=== PATIENT | male | born 1970 | race African-American/Black ===

== ENCOUNTER 2019-04-03 13:38 | Emergency (ER) | payer OTHER ==
--- NOTE | 2019-04-03 14:49 | ER ---
Nurse's Notes Formerly [facility] Name: Placido Van Age: 49 yrs Sex: Male : 1970 Arrival Date: 04/03/2019 Time: 13:43 Bed Waiting Private MD: Diagnosis: Presentation: 04/03 13:55 Presenting complaint: Nosebleed that stated 40 mins [employer]. Pt stated "That heparin they hb give me in dialysis made my nose bleed.". Transition of care: patient was not received from another setting of care. Onset of symptoms was April 03, 2019. Risk Assessment: Do you want to hurt yourself or someone else? Patient reports no desire to harm self or others. Initial Sepsis Screen: Does the patient meet any 2 criteria? No. Patient's initial sepsis screen is negative. Does the patient have a suspected source of infection? No. Patient's initial sepsis screen is negative. Care prior to arrival: None. 13:55 Method Of Arrival: Ambulatory hb 13:55 Acuity: DYLAN 3 hb Historical: - Allergies: 13:58 No Known Allergies; hb - PMHx: 13:58 HD - //Tue; hb - Immunization history:: Adult Immunizations up to date. - Social history:: Smoking status: Patient uses tobacco products, denies chronic smoking, but will smoke occasionally. - Ebola Screening: : No symptoms or risks identified at this time. Assessment: 14:47 Reassessment: Pt instructed by PCP to go to dialysis, left after triage. hb Vital Signs: 13:58 BP 176 / 95; Pulse 101; Resp 17; Temp 98.5; Pulse Ox 98% on R/A; Weight 82.55 kg; hb Height 5 ft. 8 in. (172.72 cm); Pain 0/10; 13:58 Body Mass Index 27.67 (82.55 kg, 172.72 cm) hb ED Course: 13:43 Patient arrived in ED. mr 13:57 Triage completed. hb 13:58 Arm band placed on left wrist. hb Administered Medications: No medications were administered Outcome: 14:47 Patient left the ED. hb Signatures: Cathi Minaya Heather, RN RN hb
== END 2019-04-03 14:47 | disposition left against medical advice (07) ==
LOC: ER 13:38
DX: Z02.6 Encounter for examination for insurance purposes (principal)
CPT/HCPCS: 99281

== ENCOUNTER 2020-04-30 15:38 | Emergency (ER) | payer OTHER ==
--- OUTSIDE RECORDS SUMMARY | 2020-04-30 15:40 | XMS REPORT | Clinical Summary ---
:1970 Author Organization [facility] Address [address] [place] [id number] Care Team Providers Name Role Phone Eufemiakareem Primary Care Provider Allergies Active Allergy Reactions Severity Noted Date Comments Pregabalin 05/23/2019 Medications Not on file Active Problems Not on file Encounters Date Type Specialty Care Team Description 11/13/2019 Abstract Transplant Meena Caceres 09/18/2019 Telephone Transplant Meena Caceres Appointment ( Called patient to reschedule miss ed day one renal txp eval appt. Patient stated he will call ne xt week to reschedule as h e has been having transpor tation issues.) 09/10/2019 Telephone Transplant Corine Fountain (Left a message for the patient to call back and confirm his belen t for 09.11.2019 for kidney armendariz splant) 08/10/2019 Telephone Transplant Corine Fountain (Per Mrs. Van the patient panchito l be here for the class on Aug 14, 2013 and Mrs. Marietta dempsey is aware to check in at 7:30 am no later than 8am to all ow time for registration) 07/05/2019 Telephone Transplant Meena Caceres Appointment ( Called patient to reschedule his missed day one renal txp eval appt. Patient feeling under t he weather asked if I could call back tomorrow 07/06 to resched ule.) 06/26/2019 Telephone Transplant Corine Fountain (Left a message for Mr. Van to call back to reschedule his appt ) 06/25/2019 Telephone Transplant Corine Fountain (Left a message for Mr. 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 Last Filed Vital Signs Vital Sign Reading Time Taken Blood Pressure - - Pulse - - Temperature - - Respiratory Rate - - Oxygen Saturation - - Inhaled Oxygen Concentration - - Weight 92.5 kg (204 lb) 05/23/2019 12:27 PM CDT Height 172.7 cm (5' 8") 05/23/2019 12:27 PM CDT Body Mass Index 31.02 05/23/2019 12:27 PM CDT Plan of Treatment Not on file Results Not on fileafter 04/30/2019 Insurance Payer Benefit Plan / Group Subscriber ID Type Phone A ddress [employer] UNITED ONLY xxxxxxxxx Transplants - MEDICARE [facility] MEDICAID MEDICAID OF [place] xxxxxxxxx Medicaid
--- OUTSIDE RECORDS SUMMARY | 2020-04-30 15:49 | XMS REPORT | Continuity of Care Document ---
:1970 Author Organization [facility] t Address [address] [place] [address] Care Team Providers Name Role Phone Eufemiakareem Primary Care Physician Vtc-Lab Attending Clinician Unavailable Fitz HUERTA, K N Attending Clinician [place] Attending Clinician Unavailable [place] Attending Clinician Unavailable Anila MCMAHON Attending Clinician Unavailable Payers Payer Name Policy Policy Effective Expiration Source Type Number Date Date [facility] NETWK - xxxxxxxxx [facility]I MEDICARE MGD CAREOPTUM [facility] Medical REPLxxxxxxxxxTransplants [facility] MEDICAIDMEDICAID OF xxxxxxxxx [place] t [place] [facility] Problems This patient has no known problems. Allergies, Adverse Reactions, Alerts Allergy Allergy Status Severity Reaction(s) Onset Inactive Treating Comm ents Source Name Type Date Date Clinician gabapent DA Active MO 2020-0 [facility] in 04-27 Clear 00:00: Ayoub 00 [facility] pregabal DA Active SV 2020-0 [facility] in 04-27 Clear 00:00: Ayoub 00 [facility] gabapent DA Active MO 2020-0 [facility] in 02-13 Clear 00:00: Ayoub 00 [facility] pregabal DA Active SV 2020-0 [facility] in 7-16 Clear 00:00: Ayoub 00 [facility] gabapent DA Active MO 2020-0 [facility] in 1-26 Clear 00:00: Ayoub [facility] pregabal DA Active SV 2020-0 [facility] in 1- Clear 00:00: Ayoub [facility] gabapent DA Active MO 2020-0 [facility] in 1- Clear 00:00: Ayoub [facility] pregabal DA Active SV 2020-0 [facility] in 1 Clear 00:00: Ayoub [facility] gabapent DA Active MO 2019-1 [facility] in 2- Clear 00:00: Ayoub [facility] pregabal DA Active MO 2019-1 [facility] in 2- Clear 00:00: Ayoub [facility] gabapent DA Active MO 2019-1 [facility] in 1-18 [place] 00:00: d 00 [facility] [place] pregabal DA Active MO 2019-1 [facility] in 1-18 [place] 00:00: d 00 [facility] gabapent DA Active MO 2019-1 [facility] in 1-17 Clear 00:00: Ayoub [facility] pregabal DA Active MO 2019-1 [facility] in 1-17 Clear 00:00: Ayuob [facility] No Known DA Active U 2019-1 [facility] Drug 0-30 [place] Allergie 00:00: d s 00 [facility] [place] gabapent DA Active MO 2019-1 [facility] in 0-29 Clear 00:00: Ayoub 00 [facility] pregabal DA Active MO 2019-1 [facility] in 0-29 Clear 00:00: Ayoub 00 [facility] Pregabal Propensi Active 2019-[address] [facility] 0-23 [facility] - adverse [facility]: Medical reaction 00 [facility] s gabapent DA Active MO 2019-1 [facility] in 0-10 [facility] 00[facility]: d 00 [facility] pregabal DA Active MO 2019-1 [facility] in 0-10 [place] 00:[facility]: d 00 [facility] gabapent DA Active MO 2019-1 [facility] in 0-03 [facility] 00:[facility]: d 00 [facility] pregabal DA Active MO 2019-1 [facility] in 0-03 [place] 00:[facility]: d 00 [facility] gabapent DA Active MO 2019-0 [facility] in 9-24 Clear 00:00: Ayoub 00 [facility] pregabal DA Active MO 2018- [facility] in 04-24 Clear 00:00: Ayoub 00 [facility] No Known DA Active U 2019- [facility] Drug 03-28 Clear Allergie 00:00: Ayoub s 00 [facility] No Known DA Active U 2019-0 [facility] Allergie 8 [facility] 00:[facility]: d 00 [facility] No Known DA Active U 2019-0 [facility] Allergie 5 Clear s 00:00: Ayoub 00 [facility] No Known DA Active U 2019-0 [facility] Allergie 11-21 Clear s 00:00: Ayoub 00 [facility] No Known DA Active U 2019-0 [facility] Allergie 4 [facility] 00:00: d 00 [facility] Social History Social Habit Start Date Stop Date Quantity Comments Source Sex Assigned At [facility] Smoking Status Start Date Stop Date Source Current some day smoker 2019-08-09 00:00:00 [facility] Medications This patient has no known medications. Vital Signs Vital Name Observation Time Observation Value Comments Source Body height 2019-05-23 12:27:00 172.7 cm [facility] Body weight Measured 2019-05-23 12:27:00 92.534 kg [facility] BMI 2019-05-23 12:27:00 31.02 kg/m2 [facility] Procedures This patient has no known procedures. Encounters Start End Encounter Admission Attending Care Care Encounter Source Date/Time Date/Time Type Type Clinicians Facility Department ID 2020-04-01 2020-04-01 [facility] Vtc-Lab [facility] [id number] 09:30:37 09:45:37 Visit MULTISPEC [id number] IALTY [id number] [place] [id number] [facility] 2020-03-10 2020-03-10 Case zAeb [facility] [id number] 00:00:00 00:00:00 Management doKiya MULTISPEC 350.1.13.10 [facility] [id number] [place] [id number] [facility] 2020-01-22 2020-03-06 [facility] [id number] 06:56:55 18:12:43 ne Visit Kiya louise MULTISPEC 350.1.13.10 [facility] 4.2.7.2.686 [place] [id number] [facility] Results Test Description Test Time Test Comments Results Result Comments Source BASIC METABOLIC PANEL 2020-04-29 12:10:00 Test Item Value Reference Range Interpretation Comme nts SODIUM (test code = NA) 133 mEq/L 134-147 L POTASSIUM (test code = K) 4.8 mEq/L 3.4-5.0 N CHLORIDE (test code = CL) 94 mEq/L 100-108 L CARBON DIOXIDE (test code = CO2) 34 mEq/L 21-33 H ANION GAP (test code = GAP) 10 0-20 N GLUCOSE (test code = GLU) 204 mg/dL 70-110 H BLOOD UREA NITROGEN (test code = 40 mg/dL 7-18 H BUN) GLOMERULAR FILTRATION RATE (test 6.6 90-95 L Units of measure = ml/min/1.73 code = GFR) m2 CREATININE (test code = CREAT) 10.1 mg/dL 0.6-1.3 H CALCIUM (test code = CA) 9.0 mg/dL 8.0-10.5 N ACUTE HEPATITIS [id number] 22:03:00 Test Item Value Reference Range Interpretation Comments AB HEPATITIS A IGM (test NON REACTIVE INDEX NON REACT. code = HAVMAB) AG HEPATITIS B SURFACE NON REACTIVE INDEX NonReactive (test code = HBSAG) AB HEPATITIS B CORE IGM NON REACTIVE INDEX NON REACT. (test code = HBCMAB) AB HEPATITIS C (test code NON REACTIVE INDEX NON REACT. = HCVAB) BASIC METABOLIC [id number] 11:11:00 Test Item Value Reference Range Interpretation Comments SODIUM (test code = NA) 131 mEq/L 134-147 L POTASSIUM (test code = 5.4 mEq/L 3.4-5.0 H K) CHLORIDE (test code = 95 mEq/L 100-108 L CL) CARBON DIOXIDE (test 29 mEq/L 21-33 N code = CO2) ANION GAP (test code = 12 0-20 N GAP) GLUCOSE (test code = 127 mg/dL 70-110 H GLU) BLOOD UREA NITROGEN 57 mg/dL 7-18 H (test code = BUN) GLOMERULAR FILTRATION 4.3 90-95 L Units of measure = RATE (test code = GFR) ml/mi n/1.73 m2 CREATININE (test code = 14.8 mg/dL 0.6-1.3 H CREAT) CALCIUM (test code = 9.0 mg/dL 8.0-10.5 N CA) CBC W/AUTO [id number] 10:41:00 Test Item Value Reference Range Interpretation Comments WHITE BLOOD CELL (test code = 13.08 x10 3/uL 4.5-11.0 H WBC) RED BLOOD CELL (test code = 2.86 x10 6/uL 4.00-5.60 L RBC) HEMOGLOBIN (test code = HGB) 8.9 g/dL 12.5-16.9 L HEMATOCRIT (test code = HCT) 27.9 % 37.5-50.7 L MEAN CELL VOLUME (test code = 97.6 fL 81.0-99.0 N MCV) MEAN CELL HGB (test code = 31.1 pg 27.0-33.0 N MCH) MEAN CELL HGB CONCETRATION 31.9 g/dL 33.0-37.0 L (test code = MCHC) RED CELL DISTRIBUTION WIDTH CV 16.6 % 11.5-14.5 H (test code = RDW) RED CELL DISTRIBUTION WIDTH SD 60.1 fL 37.0-54.0 H (test code = RDW-SD) PLATELET COUNT (test code = 161 x10 3/uL 150-400 N PLT) MEAN PLATELET VOLUME (test 10.4 fL 7.0-9.0 H code = MPV) NEUTROPHIL % (test code = NT%) 89.0 % 56.0-77.0 H IMMATURE GRANULOCYTE % (test 0.6 % 0.0-2.0 N code = IG%) LYMPHOCYTE % (test code = LY%) 5.0 % 14.0-32.0 L MONOCYTE % (test code = MO%) 5.0 % 4.8-9.0 N EOSINOPHIL % (test code = EO%) 0.1 % 0.3-3.7 L BASOPHIL % (test code = BA%) 0.3 % 0.0-2.0 N NUCLEATED RBC % (test code = 0.0 % 0-0 N NRBC%) NEUTROPHIL # (test code = NT#) 11.64 x10 3/uL 2.0-7.6 H IMMATURE GRANULOCYTE # (test 0.08 x10 3/uL 0.00-0.03 H code = IG#) LYMPHOCYTE # (test code = LY#) 0.65 x10 3/uL 1.0-3.8 L MONOCYTE # (test code = MO#) 0.66 x10 3/uL 0.1-0.8 N EOSINOPHIL # (test code = EO#) 0.01 x10 3/uL 0.0-0.2 N BASOPHIL # (test code = BA#) 0.04 x10 3/uL 0.0-0.2 N NUCLEATED RBC # (test code = 0.00 x10 3/uL 0.0-0.1 N NRBC#) MANUAL DIFF REQUIRED (test NO code = MDIFF) - US SOFT TISSUE [id number] 15:26:00 Name: GINETTE GARCIA [facility] : 1970 Age/S: 50 / M [address] [place] [address] Unit #: [id number] Loc: [facility] [id number] Phys: Mehrdad Arreola MD Acct: [id number] Dis Date: Status: ADM IN PHONE #: [phone] Exam Date: 04/27/2020 1523 FAX #: [phone] Reason: right breast lump (patient is MALE) EXAMS: CPTCODE: [id number] US SOFT TISSUE TORSO [id number] RIGHT CHESTWALL ULTRASOUND 04/27/2020 AT 1506 HOURS. CLINICAL HISTORY: Male patient with right breast lump for 2 weeks. COMPARISONS: Chest CT angiogram 10/04/2019. FINDINGS:Grayscale and limited color Doppler evaluation of the right chest wall soft tissues was performed with a linear transducer. Particular attention was given to the area of palpable abnormality in the region of the nipple. What may represent mild focal gynecomastia is identifiedat this level. No fluid collection or acute inflammatory change. IMPRESSION: 1. Probable mild gynecomastia. 2. No inflammatory change or fluid collection. Please note that this study is tailored for detection of fluid and is not intendedto serve as a screening or diagnostic test for breast cancer. If this is a consideration, dedicated diagnostic ultrasound is recommended on an outpatient basis in conjunction with breast mammograms. SL: [id number] at 1526 Reported and signed by: Jose De Jesus Magdaleno M.D. CC: Faheem Max MD; Mehrdad Arreola MD Technologist: Pepe Mercado [facility] Date/Time: 04/27/2020 (1526) [email or web address] Orig Print D/T: S: 04/27/2020 (1530) Probe: PAGE 1 Signed ReportCoronavirus 2019 nCoV [id number] 15:16:00 Test Item Value Reference Range Interpretation Comments Coronavirus 2019 Negative Negative Negative re sults should be nCoV Bedside (test treated a s presumptive and, code = ifinconsistent with [id number]) clinical signs and symptoms or necessaryfor patient management, delaney uld be tested with an alternativemole cular assay. Negative result s do not preclude HCSD-RmW-2ozcui tion and should not be u sed as the sole basis forp atient management deci sions. Negative result s should beconsidered in the context of a patient's recent exposures,histo ry, presence of clinical sig ns and symptoms consis tentwith COVID-19. - XR CHEST 1 [id number] 14:48:00 FAX: Faheem Padilla MD [phone] [place]: St: ADM FAX: Mehrdad Burden MD [phone] Name: GINETTE GARCIA [facility] : 1970 Age/S: 50/M [address] [place] [address] Unit #: [id number] [place]: [place] [address] Phys: Mehrdad rAreola MD Acct: [id number] Dis Date: Status: ADM IN PHONE #: [phone] Exam Date: 04/27/2020 1446 FAX #: [phone] Reason: missed dialysis EXAMS: CPT CODE: [id number] XR CHEST 1 V 73795 PROCEDURE: Chest Radiograph. Clinical Indication: Missed dialysis, fistula malfunction. Comparison: Chest radiograph 02/14/2020. FINDINGS: The chest shows normal lung volumes without interstitial or airspace opacities, pleural effusions or pneumothorax. The heart size and pulmonary vasculature are normal. The trachea is mid line. There are no clinically significant osseous abnormalities noted. IMPRESSION: 1. No chest radiographic evidence of acute cardiopulmonary disease. SL: OCO-H at 4390 Reported and signed by: Gregg Berger M.D. CC: Faheem Max MD; Mehrdad Arreola MD Technologist: RT Ajay(R) Trnabdifatah Date/Time/By: 04/27/2020 (1443) : By: BarbieTDO Orig Print D/T: S: 04/27/2020 (0628) PAGE 1 Signed ReportLIPOPROTEIN [id number] 14:35:00 Test Item Value Reference Range Interpretation Comments LIPOPROTEIN LDL 78.7 mg/dL 0-100 N <100 OPT [id number] (test code = LDL) NEAR OPTIM AL/ABOVE [id number] 89 HIGH>ES=012 VE RY HIGH*Guidelines provided by the National Cholesterol EducationProgra m Adult Treatment Panel III PROTHROMBIN [id number] 14:30:00 Test Item Value Reference Range Interpretation Comments PROTHROMBIN TIME 11.7 SECONDS 9.3-12.9 N PATIENT (test code = PTP) INTERNATIONAL NORMAL 1.1 0.8-1.2 N TARGET RATIO (test code = INR BY IN DICATION INR) Indication INR1. Prophyl axis of venous thrombos is 2.0 - 3. 0 (orthopedic luisito levi), Prophylaxis of venous thrombos is (other than hig h-risk surgery), Marycarmen tment of Deep Vein Thrombosis/Pulm onary Embolism, Preve ntion of systemic emb olism - Tissue heart va lves, Acute Myocardia l Infarction (to prevent systemic embo lism), Valvular heart disease, Atri al Fibrillation, Bileaflet mecha nical valve in aortic position.2. Mec hanical prosthetic valv es (high risk), 2.5 - 3.5 Presence of Lupus Anticoagu lant or Antiphospholi pid Antibodies, Pre vention of systemic e mbolism - Acute Myocard ial Infarction (t o prevent recurre nt infarct). THROMBOPLASTIN TIME [id number] 14:30:00 Test Item Value Reference Range Interpretation Comments THROMBOPLASTIN TIME 35.2 Seconds 25.0-39.5 N Ther apeutic PARTIAL (test code = Range: 50.4 - 88.3 PTT) Seconds Effective 11/14/2018 PROTHROMBIN [id number] 14:29:00 Test Item Value Reference Range Interpretation Comments PROTHROMBIN TIME 11.7 SECONDS 9.3-12.9 N PATIENT (test code = PTP) INTERNATIONAL NORMAL 1.1 0.8-1.2 N TARGET RATIO (test code = INR BY IN DICATION INR) Indication INR1. Prophyl axis of venous thrombos is 2.0 - 3. 0 (orthopedic luisito levi), Prophylaxis of venous thrombos is (other than hig h-risk surgery), Marycarmen tment of Deep Vein Thrombosis/Pulm onary Embolism, Preve ntion of systemic emb olism - Tissue heart va lves, Acute Myocardia l Infarction (to prevent systemic embo lism), Valvular heart disease, Atri al Fibrillation, Bileaflet mecha nical valve in aortic position.2. Mec hanical prosthetic valv es (high risk), 2.5 - 3.5 Presence of Lupus Anticoagu lant or Antiphospholi pid Antibodies, Pre vention of systemic e mbolism - Acute Myocard ial Infarction (t o prevent recurre nt infarct). THROMBOPLASTIN TIME [id number] 14:29:00 Test Item Value Reference Range Interpretation Comments THROMBOPLASTIN TIME PARTIAL (test Seconds 25.0-39.5 code = PTT) COMPREHENSIVE METABOLIC [id number] 14:16:00 Test Item Value Reference Range Interpretation Comments SODIUM (test code = NA) 134 mEq/L 134-147 N POTASSIUM (test code = 4.7 mEq/L 3.4-5.0 N K) CHLORIDE (test code = 96 mEq/L 100-108 L CL) CARBON DIOXIDE (test 32 mEq/L 21-33 N code = CO2) ANION GAP (test code = 11 0-20 N GAP) GLUCOSE (test code = 130 mg/dL 70-110 H GLU) BLOOD UREA NITROGEN 46 mg/dL 7-18 H (test code = BUN) GLOMERULAR FILTRATION 5.2 90-95 L Units of measure = RATE (test code = GFR) ml/mi n/1.73 m2 CREATININE (test code = 12.5 mg/dL 0.6-1.3 H CREAT) TOTAL PROTEIN (test 7.0 g/dL 6.4-8.2 N code = PROT) ALBUMIN (test code = 3.70 g/dL 3.4-5.0 N ALB) CALCIUM (test code = 8.9 mg/dL 8.0-10.5 N CA) BILIRUBIN TOTAL (test 0.60 mg/dL 0.0-1.0 N code = BILT) SGOT/AST (test code = 15 IUnit/L 15-37 N AST) SGPT/ALT (test code = 11 IUnit/L 30-65 L ALT) ALKALINE PHOSPHATASE 146 IUnit/L 20-125 H TOTAL (test code = ALKP) [id number] 14:16:00 Test Item Value Reference Range Interpretation Comments TROPONIN-I 0.087 ng/mL 0.000-0.045 H Negative: <= (test code = 0.045 Positive: TROPI) >= 0.046 Correl ation with serial results, other cardiac markers andclin ical findings is necessary to determine the clinicalsignifi cance of this result. Results using different metho dologies should not be c omparedto one another as krystyna titative results may shania y by method. CBC W/AUTO [id number] 14:09:00 Test Item Value Reference Range Interpretation Comments WHITE BLOOD CELL (test code = 11.49 x10 3/uL 4.5-11.0 H WBC) RED BLOOD CELL (test code = 2.67 x10 6/uL 4.00-5.60 L RBC) HEMOGLOBIN (test code = HGB) 8.3 g/dL 12.5-16.9 L HEMATOCRIT (test code = HCT) 25.8 % 37.5-50.7 L MEAN CELL VOLUME (test code = 96.6 fL 81.0-99.0 N MCV) MEAN CELL HGB (test code = 31.1 pg 27.0-33.0 N MCH) MEAN CELL HGB CONCETRATION 32.2 g/dL 33.0-37.0 L (test code = MCHC) RED CELL DISTRIBUTION WIDTH CV 16.6 % 11.5-14.5 H (test code = RDW) RED CELL DISTRIBUTION WIDTH SD 58.9 fL 37.0-54.0 H (test code = RDW-SD) PLATELET COUNT (test code = 174 x10 3/uL 150-400 N PLT) MEAN PLATELET VOLUME (test 10.6 fL 7.0-9.0 H code = MPV) NEUTROPHIL % (test code = NT%) 86.6 % 56.0-77.0 H IMMATURE GRANULOCYTE % (test 0.7 % 0.0-2.0 N code = IG%) LYMPHOCYTE % (test code = LY%) 7.7 % 14.0-32.0 L MONOCYTE % (test code = MO%) 4.1 % 4.8-9.0 L EOSINOPHIL % (test code = EO%) 0.7 % 0.3-3.7 N BASOPHIL % (test code = BA%) 0.2 % 0.0-2.0 N NUCLEATED RBC % (test code = 0.0 % 0-0 N NRBC%) NEUTROPHIL # (test code = NT#) 9.95 x10 3/uL 2.0-7.6 H IMMATURE GRANULOCYTE # (test 0.08 x10 3/uL 0.00-0.03 H code = IG#) LYMPHOCYTE # (test code = LY#) 0.89 x10 3/uL 1.0-3.8 L MONOCYTE # (test code = MO#) 0.47 x10 3/uL 0.1-0.8 N EOSINOPHIL # (test code = EO#) 0.08 x10 3/uL 0.0-0.2 N BASOPHIL # (test code = BA#) 0.02 x10 3/uL 0.0-0.2 N NUCLEATED RBC # (test code = 0.00 x10 3/uL 0.0-0.1 N NRBC#) MANUAL DIFF REQUIRED (test NO code = MDIFF) BASIC METABOLIC [id number] 12:33:00 Test Item Value Reference Range Interpretation Comments SODIUM (test code = NA) 134 mEq/L 134-147 N POTASSIUM (test code = 5.0 mEq/L 3.4-5.0 K) CHLORIDE (test code = 94 mEq/L 100-108 L CL) CARBON DIOXIDE (test 28 mEq/L 21-33 N code = CO2) ANION GAP (test code = 17 0-20 N GAP) GLUCOSE (test code = 113 mg/dL 70-110 H GLU) BLOOD UREA NITROGEN 80 mg/dL 7-18 H (test code = BUN) GLOMERULAR FILTRATION 4.0 90-95 L Units of measure = RATE (test code = GFR) ml/mi n/1.73 m2 CREATININE (test code = 15.7 mg/dL 0.6-1.3 H CREAT) CALCIUM (test code = 7.9 mg/dL 8.0-10.5 L CA) CBC W/AUTO [id number] 12:13:00 Test Item Value Reference Range Interpretation Comments WHITE BLOOD CELL (test code = 8.11 x10 3/uL 4.5-11.0 N WBC) RED BLOOD CELL (test code = 4.18 x10 6/uL 4.00-5.60 N RBC) HEMOGLOBIN (test code = HGB) 13.0 g/dL 12.5-16.9 N HEMATOCRIT (test code = HCT) 39.1 % 37.5-50.7 N MEAN CELL VOLUME (test code = 93.5 fL 81.0-99.0 MCV) MEAN CELL HGB (test code = MCH) 31.1 pg 27.0-33.0 N MEAN CELL HGB CONCETRATION 33.2 g/dL 33.0-37.0 N (test code = MCHC) RED CELL DISTRIBUTION WIDTH CV 16.4 % 11.5-14.5 H (test code = RDW) RED CELL DISTRIBUTION WIDTH SD 56.6 fL 37.0-54.0 H (test code = RDW-SD) PLATELET COUNT (test code = 167 x10 3/uL 150-400 N PLT) MEAN PLATELET VOLUME (test code 10.7 fL 7.0-9.0 H = MPV) NEUTROPHIL % (test code = NT%) 68.8 % 56.0-77.0 N IMMATURE GRANULOCYTE % (test 0.2 % 0.0-2.0 N code = IG%) LYMPHOCYTE % (test code = LY%) 19.7 % 14.0-32.0 N MONOCYTE % (test code = MO%) 9.2 % 4.8-9.0 H EOSINOPHIL % (test code = EO%) 1.6 % 0.3-3.7 N BASOPHIL % (test code = BA%) 0.5 % 0.0-2.0 N NUCLEATED RBC % (test code = 0.0 % 0-0 N NRBC%) NEUTROPHIL # (test code = NT#) 5.57 x10 3/uL 2.0-7.6 N IMMATURE GRANULOCYTE # (test 0.02 x10 3/uL 0.00-0.03 N code = IG#) LYMPHOCYTE # (test code = LY#) 1.60 x10 3/uL 1.0-3.8 N MONOCYTE # (test code = MO#) 0.75 x10 3/uL 0.1-0.8 N EOSINOPHIL # (test code = EO#) 0.13 x10 3/uL 0.0-0.2 N BASOPHIL # (test code = BA#) 0.04 x10 3/uL 0.0-0.2 N NUCLEATED RBC # (test code = 0.00 x10 3/uL 0.0-0.1 N NRBC#) MANUAL DIFF REQUIRED (test code NO = MDIFF) - XR CHEST 2 [id number] 12:12:00 FAX: Faheem Padilla MD [phone] [place]: St: PRE FAX: Oscar Garcia MD [phone] Name: GINETTE GARCIA [facility] : 1970 Age/S: 49/M [address] [place] [address] Unit #: [id number] Loc: [place] [address] Phys: Oscar Maravilla MD Acct: G [id number] Dis Date: Status: PRE SDC PHONE #: [phone] Exam Date: 02/14/2020 113 FAX #: [phone] Reason: PRE-OP FISTULOGRAM EXAMS: CPT CODE: [id number] XR CHEST 2 V 66073 Study: - XR CHEST 2 V 02/14/2020 9:28 AM Patient Name: GINETTE GARCIA MR: [id number] : 1970; Age: 49 years y/o Male Ordering Physician: Oscar Maravilla MD Clinical Indication: PRE-OP FISTULOGRAM Comparison: October 05, 2019 x-ray FINDINGS LUNGS: The lungs are clear of consolidation, pleural effusion, and pneumothorax. HEART AND MEDIASTINUM: Normal size heart. The previously seen left subclavian approach pacemaker is been removed. LINES: None. OSSEOUS STRUCTURES: No fracture, dislocation, or suspicious focal osseous lesion. OTHER: None. IMPRESSION: No acute abnormality as above discussed. SL: [id number] at 1212 Reported and signed by: Luan Torres M.D. CC: Faheem Max MD;Oscar Maravilla MD Technologist: RT Jenni(R)(M) Trnscrd Date/Time/By: 02/14/2020 (9003) : By: [email or web address] Orig Print D/T: S: 02/14/2020 (1289) PAGE 1 Signed ReportBASIC METABOLIC PANEL 2020-02-14 11:32:00 Test Item Value Reference Range Interpretation Comments SODIUM (test code = NA) 131 mEq/L 134-147 L POTASSIUM (test code = 6.7 mEq/L 3.4-5.0 HH K) CHLORIDE (test code = 91 mEq/L 100-108 L CL) CARBON DIOXIDE (test 31 mEq/L 21-33 N code = CO2) ANION GAP (test code = 16 0-20 N GAP) GLUCOSE (test code = 270 mg/dL 70-110 H GLU) BLOOD UREA NITROGEN 60 mg/dL 7-18 H (test code = BUN) GLOMERULAR FILTRATION 4.9 90-95 L Units of measure = RATE (test code = GFR) ml/mi n/1.73 m2 CREATININE (test code = 13.2 mg/dL 0.6-1.3 H CREAT) CALCIUM (test code = 9.2 mg/dL 8.0-10.5 N CA) COVID 19 Asymptomatic IH [id number] 11:24:00 Test Item Value Reference Range Interpretation Comments COVID 19 Asymptomatic Negative Negative A nega tive result is IH AG (test code = presumpti ve and should COVNONPUIAG) be confirmedwit h an FDA authorized mole cular assay, if neces vito forpatient anisa gement.A positive result does not rule out co-inf ections withother patho gens.This test detects july th viable (live) and non-viable,SARS -CoV, and SARS-CoV-2. Candice t performance dep ends on theamount of vi khari (antigen) in th e sample.This candice t has not been FDA cleare d or approved; the t est hasbeen authori zed by FDA under an Em ergency Use Authorizati on(EUA) for use by labo ratories certified under the CLIA thatmeet the requirements to perform moderate, high or waivedcomplexit y tests. PROTHROMBIN [id number] 10:50:00 Test Item Value Reference Range Interpretation Comments PROTHROMBIN TIME 11.2 SECONDS 9.3-12.9 N PATIENT (test code = PTP) INTERNATIONAL NORMAL 1.0 0.8-1.2 N TARGET RATIO (test code = INR BY IN DICATION INR) Indication INR1. Prophyl axis of venous thrombos is 2.0 - 3. 0 (orthopedic luisito levi), Prophylaxis of venous thrombos is (other than hig h-risk surgery), Marycarmen tment of Deep Vein Thrombosis/Pulm onary Embolism, Preve ntion of systemic emb olism - Tissue heart va lves, Acute Myocardia l Infarction (to prevent systemic embo lism), Valvular heart disease, Atri al Fibrillation, Bileaflet mecha nical valve in aortic position.2. Mec hanical prosthetic valv es (high risk), 2.5 - 3.5 Presence of Lupus Anticoagu lant or Antiphospholi pid Antibodies, Pre vention of systemic e mbolism - Acute Myocard ial Infarction (t o prevent recurre nt infarct). THROMBOPLASTIN TIME [id number] 10:50:00 Test Item Value Reference Range Interpretation Comments THROMBOPLASTIN TIME 34.3 Seconds 25.0-39.5 N Ther apeutic PARTIAL (test code = Range: 50.4 - 88.3 PTT) Seconds Effective 11/14/2018 PROTHROMBIN [id number] 10:49:00 Test Item Value Reference Range Interpretation Comments PROTHROMBIN TIME 11.2 SECONDS 9.3-12.9 N PATIENT (test code = PTP) INTERNATIONAL NORMAL 1.0 0.8-1.2 N TARGET RATIO (test code = INR BY IN DICATION INR) Indication INR1. Prophyl axis of venous thrombos is 2.0 - 3. 0 (orthopedic luisito levi), Prophylaxis of venous thrombos is (other than hig h-risk surgery), Marycarmen tment of Deep Vein Thrombosis/Pulm onary Embolism, Preve ntion of systemic emb olism - Tissue heart va lves, Acute Myocardia l Infarction (to prevent systemic embo lism), Valvular heart disease, Atri al Fibrillation, Bileaflet mecha nical valve in aortic position.2. Mec hanical prosthetic valv es (high risk), 2.5 - 3.5 Presence of Lupus Anticoagu lant or Antiphospholi pid Antibodies, Pre vention of systemic e mbolism - Acute Myocard ial Infarction (t o prevent recurre nt infarct). THROMBOPLASTIN TIME [id number] 10:49:00 Test Item Value Reference Range Interpretation Comments THROMBOPLASTIN TIME PARTIAL (test Seconds 25.0-39.5 code = PTT) CBC W/AUTO [id number] 10:34:00 Test Item Value Reference Range Interpretation Comments WHITE BLOOD CELL (test code = 9.24 x10 3/uL 4.5-11.0 WBC) RED BLOOD CELL (test code = 4.60 x10 6/uL 4.00-5.60 N RBC) HEMOGLOBIN (test code = HGB) 14.3 g/dL 12.5-16.9 N HEMATOCRIT (test code = HCT) 45.1 % 37.5-50.7 N MEAN CELL VOLUME (test code = 98.0 fL 81.0-99.0 N MCV) MEAN CELL HGB (test code = MCH) 31.1 pg 27.0-33.0 N MEAN CELL HGB CONCETRATION 31.7 g/dL 33.0-37.0 L (test code = MCHC) RED CELL DISTRIBUTION WIDTH CV 16.4 % 11.5-14.5 H (test code = RDW) RED CELL DISTRIBUTION WIDTH SD 59.7 fL 37.0-54.0 H (test code = RDW-SD) PLATELET COUNT (test code = 177 x10 3/uL 150-400 N PLT) MEAN PLATELET VOLUME (test code 11.5 fL 7.0-9.0 H = MPV) NEUTROPHIL % (test code = NT%) 76.7 % 56.0-77.0 N IMMATURE GRANULOCYTE % (test 0.2 % 0.0-2.0 N code = IG%) LYMPHOCYTE % (test code = LY%) 15.2 % 14.0-32.0 N MONOCYTE % (test code = MO%) 6.6 % 4.8-9.0 N EOSINOPHIL % (test code = EO%) 0.9 % 0.3-3.7 N BASOPHIL % (test code = BA%) 0.4 % 0.0-2.0 N NUCLEATED RBC % (test code = 0.0 % 0-0 N NRBC%) NEUTROPHIL # (test code = NT#) 7.09 x10 3/uL 2.0-7.6 N IMMATURE GRANULOCYTE # (test 0.02 x10 3/uL 0.00-0.03 N code = IG#) LYMPHOCYTE # (test code = LY#) 1.40 x10 3/uL 1.0-3.8 N MONOCYTE # (test code = MO#) 0.61 x10 3/uL 0.1-0.8 N EOSINOPHIL # (test code = EO#) 0.08 x10 3/uL 0.0-0.2 N BASOPHIL # (test code = BA#) 0.04 x10 3/uL 0.0-0.2 N NUCLEATED RBC # (test code = 0.00 x10 3/uL 0.0-0.1 N NRBC#) MANUAL DIFF REQUIRED (test code NO = MDIFF) ACUTE HEPATITIS [id number] 08:09:00 Test Item Value Reference Range Interpretation Comments AB HEPATITIS A IGM (test NON REACTIVE INDEX NON REACT. code = HAVMAB) AG HEPATITIS B SURFACE NON REACTIVE INDEX NonReactive (test code = HBSAG) AB HEPATITIS B CORE IGM NON REACTIVE INDEX NON REACT. (test code = HBCMAB) AB HEPATITIS C (test code NON REACTIVE INDEX NON REACT. = HCVAB) COMMENTS: At start of hemodialysisAB HEPATITIS B [id number] 08:09:00 Test Item Value Reference Range Interpretation Comments AB HEPATITIS B 138.9 mIU/mL Immunity>9.9 Status of I mmunity SURFACE (test code = HBSAB) Anti-HBs Level --- I ncons istent with Imm unity 0.0 - 9.9Consis tent with Immunity >9.9Performed A t: HD [facility] [address] [id number] Bryan Matthews MD Ph:[phone] COMMENTS: At start of hemodialysisACUTE HEPATITIS [id number] 12:54:00 Test Item Value Reference Range Interpretation Comments AB HEPATITIS A IGM (test NON REACTIVE INDEX NON REACT. code = HAVMAB) AG HEPATITIS B SURFACE NON REACTIVE INDEX NonReactive (test code = HBSAG) AB HEPATITIS B CORE IGM NON REACTIVE INDEX NON REACT. (test code = HBCMAB) AB HEPATITIS C (test code NON REACTIVE INDEX NON REACT. = HCVAB) COMMENTS: At start of hemodialysisAB HEPATITIS B [id number] 12:54:00 Test Item Value Reference Range Interpretation Comments AB HEPATITIS B SURFACE (test code = HBSAB) COMMENTS: At start of hemodialysisACUTE HEPATITIS [id number] 12:22:00 Test Item Value Reference Range Interpretation Comments AB HEPATITIS A IGM (test INDEX NON REACT. code = HAVMAB) AG HEPATITIS B SURFACE NON REACTIVE INDEX NonReactive (test code = HBSAG) AB HEPATITIS B CORE IGM INDEX NON REACT. (test code = HBCMAB) AB HEPATITIS C (test code INDEX NON REACT. = HCVAB) COMMENTS: At start of hemodialysisAB HEPATITIS B [id number] 12:22:00 Test Item Value Reference Range Interpretation Comments AB HEPATITIS B SURFACE (test code = HBSAB) COMMENTS: At start of hemodialysisACUTE HEPATITIS [id number] 12:22:00 Test Item Value Reference Range Interpretation Comments AB HEPATITIS A IGM (test INDEX NON REACT. code = HAVMAB) AG HEPATITIS B SURFACE NON REACTIVE INDEX NonReactive (test code = HBSAG) AB HEPATITIS B CORE IGM INDEX NON REACT. (test code = HBCMAB) AB HEPATITIS C (test code INDEX NON REACT. = HCVAB) COMMENTS: At start of hemodialysisAB HEPATITIS B [id number] 12:22:00 Test Item Value Reference Range Interpretation Comments AB HEPATITIS B SURFACE (test code = HBSAB) COMMENTS: At start of hemodialysisBASIC METABOLIC [id number] 09:55:00 Test Item Value Reference Range Interpretation Comments SODIUM (test code = NA) 134 mEq/L 134-147 N POTASSIUM (test code = 4.9 mEq/L 3.4-5.0 N K) CHLORIDE (test code = 96 mEq/L 100-108 L CL) CARBON DIOXIDE (test 23 mEq/L 21-33 N code = CO2) ANION GAP (test code = 20 0-20 N GAP) GLUCOSE (test code = 139 mg/dL 70-110 H GLU) BLOOD UREA NITROGEN 93 mg/dL 7-18 H (test code = BUN) GLOMERULAR FILTRATION 4.5 90-95 L Units of measure = RATE (test code = GFR) ml/mi n/1.73 m2 CREATININE (test code = 14.1 mg/dL 0.6-1.3 H CREAT) CALCIUM (test code = 7.6 mg/dL 8.0-10.5 L CA) RENAL FUNCTION [id number] 07:32:00 Test Item Value Reference Range Interpretation Comments SODIUM (test code = NA) 132 mEq/L 134-147 L POTASSIUM (test code = 4.5 mEq/L 3.4-5.0 N K) CHLORIDE (test code = 95 mEq/L 100-108 L CL) CARBON DIOXIDE (test 25 mEq/L 21-33 N code = CO2) ANION GAP (test code = 17 0-20 N GAP) GLUCOSE (test code = 149 mg/dL 70-110 H GLU) BLOOD UREA NITROGEN 71 mg/dL 7-18 H (test code = BUN) GLOMERULAR FILTRATION 5.5 90-95 L Units of measure = RATE (test code = GFR) ml/mi n/1.73 m2 CREATININE (test code = 11.8 mg/dL 0.6-1.3 H CREAT) ALBUMIN (test code = 3.00 g/dL 3.4-5.0 L ALB) CALCIUM (test code = 8.3 mg/dL 8.0-10.5 N CA) PHOSPHOROUS (test code 8.2 MG/DL 2.5-4.9 H = PHOS) [id number] 07:32:00 Test Item Value Reference Range Interpretation Comments MAGNESIUM (test code = MAG) 2.50 mg/dL 1.8-2.4 H CBC W/AUTO [id number] 06:14:00 Test Item Value Reference Range Interpretation Comments WHITE BLOOD CELL (test code = 6.16 x10 3/uL 4.5-11.0 N WBC) RED BLOOD CELL (test code = 3.30 x10 6/uL 4.00-5.60 L RBC) HEMOGLOBIN (test code = HGB) 10.1 g/dL 12.5-16.9 L HEMATOCRIT (test code = HCT) 30.4 % 37.5-50.7 L MEAN CELL VOLUME (test code = 92.1 fL 81.0-99.0 N MCV) MEAN CELL HGB (test code = MCH) 30.6 pg 27.0-33.0 N MEAN CELL HGB CONCETRATION 33.2 g/dL 33.0-37.0 N (test code = MCHC) RED CELL DISTRIBUTION WIDTH CV 17.1 % 11.5-14.5 H (test code = RDW) RED CELL DISTRIBUTION WIDTH SD 56.9 fL 37.0-54.0 H (test code = RDW-SD) PLATELET COUNT (test code = 220 x10 3/uL 150-400 N PLT) MEAN PLATELET VOLUME (test code 10.7 fL 7.0-9.0 H = MPV) NEUTROPHIL % (test code = NT%) 63.7 % 56.0-77.0 N IMMATURE GRANULOCYTE % (test 0.6 % 0.0-2.0 N code = IG%) LYMPHOCYTE % (test code = LY%) 18.3 % 14.0-32.0 N MONOCYTE % (test code = MO%) 11.0 % 4.8-9.0 H EOSINOPHIL % (test code = EO%) 5.4 % 0.3-3.7 H BASOPHIL % (test code = BA%) 1.0 % 0.0-2.0 N NUCLEATED RBC % (test code = 1.1 % 0-0 H NRBC%) NEUTROPHIL # (test code = NT#) 3.92 x10 3/uL 2.0-7.6 N IMMATURE GRANULOCYTE # (test 0.04 x10 3/uL 0.00-0.03 H code = IG#) LYMPHOCYTE # (test code = LY#) 1.13 x10 3/uL 1.0-3.8 N MONOCYTE # (test code = MO#) 0.68 x10 3/uL 0.1-0.8 N EOSINOPHIL # (test code = EO#) 0.33 x10 3/uL 0.0-0.2 H BASOPHIL # (test code = BA#) 0.06 x10 3/uL 0.0-0.2 N NUCLEATED RBC # (test code = 0.07 x10 3/uL 0.0-0.1 N NRBC#) MANUAL DIFF REQUIRED (test code NO = MDIFF) [id number] 20:40:00 Test Item Value Reference Range Interpretation Comments GLUBED (test code = 174 MG/DL 70-110 H Performe d by certified GLUBED) 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 [id number] 07:08:00 Test Item Value Reference Range Interpretation Comments SODIUM (test code = NA) 135 mEq/L 134-147 N POTASSIUM (test code = 4.0 mEq/L 3.4-5.0 N K) CHLORIDE (test code = 100 mEq/L 100-108 N CL) CARBON DIOXIDE (test 26 mEq/L 21-33 N code = CO2) ANION GAP (test code = 13 0-20 N GAP) GLUCOSE (test code = 95 mg/dL 70-110 N GLU) BLOOD UREA NITROGEN 59 mg/dL 7-18 H (test code = BUN) GLOMERULAR FILTRATION 7.6 90-95 L Units of measure = RATE (test code = GFR) ml/mi n/1.73 m2 CREATININE (test code = 9.0 mg/dL 0.6-1.3 H CREAT) ALBUMIN (test code = 3.10 g/dL 3.4-5.0 L ALB) CALCIUM (test code = CA) 8.2 mg/dL 8.0-10.5 N PHOSPHOROUS (test code = 6.5 MG/DL 2.5-4.9 H PHOS) CBC W/AUTO [id number] 06:32:00 Test Item Value Reference Range Interpretation Comments WHITE BLOOD CELL (test code = 6.66 x10 3/uL 4.5-11.0 N WBC) RED BLOOD CELL (test code = 3.29 x10 6/uL 4.00-5.60 L RBC) HEMOGLOBIN (test code = HGB) 10.1 g/dL 12.5-16.9 L HEMATOCRIT (test code = HCT) 30.2 % 37.5-50.7 L MEAN CELL VOLUME (test code = 91.8 fL 81.0-99.0 N MCV) MEAN CELL HGB (test code = MCH) 30.7 pg 27.0-33.0 N MEAN CELL HGB CONCETRATION 33.4 g/dL 33.0-37.0 N (test code = MCHC) RED CELL DISTRIBUTION WIDTH CV 16.9 % 11.5-14.5 H (test code = RDW) RED CELL DISTRIBUTION WIDTH SD 56.5 fL 37.0-54.0 H (test code = RDW-SD) PLATELET COUNT (test code = 226 x10 3/uL 150-400 N PLT) MEAN PLATELET VOLUME (test code 10.6 fL 7.0-9.0 H = MPV) NEUTROPHIL % (test code = NT%) 69.0 % 56.0-77.0 N IMMATURE GRANULOCYTE % (test 0.6 % 0.0-2.0 N code = IG%) LYMPHOCYTE % (test code = LY%) 17.3 % 14.0-32.0 N MONOCYTE % (test code = MO%) 6.9 % 4.8-9.0 N EOSINOPHIL % (test code = EO%) 5.1 % 0.3-3.7 H BASOPHIL % (test code = BA%) 1.1 % 0.0-2.0 N NUCLEATED RBC % (test code = 1.4 % 0-0 H NRBC%) NEUTROPHIL # (test code = NT#) 4.60 x10 3/uL 2.0-7.6 N IMMATURE GRANULOCYTE # (test 0.04 x10 3/uL 0.00-0.03 H code = IG#) LYMPHOCYTE # (test code = LY#) 1.15 x10 3/uL 1.0-3.8 N MONOCYTE # (test code = MO#) 0.46 x10 3/uL 0.1-0.8 N EOSINOPHIL # (test code = EO#) 0.34 x10 3/uL 0.0-0.2 H BASOPHIL # (test code = BA#) 0.07 x10 3/uL 0.0-0.2 N NUCLEATED RBC # (test code = 0.09 x10 3/uL 0.0-0.1 N NRBC#) MANUAL DIFF REQUIRED (test code NO = MDIFF) BASIC METABOLIC [id number] 05:47:00 Test Item Value Reference Range Interpretation Comments SODIUM (test code = NA) 138 mEq/L 134-147 N POTASSIUM (test code = 4.2 mEq/L 3.4-5.0 N K) CHLORIDE (test code = 101 mEq/L 100-108 N CL) CARBON DIOXIDE (test 30 mEq/L 21-33 N code = CO2) ANION GAP (test code = 11 0-20 N GAP) GLUCOSE (test code = 100 mg/dL 70-110 GLU) BLOOD UREA NITROGEN 42 mg/dL 7-18 H (test code = BUN) GLOMERULAR FILTRATION 10.7 90-95 L Units of measure = RATE (test code = GFR) ml/mi n/1.73 m2 CREATININE (test code = 6.7 mg/dL 0.6-1.3 H CREAT) CALCIUM (test code = 8.8 mg/dL 8.0-10.5 N CA) BASIC METABOLIC [id number] 05:41:00 Test Item Value Reference Range Interpretation Comments SODIUM (test code = NA) 138 mEq/L 134-147 N POTASSIUM (test code = K) 4.2 mEq/L 3.4-5.0 N CHLORIDE (test code = CL) 101 mEq/L 100-108 N CARBON DIOXIDE (test code = CO2) 30 mEq/L 21-33 N ANION GAP (test code = GAP) 11 0-20 N GLUCOSE (test code = GLU) 100 mg/dL 70-110 BLOOD UREA NITROGEN (test code = 42 mg/dL 7-18 H BUN) GLOMERULAR FILTRATION RATE (test 90-95 code = GFR) CREATININE (test code = CREAT) mg/dL 0.6-1.3 CALCIUM (test code = CA) 8.8 mg/dL 8.0-10.5 N CBC W/AUTO [id number] 05:34:00 Test Item Value Reference Range Interpretation Comments WHITE BLOOD CELL (test code = 8.95 x10 3/uL 4.5-11.0 N WBC) RED BLOOD CELL (test code = 2.94 x10 6/uL 4.00-5.60 L RBC) HEMOGLOBIN (test code = HGB) 9.2 g/dL 12.5-16.9 L HEMATOCRIT (test code = HCT) 27.5 % 37.5-50.7 L MEAN CELL VOLUME (test code = 93.5 fL 81.0-99.0 MCV) MEAN CELL HGB (test code = MCH) 31.3 pg 27.0-33.0 N MEAN CELL HGB CONCETRATION 33.5 g/dL 33.0-37.0 N (test code = MCHC) RED CELL DISTRIBUTION WIDTH CV 17.2 % 11.5-14.5 H (test code = RDW) RED CELL DISTRIBUTION WIDTH SD 58.4 fL 37.0-54.0 H (test code = RDW-SD) PLATELET COUNT (test code = 199 x10 3/uL 150-400 N PLT) MEAN PLATELET VOLUME (test code 11.1 fL 7.0-9.0 H = MPV) NEUTROPHIL % (test code = NT%) 83.8 % 56.0-77.0 H IMMATURE GRANULOCYTE % (test 0.4 % 0.0-2.0 N code = IG%) LYMPHOCYTE % (test code = LY%) 7.6 % 14.0-32.0 L MONOCYTE % (test code = MO%) 5.5 % 4.8-9.0 N EOSINOPHIL % (test code = EO%) 2.3 % 0.3-3.7 N BASOPHIL % (test code = BA%) 0.4 % 0.0-2.0 N NUCLEATED RBC % (test code = 1.2 % 0-0 H NRBC%) NEUTROPHIL # (test code = NT#) 7.49 x10 3/uL 2.0-7.6 N IMMATURE GRANULOCYTE # (test 0.04 x10 3/uL 0.00-0.03 H code = IG#) LYMPHOCYTE # (test code = LY#) 0.68 x10 3/uL 1.0-3.8 L MONOCYTE # (test code = MO#) 0.49 x10 3/uL 0.1-0.8 N EOSINOPHIL # (test code = EO#) 0.21 x10 3/uL 0.0-0.2 H BASOPHIL # (test code = BA#) 0.04 x10 3/uL 0.0-0.2 N NUCLEATED RBC # (test code = 0.11 x10 3/uL 0.0-0.1 H NRBC#) MANUAL DIFF REQUIRED (test code NO = MDIFF) RENAL FUNCTION [id number] 11:57:00 Test Item Value Reference Range Interpretation Comments SODIUM (test code = NA) 133 mEq/L 134-147 L POTASSIUM (test code = 4.4 mEq/L 3.4-5.0 N K) CHLORIDE (test code = 99 mEq/L 100-108 L CL) CARBON DIOXIDE (test 25 mEq/L 21-33 N code = CO2) ANION GAP (test code = 13 0-20 N GAP) GLUCOSE (test code = 197 mg/dL 70-110 H GLU) BLOOD UREA NITROGEN 51 mg/dL 7-18 H (test code = BUN) GLOMERULAR FILTRATION 9.1 90-95 L Units of measure = RATE (test code = GFR) ml/mi n/1.73 m2 CREATININE (test code = 7.7 mg/dL 0.6-1.3 H CREAT) ALBUMIN (test code = 3.10 g/dL 3.4-5.0 L ALB) CALCIUM (test code = CA) 8.9 mg/dL 8.0-10.5 N PHOSPHOROUS (test code = 3.9 MG/DL 2.5-4.9 N PHOS) [id number] 11:57:00 Test Item Value Reference Range Interpretation Comments MAGNESIUM (test code = MAG) 2.10 mg/dL 1.8-2.4 N CALCIUM [id number] 11:57:00 Test Item Value Reference Range Interpretation Comments CALCIUM IONIZED (test code = CAROL) 1.12 MMOL/L 1.12-1.32 N RENAL FUNCTION [id number] 11:56:00 Test Item Value Reference Range Interpretation Comments SODIUM (test code = NA) 133 mEq/L 134-147 L POTASSIUM (test code = K) 4.4 mEq/L 3.4-5.0 N CHLORIDE (test code = CL) 99 mEq/L 100-108 L CARBON DIOXIDE (test code = CO2) 25 mEq/L 21-33 N ANION GAP (test code = GAP) 13 0-20 N GLUCOSE (test code = GLU) 197 mg/dL 70-110 H BLOOD UREA NITROGEN (test code = 51 mg/dL 7-18 H BUN) GLOMERULAR FILTRATION RATE (test 90-95 code = GFR) CREATININE (test code = CREAT) mg/dL 0.6-1.3 ALBUMIN (test code = ALB) g/dL 3.4-5.0 CALCIUM (test code = CA) 8.9 mg/dL 8.0-10.5 N PHOSPHOROUS (test code = PHOS) MG/DL 2.5-4.9 [id number] 11:56:00 Test Item Value Reference Range Interpretation Comments MAGNESIUM (test code = MAG) mg/dL 1.8-2.4 CALCIUM [id number] 11:56:00 Test Item Value Reference Range Interpretation Comments CALCIUM IONIZED (test code = CAROL) 1.12 MMOL/L 1.12-1.32 N RENAL FUNCTION [id number] 11:42:00 Test Item Value Reference Range Interpretation Comments SODIUM (test code = NA) mEq/L 134-147 POTASSIUM (test code = K) mEq/L 3.4-5.0 CHLORIDE (test code = CL) mEq/L 100-108 CARBON DIOXIDE (test code = CO2) mEq/L 21-33 ANION GAP (test code = GAP) 0-20 GLUCOSE (test code = GLU) mg/dL 70-110 BLOOD UREA NITROGEN (test code = BUN) mg/dL 7-18 GLOMERULAR FILTRATION RATE (test code 90-95 = GFR) CREATININE (test code = CREAT) mg/dL 0.6-1.3 ALBUMIN (test code = ALB) g/dL 3.4-5.0 CALCIUM (test code = CA) mg/dL 8.0-10.5 PHOSPHOROUS (test code = PHOS) MG/DL 2.5-4.9 [id number] 11:42:00 Test Item Value Reference Range Interpretation Comments MAGNESIUM (test code = MAG) mg/dL 1.8-2.4 CALCIUM [id number] 11:42:00 Test Item Value Reference Range Interpretation Comments CALCIUM IONIZED (test code = CAROL) 1.12 MMOL/L 1.12-1.32 N [id number] 10:49:00 Test Item Value Reference Range Interpretation Comments GLUBED (test code = 184 MG/DL 70-110 H Performe d by certified GLUBED) 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 code = HAVMAB) AG HEPATITIS B SURFACE NON REACTIVE INDEX NonReactive (test code = HBSAG) AB HEPATITIS B CORE IGM NON REACTIVE INDEX NON REACT. (test code = HBCMAB) AB HEPATITIS C (test code NON REACTIVE INDEX NON REACT. = HCVAB) COMMENTS: At start of hemodialysisAB HEPATITIS B [id number] 10:46:00 Test Item Value Reference Range Interpretation Comments AB HEPATITIS B 238.5 mIU/mL Immunity>9.9 Status of I mmunity SURFACE (test code = HBSAB) Anti-HBs Level --- I ncons istent with Imm unity 0.0 - 9.9Consis tent with Immunity >9.9Performed A t: HD [facility] [address] [id number] Bryan Matthews MD Ph:[phone] COMMENTS: At start of hemodialysis- XR CHEST 1 [id number] 06:29:00 FAX: Faheem Padilla MD [phone] [place]: St: ADM FAX: Janie Torres MD [phone] FAX: Erich Graham [facility] [phone] Name: GINETTE GARCIA [facility] [place] : 1970 Age/S: 49/M [address] [place] [address] Unit #: [id number] Loc: G.3307 [place] [address] Phys: Janie Watkins MD Acct: [id number] Dis Date: Status: ADM IN PHONE #: [phone] Exam Date: 10/05/2019 0559 FAX #: [phone] Reason: Post PM/ICD EXAMS: CPT CODE: [id number] XR CHEST 1 V 87582 Study: - XR CHEST 1 V 10/05/2019 5:00 AM Patient Name: GINETTE GARCIA MR: [id number] : 1970; Age: 49 years y/o Male Ordering Physic na: Janie Watkins MD Clinical Indication: Post PM/ICD Comparison: 10/04/2019 FINDINGS LUNGS: Mild hypoinflation associated with stable central pulmonary vascular congestion and mild right lower lobe opacity suggesting mild pulmonary edema or pneumonia. No pleural effusion or pneumothorax. HEART AND MEDIASTINUM: Stablemild cardiomegaly status post single lead pacemaker. LINES: None. OSSEOUS STRUCTURES: No fracture, dislocation, or suspicious focal osseous lesion.OTHER: Right internal jugular central venous catheter tip overlying the atriocaval junction. IMPRESSION: Mild hypoinflation associated with stable central pulmonary vascular congestion and right lower lobe opacity suggesting mild asymmetrical pulmonary edema or pneumonia. Stable mild cardiomegaly status post single leadpacemaker. SL: TPAINTER-H PAGE 1 Signed Report (CONTINUED) FAX: Faheem Padilla MD [phone] [place]: St: ADM FAX: Janie Torres MD [phone] FAX: Erich Graham [facility] [phone] Name: GINETTE GARCIA [facility] : 1970 Age/S: 49/M [address] [place] [address] Unit #: [id number] Loc: G.3307 [place] [address] Phys: Janie Watkins MD Acct: [id number] Dis Date: Status: ADM IN PHONE #: [phone] Exam Date: 10/05/2019558 FAX #: [phone] Reason: Post PM/ICD EXAMS: CPT CODE: [id number] XR CHEST 1 V 78600 <Continued> at 0629 Reported and signed by: Kirill Van M.D. CC: Faheem Max MD; Janie Watkins MD; Erich Graham Technologist: Bandar Younger RT(R); RT Roosevelt(R) Trnscrd Date/Time/By: 10/05/2019 (628) : By: [email or web address] Orig Print D/T: S: 10/05/2019 (632) PAGE 2 Signed ReportRENAL FUNCTION [id number] 05:57:00 Test Item Value Reference Range Interpretation Comments SODIUM (test code = NA) 132 mEq/L 134-147 L POTASSIUM (test code = 4.5 mEq/L 3.4-5.0 K) CHLORIDE (test code = 101 mEq/L 100-108 N CL) CARBON DIOXIDE (test 20 mEq/L 21-33 L code = CO2) ANION GAP (test code = 16 0-20 N GAP) GLUCOSE (test code = 104 mg/dL 70-110 GLU) BLOOD UREA NITROGEN 58 mg/dL 7-18 H (test code = BUN) GLOMERULAR FILTRATION 6.8 90-95 L Units of measure = RATE (test code = GFR) ml/mi n/1.73 m2 CREATININE (test code = 9.9 mg/dL 0.6-1.3 H CREAT) ALBUMIN (test code = 3.00 g/dL 3.4-5.0 L ALB) CALCIUM (test code = CA) 8.9 mg/dL 8.0-10.5 N PHOSPHOROUS (test code = 5.0 MG/DL 2.5-4.9 H PHOS) [id number] 05:57:00 Test Item Value Reference Range Interpretation Comments MAGNESIUM (test code = MAG) 2.30 mg/dL 1.8-2.4 N CALCIUM [id number] 05:57:00 Test Item Value Reference Range Interpretation Comments CALCIUM IONIZED (test code = CAROL) 1.02 MMOL/L 1.12-1.32 L RENAL FUNCTION [id number] 05:48:00 Test Item Value Reference Range Interpretation Comments SODIUM (test code = NA) 132 mEq/L 134-147 L POTASSIUM (test code = K) 4.5 mEq/L 3.4-5.0 CHLORIDE (test code = CL) 101 mEq/L 100-108 N CARBON DIOXIDE (test code = CO2) 20 mEq/L 21-33 L ANION GAP (test code = GAP) 16 0-20 N GLUCOSE (test code = GLU) 104 mg/dL 70-110 BLOOD UREA NITROGEN (test code = 58 mg/dL 7-18 H BUN) GLOMERULAR FILTRATION RATE (test 9095 code = GFR) CREATININE (test code = CREAT) mg/dL 0.6-1.3 ALBUMIN (test code = ALB) g/dL 3.4-5.0 CALCIUM (test code = CA) 8.9 mg/dL 8.0-10.5 N PHOSPHOROUS (test code = PHOS) MG/DL 2.5-4.9 [id number] 05:48:00 Test Item Value Reference Range Interpretation Comments MAGNESIUM (test code = MAG) mg/dL 1.8-2.4 CALCIUM [id number] 05:48:00 Test Item Value Reference Range Interpretation Comments CALCIUM IONIZED (test code = CAROL) 1.02 MMOL/L 1.12-1.32 L RENAL FUNCTION [id number] 05:36:00 Test Item Value Reference Range Interpretation Comments SODIUM (test code = NA) mEq/L 134-147 POTASSIUM (test code = K) mEq/L 3.4-5.0 CHLORIDE (test code = CL) mEq/L 100-108 CARBON DIOXIDE (test code = CO2) mEq/L 21-33 ANION GAP (test code = GAP) 0-20 GLUCOSE (test code = GLU) mg/dL 70-110 BLOOD UREA NITROGEN (test code = BUN) mg/dL 7-18 GLOMERULAR FILTRATION RATE (test code 90-95 = GFR) CREATININE (test code = CREAT) mg/dL 0.6-1.3 ALBUMIN (test code = ALB) g/dL 3.4-5.0 CALCIUM (test code = CA) mg/dL 8.0-10.5 PHOSPHOROUS (test code = PHOS) MG/DL 2.5-4.9 [id number] 05:36:00 Test Item Value Reference Range Interpretation Comments MAGNESIUM (test code = MAG) mg/dL 1.8-2.4 CALCIUM [id number] 05:36:00 Test Item Value Reference Range Interpretation Comments CALCIUM IONIZED (test code = CAROL) 1.02 MMOL/L 1.12-1.32 L CBC W/AUTO [id number] 05:35:00 Test Item Value Reference Range Interpretation Comments WHITE BLOOD CELL (test code = 11.27 x10 3/uL 4.5-11.0 H WBC) RED BLOOD CELL (test code = 2.82 x10 6/uL 4.00-5.60 L RBC) HEMOGLOBIN (test code = HGB) 8.7 g/dL 12.5-16.9 L HEMATOCRIT (test code = HCT) 27.2 % 37.5-50.7 L MEAN CELL VOLUME (test code = 96.5 fL 81.0-99.0 N MCV) MEAN CELL HGB (test code = 30.9 pg 27.0-33.0 N MCH) MEAN CELL HGB CONCETRATION 32.0 g/dL 33.0-37.0 L (test code = MCHC) RED CELL DISTRIBUTION WIDTH CV 17.6 % 11.5-14.5 H (test code = RDW) RED CELL DISTRIBUTION WIDTH SD 61.8 fL 37.0-54.0 H (test code = RDW-SD) PLATELET COUNT (test code = 158 x10 3/uL 150-400 N PLT) MEAN PLATELET VOLUME (test 11.0 fL 7.0-9.0 H code = MPV) NEUTROPHIL % (test code = NT%) 87.8 % 56.0-77.0 H IMMATURE GRANULOCYTE % (test 0.4 % 0.0-2.0 N code = IG%) LYMPHOCYTE % (test code = LY%) 7.1 % 14.0-32.0 L MONOCYTE % (test code = MO%) 4.3 % 4.8-9.0 L EOSINOPHIL % (test code = EO%) 0.2 % 0.3-3.7 L BASOPHIL % (test code = BA%) 0.2 % 0.0-2.0 N NUCLEATED RBC % (test code = 0.7 % 0-0 H NRBC%) NEUTROPHIL # (test code = NT#) 9.90 x10 3/uL 2.0-7.6 H IMMATURE GRANULOCYTE # (test 0.05 x10 3/uL 0.00-0.03 H code = IG#) LYMPHOCYTE # (test code = LY#) 0.80 x10 3/uL 1.0-3.8 L MONOCYTE # (test code = MO#) 0.48 x10 3/uL 0.1-0.8 N EOSINOPHIL # (test code = EO#) 0.02 x10 3/uL 0.0-0.2 N BASOPHIL # (test code = BA#) 0.02 x10 3/uL 0.0-0.2 N NUCLEATED RBC # (test code = 0.08 x10 3/uL 0.0-0.1 N NRBC#) MANUAL DIFF REQUIRED (test NO code = MDIFF) LACTIC ACID 2ND [id number] 01:27:00 Test Item Value Reference Range Interpretation Comments LACTIC ACID 2ND REPEAT (test code 1.3 mmol/L 0.4-1.9 N = LACT2) LACTIC ACID [id number] 23:00:00 Test Item Value Reference Range Interpretation Comments LACTIC ACID REPEAT (test code = 2.9 mmol/l 0.4-1.9 H LACTR) [id number] 22:53:00 Test Item Value Reference Range Interpretation Comments MAGNESIUM (test code = MAG) 2.50 mg/dL 1.8-2.4 H CALCIUM [id number] 22:53:00 Test Item Value Reference Range Interpretation Comments CALCIUM IONIZED (test code = CAROL) 0.95 MMOL/L 1.12-1.32 L [id number] 22:46:00 Test Item Value Reference Range Interpretation Comments MAGNESIUM (test code = MAG) mg/dL 1.8-2.4 CALCIUM [id number] 22:46:00 Test Item Value Reference Range Interpretation Comments CALCIUM IONIZED (test code = CAROL) 0.95 MMOL/L 1.12-1.32 L - CT ABD PELVIS [id number] 22:41:00 Name: GINETTE GARCIA [facility] [place] : 1970 Age/S: 49 / M [address] [place] [address] Blvd Unit #: [id number] Loc: [facility] [id number] Phys: Cesar Kraft MD Acct: [id number] Dis Date: Status: ADM IN PHONE #: [phone] Exam Date: 10/04/20192141 FAX #: [phone] Reason: NAUSEA/ABDOMINAL PAIN EXAMS: CPTCODE: [id number] CT ABD PELVIS W/CONT 10596 PROCEDURE: CTA CHEST INDICATION: Shortness of breath. Dizziness. Weakness. CHF exacerbation, volume overload, ESRD. COMPARISON: Current CXR. CT chest 08/27/2019 TECHNIQUE: CTA of the pulmonary arteries was performed with 100 ml Isovue 300 intravenous contrast. Multiplanar and 3-D MIP angiographic reconstructions are reviewed. CT imaging performed at this location utilizes radiation dose optimization techniques which include one or more of the following: - Automated exposure control -Adjustment of the mA and/or kV accordingto patient size -Use of iterative reconstruction technique CT Radiation Dose DLP 1544.30mGy-cm LIMITATIONS: None. FINDINGS: PULMONARY ARTERIES: Normal enhancement without intraluminal filling defect. MEDIASTINUM: Assessment may be limited by early arterial phase of this exam. Multiple mildly enlarged mediastinal nodes redemonst rated. Station 4R node 13 mm short axis, stable. Sedation 6 node 13 mm short axis slightly increased. The esophagus is unremarkable. HEART: Moderate multichamber cardiac enlargement. Pacemaker/ICD lead in place. Left heart chambers incompletely opacified at the time of this exam. No pericardial effusion. VASCULAR STRUCTURES: Mild calcified plaque thoracic aorta. Right hemodialysis catheter tip at the cavoatrial junction. The superior vena cava is unremarkable. LUNGS: There are small bilateral pleural effusions. There are diffuse bilateral groundglass opacities partially sparing the peripheral lung zon es. More dense indistinct opacities predominantly in dependent portions of the lungs notably the lower lobes. Interstitial septal thickening. No consolidation, discrete mass or cavitation. The central airways are patent. MUSCULOSKELETAL: The skeleton is intact. Bilateral gynecomastia. PAGE 1 Signed Report (CONTINUED) Name: GINETTE GARCIA [facility] [place] : 1970 Age/S: 49 / M [address] [place], [place] [address] Unit #: [id number] Loc: [place] [address] Phys: Cesar Kraft MD Acct: [id number] Dis Date: Status: ADM IN PHONE #: [phone] Exam Date: 10/04/20192141 FAX #: [phone] Reason: NA USEA/ABDOMINAL PAIN EXAMS: CPT CODE: [id number] CT ABD PELVIS W/CONT 97122 <Continued> IMPRESSION: 1. Negative for pulmonary embolism. 2. Cardiomegaly. 3. Bilateral groundglass opacities and indistinct airspace opacities predominantly in dependent portions favoring edema. Inflammation with infectious and noninfectious etiologies in the differential. Differential considerations as previously discussed. 4. Small bilateral pleural effusions. 5. Mediastinal lymphadenopathy. End Impression PROCEDURE: CT ABDOMEN AND PELVIS WITH CONTRAST INDICATION: Nausea. Abdominal pain. COMPARISON: CT abdomen 06/19/2019 TECHNIQUE: Helical imaging was performed diaphragm through the symphysis with multiplanar reconstructions. Study performed in conjunction with CTA chest. IV CONTRAST: GI CONTRAST: None. CT imaging performed at this location utilizes radiation dose optimization techniques which include one or more of the following: -Automated exposure control -Adjustment of the mA and/or kV according to patient size -Useof iterative reconstruction technique CT Radiation Dose DLP mGy-cm LIMI TATIONS: None. FINDINGS: LIVER: Slight mottled enhancement pattern likely accentuated by early portal venous phase of this exam. Passive venous congestion may contribute. No focal liver lesion. Craniocaudal length right lobe [id number] cm mid clavicular line. The portal venous system is patent. BILIARY TREE: No biliary dilatation. GALLBLADDER: The gallbladder is not abnormally distended. Pericholecystic edema not out of proportion to edematous changes PAGE 2 Signed Report (CONTINUED) Name[facility] 1970 Age/S: 49 / M [address] [place], [place] [address] Unit #: [id number] Loc: [place] [address] Phys: Cesar Kraft MD Acct: [id number] Dis Date: Status: ADM IN PHONE #: [phone] Exam Date: 10/04/20192141 FAX #: [phone] Reason: NAUSEA/ABDOMINAL PAIN EXAMS: CPT CODE: [id number] CT ABD PELVIS W/CONT 70767 <Continued> elsewhere. No radiopaque filling defects. SPLEEN: Normal. PANCREAS: Fatty involutional change withoutfocal abnormality. ADRENALS: Normal. KIDNEYS: Poor renal cortical enhancement concordant with history of end-stage renal disease. Indistinct low-attenuationfoci in the left renal cortex are poorly evaluated in this setting. Partially exophytic lesion upper pole left kidney estimated 2.4 x 2 cm, intermediate attenuation. Small near water attenuation lesion lower pole left kidney 13 mm diameter. No urinary calculi. No hydronephrosis. Perinephric stranding, asymmetric on the left. BOWEL: The stomach, small bowel and colon are unremarkable. APPENDIX: No evidence for appendicitis. PERITONEUM: Small volume ascites. No focal fluid collection. No free a ir. RETROPERITONEUM: Mild diffuse edema of retroperitoneal and mesenteric tissue planes without focal fluid collection. Numerous mildly enlarged retroperitoneal nodesmeasuring up to 16 mm short axis left para-aortic space. Scattered calcified plaque abdominal aorta. PELVIS: No pelvic mass. Urinary bladder is contracted, otherwise unremarkable. No pelvic adenopathy by size criteria. MUSCULOSKELETAL: Multilevel degenerative changes of the spine. 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 Degenerative changes bilateral hips with subchondral cyst formation. IMPRESSION: 1. Mild hepatomegaly. Possible passive venous congestion pattern. 2. Mild pericholecystic edema not out of proportion to edematous changes elsewhere and likely reflecting hepatic insufficiency/third spacing of fluid. Intrinsic gallbladder disease remains in the differential. 3. Limited assessment of the kidneys with poor cortical enhancement compatible with end-stage renal disease. Left renal masses PAGE 3 Signed Report (CONTINUED) Name: GINETTE GARCIA [facility] : 1970 Age/S: 49 / M [address] [place] [address] Unit #: [id number] Loc: [place] [address] Phys: Cesar Kraft MD Acct: [id number] Dis Date: Status: ADM IN PHONE #: [phone] Exam Date: 10/04/20192141 FAX #: [phone] Reason: NAUSEA/ABDOMINAL PAIN EXAMS: CPT CODE: [id number] CT ABD PELVIS W/CONT 84967 <Continued> incompletely characterized. Cysts, inflammatory masses and neoplasm in the differential. 4. Mild retroperitoneal lymphadenopathy. 5. Small volume ascites. SL: LIZA at 2241 Reported and signed by: Obinna Villegas M.D. CC: Faheem Max MD; Cesar Kraft MD Technologist:Nona New, RT(R) CTDI: DLP: Trnscb Date/Time: 10/04/2019 (2240) [email or web address] Orig Print D/T: S: 10/04/2019 (2243) PAGE 4 Signed Report- CTA CHEST FOR [id number] 22:41:00 Name: GINETTE GARCIA [facility] : 1970 Age/S: 49 / M [address] [place] [address] Blvd Unit #: [id number] Loc: [facility] [id number] Phys: Lluvia Pope MD Acct: [id number] Dis Date: Status: ADM IN PHONE #: [phone] Exam Date: 10/04/20192141 FAX #: [phone] Reason: SHORTNESS OF BREATH, DIZZINESS, WEAKNESS EXAMS: CPTCODE: [id number] [place] [address] PROCEDURE: CTA CHEST INDICATION: Shortness of breath. Dizziness. Weakness. CHF exacerbation, volume overload, ESRD. COMPARISON: Current CXR. CT chest 08/27/2019 TECHNIQUE: CTA of the pulmonary arteries was performed with 100 ml Isovue 300 intravenous contrast. Multiplanar and 3-D MIP angiographic reconstructions are reviewed. CT imaging performed at this location utilizes radiation dose optimization techniques which include one or more of the following: -Automated exposure control -Adjustment of the mA and/or kV accordingto patient size -Use of iterative reconstruction technique CT Radiation Dose DLP 1544.30mGy-cm LIMITATIONS: None. FINDINGS: PULMONARY ARTERIES: Normal enhancement without intraluminal filling defect. MEDIASTINUM: Assessment may be limited by early arterial phase of this exam. Multiple mildly enlarged mediastinal nodes redemonstrated. Station 4R node 13 mm short axis, stable. Sedation 6 node 13 mm short axis sligh tly increased. The esophagus is unremarkable. HEART: Moderate multichamber cardiac enlargement. Pacemaker/ICD lead in place. Left heart chambers incompletely opacified at the time of this exam. No pericardial effusion. VASCULAR STRUCTURES: Mild calcified plaque thoracic aorta. Right hemodialysis catheter tip at the cavoatrial junction. The superior vena cava is unremarkable. LUNGS: There are small bilateral pleural effusions. There are diffuse bilateral groundglass opacities partially sparing the peripheral lung zones. More dense indistinct opacities predominantly in dependent portions of the lungs notably the lower lobes. Interstitial septal thickening. No consolidation, discrete mass or cavitation. The central airways are patent. MUSCULOSKELETAL: The skeleton is intact. Bilateral gynecomastia. PAGE 1 Signed Report (CONTINUED) Name: GINETTE GARCIA [facility] : 1970 Age/S: 49 / M [address] [place] [address] Blvd Unit #: [id number] Loc: [place] [address] Phys: Lluvia Pope MD Acct: [id number] Dis Date: Status: ADM IN PHONE #: [phone] Exam Date: 10/04/20192141 FAX #: [phone] Reason: SHORTNESS OF BREATH, DIZZINESS, WEAKNESS EXAMS: CPT CODE: [id number] [place] [address] <Continued> IMPRESSION: 1. Negative for pulmonary embolism. 2. Cardiomegaly. 3. Bilateral groundglass opacities and indistinct airspace opacities predominantly in dependent portions favoring edema. Inflammation with infectious and noninfectious etiologies in the differential. Differential considerations as previously discussed. 4. Small bilateral pleural effusions. 5. Mediastinal lymphadenopathy. End Impression PROCEDURE: CT ABDOMEN AND PELVIS WITH CONTRAST INDICATION: Nausea. Abdominal pain. COMPARISON: CT abdomen 06/19/2019 TECHNIQUE: Helical imaging was performed diaphragm through the symphysis with multiplanar reconstructions. Study performed in conjunction with CTA chest. IV CONTRAST: GI CONTRAST: None. CT imaging performed at this location utilizes radiation dose optimization techniques which include one or more of the following: -Automated exposure control -Adjustment of the mA and/or kV according to patient size -Useof iterative reconstruction technique CT Radiation Dose DLP mGy-cm LIMI TATIONS: None. FINDINGS: LIVER: Slight mottled enhancement pattern likely accentuated by early portal venous phase of this exam. Passive venous congestion may contribute. No focal liver lesion. Craniocaudal length right lobe eqecticunadmv45 cm mid clavicular line. The portal venous system is patent. BILIARY TREE: No biliary dilatation. GALLBLADDER: The gallbladder is not abnormally distended. Pericholecystic edema not out of proportion to edematous changes PAGE 2 Signed Report (CONTINUED) Name: GINETTE GARCIA [facility] : 1970 Age/S: 49 / M [address] [place] [address] Blvd Unit #: [id number] Loc: [place] [address] Phys: Lluvia Pope MD Acct: [id number] Dis Date: Status: ADM IN PHONE #: [phone] Exam Date: 10/04/20192141 FAX #: [phone] Reason: SHORTNESS OF BREATH, DIZZINESS, WEAKNESS EXAMS: CPT CODE: [id number] [place] [address] <Continued> elsewhere. No radiopaque filling defects. SPLEEN: Normal. PANCREAS: Fatty involutional change withoutfocal abnormality. ADRENALS: Normal. KIDNEYS: Poor renal cortical enhancement concordant with history of end-stage renal disease. Indistinct low-attenuationfoci in the left renal cortex are poorly evaluated in this setting. Partially exophytic lesion upper pole left kidney estimated 2.4 x 2 cm, intermediate attenuation. Small near water attenuation lesion lower pole left kidney 13 mm diameter. No urinary calculi. No hydronephrosis. Perinephric stranding, asymmetric on the left. BOWEL: The stomach, small bowel and colon are unremarkable. APPENDIX: No evidence for appendicitis. PERITONEUM: Small volume ascites. No focal fluid collection. No free a ir. RETROPERITONEUM: Mild diffuse edema of retroperitoneal and mesenteric tissue planes without focal fluid collection. Numerous mildly enlarged retroperitoneal nodesmeasuring up to 16 mm short axis left para-aortic space. Scattered calcified plaque abdominal aorta. PELVIS: No pelvic mass. Urinary bladder is contracted, otherwise unremarkable. No pelvic adenopathy by size criteria. MUSCULOSKELETAL: Multilevel degenerative changes of the spine. 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 Degenerative changes bilateral hips with subchondral cyst formation. IMPRESSION: 1. Mild hepatomegaly. Possible passive venous congestion pattern. 2. Mild pericholecystic edema not out of proportion to edematous changes elsewhere and likely reflecting hepatic insufficiency/third spacing of fluid. Intrinsic gallbladder disease remains in the differential. 3. Limited assessment of the kidneys with poor cortical enhancement compatible with end-stage renal disease. Left renal masses PAGE 3 Signed Report (CONTINUED) Name: GINETTE GARCIA [facility] : 1970 Age/S: 49 / M [address] [place] [address] Blvd Unit #: [id number] Loc: [place] [address] Phys: Lluvia Pope MD Acct: [id number] Dis Date: Status: ADM IN PHONE #: [phone] Exam Date: 10/04/20192141 FAX #: [phone] Reason: SHORTNESS OF BREATH, DIZZINESS, WEAKNESS EXAMS: CPT CODE: [id number] [place] [address] <Continued> incompletely characterized. Cysts, inflammatory masses and neoplasm in the differential. 4. Mild retroperitoneal lymphadenopathy. 5. Small volume ascites. SL: KL-H at 2241 Reported and signed by: Obinna Villegas M.D. CC: Faheem Max MD; Lluvia Pope MD Technologist:Nona New, RT(R) CTDI: DLP: Trnscb Date/Time: 10/04/2019(2240) tMARY Orig Print D/T: S: 10/04/2019 (9394) PAGE 4 Signed ReportPROCALCITONIN (PCT)2019-10-04 22:20:00 Test Item Value Reference Range Interpretation Comments PROCALCITONIN (PCT) 18.11 ng/mL 0.00-0.05 H PROCALC ITONIN (PCT) (test code = PROCAL) NORMAL RANGE (ADULT): <0.05 NG/ML. * a concentration < 0.5 ng/mL represent s a low risk of severe sepsis and/or septic s hock.* a concentration >2 ng/mL represent s a high risk of se alysia sepsis and/or s eptic shock.Neverthel ess, concentrations <0.5 ng/mL do not ex clude aninfection, on account of loca lized infections (withoutsystemi c signs) which ca n be associated with such lowconcentratio ns, or a systemic infe ction in its initials tages (< 6 hours). Furthermore, in creased procalcitoninca n occur without infecti on. PCT concentrations between 0.5and 2.0 ng/m L should be inter preted taking into acc ount thepatient's hi story. It is recommend ed to retest PCT with in6-24 hours if any concentrations <2 ng/mL are obtai dottie. PROTHROMBIN [id number] 21:28:00 Test Item Value Reference Range Interpretation Comments PROTHROMBIN TIME 14.8 SECONDS 9.3-12.9 H PATIENT (test code = PTP) INTERNATIONAL NORMAL 1.4 0.8-1.2 H TARGET RATIO (test code = INR BY IN DICATION INR) Indication INR1. Prophyl axis of venous thrombos is 2.0 - 3. 0 (orthopedic luisito levi), Prophylaxis of venous thrombos is (other than hig h-risk surgery), Marycarmen tment of Deep Vein Thrombosis/Pulm onary Embolism, Preve ntion of systemic emb olism - Tissue heart va lves, Acute Myocardia l Infarction (to prevent systemic embo lism), Valvular heart disease, Atri al Fibrillation, Bileaflet mecha nical valve in aortic position.2. Mec hanical prosthetic valv es (high risk), 2.5 - 3.5 Presence of Lupus Anticoagu lant or Antiphospholi pid Antibodies, Pre vention of systemic e mbolism - Acute Myocard ial Infarction (t o prevent recurre nt infarct). THROMBOPLASTIN TIME [id number] 21:28:00 Test Item Value Reference Range Interpretation Comments THROMBOPLASTIN TIME 35.4 Seconds 25.0-39.5 N Ther apeutic PARTIAL (test code = Range: 50.4 - 88.3 PTT) Seconds Effective 11/14/2018 COMPREHENSIVE METABOLIC [id number] 21:17:00 Test Item Value Reference Range Interpretation Comments SODIUM (test code = NA) 130 mEq/L 134-147 L POTASSIUM (test code = 6.1 mEq/L 3.4-5.0 HH K) CHLORIDE (test code = 97 mEq/L 100-108 L CL) CARBON DIOXIDE (test 19 mEq/L 21-33 L code = CO2) ANION GAP (test code = 20 0-20 N GAP) GLUCOSE (test code = 210 mg/dL 70-110 H GLU) BLOOD UREA NITROGEN 74 mg/dL 7-18 H (test code = BUN) GLOMERULAR FILTRATION 4.8 90-95 L Units of measure = RATE (test code = GFR) ml/mi n/1.73 m2 CREATININE (test code = 13.3 mg/dL 0.6-1.3 H CREAT) TOTAL PROTEIN (test 8.0 g/dL 6.4-8.2 N code = PROT) ALBUMIN (test code = 3.20 g/dL 3.4-5.0 L ALB) CALCIUM (test code = 8.1 mg/dL 8.0-10.5 N CA) BILIRUBIN TOTAL (test 1.1 MG/DL <1.5 code = BILT) SGOT/AST (test code = 217 IUnit/L 15-37 H AST) SGPT/ALT (test code = 230 IUnit/L 15-65 H ALT) ALKALINE PHOSPHATASE 119 IUnit/L 20-125 N TOTAL (test code = ALKP) LACTIC [id number] 21:17:00 Test Item Value Reference Range Interpretation Comments LACTIC ACID (test code = LACT) 3.1 mmol/L 0.4-1.9 H CBC W/AUTO [id number] 20:56:00 Test Item Value Reference Range Interpretation Comments WHITE BLOOD CELL (test code = 10.63 x10 3/uL 4.5-11.0 N WBC) RED BLOOD CELL (test code = 3.04 x10 6/uL 4.00-5.60 L RBC) HEMOGLOBIN (test code = HGB) 9.4 g/dL 12.5-16.9 L HEMATOCRIT (test code = HCT) 28.6 % 37.5-50.7 L MEAN CELL VOLUME (test code = 94.1 fL 81.0-99.0 N MCV) MEAN CELL HGB (test code = 30.9 pg 27.0-33.0 N MCH) MEAN CELL HGB CONCETRATION 32.9 g/dL 33.0-37.0 L (test code = MCHC) RED CELL DISTRIBUTION WIDTH CV 17.4 % 11.5-14.5 H (test code = RDW) RED CELL DISTRIBUTION WIDTH SD 59.7 fL 37.0-54.0 H (test code = RDW-SD) PLATELET COUNT (test code = 187 x10 3/uL 150-400 N PLT) MEAN PLATELET VOLUME (test 10.7 fL 7.0-9.0 H code = MPV) NEUTROPHIL % (test code = NT%) 88.7 % 56.0-77.0 H IMMATURE GRANULOCYTE % (test 0.6 % 0.0-2.0 N code = IG%) LYMPHOCYTE % (test code = LY%) 4.9 % 14.0-32.0 L MONOCYTE % (test code = MO%) 5.6 % 4.8-9.0 N EOSINOPHIL % (test code = EO%) 0.0 % 0.3-3.7 L BASOPHIL % (test code = BA%) 0.2 % 0.0-2.0 N NUCLEATED RBC % (test code = 0.9 % 0-0 H NRBC%) NEUTROPHIL # (test code = NT#) 9.44 x10 3/uL 2.0-7.6 H IMMATURE GRANULOCYTE # (test 0.06 x10 3/uL 0.00-0.03 H code = IG#) LYMPHOCYTE # (test code = LY#) 0.52 x10 3/uL 1.0-3.8 L MONOCYTE # (test code = MO#) 0.59 x10 3/uL 0.1-0.8 N EOSINOPHIL # (test code = EO#) 0.00 x10 3/uL 0.0-0.2 N BASOPHIL # (test code = BA#) 0.02 x10 3/uL 0.0-0.2 N NUCLEATED RBC # (test code = 0.10 x10 3/uL 0.0-0.1 N NRBC#) MANUAL DIFF REQUIRED (test NO code = MDIFF) ARTERIAL BLOOD [id number] 20:47:00 Test Item Value Reference Range Interpretation Comments ARTERIAL BLOOD GAS PH (test code 7.411 7.35-7.45 N = PHA) ARTERIAL BLOOD GAS PCO2 (test 29.7 mmHg 35-45 L code = PCO2A) ARTERIAL BLOOD GAS PO2 (test code 66 mmHg 80-100 L = PO2A) BICARBONATE TOTAL HCO3 (test code 19.0 mmol/L 22.0-26.0 L = HCO3) BASE EXCESS (test code = VICTOR M) -6.0 mmol/L -4-4 L ABG O2 SATURATION (test code = 94 % 90-100 N SATA) ABG DELIVERY (test code = DM) Cannula ABG TEMPERATURE (test code = 97.7 F TEMPA) ABG SITE (test code = SITEA) R Rad TCO2 ARTERIAL (test code = TCO2A) 20 [id number] 20:45:00 Test Item Value Reference Range Interpretation Comments GLUBED (test code = 188 MG/DL 70-110 H Performe d by certified GLUBED) grinding wheel operator at [facility] [id number] 19:03:00 Test Item Value Reference Range Interpretation Comments GLUBED (test code = 176 MG/DL 70-110 H Performe d by certified GLUBED) grinding wheel operator at [facility] - XR CHEST 1 [id number] 16:54:00 FAX: Faheem Padilla MD [phone] [place]: St: ADM FAX: Janie Torres MD [phone] FAX: Erich Graham [facility] [phone] Name: GINETTE GARCIA [facility] [place] : 1970 Age/S: 49/[place] [address] [place] [address] Unit #: [id number] Loc: [address] [place] [address] Phys: Janie Watkins MD Acct: [id number] Dis Date: Status: ADM IN PHONE #: [phone] Exam Date: 10/04/2019 1636 FAX #: [phone] Reason: Post PM/ICD EXAMS: CPT CODE: [id number] XR CHEST 1 V 02179 Clinical Indication: Post PM/ICD Comparison: 10/02/2019 FINDINGS: The frontal chest radiograph shows normal lung volumes. Diffuse interstitial and airspace opacities are seen in both lungs. No pleural effusions are present. No pneumothorax is seen. The heart is enlarged. The trachea is midline. A left-sided AICD is present. The tip of the right dialysis catheter is in the atriocaval junction. There are no clinically significant osseous abnormalities noted. IMPRESSION: 1. Diffuse interstitial and airspace opacity in both lungs. This is likely to represent pulmonary edema and/or pneumonia. 2. Cardiomegaly. 3. Lines and tubesas described above. SL: LANVU-H at 9007 Reported and signed by: Rk Beckford M.D. CC: Faheem Max MD; Janie Watkins MD; Erich Graham Technologist: RT Tito(R)(M) Trnscrd Date/Time/By: 10/04/2019 (1653) : By: [email or web address] Orig Print D/T: S: 10/04/2019 (6586) PAGE 1 Signed [id number] 14:16:00 Test Item Value Reference Range Interpretation Comments GLUBED (test code = 168 MG/DL 70-110 H Performe d by certified GLUBED) grinding wheel operator at [facility] ARTERIAL BLOOD [id number] 13:01:00 Test Item Value Reference Range Interpretation Comments ARTERIAL BLOOD GAS PH (test code 7.374 7.35-7.45 N = PHA) ARTERIAL BLOOD GAS PCO2 (test 30.9 mmHg 35-45 L code = PCO2A) ARTERIAL BLOOD GAS PO2 (test code 187 mmHg 80-100 H = PO2A) BICARBONATE TOTAL HCO3 (test code 18.1 mmol/L 22.0-26.0 L = HCO3) BASE EXCESS (test code = VICTOR M) -7.0 mmol/L -4-4 L ABG O2 SATURATION (test code = 100 % 90-100 N SATA) ABG DELIVERY (test code = DM) Nrb mask ABG TEMPERATURE (test code = 98.6 F TEMPA) ABG SITE (test code = SITEA) R Rad TCO2 ARTERIAL (test code = TCO2A) 19 BASIC METABOLIC [id number] 10:53:00 Test Item Value Reference Range Interpretation Comments SODIUM (test code = NA) 133 mEq/L 134-147 L POTASSIUM (test code = 4.5 mEq/L 3.4-5.0 K) CHLORIDE (test code = 97 mEq/L 100-108 L CL) CARBON DIOXIDE (test 23 mEq/L 21-33 N code = CO2) ANION GAP (test code = 18 0-20 N GAP) GLUCOSE (test code = 157 mg/dL 70-110 H GLU) BLOOD UREA NITROGEN 61 mg/dL 7-18 H (test code = BUN) GLOMERULAR FILTRATION 5.5 90-95 L Units of measure = RATE (test code = GFR) ml/mi n/1.73 m2 CREATININE (test code = 11.9 mg/dL 0.6-1.3 H CREAT) CALCIUM (test code = 7.8 mg/dL 8.0-10.5 L CA) [id number] 17:51:00 Test Item Value Reference Range Interpretation Comments GLUBED (test code = 213 MG/DL 70-110 H Performe d by certified GLUBED) grinding wheel operator at [facility] ACUTE HEPATITIS [id number] 13:41:00 Test Item Value Reference Range Interpretation Comments AB HEPATITIS A IGM (test NON REACTIVE INDEX NON REACT. code = HAVMAB) AG HEPATITIS B SURFACE NON REACTIVE INDEX NonReactive (test code = HBSAG) AB HEPATITIS B CORE IGM NON REACTIVE INDEX NON REACT. (test code = HBCMAB) AB HEPATITIS C (test code NON REACTIVE INDEX NON REACT. = HCVAB) COMMENTS: At start of hemodialysisAB HEPATITIS B [id number] 13:41:00 Test Item Value Reference Range Interpretation Comments AB HEPATITIS B SURFACE (test code = HBSAB) COMMENTS: At start of [id number] 13:27:00 Test Item Value Reference Range Interpretation Comments GLUBED (test code = 157 MG/DL 70-110 H Performe d by certified GLUBED) grinding wheel operator at [facility] ARTERIAL BLOOD [id number] 13:21:00 Test Item Value Reference Range Interpretation Comments ARTERIAL BLOOD GAS PH (test code 7.320 7.35-7.45 L = PHA) ARTERIAL BLOOD GAS PCO2 (test 32.7 mmHg 35-45 L code = PCO2A) ARTERIAL BLOOD GAS PO2 (test code 60 mmHg 80-100 L = PO2A) BICARBONATE TOTAL HCO3 (test code 16.9 mmol/L 22.0-26.0 L = HCO3) BASE EXCESS (test code = VICTOR M) -9.0 mmol/L -4-4 L ABG O2 SATURATION (test code = 89 % 90-100 L SATA) ABG DELIVERY (test code = DM) Nrb mask ABG TEMPERATURE (test code = 98.6 F TEMPA) ABG SITE (test code = SITEA) R Rad TCO2 ARTERIAL (test code = TCO2A) 18 ACUTE HEPATITIS [id number] 12:15:00 Test Item Value Reference Range Interpretation Comments AB HEPATITIS A IGM (test INDEX NON REACT. code = HAVMAB) AG HEPATITIS B SURFACE NON REACTIVE INDEX NonReactive (test code = HBSAG) AB HEPATITIS B CORE IGM INDEX NON REACT. (test code = HBCMAB) AB HEPATITIS C (test code INDEX NON REACT. = HCVAB) COMMENTS: At start of hemodialysisAB HEPATITIS B [id number] 12:15:00 Test Item Value Reference Range Interpretation Comments AB HEPATITIS B SURFACE (test code = HBSAB) COMMENTS: At start of [id number] 11:39:00 Test Item Value Reference Range Interpretation Comments TROPONIN-I 0.031 ng/mL 0.000-0.045 N Negative: <= (test code = 0.045 Positive: TROPI) >= 0.046 Correl ation with serial results, other cardiac markers andclin ical findings is necessary to determine the clinicalsignifi cance of this result. Results using different metho dologies should not be c omparedto one another as krystyna titative results may shania y by method. COMMENTS: 3 troponins total (including troponin done in ED)[id number] 09:59:00 Test Item Value Reference Range Interpretation Comments TROPONIN-I 0.039 ng/mL 0.000-0.045 N Negative: <= (test code = 0.045 Positive: TROPI) >= 0.046 Correl ation with serial results, other cardiac markers andclin ical findings is necessary to determine the clinicalsignifi cance of this result. Results using different metho dologies should not be c omparedto one another as krystyna titative results may shania y by method. COMMENTS: 3 troponins total (including troponin done in ED)LIPOPROTEIN LDL 2019-10-03 05:47:00 Test Item Value Reference Range Interpretation Comments LIPOPROTEIN LDL 70 mg/dL 0-100 N <100 OPT [id number] (test code = LDL) NEAR OPTIM AL/ABOVE [id number] HIGH>TN=692 VE RY HIGH*Guidelines provided by the National Cholesterol EducationProgra m Adult Treatment Panel III B-TYPE NATRIURETIC [id number] 05:03:00 Test Item Value Reference Range Interpretation Comments B-TYPE NATRIURETIC PEPTIDE (test 1691.5 PG/ML 0-100 H code = BNP) PROTHROMBIN [id number] 05:02:00 Test Item Value Reference Range Interpretation Comments PROTHROMBIN TIME 12.0 SECONDS 9.3-12.9 N PATIENT (test code = PTP) INTERNATIONAL NORMAL 1.1 0.8-1.2 N TARGET RATIO (test code = INR BY IN DICATION INR) Indication INR1. Prophyl axis of venous thrombos is 2.0 - 3. 0 (orthopedic luisito levi), Prophylaxis of venous thrombos is (other than hig h-risk surgery), Marycarmen tment of Deep Vein Thrombosis/Pulm onary Embolism, Preve ntion of systemic emb olism - Tissue heart va lves, Acute Myocardia l Infarction (to prevent systemic embo lism), Valvular heart disease, Atri al Fibrillation, Bileaflet mecha nical valve in aortic position.2. Mec hanical prosthetic valv es (high risk), 2.5 - 3.5 Presence of Lupus Anticoagu lant or Antiphospholi pid Antibodies, Pre vention of systemic e mbolism - Acute Myocard ial Infarction (t o prevent recurre nt infarct). THROMBOPLASTIN TIME [id number] 05:02:00 Test Item Value Reference Range Interpretation Comments THROMBOPLASTIN TIME 39.7 Seconds 25.0-39.5 H Ther apeutic PARTIAL (test code = Range: 50.4 - 88.3 PTT) Seconds Effective 11/14/2018 BASIC METABOLIC [id number] 05:00:00 Test Item Value Reference Range Interpretation Comments SODIUM (test code = NA) 133 mEq/L 134-147 L POTASSIUM (test code = 5.7 mEq/L 3.4-5.0 H K) CHLORIDE (test code = 99 mEq/L 100-108 L CL) CARBON DIOXIDE (test 19 mEq/L 21-33 L code = CO2) ANION GAP (test code = 21 0-20 H GAP) GLUCOSE (test code = 135 mg/dL 70-110 H GLU) BLOOD UREA NITROGEN 116 mg/dL 7-18 H (test code = BUN) GLOMERULAR FILTRATION 3.3 90-95 L Units of measure = RATE (test code = GFR) ml/mi n/1.73 m2 CREATININE (test code = 18.4 mg/dL 0.6-1.3 H CREAT) CALCIUM (test code = 7.8 mg/dL 8.0-10.5 L CA) HEPATIC FUNCTION [id number] 05:00:00 Test Item Value Reference Range Interpretation Comments TOTAL PROTEIN (test code = PROT) 8.3 g/dL 6.4-8.2 H ALBUMIN (test code = ALB) 3.90 g/dL 3.4-5.0 N BILIRUBIN TOTAL (test code = 0.3 MG/DL <1.5 N BILT) BILIRUBIN DIRECT (test code = 0.10 MG/DL 0.0-0.30 N BILD) BILIRUBIN INDIRECT (test code = 0.20 MG/DL BILIND) SGOT/AST (test code = AST) 30 IUnit/L 15-37 N SGPT/ALT (test code = ALT) 33 IUnit/L 15-65 N ALKALINE PHOSPHATASE TOTAL (test 121 IUnit/L 20-125 N code = ALKP) [id number] 05:00:00 Test Item Value Reference Range Interpretation Comments LIPASE (test code = LIP) 126 IUnit/L 73-393 N [id number] 05:00:00 Test Item Value Reference Range Interpretation Comments MAGNESIUM (test code = MAG) 3.50 mg/dL 1.8-2.4 H [id number] 05:00:00 Test Item Value Reference Range Interpretation Comments TROPONIN-I 0.052 ng/mL 0.000-0.045 HH Negative: <= (test code = 0.045 Positive: TROPI) >= 0.046 Correl ation with serial results, other cardiac markers andclin ical findings is necessary to determine the clinicalsignifi cance of this result. Results using different metho dologies should not be c omparedto one another as krystyna titative results may shania y by method. CBC W/AUTO [id number] 04:31:00 Test Item Value Reference Range Interpretation Comments WHITE BLOOD CELL (test code = 13.10 x10 3/uL 4.5-11.0 H WBC) RED BLOOD CELL (test code = 3.22 x10 6/uL 4.00-5.60 L RBC) HEMOGLOBIN (test code = HGB) 9.7 g/dL 12.5-16.9 L HEMATOCRIT (test code = HCT) 30.3 % 37.5-50.7 L MEAN CELL VOLUME (test code = 94.1 fL 81.0-99.0 N MCV) MEAN CELL HGB (test code = 30.1 pg 27.0-33.0 N MCH) MEAN CELL HGB CONCETRATION 32.0 g/dL 33.0-37.0 L (test code = MCHC) RED CELL DISTRIBUTION WIDTH CV 17.2 % 11.5-14.5 H (test code = RDW) RED CELL DISTRIBUTION WIDTH SD 58.4 fL 37.0-54.0 H (test code = RDW-SD) PLATELET COUNT (test code = 220 x10 3/uL 150-400 N PLT) MEAN PLATELET VOLUME (test 11.5 fL 7.0-9.0 H code = MPV) NEUTROPHIL % (test code = NT%) 85.4 % 56.0-77.0 H IMMATURE GRANULOCYTE % (test 0.6 % 0.0-2.0 N code = IG%) LYMPHOCYTE % (test code = LY%) 6.3 % 14.0-32.0 L MONOCYTE % (test code = MO%) 5.4 % 4.8-9.0 N EOSINOPHIL % (test code = EO%) 1.8 % 0.3-3.7 N BASOPHIL % (test code = BA%) 0.5 % 0.0-2.0 N NUCLEATED RBC % (test code = 0.0 % 0-0 N NRBC%) NEUTROPHIL # (test code = NT#) 11.18 x10 3/uL 2.0-7.6 H IMMATURE GRANULOCYTE # (test 0.08 x10 3/uL 0.00-0.03 H code = IG#) LYMPHOCYTE # (test code = LY#) 0.83 x10 3/uL 1.0-3.8 L MONOCYTE # (test code = MO#) 0.71 x10 3/uL 0.1-0.8 N EOSINOPHIL # (test code = EO#) 0.24 x10 3/uL 0.0-0.2 H BASOPHIL # (test code = BA#) 0.06 x10 3/uL 0.0-0.2 N NUCLEATED RBC # (test code = 0.00 x10 3/uL 0.0-0.1 N NRBC#) MANUAL DIFF REQUIRED (test NO code = MDIFF) - XR CHEST 1 [id number] 03:56:00 FAX: Faheem Padilla MD [phone] [place]: St: ADM FAX: Josiah Salinas MD [phone] Name: GINETTE GARCIA [facility] : 1970 Age/S: 49/M [address] [place] [address] Unit #: [id number] Loc: [place] [address] Phys: Josiah Ha MD Acct: [id number] Dis Date: Status: ADM IN PHONE #: [phone] Exam Date: 10/03/2019 0352 FAX #: [phone] Reason: SOB EXAMS: CPT CODE: [id number] XR CHEST 1 V 32075 Study: - XR CHEST 1 V 10/03/2019 3:24 AM Patient Name: GINETTE GARCIA MR: [id number] : 1970; Age: 49 years y/o Male Ordering Physician: Josiah Ha MD Clinical Indication: Shortness of breath. Comparison: 09/25/2019 FINDINGS LUNGS: Mildly increasing central pulmonary vascular congestion with ill-defined bilateral lower lobe opacities, right greater than left, suspicious for mild asymmetrical pulmonary edemaor pneumonia. No pleural effusion or pneumothorax. HEART AND MEDIASTINUM: Stable mild cardiomegaly. LINES: Right internal jugular central venous catheter tip overlying the distal SVC. OSSEOUS STRUCTURES: No fracture, dislocation, or suspicious focal osseous lesion. OTHER: None. IMPRESSION: Mildly increasing central pulmonary vascular congestion with ill-defined bilateral lowerlobe opacities, right greater than left, suspicious for mild asymmetrical pulmonary edema orpneumonia. Stable mild cardiomegaly. SL: TPAINTER-H PAGE 1 Signed Report (CONTINUED) FAX: Faheem Padilla MD [phone] [place]: St: ADM FAX: Josiah Salinas MD [phone] Name: GINETTE GARCIA [facility] : 1970 Age/S: 49/M [address] [place] [address] Unit #: [id number] Loc: [place] [address] Phys: Josiah Ha MD Acct: [id number] Dis Date: Status: ADM IN PHONE #: [phone] Exam Date: 10/03/2019351 FAX #: [phone] Reason: SOB EXAMS: CPT CODE:[id number] XR CHEST 1 V 41488 <Continued> at 0356 Reported and signed by: Kirill Van M.D. CC: Faheem Max MD; Josiah Ha MD Technologist: Lissette Akhtar RT(R) Trnscrd Date/Time/By: 10/03/2019 (0356) : By: [email or web address] Orig Print D/T: S: 10/03/2019 (0350) PAGE 2 Signed ReportBASIC METABOLIC [id number] 08:41:00 Test Item Value Reference Range Interpretation Comments SODIUM (test code = NA) 133 mEq/L 134-147 L POTASSIUM (test code = 4.6 mEq/L 3.4-5.0 N K) CHLORIDE (test code = 97 mEq/L 100-108 L CL) CARBON DIOXIDE (test 23 mEq/L 21-33 N code = CO2) ANION GAP (test code = 18 0-20 N GAP) GLUCOSE (test code = 103 mg/dL 70-110 N GLU) BLOOD UREA NITROGEN 45 mg/dL 7-18 H (test code = BUN) GLOMERULAR FILTRATION 6.6 90-95 L Units of measure = RATE (test code = GFR) ml/mi n/1.73 m2 CREATININE (test code = 10.1 mg/dL 0.6-1.3 H CREAT) CALCIUM (test code = 8.5 mg/dL 8.0-10.5 N CA) BASIC METABOLIC [id number] 16:19:00 Test Item Value Reference Range Interpretation Comments SODIUM (test code = NA) 133 mEq/L 134-147 L POTASSIUM (test code = 5.7 mEq/L 3.4-5.0 H K) CHLORIDE (test code = 98 mEq/L 100-108 L CL) CARBON DIOXIDE (test 24 mEq/L 21-33 code = CO2) ANION GAP (test code = 17 0-20 N GAP) GLUCOSE (test code = 94 mg/dL 70-110 GLU) BLOOD UREA NITROGEN 76 mg/dL 7-18 H (test code = BUN) GLOMERULAR FILTRATION 4.8 90-95 L Units of measure = RATE (test code = GFR) ml/mi n/1.73 m2 CREATININE (test code = 13.3 mg/dL 0.6-1.3 H CREAT) CALCIUM (test code = 7.6 mg/dL 8.0-10.5 L CA) BASIC METABOLIC [id number] 15:31:00 Test Item Value Reference Range Interpretation Comments SODIUM (test code = 133 mEq/L 134-147 L NA) POTASSIUM (test code 6.7 mEq/L 3.4-5.0 HH RECOLLE CTED SAMPLE, NO = K) HEMOLYSIS CHLORIDE (test code = 100 mEq/L 100-108 N CL) CARBON DIOXIDE (test 18 mEq/L 21-33 L code = CO2) ANION GAP (test code 22 0-20 H = GAP) GLUCOSE (test code = 65 mg/dL 70-110 L GLU) BLOOD UREA NITROGEN 95 mg/dL 7-18 H (test code = BUN) GLOMERULAR FILTRATION 4.0 90-95 L Units of measure = RATE (test code = ml/min/1.7 3 m2 GFR) CREATININE (test code 15.8 mg/dL 0.6-1.3 H = CREAT) CALCIUM (test code = 8.4 mg/dL 8.0-10.5 N CA) HEPATIC FUNCTION [id number] 15:31:00 Test Item Value Reference Range Interpretation Comments TOTAL PROTEIN (test code = PROT) 9.2 g/dL 6.4-8.2 H ALBUMIN (test code = ALB) 4.20 g/dL 3.4-5.0 N BILIRUBIN TOTAL (test code = 0.5 MG/DL <1.5 N BILT) BILIRUBIN DIRECT (test code = 0.10 MG/DL 0.0-0.30 N BILD) BILIRUBIN INDIRECT (test code = 0.40 MG/DL BILIND) SGOT/AST (test code = AST) 21 IUnit/L 15-37 N SGPT/ALT (test code = ALT) 23 IUnit/L 15-65 N ALKALINE PHOSPHATASE TOTAL (test 127 IUnit/L 20-125 H code = ALKP) [id number] 15:31:00 Test Item Value Reference Range Interpretation Comments TROPONIN-I 0.030 ng/mL 0.000-0.045 N Negative: <= (test code = 0.045 Positive: TROPI) >= 0.046 Correl ation with serial results, other cardiac markers andclin ical findings is necessary to determine the clinicalsignifi cance of this result. Results using different metho dologies should not be c omparedto one another as krystyna titative results may shania y by method. PROTHROMBIN [id number] 15:06:00 Test Item Value Reference Range Interpretation Comments PROTHROMBIN TIME 11.5 SECONDS 9.3-12.9 N PATIENT (test code = PTP) INTERNATIONAL NORMAL 1.1 0.8-1.2 N TARGET RATIO (test code = INR BY IN DICATION INR) Indication INR1. Prophyl axis of venous thrombos is 2.0 - 3. 0 (orthopedic luisito levi), Prophylaxis of venous thrombos is (other than hig h-risk surgery), Marycarmen tment of Deep Vein Thrombosis/Pulm onary Embolism, Preve ntion of systemic emb olism - Tissue heart va lves, Acute Myocardia l Infarction (to prevent systemic embo lism), Valvular heart disease, Atri al Fibrillation, Bileaflet mecha nical valve in aortic position.2. Mec hanical prosthetic valv es (high risk), 2.5 - 3.5 Presence of Lupus Anticoagu lant or Antiphospholi pid Antibodies, Pre vention of systemic e mbolism - Acute Myocard ial Infarction (t o prevent recurre nt infarct). THROMBOPLASTIN TIME [id number] 15:06:00 Test Item Value Reference Range Interpretation Comments THROMBOPLASTIN TIME 42.4 Seconds 25.0-39.5 H Ther apeutic PARTIAL (test code = Range: 50.4 - 88.3 PTT) Seconds Effective 11/14/2018 B-TYPE NATRIURETIC [id number] 14:13:00 Test Item Value Reference Range Interpretation Comments B-TYPE NATRIURETIC PEPTIDE (test 1341.0 PG/ML 0-100 H code = BNP) CBC W/AUTO [id number] 13:40:00 Test Item Value Reference Range Interpretation Comments WHITE BLOOD CELL (test code = 7.08 x10 3/uL 4.5-11.0 N WBC) RED BLOOD CELL (test code = 3.64 x10 6/uL 4.00-5.60 L RBC) HEMOGLOBIN (test code = HGB) 11.0 g/dL 12.5-16.9 L HEMATOCRIT (test code = HCT) 35.5 % 37.5-50.7 L MEAN CELL VOLUME (test code = 97.5 fL 81.0-99.0 N MCV) MEAN CELL HGB (test code = MCH) 30.2 pg 27.0-33.0 N MEAN CELL HGB CONCETRATION 31.0 g/dL 33.0-37.0 L (test code = MCHC) RED CELL DISTRIBUTION WIDTH CV 17.9 % 11.5-14.5 H (test code = RDW) RED CELL DISTRIBUTION WIDTH SD 64.8 fL 37.0-54.0 H (test code = RDW-SD) PLATELET COUNT (test code = 187 x10 3/uL 150-400 N PLT) MEAN PLATELET VOLUME (test code 11.2 fL 7.0-9.0 H = MPV) NEUTROPHIL % (test code = NT%) 78.4 % 56.0-77.0 H IMMATURE GRANULOCYTE % (test 0.1 % 0.0-2.0 N code = IG%) LYMPHOCYTE % (test code = LY%) 11.9 % 14.0-32.0 L MONOCYTE % (test code = MO%) 6.9 % 4.8-9.0 N EOSINOPHIL % (test code = EO%) 2.1 % 0.3-3.7 N BASOPHIL % (test code = BA%) 0.6 % 0.0-2.0 N NUCLEATED RBC % (test code = 0.0 % 0-0 N NRBC%) NEUTROPHIL # (test code = NT#) 5.55 x10 3/uL 2.0-7.6 N IMMATURE GRANULOCYTE # (test 0.01 x10 3/uL 0.00-0.03 N code = IG#) LYMPHOCYTE # (test code = LY#) 0.84 x10 3/uL 1.0-3.8 L MONOCYTE # (test code = MO#) 0.49 x10 3/uL 0.1-0.8 N EOSINOPHIL # (test code = EO#) 0.15 x10 3/uL 0.0-0.2 N BASOPHIL # (test code = BA#) 0.04 x10 3/uL 0.0-0.2 N NUCLEATED RBC # (test code = 0.00 x10 3/uL 0.0-0.1 N NRBC#) MANUAL DIFF REQUIRED (test code NO = MDIFF) - XR CHEST 1 [id number] 12:19:00 FAX: Michael Wilkes DO [phone] [place]: St: [facility] FAX: Faheem Padilla MD [phone] Name: [facility] 1970 Age/S: 49/M [address] [place] [address] Blvd Unit #: [id number] Loc: [place] [address] Phys: Michael Hardy DO Acct: [place] [id number] Dis Date: Status: REG ER PHONE #: [phone] Exam Date: 09/25/2019 1216 FAX #: [phone] Reason: SOB EXAMS: CPT CODE: [id number] XR CHEST 1 V 68767 CLINICAL HIST ORY:SOB COMPARISON:August 26, 2019 Frontal film of the chest performed at 1203 on September 25, 2019 demonstrates dialysis catheter in place. Cardiac silhouette is enlarged. Pulmonary opacities have improved significantly since previous examination. Minimal central vascular congestion is present. No evidence of pneumothorax or pleural effusion is seen. Regional skeletal structures are within normal limits. IMPRESSION: Interval improvement in pulmonary edema compared to previous examination dated August 26, 2019. at 1215 Reported and signed by: Colt Parker M.D. CC: Michael Hardy DO; Faheem Max MD Technologist: HAMMAD Albert) Trnscrd Date/Time/By: 09/25/2019 (0395) : By: Nina Orig Print D/T: S: 09/25/2019 (9942) PAGE 1 Signed ReportSURGICAL [id number] 08:06:00 RUN DATE: 09/03/19 [facility] *LIVE* PAGE 1 RUN TIME: 805 Specimen Inquiry RUN USER: INTERFACE PATIENT: GINETTE GARCIA LOC: KEANU #: [id number] AGE/SX: 49/M ROOM: [facility] RE08/27/19REG DR: Faheem Max MD : [birth year] BED: 1 DIS: 08/31/19 STATUS: DIS IN TLOC: SPEC #: [id number] RECD: 08/30/19 STATUS: NICOLE KELLI #: [id number] SUSAN: 08/30/19 [facility] DR: Faheem Max MD ENTERED: 09/02/19 SP TYPE: SURG SPEC OTHR DR: Self Referred Henrik Sheridan MD, Jose A MD Desai, Svetang V MD Sarker, Aziza F MDORDERED: GM LEVEL 4 CODES: [id number] - LUNG, NOS COPIES TO: Self Referred Faheem Max MD [address] [place] [address] Henrik Sheridan MD [address] [id number] Gualberto Hamilton MD [address] [place] [id number] Mainor David MD [address] [place] [address] Molly Watt MD [address] [place] [address] PROCEDURES: GM LEVEL 4 (Incomplete) TISSUES: 1. LUNG, NOS - Lung, right, middle lobe lavage, cytolog CONTINUED ON NEXT PAGE RUN DATE: 09/03/19 [facility] *LIVE* PAGE 2 RUN TIME: 805 Specimen Inquiry RUN USER: INTERFACE - SPEC #: [id number] PATIENT: GINETTE GARCIA #[id number] (Continued) FINAL DIAGNOSIS Lung, right, middle lobe lavage, cytology: Abundant hemosiderin laden macrophages, mixed inflammation, no cells diagnostic of malignancy. GROSS AND MICROSCOPIC GROSS EXAMINATION: Received is a right middle lobe lavage for cytologic evaluation. MICROSCOPIC EXAMINATION: cell block and cytospin smears of the right middle lobe lavage reveal abundant hemosiderin laden macrophages with some hemorrhage and mixed inflammation. There are rare fragments of degenerating respiratory epithelial cells. No cells diagnostic of malignancy are identified. No fungal or acid-fast organisms are identified with GMS or AFB staining. (When special stains have been reviewed, the appropriatepositive/negative controls have been reviewed and are appropriately positive/negative). POST-OP DIAGNOSIS Hemoptysis, abnormal CT PRE-OP DIAGNOSIS Hemoptysis, abnormal CT REVIEWED BY: XW Signed SIGNATURE ON FILE SoledadMarco A DO 09/03/19805 END OF REPORT ACUTE HEPATITIS [id number] 14:08:00 Test Item Value Reference Range Interpretation Comments AB HEPATITIS A IGM (test NON REACTIVE INDEX NON REACT. code = HAVMAB) AG HEPATITIS B SURFACE NON REACTIVE INDEX NonReactive (test code = HBSAG) AB HEPATITIS B CORE IGM NON REACTIVE INDEX NON REACT. (test code = HBCMAB) AB HEPATITIS C (test code NON REACTIVE INDEX NON REACT. = HCVAB) AB HEPATITIS B [id number] 14:08:00 Test Item Value Reference Range Interpretation Comments AB HEPATITIS B 235.0 mIU/mL Immunity>9.9 Status of I mmunity SURFACE (test code = HBSAB) Anti-HBs Level --- I ncons istent with Imm unity 0.0 - 9.9Consis tent with Immunity >9.9Performed A t: HD [address] [id number] Bryan Matthews MD Ph:[phone] ACUTE HEPATITIS [id number] 15:39:00 Test Item Value Reference Range Interpretation Comments AB HEPATITIS A IGM (test NON REACTIVE INDEX NON REACT. code = HAVMAB) AG HEPATITIS B SURFACE NON REACTIVE INDEX NonReactive (test code = HBSAG) AB HEPATITIS B CORE IGM NON REACTIVE INDEX NON REACT. (test code = HBCMAB) AB HEPATITIS C (test code NON REACTIVE INDEX NON REACT. = HCVAB) AB HEPATITIS B [id number] 15:39:00 Test Item Value Reference Range Interpretation Comments AB HEPATITIS B SURFACE (test code = HBSAB) ACUTE HEPATITIS [id number] 15:37:00 Test Item Value Reference Range Interpretation Comments AB HEPATITIS A IGM (test INDEX NON REACT. code = HAVMAB) AG HEPATITIS B SURFACE NON REACTIVE INDEX NonReactive (test code = HBSAG) AB HEPATITIS B CORE IGM NON REACTIVE INDEX NON REACT. (test code = HBCMAB) AB HEPATITIS C (test code NON REACTIVE INDEX NON REACT. = HCVAB) AB HEPATITIS B [id number] 15:37:00 Test Item Value Reference Range Interpretation Comments AB HEPATITIS B SURFACE (test code = HBSAB) ACUTE HEPATITIS [id number] 15:36:00 Test Item Value Reference Range Interpretation Comments AB HEPATITIS A IGM (test INDEX NON REACT. code = HAVMAB) AG HEPATITIS B SURFACE NON REACTIVE INDEX NonReactive (test code = HBSAG) AB HEPATITIS B CORE IGM INDEX NON REACT. (test code = HBCMAB) AB HEPATITIS C (test code NON REACTIVE INDEX NON REACT. = HCVAB) AB HEPATITIS B [id number] 15:36:00 Test Item Value Reference Range Interpretation Comments AB HEPATITIS B SURFACE (test code = HBSAB) ACUTE HEPATITIS [id number] 15:17:00 Test Item Value Reference Range Interpretation Comments AB HEPATITIS A IGM (test INDEX NON REACT. code = HAVMAB) AG HEPATITIS B SURFACE NON REACTIVE INDEX NonReactive (test code = HBSAG) AB HEPATITIS B CORE IGM INDEX NON REACT. (test code = HBCMAB) AB HEPATITIS C (test code INDEX NON REACT. = HCVAB) AB HEPATITIS B [id number] 15:17:00 Test Item Value Reference Range Interpretation Comments AB HEPATITIS B SURFACE (test code = HBSAB) [id number] 17:49:00 Test Item Value Reference Range Interpretation Comments GLUBED (test code = 149 MG/DL 70-110 H Performe d by certified GLUBED) grinding wheel operator at [facility] BODY FLUID CELL [id number] 18:48:00 Test Item Value Reference Range Interpretation Comments FLUID SOURCE BRONCHIAL LAVAGE RML LAVAGET he test (test code = results must be SOURCEFL) integrated into the clinicalcontext for interpretation. FLUID COLOR (test Colorless code = COLFL) FLUID APPEARANCE CLOUDY (test code = APPFL) FLUID WBC (test 41 MM3 0-500 N code = WBCFL) FLUID RBC (test 600 MM3 <=100,000 N code = RBCFL) FLUID POLY (test 1 % code = POLYFL) FLUID LYMPHOCYTE 11 % (test code = LYMPHFL) FLUID MONOCYTE 5 % (test code = MONOFL) FLUID MACROPHAGE 83 % (test code = MACFL) FLUID COMMENT Comment HEMOSIDERIN CR YSTALS (test code = PRESENT COMFL) RML [id number] 15:11:00 Test Item Value Reference Range Interpretation Comments GLUBED (test code = 98 MG/DL 70-110 N Performe d by certified GLUBED) grinding wheel operator at [facility] BASIC METABOLIC [id number] 06:45:00 Test Item Value Reference Range Interpretation Comments SODIUM (test code = NA) 134 mEq/L 134-147 N POTASSIUM (test code = 4.4 mEq/L 3.4-5.0 N K) CHLORIDE (test code = 98 mEq/L 100-108 L CL) CARBON DIOXIDE (test 24 mEq/L 21-33 N code = CO2) ANION GAP (test code = 16 0-20 N GAP) GLUCOSE (test code = 109 mg/dL 70-110 N GLU) BLOOD UREA NITROGEN 67 mg/dL 7-18 H (test code = BUN) GLOMERULAR FILTRATION 4.6 90-95 L Units of measure = RATE (test code = GFR) ml/mi n/1.73 m2 CREATININE (test code = 13.9 mg/dL 0.6-1.3 H CREAT) CALCIUM (test code = 8.1 mg/dL 8.0-10.5 N CA) BASIC METABOLIC [id number] 06:41:00 Test Item Value Reference Range Interpretation Comments SODIUM (test code = NA) 134 mEq/L 134-147 N POTASSIUM (test code = K) 4.4 mEq/L 3.4-5.0 N CHLORIDE (test code = CL) 98 mEq/L 100-108 L CARBON DIOXIDE (test code = CO2) 24 mEq/L 21-33 N ANION GAP (test code = GAP) 16 0-20 N GLUCOSE (test code = GLU) 109 mg/dL 70-110 N BLOOD UREA NITROGEN (test code = 67 mg/dL 7-18 H BUN) GLOMERULAR FILTRATION RATE (test 90-95 code = GFR) CREATININE (test code = CREAT) mg/dL 0.6-1.3 CALCIUM (test code = CA) 8.1 mg/dL 8.0-10.5 N PROTHROMBIN [id number] 06:20:00 Test Item Value Reference Range Interpretation Comments PROTHROMBIN TIME 13.1 SECONDS 9.3-12.9 H PATIENT (test code = PTP) INTERNATIONAL NORMAL 1.2 0.8-1.2 N TARGET RATIO (test code = INR BY IN DICATION INR) Indication INR1. Prophyl axis of venous thrombos is 2.0 - 3. 0 (orthopedic luisito levi), Prophylaxis of venous thrombos is (other than hig h-risk surgery), Marycarmen tment of Deep Vein Thrombosis/Pulm onary Embolism, Preve ntion of systemic emb olism - Tissue heart va lves, Acute Myocardia l Infarction (to prevent systemic embo lism), Valvular heart disease, Atri al Fibrillation, Bileaflet mecha nical valve in aortic position.2. Mec hanical prosthetic valv es (high risk), 2.5 - 3.5 Presence of Lupus Anticoagu lant or Antiphospholi pid Antibodies, Pre vention of systemic e mbolism - Acute Myocard ial Infarction (t o prevent recurre nt infarct). THROMBOPLASTIN TIME [id number] 06:20:00 Test Item Value Reference Range Interpretation Comments THROMBOPLASTIN TIME 37.2 Seconds 25.0-39.5 N Ther apeutic PARTIAL (test code = Range: 50.4 - 88.3 PTT) Seconds Effective 11/14/2018 CBC W/AUTO [id number] 06:08:00 Test Item Value Reference Range Interpretation Comments WHITE BLOOD CELL (test code = 8.29 x10 3/uL 4.5-11.0 N WBC) RED BLOOD CELL (test code = 3.02 x10 6/uL 4.00-5.60 L RBC) HEMOGLOBIN (test code = HGB) 9.2 g/dL 12.5-16.9 L HEMATOCRIT (test code = HCT) 27.9 % 37.5-50.7 L MEAN CELL VOLUME (test code = 92.4 fL 81.0-99.0 N MCV) MEAN CELL HGB (test code = MCH) 30.5 pg 27.0-33.0 N MEAN CELL HGB CONCETRATION 33.0 g/dL 33.0-37.0 N (test code = MCHC) RED CELL DISTRIBUTION WIDTH CV 18.0 % 11.5-14.5 H (test code = RDW) RED CELL DISTRIBUTION WIDTH SD 60.4 fL 37.0-54.0 H (test code = RDW-SD) PLATELET COUNT (test code = 195 x10 3/uL 150-400 N PLT) MEAN PLATELET VOLUME (test code 10.7 fL 7.0-9.0 H = MPV) NEUTROPHIL % (test code = NT%) 73.9 % 56.0-77.0 N IMMATURE GRANULOCYTE % (test 0.5 % 0.0-2.0 N code = IG%) LYMPHOCYTE % (test code = LY%) 13.1 % 14.0-32.0 L MONOCYTE % (test code = MO%) 9.4 % 4.8-9.0 H EOSINOPHIL % (test code = EO%) 2.7 % 0.3-3.7 N BASOPHIL % (test code = BA%) 0.4 % 0.0-2.0 N NUCLEATED RBC % (test code = 0.0 % 0-0 N NRBC%) NEUTROPHIL # (test code = NT#) 6.13 x10 3/uL 2.0-7.6 N IMMATURE GRANULOCYTE # (test 0.04 x10 3/uL 0.00-0.03 H code = IG#) LYMPHOCYTE # (test code = LY#) 1.09 x10 3/uL 1.0-3.8 N MONOCYTE # (test code = MO#) 0.78 x10 3/uL 0.1-0.8 N EOSINOPHIL # (test code = EO#) 0.22 x10 3/uL 0.0-0.2 H BASOPHIL # (test code = BA#) 0.03 x10 3/uL 0.0-0.2 N NUCLEATED RBC # (test code = 0.00 x10 3/uL 0.0-0.1 N NRBC#) MANUAL DIFF REQUIRED (test code NO = MDIFF) - XR L-SPINE 2/3 [id number] 16:16:00 FAX: Faheem Padilla MD [phone] [place]: St: [facility] FAX: Lluvia Cisneros MD [phone] Name: GINETTE GARCIA [facility] : 1970 Age/S: 49/M [address] [place] [address] Unit #: [id number] Loc: G.5531 [place] [address] Phys: Lluvia Pope MD Acct: [id number] Dis Date: Status: ADM IN PHONE #: [phone] Exam Date: 08/28/2019 1556 FAX #: [phone] Reason: back pain EXAMS: CPT CODE: [id number] XR L-SPINE 2/3 VIEWS 43051 Procedure: Lumbar Spine Radiographs. Clinical Indication: Back pain. Comparison: Lumbar radiographs 03/06/2019. FINDINGS: The 3 views of the lumbar spine show grade 1 spondylolisthesis of L4 on L5. There is degenerative change at L4-5 and L5-S1 including narrowing of the intervertebral disc spaces, marginal osteophyte formation and facet joint hypertrophy, most pronounced at L4-5. No acute vertebral body fracture. IMPRESSION: 1. Degenerative change. SL: OCO-H at 1616 Reported and signed by: Gregg Berger M.D. CC: Faheem Max MD; Lluvia Pope MD Technologist: Gualberto Morin RT(R) Trnscrd Date/Time/By: 08/28/2019 (4704) : By: BarbeiTDEliazar Orig Print D/T: S: 08/28/2019 (0388) PAGE 1 Signed ReportSERUM [id number] 09:10:00 Test Item Value Reference Range Interpretation Comments SERUM IRON (test code = IRON) 19 mcg/dL 35-150 L [id number] 09:10:00 Test Item Value Reference Range Interpretation Comments FERRITIN (test code = KAY) 946.7 ng/mL 23.9-336.2 H CBC W/AUTO [id number] 07:49:00 Test Item Value Reference Range Interpretation Comments WHITE BLOOD CELL (test code = 10.42 x10 3/uL 4.5-11.0 N WBC) RED BLOOD CELL (test code = 3.27 x10 6/uL 4.00-5.60 L RBC) HEMOGLOBIN (test code = HGB) 9.8 g/dL 12.5-16.9 L HEMATOCRIT (test code = HCT) 30.5 % 37.5-50.7 L MEAN CELL VOLUME (test code = 93.3 fL 81.0-99.0 N MCV) MEAN CELL HGB (test code = 30.0 pg 27.0-33.0 N MCH) MEAN CELL HGB CONCETRATION 32.1 g/dL 33.0-37.0 L (test code = MCHC) RED CELL DISTRIBUTION WIDTH CV 18.6 % 11.5-14.5 H (test code = RDW) RED CELL DISTRIBUTION WIDTH SD 63.2 fL 37.0-54.0 H (test code = RDW-SD) PLATELET COUNT (test code = 201 x10 3/uL 150-400 N PLT) MEAN PLATELET VOLUME (test 10.5 fL 7.0-9.0 H code = MPV) NEUTROPHIL % (test code = NT%) 84.6 % 56.0-77.0 H IMMATURE GRANULOCYTE % (test 0.3 % 0.0-2.0 N code = IG%) LYMPHOCYTE % (test code = LY%) 7.4 % 14.0-32.0 L MONOCYTE % (test code = MO%) 6.0 % 4.8-9.0 N EOSINOPHIL % (test code = EO%) 1.3 % 0.3-3.7 N BASOPHIL % (test code = BA%) 0.4 % 0.0-2.0 N NUCLEATED RBC % (test code = 0.0 % 0-0 N NRBC%) NEUTROPHIL # (test code = NT#) 8.82 x10 3/uL 2.0-7.6 H IMMATURE GRANULOCYTE # (test 0.03 x10 3/uL 0.00-0.03 N code = IG#) LYMPHOCYTE # (test code = LY#) 0.77 x10 3/uL 1.0-3.8 L MONOCYTE # (test code = MO#) 0.62 x10 3/uL 0.1-0.8 N EOSINOPHIL # (test code = EO#) 0.14 x10 3/uL 0.0-0.2 N BASOPHIL # (test code = BA#) 0.04 x10 3/uL 0.0-0.2 N NUCLEATED RBC # (test code = 0.00 x10 3/uL 0.0-0.1 N NRBC#) MANUAL DIFF REQUIRED (test NO code = MDIFF) - CT CHEST W/O [id number] 18:41:00 Name: GINETTE GARCIA [facility] : 1970 Age/S: 49 / M [address] [place] [address] Unit #: [id number] Loc: [facility] [id number] Phys: Lluvia Pope MD Acct: [id number] Dis Date: Status: ADM IN PHONE #: [phone] Exam Date: 08/27/2019 8009 FAX #: [phone] Reason: hemotysis EXAMS: CPTCODE: [id number] CT CHEST W/O CONTRAST 66136 PROCEDURE: CT CHEST WITHOUT CONTRAST INDICATION: Hemoptysis. Anemia. Volume overload. COMPARISON: Current CXR. CT chest 06/18/2019 TECHNIQUE: Noncontrasted helical imagingperformed apices through the lung bases with multiplanar reconstructions. CT imaging performed at this location utilizes radiation dose optimization techniques which include one or more of the following: -Automated exposure control -Adjustment of the mA and/or kV according to patient size - Use of iterative reconstruction technique CT Radiation Dose DLP 344.20mGy- cm LIMITATIONS: None. FINDINGS: LUNGS AND PLEURA: There are extensive, patchy bilateral groundglass attenuation opacities involving all lobes to variable degrees. There is no zonal predilection, upper versus lower, central versus peripheral. Themajority of disease appears indistinct peribronchial vascular. No consolidation, solid or cavitary components. Outside of dependent changes in the posterior lungs, no associated interstitial septal changes. The central airways are patent. There are small bilateral pleural effusions. MEDIASTINUM: Limited noncontrast survey of mediastinal contents. No gross hilar adenopathy. Paratracheal nodes measuring up to 13 mm short axis. Prevascular nodes measuring up to 12 mm short axis with slight increased size from prior exam. The esophagus is unremarkable. HEART: The cardiac chambers are unremarkable. No pericardial effusion. Mild coronary arterial calcifications. VASCULAR STRUCTURES: Mild calcified plaque thoracicaorta. No aneurysm. Right internal jugular hemodialysis catheter tip at the level of upper right atrium. UPPER ABDOMEN: Limited noncontrast survey of upper abdominal viscera is negative. MUSCULOSKELETAL: The skeleton is intact. Bilateral gynecomastia. IMPRESSION: PAGE 1 Signed Report (CONTINUED) Name: GINETTE GARCIA [facility] : 1970 Age/S: 49 / M [address] [place] [address] Blvd Unit #: [id number] Loc: [facility] [address] Phys: Lluvia Pope MD Acct: [id number] Dis Date: Status: ADM IN PHONE #: [phone] Exam Date: 08/27/2019 9667 FAX #: [phone] Reason: hemotysis EXAMS: CPT CODE: [id number] CT CHEST W/O CONTRAST 01628 <Continued> 1. Bilateral extensive groundglass pulmonary opacities with peribronchial distribution and probable progression of disease from June 2019. Edema and diffuse alveolar hemorrhage could have this appearance. Inflammation with environmental/inhalational injury, hypersensitivity pneumonitis and atypical infection remain in the differential. Other considerations include respiratory bronchiolitis, DIP, alveolar proteinosis, and eosinophilic pneumonia. 2. Mildly enlarged mediastinal nodes. SL: [id number] at 1841 Reported and signed by: Obinna Villegas M.D. CC: Faheem Max MD; Lluvia Pope MD Technologist:Arnol Barbour, RT(R)(CT) CTDI: DLP: Trnscb Date/Time: 08/27/2019 (1840) Po Orig Print D/T: S: 08/27/2019 (1843) PAGE 2 Signed ReportCBC W/AUTO [id number] 11:17:00 Test Item Value Reference Range Interpretation Comments WHITE BLOOD CELL (test code = 8.31 x10 3/uL 4.5-11.0 N WBC) RED BLOOD CELL (test code = 2.84 x10 6/uL 4.00-5.60 L RBC) HEMOGLOBIN (test code = HGB) 8.5 g/dL 12.5-16.9 L HEMATOCRIT (test code = HCT) 25.8 % 37.5-50.7 L MEAN CELL VOLUME (test code = 90.8 fL 81.0-99.0 MCV) MEAN CELL HGB (test code = MCH) 29.9 pg 27.0-33.0 N MEAN CELL HGB CONCETRATION 32.9 g/dL 33.0-37.0 L (test code = MCHC) RED CELL DISTRIBUTION WIDTH CV 18.3 % 11.5-14.5 H (test code = RDW) RED CELL DISTRIBUTION WIDTH SD 60.4 fL 37.0-54.0 H (test code = RDW-SD) PLATELET COUNT (test code = 200 x10 3/uL 150-400 N PLT) MEAN PLATELET VOLUME (test code 10.7 fL 7.0-9.0 H = MPV) NEUTROPHIL % (test code = NT%) 83.0 % 56.0-77.0 H IMMATURE GRANULOCYTE % (test 0.5 % 0.0-2.0 N code = IG%) LYMPHOCYTE % (test code = LY%) 9.4 % 14.0-32.0 L MONOCYTE % (test code = MO%) 5.9 % 4.8-9.0 N EOSINOPHIL % (test code = EO%) 1.0 % 0.3-3.7 N BASOPHIL % (test code = BA%) 0.2 % 0.0-2.0 N NUCLEATED RBC % (test code = 0.0 % 0-0 N NRBC%) NEUTROPHIL # (test code = NT#) 6.90 x10 3/uL 2.0-7.6 N IMMATURE GRANULOCYTE # (test 0.04 x10 3/uL 0.00-0.03 H code = IG#) LYMPHOCYTE # (test code = LY#) 0.78 x10 3/uL 1.0-3.8 L MONOCYTE # (test code = MO#) 0.49 x10 3/uL 0.1-0.8 N EOSINOPHIL # (test code = EO#) 0.08 x10 3/uL 0.0-0.2 N BASOPHIL # (test code = BA#) 0.02 x10 3/uL 0.0-0.2 N NUCLEATED RBC # (test code = 0.00 x10 3/uL 0.0-0.1 N NRBC#) MANUAL DIFF REQUIRED (test code NO = MDIFF) COMMENTS: BLOOD ALREADY IN LABTROPONIN-I [id number] 08:27:00 Test Item Value Reference Range Interpretation Comments TROPONIN-I RAPID 0.04 ng/mL 0.00-0.08 N Performed b y certified (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 Rather, the pat ient sclinical prese ntation (history, physi rosa exam) and ECGshould b e used in conjunction wit h troponin in thediagnosti c evaluation of s uspected myocardial infa rction. Aserial samplin g protocol is recommended to facilitate the identification of temporal changes in trop onin levels characteristic of MO. B-TYPE NATRIURETIC [id number] 21:27:00 Test Item Value Reference Range Interpretation Comments B-TYPE NATRIURETIC PEPTIDE (test 1167.1 PG/ML 0-100 H code = BNP) PROTHROMBIN [id number] 21:21:00 Test Item Value Reference Range Interpretation Comments PROTHROMBIN TIME 12.9 SECONDS 9.3-12.9 N PATIENT (test code = PTP) INTERNATIONAL NORMAL 1.2 0.8-1.2 N TARGET RATIO (test code = INR BY IN DICATION INR) Indication INR1. Prophyl axis of venous thrombos is 2.0 - 3. 0 (orthopedic luisito levi), Prophylaxis of venous thrombos is (other than hig h-risk surgery), Marycarmen tment of Deep Vein Thrombosis/Pulm onary Embolism, Preve ntion of systemic emb olism - Tissue heart va lves, Acute Myocardia l Infarction (to prevent systemic embo lism), Valvular heart disease, Atri al Fibrillation, Bileaflet mecha nical valve in aortic position.2. Mec hanical prosthetic valv es (high risk), 2.5 - 3.5 Presence of Lupus Anticoagu lant or Antiphospholi pid Antibodies, Pre vention of systemic e mbolism - Acute Myocard ial Infarction (t o prevent recurre nt infarct). THROMBOPLASTIN TIME [id number] 21:21:00 Test Item Value Reference Range Interpretation Comments THROMBOPLASTIN TIME 41.8 Seconds 25.0-39.5 H Ther apeutic PARTIAL (test code = Range: 50.4 - 88.3 PTT) Seconds Effective 11/14/2018 BASIC METABOLIC [id number] 21:10:00 Test Item Value Reference Range Interpretation Comments SODIUM (test code = NA) 136 mEq/L 134-147 N POTASSIUM (test code = 4.7 mEq/L 3.4-5.0 N K) CHLORIDE (test code = 100 mEq/L 100-108 N CL) CARBON DIOXIDE (test 24 mEq/L 21-33 N code = CO2) ANION GAP (test code = 17 0-20 N GAP) GLUCOSE (test code = 92 mg/dL 70-110 N GLU) BLOOD UREA NITROGEN 95 mg/dL 7-18 H (test code = BUN) GLOMERULAR FILTRATION 3.7 90-95 L Units of measure = RATE (test code = GFR) ml/mi n/1.73 m2 CREATININE (test code = 16.8 mg/dL 0.6-1.3 H CREAT) CALCIUM (test code = 8.2 mg/dL 8.0-10.5 N CA) [id number] 21:10:00 Test Item Value Reference Range Interpretation Comments MAGNESIUM (test code = MAG) 3.00 mg/dL 1.8-2.4 H BASIC METABOLIC [id number] 21:02:00 Test Item Value Reference Range Interpretation Comments SODIUM (test code = NA) 136 mEq/L 134-147 N POTASSIUM (test code = K) 4.7 mEq/L 3.4-5.0 N CHLORIDE (test code = CL) 100 mEq/L 100-108 N CARBON DIOXIDE (test code = CO2) 24 mEq/L 21-33 N ANION GAP (test code = GAP) 17 0-20 N GLUCOSE (test code = GLU) 92 mg/dL 70-110 N BLOOD UREA NITROGEN (test code = 95 mg/dL 7-18 H BUN) GLOMERULAR FILTRATION RATE (test 90-95 code = GFR) CREATININE (test code = CREAT) mg/dL 0.6-1.3 CALCIUM (test code = CA) 8.2 mg/dL 8.0-10.5 N [id number] 21:02:00 Test Item Value Reference Range Interpretation Comments MAGNESIUM (test code = MAG) 3.00 mg/dL 1.8-2.4 H - XR CHEST 1 [id number] 20:54:00 FAX: Faheem Padilla MD [phone] [place]: St: REG FAX: Carson Egan MD [phone] Name: GINETTE GARCIA [facility] : 1970 Age/S: 49/M [address] [place] [address] Unit #: [id number] Loc: G.ERS2 [place] [address] Phys: Carson Phillips MD Acct: [id number] Dis Date: Status: REG ER PHONE #: [phone] Exam Date: 08/26/20192048 FAX #: [phone] Reason: Chest Pain EXAMS: CPT CODE: [id number] XR CHEST 1 V 00312 Portable single view AP chest INDICATION: Chest pain. Hemoptysis. Anemia. Comparison: 08/01/2019 chest radiograph. FINDINGS: Right neck dialysis catheter tips project over the mid lower superior vena cava shadow. The cardiomediastinal silhouette is upper limits normal for size. Pulmonary vascular congestion is seen with possible mild edema. No pleuraleffusion identified. No acute bony finding. IMPRESSION: Pulmonary vascular congestion. Correlate for pulmonary edema. SL: SG-H at 2053 Reported and signed by: Pineda Armando M.D. CC: Faheem Max MD; Carson Phillips MD Technologist: RT Aisha(R) Trnscrd Date/Time/By: 08/26/2019 (2053) : By: [email or web address] Orig Print D/T: S: 08/26/2019 (2056) PAGE 1 Signed ReportCBC W/AUTO DIFF 2019-08-26 20:52:00 Test Item Value Reference Range Interpretation Comments WHITE BLOOD CELL (test code = 9.15 x10 3/uL 4.5-11.0 N WBC) RED BLOOD CELL (test code = 2.21 x10 6/uL 4.00-5.60 L RBC) HEMOGLOBIN (test code = HGB) 6.8 g/dL 12.5-16.9 L HEMATOCRIT (test code = HCT) 20.8 % 37.5-50.7 L MEAN CELL VOLUME (test code = 94.1 fL 81.0-99.0 N MCV) MEAN CELL HGB (test code = MCH) 30.8 pg 27.0-33.0 N MEAN CELL HGB CONCETRATION 32.7 g/dL 33.0-37.0 L (test code = MCHC) RED CELL DISTRIBUTION WIDTH CV 18.2 % 11.5-14.5 H (test code = RDW) RED CELL DISTRIBUTION WIDTH SD 63.2 fL 37.0-54.0 H (test code = RDW-SD) PLATELET COUNT (test code = 216 x10 3/uL 150-400 N PLT) MEAN PLATELET VOLUME (test code 10.2 fL 7.0-9.0 H = MPV) NEUTROPHIL % (test code = NT%) 79.0 % 56.0-77.0 H IMMATURE GRANULOCYTE % (test 0.3 % 0.0-2.0 N code = IG%) LYMPHOCYTE % (test code = LY%) 12.8 % 14.0-32.0 L MONOCYTE % (test code = MO%) 5.7 % 4.8-9.0 N EOSINOPHIL % (test code = EO%) 1.9 % 0.3-3.7 N BASOPHIL % (test code = BA%) 0.3 % 0.0-2.0 N NUCLEATED RBC % (test code = 0.0 % 0-0 N NRBC%) NEUTROPHIL # (test code = NT#) 7.23 x10 3/uL 2.0-7.6 N IMMATURE GRANULOCYTE # (test 0.03 x10 3/uL 0.00-0.03 N code = IG#) LYMPHOCYTE # (test code = LY#) 1.17 x10 3/uL 1.0-3.8 N MONOCYTE # (test code = MO#) 0.52 x10 3/uL 0.1-0.8 N EOSINOPHIL # (test code = EO#) 0.17 x10 3/uL 0.0-0.2 N BASOPHIL # (test code = BA#) 0.03 x10 3/uL 0.0-0.2 N NUCLEATED RBC # (test code = 0.00 x10 3/uL 0.0-0.1 N NRBC#) MANUAL DIFF REQUIRED (test code NO = MDIFF) SURGICAL [id number] 07:53:00 RUN DATE: 08/07/19 [facility] *LIVE* PAGE 1 RUN TIME: 0753 Specimen Inquiry RUN USER: INTERFACE PATIENT: GINETTE GARCIA #: [id number] LOC: [facility] U #: [id number] AGE/SX: 49/M ROOM: [facility] RE08/01/19REG DR: Brian Beckford MD : [birth year] BED: 1 DIS: 08/03/19 STATUS: DIS IN TLOC: SPEC #: [id number] RECD: 08/03/19 STATUS: NICOLE REQ #: [id number] SUSAN: 08/03/19 [facility] DR: Brian Beckford MD ENTERED: 08/07/19 SP TYPE: SURG SPEC OTHR DR: Self Referred Faheem Max MD, Mario MD Desai, Svetang V MD Shabaneh, Bahaeddin A MDORDERED: GM LEVEL 4 CODES: [id number] - ESOPHAGUS, NOS COPIES TO: Self Referred Faheem Max MD [address] [place] [address] Frank Dodd MD[address] [facility] [address] [place] [address] Mainor David MD [address] [place] [address] Dionisio Nelson MD [address] [id number] Brian Beckford MD [address] [place], [place] [id number] PROCEDURES: GM LEVEL 4 (Incomplete) TISSUES: 1. ESOPHAGUS, NOS - Esophagus, GE junction, bx. 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 - No evidence of dysplasia or carcinoma. GROSS AND MICROSCOPIC GROSS EXAMINATION: Received is/are the specimen/s designated with the appropriate dimensions and block designation: 1. Esophagus, GE junction, bx.: 4 segments of pink-bell tissue, measuring up to 0.2 cm. in greatest dimension each. MICROSCOPIC EXAMINATION: The squamous mucosa of the esophagus has normal maturation but is thickened with reactive changes. The glandular mucosa has goblet cells that are highlighted by the alcian blue/PAS stain. No dysplasia or carcinoma is identified. POST-OP DIAGNOSIS Small hiatal hernia, gsatritis PRE-OP DIAGNOSIS Anemia Signed SIGNATURE ON FILE Marko Kauffman MD 08/07/19 0753 END OF REPORT [id number] 08:37:00 Test Item Value Reference Range Interpretation Comments GLUBED (test code = 123 MG/DL 70-110 H Performe d by certified GLUBED) grinding wheel operator at [facility] ACUTE HEPATITIS [id number] 07:12:00 Test Item Value Reference Range Interpretation Comments AB HEPATITIS A IGM (test NON REACTIVE INDEX NON REACT. code = HAVMAB) AG HEPATITIS B SURFACE NON REACTIVE INDEX NonReactive (test code = HBSAG) AB HEPATITIS B CORE IGM NON REACTIVE INDEX NON REACT. (test code = HBCMAB) AB HEPATITIS C (test code NON REACTIVE INDEX NON REACT. = HCVAB) AB HEPATITIS B [id number] 07:12:00 Test Item Value Reference Range Interpretation Comments AB HEPATITIS B 197.4 mIU/mL Immunity>9.9 Status of I mmunity SURFACE (test code = HBSAB) Anti-HBs Level --- I ncons istent with Imm unity 0.0 - 9.9Consis tent with Immunity >9.9Performed A t: [facility] [id number] Bryan Matthews MD Ph:[phone] BASIC METABOLIC [id number] 06:48:00 Test Item Value Reference Range Interpretation Comments SODIUM (test code = NA) 137 mEq/L 134-147 N POTASSIUM (test code = 3.9 mEq/L 3.4-5.0 N K) CHLORIDE (test code = 101 mEq/L 100-108 N CL) CARBON DIOXIDE (test 26 mEq/L 21-33 N code = CO2) ANION GAP (test code = 14 0-20 N GAP) GLUCOSE (test code = 123 mg/dL 70-110 H GLU) BLOOD UREA NITROGEN 54 mg/dL 7-18 H (test code = BUN) GLOMERULAR FILTRATION 6.8 90-95 L Units of measure = RATE (test code = GFR) ml/mi n/1.73 m2 CREATININE (test code = 9.9 mg/dL 0.6-1.3 H CREAT) CALCIUM (test code = 8.0 mg/dL 8.0-10.5 N CA) HEPATIC FUNCTION [id number] 06:48:00 Test Item Value Reference Range Interpretation Comments TOTAL PROTEIN (test code = PROT) 7.5 g/dL 6.4-8.2 N ALBUMIN (test code = ALB) 2.90 g/dL 3.4-5.0 L BILIRUBIN TOTAL (test code = 0.4 MG/DL <1.5 BILT) BILIRUBIN DIRECT (test code = 0.10 MG/DL 0.0-0.30 BILD) BILIRUBIN INDIRECT (test code = 0.30 MG/DL BILIND) SGOT/AST (test code = AST) 103 IUnit/L 15-37 H SGPT/ALT (test code = ALT) 289 IUnit/L 15-65 H ALKALINE PHOSPHATASE TOTAL (test 167 IUnit/L 20-125 H code = ALKP) CBC W/AUTO [id number] 06:29:00 Test Item Value Reference Range Interpretation Comments WHITE BLOOD CELL (test code = 7.98 x10 3/uL 4.5-11.0 N WBC) RED BLOOD CELL (test code = 2.62 x10 6/uL 4.00-5.60 L RBC) HEMOGLOBIN (test code = HGB) 7.9 g/dL 12.5-16.9 L HEMATOCRIT (test code = HCT) 23.5 % 37.5-50.7 L MEAN CELL VOLUME (test code = 89.7 fL 81.0-99.0 MCV) MEAN CELL HGB (test code = MCH) 30.2 pg 27.0-33.0 N MEAN CELL HGB CONCETRATION 33.6 g/dL 33.0-37.0 N (test code = MCHC) RED CELL DISTRIBUTION WIDTH CV 19.4 % 11.5-14.5 H (test code = RDW) RED CELL DISTRIBUTION WIDTH SD 63.8 fL 37.0-54.0 H (test code = RDW-SD) PLATELET COUNT (test code = 120 x10 3/uL 150-400 L PLT) MEAN PLATELET VOLUME (test code 11.0 fL 7.0-9.0 H = MPV) NEUTROPHIL % (test code = NT%) 72.1 % 56.0-77.0 N IMMATURE GRANULOCYTE % (test 0.4 % 0.0-2.0 N code = IG%) LYMPHOCYTE % (test code = LY%) 17.0 % 14.0-32.0 N MONOCYTE % (test code = MO%) 6.6 % 4.8-9.0 N EOSINOPHIL % (test code = EO%) 3.5 % 0.3-3.7 N BASOPHIL % (test code = BA%) 0.4 % 0.0-2.0 N NUCLEATED RBC % (test code = 0.0 % 0-0 N NRBC%) NEUTROPHIL # (test code = NT#) 5.75 x10 3/uL 2.0-7.6 N IMMATURE GRANULOCYTE # (test 0.03 x10 3/uL 0.00-0.03 N code = IG#) LYMPHOCYTE # (test code = LY#) 1.36 x10 3/uL 1.0-3.8 N MONOCYTE # (test code = MO#) 0.53 x10 3/uL 0.1-0.8 N EOSINOPHIL # (test code = EO#) 0.28 x10 3/uL 0.0-0.2 H BASOPHIL # (test code = BA#) 0.03 x10 3/uL 0.0-0.2 N NUCLEATED RBC # (test code = 0.00 x10 3/uL 0.0-0.1 N NRBC#) MANUAL DIFF REQUIRED (test code NO = MDIFF) HEPATIC FUNCTION [id number] 16:48:00 Test Item Value Reference Range Interpretation Comments TOTAL PROTEIN (test code = PROT) 7.3 g/dL 6.4-8.2 N ALBUMIN (test code = ALB) 3.00 g/dL 3.4-5.0 L BILIRUBIN TOTAL (test code = 0.6 MG/DL <1.5 BILT) BILIRUBIN DIRECT (test code = 0.20 MG/DL 0.0-0.30 BILD) BILIRUBIN INDIRECT (test code = 0.40 MG/DL BILIND) SGOT/AST (test code = AST) 321 IUnit/L 15-37 H SGPT/ALT (test code = ALT) 387 IUnit/L 15-65 H ALKALINE PHOSPHATASE TOTAL (test 173 IUnit/L 20-125 H code = ALKP) - US ABDOMEN [id number] 10:57:00 Name: GINETTE GARCIA [facility] : 1970 Age/S: 49 / M [address] [place] [address] Unit #: [id number] Loc: [facility] [id number] Phys: Brian Beckford MD Acct: [id number] Dis Date: Status: ADM IN PHONE #: [phone] Exam Date: 08/02/2019 1324 FAX #: [phone] Reason: HI LFT,ANEMIA EXAMS: CPTCODE: [id number] US ABDOMEN COMPLETE [id number] Patient: GINETTE GARCIA. : 1970; Age: 49 years; Gender: Male. MR: [id number]. Ordering physician: Brian Beckford MD. PROCEDURE: ABDOMINAL ULTRASOUND. INDICATION: Abnormal liver function tests, anemia, mass dialysis, hyperkalemia. COMPARISON: CT abdomen and pelvis 06/19/2019. TECHNIQUE: Sonographic evaluation of the abdomen was performed with supplemental color and pulsed Doppler. FINDINGS: LIVER:The liver is normal in size, contour and morphology with normal parenchymal echogenicity. GALLBLADDER: There are no gallstones, sludge, pericholecystic fluid or wall thickening. BILE DUCTS: No biliary dilatation. The common duct measures mm. PANCREAS: The visualized pancreas appears normal. SPLEEN: The spleen is normal. Spleen measures 9.3 cm in length. KIDNEYS: The right kidney measures 11.6 cm in length.Normal contour and parenchymal echogenicity. There is no hydronephrosis, nephrolithiasis, masslesion or perinephric collection. . The left kidney measures 11.4 cm in length. Small cyst in the superior pole measuring 1 cm. Normal contour and parenchymal echogenicity. There is no hydronephrosis, nephrolithiasis, mass lesion or perinephric collection. . AORTA AND INFERIOR VENA CAVA: Visualized portions appear normal. Additional comments: None. IMPRESSION: PAGE 1 Signed Report (CONTINUED) Name: GINETTE GARCIA [facility] : 1970 Age/S: 49 / M [address] [place] [address] Blvd Unit #: [id number] Loc: [place] [address] Phys: Brian Beckford MD Acct: [id number] Dis Date: Status: ADM IN PHONE #: [phone] Exam Date: 08/02/2019 1324 FAX #: [phone] Reason: HI LFT, ANEMIA EXAMS: CPT CODE: [id number] US ABDOMEN COMPLETE [id number] <Continued> 1. 1 cm superior pole left renal cyst. 2. Remainder of abdomen is unremarkable. SL: [id number] at 1057 Reported and signed by: Larry Crain M.D. CC: Faheem Max MD; Brian Beckford MD Technologist: Macie Alcocer RDMS(OB)(BR) Trnscb Date/Time: 08/02/2019 (1057) [id number] Orig Print D/T: S: 08/02/2019 (1324) Probe: PAGE 2 Signed [id number] 07:26:00 Test Item Value Reference Range Interpretation Comments GLUBED (test code = 90 MG/DL 70-110 N Performe d by certified GLUBED) grinding wheel operator at [facility] BASIC METABOLIC [id number] 06:56:00 Test Item Value Reference Range Interpretation Comments SODIUM (test code = NA) 138 mEq/L 134-147 N POTASSIUM (test code = 3.8 mEq/L 3.4-5.0 N K) CHLORIDE (test code = 100 mEq/L 100-108 N CL) CARBON DIOXIDE (test 26 mEq/L 21-33 code = CO2) ANION GAP (test code = 16 0-20 N GAP) GLUCOSE (test code = 85 mg/dL 70-110 N GLU) BLOOD UREA NITROGEN 64 mg/dL 7-18 H (test code = BUN) GLOMERULAR FILTRATION 6.0 90-95 L Units of measure = RATE (test code = GFR) ml/mi n/1.73 m2 CREATININE (test code = 11.1 mg/dL 0.6-1.3 H CREAT) CALCIUM (test code = 7.7 mg/dL 8.0-10.5 L CA) LIPID PROFILE (CORONARY RISK)2019-08-02 06:56:00 Test Item Value Reference Range Interpretation Comments TRIGLYCERIDES (test 54 mg/dL 40-150 N code = TRIG) CHOLESTEROL (test 106 mg/dL <200 code = CHOL) CHOLESTEROL/HDL 2.59 RATIO 3.43-4.97 L RISK ASSOCIA SINGH WITH RATIO (test code = CHOL/HDL RATIOS: RISK CHOLHDL) MALE FEMALE1/2 AVERA GE 3.43 3.27AVERAGE 4.97 4.4 42X AVERAGE 9.55 7.053X AVER AGE 23.39 1 1.04 NOTE THAT THE R EFERENCE VALUE IS RELATE DTO RISK LEVELS RECOM MENDED BY THE NATL.HEA RT, LUNG, AND BLOOD INST. HDL CHOLESTEROL 41.0 mg/dL 32-72 N (test code = HDL) LIPOPROTEIN LDL 55 mg/dL 0-100 N <100 OPT [id number] (test code = LDL) NEAR OPTI MAL/ABOVE [id number] 89 HIGH>CZ=143 VE RY HIGH*Guidelines provided by the National Choles terol EducationProgra Adult Treatment Panel III CBC W/AUTO [id number] 06:41:00 Test Item Value Reference Range Interpretation Comments WHITE BLOOD CELL (test code = 9.05 x10 3/uL 4.5-11.0 N WBC) RED BLOOD CELL (test code = 2.54 x10 6/uL 4.00-5.60 L RBC) HEMOGLOBIN (test code = HGB) 7.5 g/dL 12.5-16.9 L HEMATOCRIT (test code = HCT) 22.0 % 37.5-50.7 L MEAN CELL VOLUME (test code = 86.6 fL 81.0-99.0 MCV) MEAN CELL HGB (test code = MCH) 29.5 pg 27.0-33.0 N MEAN CELL HGB CONCETRATION 34.1 g/dL 33.0-37.0 N (test code = MCHC) RED CELL DISTRIBUTION WIDTH CV 19.0 % 11.5-14.5 H (test code = RDW) RED CELL DISTRIBUTION WIDTH SD 59.9 fL 37.0-54.0 H (test code = RDW-SD) PLATELET COUNT (test code = 147 x10 3/uL 150-400 L PLT) MEAN PLATELET VOLUME (test code 11.0 fL 7.0-9.0 H = MPV) NEUTROPHIL % (test code = NT%) 77.8 % 56.0-77.0 H IMMATURE GRANULOCYTE % (test 0.4 % 0.0-2.0 N code = IG%) LYMPHOCYTE % (test code = LY%) 13.1 % 14.0-32.0 L MONOCYTE % (test code = MO%) 5.6 % 4.8-9.0 N EOSINOPHIL % (test code = EO%) 2.8 % 0.3-3.7 N BASOPHIL % (test code = BA%) 0.3 % 0.0-2.0 N NUCLEATED RBC % (test code = 0.0 % 0-0 N NRBC%) NEUTROPHIL # (test code = NT#) 7.03 x10 3/uL 2.0-7.6 N IMMATURE GRANULOCYTE # (test 0.04 x10 3/uL 0.00-0.03 H code = IG#) LYMPHOCYTE # (test code = LY#) 1.19 x10 3/uL 1.0-3.8 N MONOCYTE # (test code = MO#) 0.51 x10 3/uL 0.1-0.8 N EOSINOPHIL # (test code = EO#) 0.25 x10 3/uL 0.0-0.2 H BASOPHIL # (test code = BA#) 0.03 x10 3/uL 0.0-0.2 N NUCLEATED RBC # (test code = 0.00 x10 3/uL 0.0-0.1 N NRBC#) MANUAL DIFF REQUIRED (test code NO = MDIFF) [id number] 22:18:00 Test Item Value Reference Range Interpretation Comments GLUBED (test code = 200 MG/DL 70-110 H Performe d by certified GLUBED) grinding wheel operator at [facility] [id number] 17:34:00 Test Item Value Reference Range Interpretation Comments GLUBED (test code = 114 MG/DL 70-110 H Performe d by certified GLUBED) grinding wheel operator at [facility] [id number] 16:33:00 Test Item Value Reference Range Interpretation Comments GLUBED (test code = 78 MG/DL 70-110 N Performe d by certified GLUBED) grinding wheel operator at [facility] ACUTE HEPATITIS [id number] 16:29:00 Test Item Value Reference Range Interpretation Comments AB HEPATITIS A IGM (test NON REACTIVE INDEX NON REACT. code = HAVMAB) AG HEPATITIS B SURFACE NON REACTIVE INDEX NonReactive (test code = HBSAG) AB HEPATITIS B CORE IGM NON REACTIVE INDEX NON REACT. (test code = HBCMAB) AB HEPATITIS C (test code NON REACTIVE INDEX NON REACT. = HCVAB) AB HEPATITIS B [id number] 16:29:00 Test Item Value Reference Range Interpretation Comments AB HEPATITIS B SURFACE (test code = HBSAB) HGBA1C%2019-08-01 16:26:00 Test Item Value Reference Range Interpretation Comments HGBA1C% (test code = HGBA1C%) 5.8 %A1C 4.8-6.0 N ACUTE HEPATITIS [id number] 16:26:00 Test Item Value Reference Range Interpretation Comments AB HEPATITIS A IGM (test INDEX NON REACT. code = HAVMAB) AG HEPATITIS B SURFACE NON REACTIVE INDEX NonReactive (test code = HBSAG) AB HEPATITIS B CORE IGM NON REACTIVE INDEX NON REACT. (test code = HBCMAB) AB HEPATITIS C (test code NON REACTIVE INDEX NON REACT. = HCVAB) AB HEPATITIS B [id number] 16:26:00 Test Item Value Reference Range Interpretation Comments AB HEPATITIS B SURFACE (test code = HBSAB) ACUTE HEPATITIS [id number] 16:25:00 Test Item Value Reference Range Interpretation Comments AB HEPATITIS A IGM (test INDEX NON REACT. code = HAVMAB) AG HEPATITIS B SURFACE NON REACTIVE INDEX NonReactive (test code = HBSAG) AB HEPATITIS B CORE IGM INDEX NON REACT. (test code = HBCMAB) AB HEPATITIS C (test code NON REACTIVE INDEX NON REACT. = HCVAB) AB HEPATITIS B [id number] 16:25:00 Test Item Value Reference Range Interpretation Comments AB HEPATITIS B SURFACE (test code = HBSAB) TSH REFLEX TO [id number] 16:09:00 Test Item Value Reference Range Interpretation Comments TSH REFLEX TO FT4 (test code = 1.25 IU/mL 0.42-5.47 N TSHREFLEX) ACUTE HEPATITIS [id number] 16:04:00 Test Item Value Reference Range Interpretation Comments AB HEPATITIS A IGM (test INDEX NON REACT. code = HAVMAB) AG HEPATITIS B SURFACE NON REACTIVE INDEX NonReactive (test code = HBSAG) AB HEPATITIS B CORE IGM INDEX NON REACT. (test code = HBCMAB) AB HEPATITIS C (test code INDEX NON REACT. = HCVAB) AB HEPATITIS B [id number] 16:04:00 Test Item Value Reference Range Interpretation Comments AB HEPATITIS B SURFACE (test code = HBSAB) [id number] 15:54:00 Test Item Value Reference Range Interpretation Comments POTASSIUM (test code = K) 4.6 mEq/L 3.4-5.0 COMMENTS: TO BE DRAWN AT THE END OF DIALYSISComment: TO BE DRAWN BY DIALYSIS NURSEHGB [id number] 15:35:00 Test Item Value Reference Range Interpretation Comments HEMOGLOBIN (test code = HGB) 5.9 g/dL 12.5-16.9 LL HEMATOCRIT (test code = HCT) 17.6 % 37.5-50.7 LL COMMENTS: TO BE DRAWN AT THE END OF DIALYSISComment: TO BE DRAWN BY DIALYSIS [id number] 12:48:00 Test Item Value Reference Range Interpretation Comments TROPONIN-I 0.048 ng/mL 0.000-0.045 HH Negative: <= (test code = 0.045 Positive: TROPI) >= 0.046 Correl ation with serial results, other cardiac markers andclin ical findings is necessary to determine the clinicalsignifi cance of this result. Results using different metho dologies should not be c omparedto one another as krystyna titative results may shania y by method. COMMENTS: 3 troponins total (including troponin done in ED)TOTAL IRON BINDING [id number] 10:30:00 Test Item Value Reference Range Interpretation Comments SERUM IRON (test code = IRON) 80 mcg/dL 35-150 N TOTAL IRON BINDING CAPACITY (test 243 mcg/dL 260-445 L code = TIBC) UIBC (test code = UIBC) 163 mcg/dL IRON SATURATION (test code = 32.9 % 14-34 N FESAT) VITAMIN [id number] 10:30:00 Test Item Value Reference Range Interpretation Comments VITAMIN B12 (test code = VITB12) 1780 pg/mL 193-986 H FOLIC [id number] 10:30:00 Test Item Value Reference Range Interpretation Comments FOLIC ACID (test code = FOL) 26.3 ng/mL 3.1-17.5 H [id number] 10:30:00 Test Item Value Reference Range Interpretation Comments FERRITIN (test code = KAY) 3293.5 ng/mL 23.9-336.2 H - XR CHEST 1 [id number] 10:21:00 FAX: Faheem Padilla MD [phone] [place]: St: [facility] FAX: Justin Downs MD [phone] Name: GINETTE GARCIA [facility] : 1970 Age/S: 49/M [address] [place] [address] Unit #: [id number] Loc: G.ERS2 [place] [address] Phys: Justin Downs MD Acct: G [id number] Dis Date: Status: REG ER PHONE #: [phone] Exam Date: 08/01/2019 09 FAX #: [phone] Reason: Abdominal Pain EXAMS: CPT CODE: [id number] XR CHEST 1 V [id number] EXAMINATION: Chest x-ray 1 view 08/01/2019 at 0912 hours. CLINICAL HISTORY: Abdominal pain, missed dialysis. COMPARISON: Chest x-ray 07/07/2019. FINDINGS: 2 radiographs areprovided for interpretation. The right internal jugular hemodialysis catheter remains in place with position unchanged. The cardiac silhouette is upper limits normal in size. There is mild pulmonary vascular congestion as well as increased interstitial opacities bilaterally when compared to prior examination. There is a small amount of fluid in the minor fissure. IMPRESSION: 1. Right internal jugular hemodialysis catheter in place. 2. Cardiac silhouette upper limits normal in size 3. Pulmonary vascular congestion and interstitial opacities suggesting edema/fluid overload. at 1021 Reported and signed by: Lula Jackson M.D. CC: Faheem Max MD; Justin Downs MD Technologist: Becca Marrero RT(R); Darlin Jules RT(R) Trnorrd Date/Time/By: 08/01/2019 (1021) : By: [facility]IN[facility] Orig Print D/T: S: 08/01/2019 (1024) PAGE 1 Signed ReportLIPOPROTEIN [id number] 10:11:00 Test Item Value Reference Range Interpretation Comments LIPOPROTEIN LDL 30 mg/dL 0-100 N <100 OPT [id number] (test code = LDL) NEAR OPTIM AL/ABOVE [id number] 89 HIGH>KL=199 VE RY HIGH*Guidelines provided by the National Cholesterol EducationProgra m Adult Treatment Panel III INFLUENZA A [id number] 09:54:00 Test Item Value Reference Range Interpretation Comments INFLUENZA A (test code = FLUAPCR) Negative Negative INFLUENZA B (test code = FLUBPCR) Negative Negative B-TYPE NATRIURETIC [id number] 09:47:00 Test Item Value Reference Range Interpretation Comments B-TYPE NATRIURETIC PEPTIDE (test 1874.9 PG/ML 0-100 H code = BNP) COMPREHENSIVE METABOLIC [id number] 09:34:00 Test Item Value Reference Range Interpretation Comments SODIUM (test code = NA) 137 mEq/L 134-147 N POTASSIUM (test code = 5.8 mEq/L 3.4-5.0 H K) CHLORIDE (test code = 102 mEq/L 100-108 N CL) CARBON DIOXIDE (test 18 mEq/L 21-33 L code = CO2) ANION GAP (test code = 23 0-20 H GAP) GLUCOSE (test code = 81 mg/dL 70-110 N GLU) BLOOD UREA NITROGEN 117 mg/dL 7-18 H (test code = BUN) GLOMERULAR FILTRATION 3.4 90-95 L Units of measure = RATE (test code = GFR) ml/mi n/1.73 m2 CREATININE (test code = 17.9 mg/dL 0.6-1.3 H CREAT) TOTAL PROTEIN (test 8.2 g/dL 6.4-8.2 N code = PROT) ALBUMIN (test code = 3.50 g/dL 3.4-5.0 N ALB) CALCIUM (test code = 7.4 mg/dL 8.0-10.5 L CA) BILIRUBIN TOTAL (test 0.4 MG/DL <1.5 N code = BILT) SGOT/AST (test code = 158 IUnit/L 15-37 H AST) SGPT/ALT (test code = 168 IUnit/L 15-65 H ALT) ALKALINE PHOSPHATASE 192 IUnit/L 20-125 H TOTAL (test code = ALKP) [id number] 09:34:00 Test Item Value Reference Range Interpretation Comments LIPASE (test code = LIP) 164 IUnit/L 73-393 N [id number] 09:34:00 Test Item Value Reference Range Interpretation Comments TROPONIN-I 0.047 ng/mL 0.000-0.045 HH Negative: <= (test code = 0.045 Positive: TROPI) >= 0.046 Correl ation with serial results, other cardiac markers andclin ical findings is necessary to determine the clinicalsignifi cance of this result. Results using different metho dologies should not be c omparedto one another as krystyna titative results may shania y by method. PROTHROMBIN [id number] 09:32:00 Test Item Value Reference Range Interpretation Comments PROTHROMBIN TIME 13.6 SECONDS 9.3-12.9 H PATIENT (test code = PTP) INTERNATIONAL NORMAL 1.2 0.8-1.2 N TARGET RATIO (test code = INR BY IN DICATION INR) Indication INR1. Prophyl axis of venous thrombos is 2.0 - 3. 0 (orthopedic luisito levi), Prophylaxis of venous thrombos is (other than hig h-risk surgery), Marycarmen tment of Deep Vein Thrombosis/Pulm onary Embolism, Preve ntion of systemic emb olism - Tissue heart va lves, Acute Myocardia l Infarction (to prevent systemic embo lism), Valvular heart disease, Atri al Fibrillation, Bileaflet mecha nical valve in aortic position.2. Mec hanical prosthetic valv es (high risk), 2.5 - 3.5 Presence of Lupus Anticoagu lant or Antiphospholi pid Antibodies, Pre vention of systemic e mbolism - Acute Myocard ial Infarction (t o prevent recurre nt infarct). THROMBOPLASTIN TIME [id number] 09:32:00 Test Item Value Reference Range Interpretation Comments THROMBOPLASTIN TIME 40.2 Seconds 25.0-39.5 H Ther apeutic PARTIAL (test code = Range: 50.4 - 88.3 PTT) Seconds Effective 11/14/2018 CBC W/AUTO [id number] 09:05:00 Test Item Value Reference Range Interpretation Comments WHITE BLOOD CELL (test code = 9.90 x10 3/uL 4.5-11.0 N WBC) RED BLOOD CELL (test code = 2.13 x10 6/uL 4.00-5.60 L RBC) HEMOGLOBIN (test code = HGB) 6.3 g/dL 12.5-16.9 LL HEMATOCRIT (test code = HCT) 19.1 % 37.5-50.7 L MEAN CELL VOLUME (test code = 89.7 fL 81.0-99.0 N MCV) MEAN CELL HGB (test code = MCH) 29.6 pg 27.0-33.0 N MEAN CELL HGB CONCETRATION 33.0 g/dL 33.0-37.0 N (test code = MCHC) RED CELL DISTRIBUTION WIDTH CV 20.4 % 11.5-14.5 H (test code = RDW) RED CELL DISTRIBUTION WIDTH SD 66.4 fL 37.0-54.0 H (test code = RDW-SD) PLATELET COUNT (test code = 187 x10 3/uL 150-400 N PLT) MEAN PLATELET VOLUME (test code 10.7 fL 7.0-9.0 H = MPV) NEUTROPHIL % (test code = NT%) 78.1 % 56.0-77.0 H IMMATURE GRANULOCYTE % (test 0.2 % 0.0-2.0 N code = IG%) LYMPHOCYTE % (test code = LY%) 13.8 % 14.0-32.0 L MONOCYTE % (test code = MO%) 6.0 % 4.8-9.0 N EOSINOPHIL % (test code = EO%) 1.4 % 0.3-3.7 N BASOPHIL % (test code = BA%) 0.5 % 0.0-2.0 N NUCLEATED RBC % (test code = 0.0 % 0-0 N NRBC%) NEUTROPHIL # (test code = NT#) 7.73 x10 3/uL 2.0-7.6 H IMMATURE GRANULOCYTE # (test 0.02 x10 3/uL 0.00-0.03 N code = IG#) LYMPHOCYTE # (test code = LY#) 1.37 x10 3/uL 1.0-3.8 N MONOCYTE # (test code = MO#) 0.59 x10 3/uL 0.1-0.8 N EOSINOPHIL # (test code = EO#) 0.14 x10 3/uL 0.0-0.2 N BASOPHIL # (test code = BA#) 0.05 x10 3/uL 0.0-0.2 N NUCLEATED RBC # (test code = 0.00 x10 3/uL 0.0-0.1 N NRBC#) MANUAL DIFF REQUIRED (test code NO = MDIFF) TROPONIN-I [id number] 09:00:00 Test Item Value Reference Range Interpretation Comments TROPONIN-I RAPID 0.06 ng/mL 0.00-0.08 N Performed b y certified (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 Rather, the pat ient sclinical prese ntation (history, physi rosa exam) and ECGshould b e used in conjunction wit h troponin in thediagnosti c evaluation of s uspected myocardial infa rction. Aserial samplin g protocol is recommended to facilitate the identification of temporal changes in trop onin levels characteristic of MO. CHEMISTRY 8 [id number] 08:53:00 Test Item Value Reference Range Interpretation Comments ISTAT-SODIUM (test code = NAP) MMOL/L 134-147 ISTAT-POTASSIUM (test code = KP) MMOL/L 3.4-5.0 ISTAT-CHLORIDE (test code = CLP) MMOL/L 100-108 ISTAT CARBON DIOXIDE (test code = mmol/L 21-33 L ISTAT-CO2) ISTAT CALCIUM IONIZED (test code = MG/DL 1.12-1.32 ISTAT-CAROL) ISTAT-GLUCOSE (test code = GLUP) MG/DL 70-110 N ISTAT-BUN (test code = BUNP) MG/DL 7-18 H BEDSIDE CREATININE (test code = MG/DL 0.6-1.3 H CREATBED) GLOMERULAR FILTRATION RATE POC (test 3 ML/MIN code = GFRBED) CHEMISTRY 8 [id number] 08:53:00 Test Item Value Reference Range Interpretation Comments ISTAT-SODIUM (test 137 MMOL/L 134-147 N code = NAP) ISTAT-POTASSIUM (test 6.0 MMOL/L 3.4-5.0 HH code = KP) ISTAT-CHLORIDE (test 102 MMOL/L 100-108 N Perform ed by code = CLP) certified opera tor at [facility] ISTAT CARBON DIOXIDE 19.0 mmol/L 21-33 L (test code = ISTAT-CO2) ISTAT CALCIUM IONIZED 0.82 MG/DL 1.12-1.32 L (test code = ISTAT-CAROL) ISTAT-GLUCOSE (test 80 MG/DL 70-110 N code = GLUP) ISTAT-BUN (test code 122 MG/DL 7-18 H = BUNP) BEDSIDE CREATININE > 20.0 MG/DL 0.6-1.3 H (test code = CREATBED) GLOMERULAR FILTRATION 3 ML/MIN RATE POC (test code = GFRBED) BASIC METABOLIC [id number] 08:08:00 Test Item Value Reference Range Interpretation Comments SODIUM (test code = NA) 136 mEq/L 134-147 N POTASSIUM (test code = 4.3 mEq/L 3.4-5.0 N K) CHLORIDE (test code = 101 mEq/L 100-108 N CL) CARBON DIOXIDE (test 23 mEq/L 21-33 N code = CO2) ANION GAP (test code = 16 0-20 N GAP) GLUCOSE (test code = 101 mg/dL 70-110 GLU) BLOOD UREA NITROGEN 65 mg/dL 7-18 H (test code = BUN) GLOMERULAR FILTRATION 5.4 90-95 L Units of measure = RATE (test code = GFR) ml/mi n/1.73 m2 CREATININE (test code = 12.1 mg/dL 0.6-1.3 H CREAT) CALCIUM (test code = 8.8 mg/dL 8.0-10.5 N CA) CBC W/AUTO [id number] 08:02:00 Test Item Value Reference Range Interpretation Comments WHITE BLOOD CELL (test code = 8.19 x10 3/uL 4.5-11.0 N WBC) RED BLOOD CELL (test code = 3.02 x10 6/uL 4.00-5.60 L RBC) HEMOGLOBIN (test code = HGB) 8.5 g/dL 12.5-16.9 L HEMATOCRIT (test code = HCT) 26.2 % 37.5-50.7 L MEAN CELL VOLUME (test code = 86.8 fL 81.0-99.0 N MCV) MEAN CELL HGB (test code = MCH) 28.1 pg 27.0-33.0 N MEAN CELL HGB CONCETRATION 32.4 g/dL 33.0-37.0 L (test code = MCHC) RED CELL DISTRIBUTION WIDTH CV 20.6 % 11.5-14.5 H (test code = RDW) RED CELL DISTRIBUTION WIDTH SD 65.2 fL 37.0-54.0 H (test code = RDW-SD) PLATELET COUNT (test code = 172 x10 3/uL 150-400 N PLT) MEAN PLATELET VOLUME (test code 10.9 fL 7.0-9.0 H = MPV) NEUTROPHIL % (test code = NT%) 71.8 % 56.0-77.0 N IMMATURE GRANULOCYTE % (test 0.4 % 0.0-2.0 N code = IG%) LYMPHOCYTE % (test code = LY%) 17.6 % 14.0-32.0 N MONOCYTE % (test code = MO%) 6.8 % 4.8-9.0 N EOSINOPHIL % (test code = EO%) 2.7 % 0.3-3.7 N BASOPHIL % (test code = BA%) 0.7 % 0.0-2.0 N NUCLEATED RBC % (test code = 0.0 % 0-0 N NRBC%) NEUTROPHIL # (test code = NT#) 5.88 x10 3/uL 2.0-7.6 N IMMATURE GRANULOCYTE # (test 0.03 x10 3/uL 0.00-0.03 N code = IG#) LYMPHOCYTE # (test code = LY#) 1.44 x10 3/uL 1.0-3.8 N MONOCYTE # (test code = MO#) 0.56 x10 3/uL 0.1-0.8 N EOSINOPHIL # (test code = EO#) 0.22 x10 3/uL 0.0-0.2 H BASOPHIL # (test code = BA#) 0.06 x10 3/uL 0.0-0.2 N NUCLEATED RBC # (test code = 0.00 x10 3/uL 0.0-0.1 N NRBC#) MANUAL DIFF REQUIRED (test code NO = MDIFF) BASIC METABOLIC [id number] 08:16:00 Test Item Value Reference Range Interpretation Comments SODIUM (test code = NA) 138 mEq/L 134-147 N POTASSIUM (test code = 4.4 mEq/L 3.4-5.0 N K) CHLORIDE (test code = 104 mEq/L 100-108 N CL) CARBON DIOXIDE (test 26 mEq/L 21-33 N code = CO2) ANION GAP (test code = 12 0-20 N GAP) GLUCOSE (test code = 69 mg/dL 70-110 L GLU) BLOOD UREA NITROGEN 48 mg/dL 7-18 H (test code = BUN) GLOMERULAR FILTRATION 7.0 90-95 L Units of measure = RATE (test code = GFR) ml/mi n/1.73 m2 CREATININE (test code = 9.6 mg/dL 0.6-1.3 H CREAT) CALCIUM (test code = 8.4 mg/dL 8.0-10.5 N CA) CBC W/AUTO [id number] 07:43:00 Test Item Value Reference Range Interpretation Comments WHITE BLOOD CELL (test code = 6.23 x10 3/uL 4.5-11.0 N WBC) RED BLOOD CELL (test code = 3.00 x10 6/uL 4.00-5.60 L RBC) HEMOGLOBIN (test code = HGB) 8.5 g/dL 12.5-16.9 L HEMATOCRIT (test code = HCT) 26.2 % 37.5-50.7 L MEAN CELL VOLUME (test code = 87.3 fL 81.0-99.0 N MCV) MEAN CELL HGB (test code = MCH) 28.3 pg 27.0-33.0 N MEAN CELL HGB CONCETRATION 32.4 g/dL 33.0-37.0 L (test code = MCHC) RED CELL DISTRIBUTION WIDTH CV 21.4 % 11.5-14.5 H (test code = RDW) RED CELL DISTRIBUTION WIDTH SD 68.0 fL 37.0-54.0 H (test code = RDW-SD) PLATELET COUNT (test code = 165 x10 3/uL 150-400 N PLT) MEAN PLATELET VOLUME (test code 11.4 fL 7.0-9.0 H = MPV) NEUTROPHIL % (test code = NT%) 68.9 % 56.0-77.0 N IMMATURE GRANULOCYTE % (test 0.3 % 0.0-2.0 N code = IG%) LYMPHOCYTE % (test code = LY%) 18.8 % 14.0-32.0 N MONOCYTE % (test code = MO%) 7.7 % 4.8-9.0 N EOSINOPHIL % (test code = EO%) 3.7 % 0.3-3.7 N BASOPHIL % (test code = BA%) 0.6 % 0.0-2.0 N NUCLEATED RBC % (test code = 0.0 % 0-0 N NRBC%) NEUTROPHIL # (test code = NT#) 4.29 x10 3/uL 2.0-7.6 N IMMATURE GRANULOCYTE # (test 0.02 x10 3/uL 0.00-0.03 N code = IG#) LYMPHOCYTE # (test code = LY#) 1.17 x10 3/uL 1.0-3.8 N MONOCYTE # (test code = MO#) 0.48 x10 3/uL 0.1-0.8 N EOSINOPHIL # (test code = EO#) 0.23 x10 3/uL 0.0-0.2 H BASOPHIL # (test code = BA#) 0.04 x10 3/uL 0.0-0.2 N NUCLEATED RBC # (test code = 0.00 x10 3/uL 0.0-0.1 N NRBC#) MANUAL DIFF REQUIRED (test code NO = MDIFF) CBC W/AUTO [id number] 07:40:00 Test Item Value Reference Range Interpretation Comments WHITE BLOOD CELL (test code = 8.49 x10 3/uL 4.5-11.0 N WBC) RED BLOOD CELL (test code = 2.81 x10 6/uL 4.00-5.60 L RBC) HEMOGLOBIN (test code = HGB) 8.0 g/dL 12.5-16.9 L HEMATOCRIT (test code = HCT) 24.1 % 37.5-50.7 L MEAN CELL VOLUME (test code = 85.8 fL 81.0-99.0 N MCV) MEAN CELL HGB (test code = MCH) 28.5 pg 27.0-33.0 N MEAN CELL HGB CONCETRATION 33.2 g/dL 33.0-37.0 N (test code = MCHC) RED CELL DISTRIBUTION WIDTH CV 21.3 % 11.5-14.5 H (test code = RDW) RED CELL DISTRIBUTION WIDTH SD 66.6 fL 37.0-54.0 H (test code = RDW-SD) PLATELET COUNT (test code = 172 x10 3/uL 150-400 N PLT) MEAN PLATELET VOLUME (test code 10.6 fL 7.0-9.0 H = MPV) NEUTROPHIL % (test code = NT%) 76.2 % 56.0-77.0 N IMMATURE GRANULOCYTE % (test 0.5 % 0.0-2.0 N code = IG%) LYMPHOCYTE % (test code = LY%) 14.7 % 14.0-32.0 N MONOCYTE % (test code = MO%) 5.5 % 4.8-9.0 N EOSINOPHIL % (test code = EO%) 2.6 % 0.3-3.7 N BASOPHIL % (test code = BA%) 0.5 % 0.0-2.0 N NUCLEATED RBC % (test code = 0.0 % 0-0 N NRBC%) NEUTROPHIL # (test code = NT#) 6.47 x10 3/uL 2.0-7.6 N IMMATURE GRANULOCYTE # (test 0.04 x10 3/uL 0.00-0.03 H code = IG#) LYMPHOCYTE # (test code = LY#) 1.25 x10 3/uL 1.0-3.8 N MONOCYTE # (test code = MO#) 0.47 x10 3/uL 0.1-0.8 N EOSINOPHIL # (test code = EO#) 0.22 x10 3/uL 0.0-0.2 H BASOPHIL # (test code = BA#) 0.04 x10 3/uL 0.0-0.2 N NUCLEATED RBC # (test code = 0.00 x10 3/uL 0.0-0.1 N NRBC#) MANUAL DIFF REQUIRED (test code NO = MDIFF) BASIC METABOLIC [id number] 07:29:00 Test Item Value Reference Range Interpretation Comments SODIUM (test code = NA) 138 mEq/L 134-147 N POTASSIUM (test code = 4.6 mEq/L 3.4-5.0 N K) CHLORIDE (test code = 101 mEq/L 100-108 N CL) CARBON DIOXIDE (test 25 mEq/L 21-33 code = CO2) ANION GAP (test code = 17 0-20 N GAP) GLUCOSE (test code = 88 mg/dL 70-110 N GLU) BLOOD UREA NITROGEN 79 mg/dL 7-18 H (test code = BUN) GLOMERULAR FILTRATION 4.7 90-95 L Units of measure = RATE (test code = GFR) ml/mi n/1.73 m2 CREATININE (test code = 13.5 mg/dL 0.6-1.3 H CREAT) CALCIUM (test code = 7.7 mg/dL 8.0-10.5 L CA) [id number] 08:47:00 Test Item Value Reference Range Interpretation Comments GLUBED (test code = 99 MG/DL 70-110 N Performe d by certified GLUBED) grinding wheel operator at [facility] BASIC METABOLIC [id number] 08:23:00 Test Item Value Reference Range Interpretation Comments SODIUM (test code = NA) 136 mEq/L 134-147 N POTASSIUM (test code = 5.1 mEq/L 3.4-5.0 H K) CHLORIDE (test code = 104 mEq/L 100-108 N CL) CARBON DIOXIDE (test 17 mEq/L 21-33 L code = CO2) ANION GAP (test code = 20 0-20 N GAP) GLUCOSE (test code = 99 mg/dL 70-110 GLU) BLOOD UREA NITROGEN 112 mg/dL 7-18 H (test code = BUN) GLOMERULAR FILTRATION 3.4 90-95 L Units of measure = RATE (test code = GFR) ml/mi n/1.73 m2 CREATININE (test code = 18.1 mg/dL 0.6-1.3 H CREAT) CALCIUM (test code = 7.2 mg/dL 8.0-10.5 L CA) [id number] 08:23:00 Test Item Value Reference Range Interpretation Comments TROPONIN-I 0.036 ng/mL 0.000-0.045 N Negative: <= (test code = 0.045 Positive: TROPI) >= 0.046 Correl ation with serial results, other cardiac markers andclin ical findings is necessary to determine the clinicalsignifi cance of this result. Results using different metho dologies should not be c omparedto one another as krystyna titative results may shania y by method. CBC W/AUTO [id number] 07:37:00 Test Item Value Reference Range Interpretation Comments WHITE BLOOD CELL (test code = 8.95 x10 3/uL 4.5-11.0 N WBC) RED BLOOD CELL (test code = 2.41 x10 6/uL 4.00-5.60 L RBC) HEMOGLOBIN (test code = HGB) 6.8 g/dL 12.5-16.9 L HEMATOCRIT (test code = HCT) 20.9 % 37.5-50.7 L MEAN CELL VOLUME (test code = 86.7 fL 81.0-99.0 N MCV) MEAN CELL HGB (test code = MCH) 28.2 pg 27.0-33.0 N MEAN CELL HGB CONCETRATION 32.5 g/dL 33.0-37.0 L (test code = MCHC) RED CELL DISTRIBUTION WIDTH CV 21.6 % 11.5-14.5 H (test code = RDW) RED CELL DISTRIBUTION WIDTH SD 68.3 fL 37.0-54.0 H (test code = RDW-SD) PLATELET COUNT (test code = 176 x10 3/uL 150-400 N PLT) MEAN PLATELET VOLUME (test code 10.3 fL 7.0-9.0 H = MPV) NEUTROPHIL % (test code = NT%) 73.3 % 56.0-77.0 N IMMATURE GRANULOCYTE % (test 0.3 % 0.0-2.0 N code = IG%) LYMPHOCYTE % (test code = LY%) 16.6 % 14.0-32.0 N MONOCYTE % (test code = MO%) 6.1 % 4.8-9.0 N EOSINOPHIL % (test code = EO%) 3.4 % 0.3-3.7 N BASOPHIL % (test code = BA%) 0.3 % 0.0-2.0 N NUCLEATED RBC % (test code = 0.0 % 0-0 N NRBC%) NEUTROPHIL # (test code = NT#) 6.55 x10 3/uL 2.0-7.6 N IMMATURE GRANULOCYTE # (test 0.03 x10 3/uL 0.00-0.03 N code = IG#) LYMPHOCYTE # (test code = LY#) 1.49 x10 3/uL 1.0-3.8 N MONOCYTE # (test code = MO#) 0.55 x10 3/uL 0.1-0.8 N EOSINOPHIL # (test code = EO#) 0.30 x10 3/uL 0.0-0.2 H BASOPHIL # (test code = BA#) 0.03 x10 3/uL 0.0-0.2 N NUCLEATED RBC # (test code = 0.00 x10 3/uL 0.0-0.1 N NRBC#) MANUAL DIFF REQUIRED (test code NO = MDIFF) [id number] 02:24:00 Test Item Value Reference Range Interpretation Comments TROPONIN-I 0.041 ng/mL 0.000-0.045 N Negative: <= (test code = 0.045 Positive: TROPI) >= 0.046 Correl ation with serial results, other cardiac markers andclin ical findings is necessary to determine the clinicalsignifi cance of this result. Results using different metho dologies should not be c omparedto one another as krystyna titative results may shania y by method. COMMENTS: 3 troponins total (including troponin done in ED)B-TYPE NATRIURETIC [id number] 00:20:00 Test Item Value Reference Range Interpretation Comments B-TYPE NATRIURETIC PEPTIDE (test 709.0 PG/ML 0-100 H code = BNP) BASIC METABOLIC [id number] 23:45:00 Test Item Value Reference Range Interpretation Comments SODIUM (test code = NA) 140 mEq/L 134-147 N POTASSIUM (test code = 5.3 mEq/L 3.4-5.0 H K) CHLORIDE (test code = 104 mEq/L 100-108 N CL) CARBON DIOXIDE (test 22 mEq/L 21-33 N code = CO2) ANION GAP (test code = 19 0-20 N GAP) GLUCOSE (test code = 178 mg/dL 70-110 H GLU) BLOOD UREA NITROGEN 112 mg/dL 7-18 H (test code = BUN) GLOMERULAR FILTRATION 3.4 90-95 L Units of measure = RATE (test code = GFR) ml/mi n/1.73 m2 CREATININE (test code = 18.1 mg/dL 0.6-1.3 H CREAT) CALCIUM (test code = 7.3 mg/dL 8.0-10.5 L CA) HEPATIC FUNCTION [id number] 23:45:00 Test Item Value Reference Range Interpretation Comments TOTAL PROTEIN (test code = PROT) 7.8 g/dL 6.4-8.2 N ALBUMIN (test code = ALB) 3.40 g/dL 3.4-5.0 N BILIRUBIN TOTAL (test code = 0.3 MG/DL <1.5 N BILT) BILIRUBIN DIRECT (test code = 0.10 MG/DL 0.0-0.30 BILD) BILIRUBIN INDIRECT (test code = 0.20 MG/DL BILIND) SGOT/AST (test code = AST) 29 IUnit/L 15-37 N SGPT/ALT (test code = ALT) 39 IUnit/L 15-65 N ALKALINE PHOSPHATASE TOTAL (test 111 IUnit/L 20-125 N code = ALKP) [id number] 23:45:00 Test Item Value Reference Range Interpretation Comments LIPASE (test code = LIP) 237 IUnit/L 73-393 N [id number] 23:45:00 Test Item Value Reference Range Interpretation Comments MAGNESIUM (test code = MAG) 3.00 mg/dL 1.8-2.4 H [id number] 23:45:00 Test Item Value Reference Range Interpretation Comments TROPONIN-I (test code = TROPI) ng/mL 0.000-0.045 BASIC METABOLIC [id number] 23:45:00 Test Item Value Reference Range Interpretation Comments SODIUM (test code = NA) 140 mEq/L 134-147 N POTASSIUM (test code = 5.3 mEq/L 3.4-5.0 H K) CHLORIDE (test code = 104 mEq/L 100-108 N CL) CARBON DIOXIDE (test 22 mEq/L 21-33 N code = CO2) ANION GAP (test code = 19 0-20 N GAP) GLUCOSE (test code = 178 mg/dL 70-110 H GLU) BLOOD UREA NITROGEN 112 mg/dL 7-18 H (test code = BUN) GLOMERULAR FILTRATION 3.4 90-95 L Units of measure = RATE (test code = GFR) ml/mi n/1.73 m2 CREATININE (test code = 18.1 mg/dL 0.6-1.3 H CREAT) CALCIUM (test code = 7.3 mg/dL 8.0-10.5 L CA) HEPATIC FUNCTION [id number] 23:45:00 Test Item Value Reference Range Interpretation Comments TOTAL PROTEIN (test code = PROT) 7.8 g/dL 6.4-8.2 N ALBUMIN (test code = ALB) 3.40 g/dL 3.4-5.0 N BILIRUBIN TOTAL (test code = 0.3 MG/DL <1.5 N BILT) BILIRUBIN DIRECT (test code = 0.10 MG/DL 0.0-0.30 BILD) BILIRUBIN INDIRECT (test code = 0.20 MG/DL BILIND) SGOT/AST (test code = AST) 29 IUnit/L 15-37 N SGPT/ALT (test code = ALT) 39 IUnit/L 15-65 N ALKALINE PHOSPHATASE TOTAL (test 111 IUnit/L 20-125 N code = ALKP) [id number] 23:45:00 Test Item Value Reference Range Interpretation Comments LIPASE (test code = LIP) 237 IUnit/L 73-393 N [id number] 23:45:00 Test Item Value Reference Range Interpretation Comments MAGNESIUM (test code = MAG) 3.00 mg/dL 1.8-2.4 H [id number] 23:45:00 Test Item Value Reference Range Interpretation Comments TROPONIN-I 0.031 ng/mL 0.000-0.045 N Negative: <= (test code = 0.045 Positive: TROPI) >= 0.046 Correl ation with serial results, other cardiac markers andclin ical findings is necessary to determine the clinicalsignifi cance of this result. Results using different metho dologies should not be c omparedto one another as krystyna titative results may shania y by method. - XR CHEST 1 [id number] 23:43:00 FAX: Faheem Padilla MD [phone] [place]: St: PRE FAX: Josiah Salinas MD [phone] Name: GINETTE GARCIA [facility] : 1970 Age/S: 49/M [address] [place] [address] Unit #: [id number] Loc: [place] [address] Phys: Josiah Ha MD Acct: G [id number] Dis Date: Status: PRE ER PHONE #: [phone] Exam Date: 07/07/2019 2340 FAX #: [phone] Reason: SOB EXAMS: CPT CODE: [id number] XR CHEST 1 V 96583 PROCEDURE: Ch est Radiograph. Clinical Indication: Chest pain, shortness of breath, diarrhea, missed dialysis. Comparison: Chest radiograph 06/25/2019. FINDINGS: The chest shows minimal vascular congestion. A right IJ dialysis catheter is in stable position. The heart size is upper limits of normal. The trachea is midline. There are no clinically significant osseous abnormalities noted. IMPRESSION: 1. Findings suggesting minimal vascular congestion. SL: OCO-H at 2343 Reported and signed by: Gregg Berger M.D. CC: Faheem Max MD; Josiah Ha MD Technologist: Daylin Ahn, RT(R); RT Vincent(R) Trnscrd Date/Time/By: 07/07/2019 (5956) : By: GtO Orig Print D/T: S: 07/07/2019 (9895) PAGE 1 Signed ReportPROTHROMBIN [id number] 23:36:00 Test Item Value Reference Range Interpretation Comments PROTHROMBIN TIME 12.2 SECONDS 9.3-12.9 N PATIENT (test code = PTP) INTERNATIONAL NORMAL 1.1 0.8-1.2 N TARGET RATIO (test code = INR BY IN DICATION INR) Indication INR1. Prophyl axis of venous thrombos is 2.0 - 3. 0 (orthopedic luisito levi), Prophylaxis of venous thrombos is (other than hig h-risk surgery), Marycarmen tment of Deep Vein Thrombosis/Pulm onary Embolism, Preve ntion of systemic emb olism - Tissue heart va lves, Acute Myocardia l Infarction (to prevent systemic embo lism), Valvular heart disease, Atri al Fibrillation, Bileaflet mecha nical valve in aortic position.2. Mec hanical prosthetic valv es (high risk), 2.5 - 3.5 Presence of Lupus Anticoagu lant or Antiphospholi pid Antibodies, Pre vention of systemic e mbolism - Acute Myocard ial Infarction (t o prevent recurre nt infarct). THROMBOPLASTIN TIME [id number] 23:36:00 Test Item Value Reference Range Interpretation Comments THROMBOPLASTIN TIME 40.4 Seconds 25.0-39.5 H Ther apeutic PARTIAL (test code = Range: 50.4 - 88.3 PTT) Seconds Effective 11/14/2018 CBC W/AUTO [id number] 23:29:00 Test Item Value Reference Range Interpretation Comments WHITE BLOOD CELL (test code = 11.94 x10 3/uL 4.5-11.0 H WBC) RED BLOOD CELL (test code = 2.16 x10 6/uL 4.00-5.60 L RBC) HEMOGLOBIN (test code = HGB) 6.3 g/dL 12.5-16.9 LL HEMATOCRIT (test code = HCT) 19.3 % 37.5-50.7 L MEAN CELL VOLUME (test code = 89.4 fL 81.0-99.0 N MCV) MEAN CELL HGB (test code = 29.2 pg 27.0-33.0 N MCH) MEAN CELL HGB CONCETRATION 32.6 g/dL 33.0-37.0 L (test code = MCHC) RED CELL DISTRIBUTION WIDTH CV 20.2 % 11.5-14.5 H (test code = RDW) RED CELL DISTRIBUTION WIDTH SD 65.2 fL 37.0-54.0 H (test code = RDW-SD) PLATELET COUNT (test code = 195 x10 3/uL 150-400 N PLT) MEAN PLATELET VOLUME (test 10.0 fL 7.0-9.0 H code = MPV) NEUTROPHIL % (test code = NT%) 78.4 % 56.0-77.0 H IMMATURE GRANULOCYTE % (test 0.4 % 0.0-2.0 N code = IG%) LYMPHOCYTE % (test code = LY%) 12.6 % 14.0-32.0 L MONOCYTE % (test code = MO%) 6.0 % 4.8-9.0 N EOSINOPHIL % (test code = EO%) 2.3 % 0.3-3.7 N BASOPHIL % (test code = BA%) 0.3 % 0.0-2.0 N NUCLEATED RBC % (test code = 0.0 % 0-0 N NRBC%) NEUTROPHIL # (test code = NT#) 9.36 x10 3/uL 2.0-7.6 H IMMATURE GRANULOCYTE # (test 0.05 x10 3/uL 0.00-0.03 H code = IG#) LYMPHOCYTE # (test code = LY#) 1.50 x10 3/uL 1.0-3.8 N MONOCYTE # (test code = MO#) 0.72 x10 3/uL 0.1-0.8 N EOSINOPHIL # (test code = EO#) 0.28 x10 3/uL 0.0-0.2 H BASOPHIL # (test code = BA#) 0.03 x10 3/uL 0.0-0.2 N NUCLEATED RBC # (test code = 0.00 x10 3/uL 0.0-0.1 N NRBC#) MANUAL DIFF REQUIRED (test NO code = MDIFF) TOTAL IRON BINDING [id number] 08:49:00 Test Item Value Reference Range Interpretation Comments SERUM IRON (test code = IRON) 38 mcg/dL 35-150 N TOTAL IRON BINDING CAPACITY (test 182 mcg/dL 260-445 L code = TIBC) UIBC (test code = UIBC) 144 mcg/dL IRON SATURATION (test code = 20.9 % 14-34 N FESAT) [id number] 08:49:00 Test Item Value Reference Range Interpretation Comments FERRITIN (test code = KAY) 698.1 ng/mL 23.9-336.2 H COMPREHENSIVE METABOLIC [id number] 08:23:00 Test Item Value Reference Range Interpretation Comments SODIUM (test code = NA) 136 mEq/L 134-147 N POTASSIUM (test code = 4.6 mEq/L 3.4-5.0 N K) CHLORIDE (test code = 102 mEq/L 100-108 N CL) CARBON DIOXIDE (test 25 mEq/L 21-33 N code = CO2) ANION GAP (test code = 14 0-20 N GAP) GLUCOSE (test code = 109 mg/dL 70-110 N GLU) BLOOD UREA NITROGEN 61 mg/dL 7-18 H (test code = BUN) GLOMERULAR FILTRATION 5.4 90-95 L Units of measure = RATE (test code = GFR) ml/mi n/1.73 m2 CREATININE (test code = 12.1 mg/dL 0.6-1.3 H CREAT) TOTAL PROTEIN (test 7.5 g/dL 6.4-8.2 N code = PROT) ALBUMIN (test code = 2.80 g/dL 3.4-5.0 L ALB) CALCIUM (test code = 8.2 mg/dL 8.0-10.5 N CA) BILIRUBIN TOTAL (test 0.3 MG/DL <1.5 N code = BILT) SGOT/AST (test code = 19 IUnit/L 15-37 N AST) SGPT/ALT (test code = 38 IUnit/L 15-65 N ALT) ALKALINE PHOSPHATASE 135 IUnit/L 20-125 H TOTAL (test code = ALKP) LIPID PROFILE (CORONARY RISK)[id number] 08:23:00 Test Item Value Reference Range Interpretation Comments TRIGLYCERIDES (test 94 mg/dL 40-150 N code = TRIG) CHOLESTEROL (test 119 mg/dL <200 code = CHOL) CHOLESTEROL/HDL 3.05 RATIO 3.43-4.97 L RISK ASSOCIA SINGH WITH RATIO (test code = CHOL/HDL RATIOS: RISK CHOLHDL) MALE FEMALE1/2 AVERA GE 3.43 3.27AVERAGE 4.97 4.4 42X AVERAGE 9.55 7.053X AVER AGE 23.39 1 1.04 NOTE THAT THE R EFERENCE VALUE IS RELATE DTO RISK LEVELS RECOM MENDED BY THE NATL.HEA RT, LUNG, AND BLOOD INST. HDL CHOLESTEROL 39.0 mg/dL 32-72 N (test code = HDL) LIPOPROTEIN LDL 56 mg/dL 0-100 N <100 OPT [id number] (test code = LDL) NEAR OPTI MAL/ABOVE [id number] 89 HIGH>EG=788 VE RY HIGH*Guidelines provided by the [facility] terol [employer] Adult Treatment Panel III CBC W/AUTO [id number] 07:53:00 Test Item Value Reference Range Interpretation Comments WHITE BLOOD CELL (test code = 7.08 x10 3/uL 4.5-11.0 N WBC) RED BLOOD CELL (test code = 2.65 x10 6/uL 4.00-5.60 L RBC) HEMOGLOBIN (test code = HGB) 7.5 g/dL 12.5-16.9 L HEMATOCRIT (test code = HCT) 23.2 % 37.5-50.7 L MEAN CELL VOLUME (test code = 87.5 fL 81.0-99.0 N MCV) MEAN CELL HGB (test code = MCH) 28.3 pg 27.0-33.0 N MEAN CELL HGB CONCETRATION 32.3 g/dL 33.0-37.0 L (test code = MCHC) RED CELL DISTRIBUTION WIDTH CV 19.4 % 11.5-14.5 H (test code = RDW) RED CELL DISTRIBUTION WIDTH SD 61.7 fL 37.0-54.0 H (test code = RDW-SD) PLATELET COUNT (test code = 276 x10 3/uL 150-400 N PLT) MEAN PLATELET VOLUME (test code 10.8 fL 7.0-9.0 H = MPV) NEUTROPHIL % (test code = NT%) 63.4 % 56.0-77.0 N IMMATURE GRANULOCYTE % (test 0.6 % 0.0-2.0 N code = IG%) LYMPHOCYTE % (test code = LY%) 22.6 % 14.0-32.0 N MONOCYTE % (test code = MO%) 8.5 % 4.8-9.0 N EOSINOPHIL % (test code = EO%) 4.5 % 0.3-3.7 H BASOPHIL % (test code = BA%) 0.4 % 0.0-2.0 N NUCLEATED RBC % (test code = 0.0 % 0-0 N NRBC%) NEUTROPHIL # (test code = NT#) 4.49 x10 3/uL 2.0-7.6 N IMMATURE GRANULOCYTE # (test 0.04 x10 3/uL 0.00-0.03 H code = IG#) LYMPHOCYTE # (test code = LY#) 1.60 x10 3/uL 1.0-3.8 N MONOCYTE # (test code = MO#) 0.60 x10 3/uL 0.1-0.8 N EOSINOPHIL # (test code = EO#) 0.32 x10 3/uL 0.0-0.2 H BASOPHIL # (test code = BA#) 0.03 x10 3/uL 0.0-0.2 N NUCLEATED RBC # (test code = 0.00 x10 3/uL 0.0-0.1 N NRBC#) MANUAL DIFF REQUIRED (test code NO = MDIFF) BASIC METABOLIC [id number] 07:40:00 Test Item Value Reference Range Interpretation Comments SODIUM (test code = NA) 136 mEq/L 134-147 N POTASSIUM (test code = 4.3 mEq/L 3.4-5.0 N K) CHLORIDE (test code = 100 mEq/L 100-108 N CL) CARBON DIOXIDE (test 27 mEq/L 21-33 N code = CO2) ANION GAP (test code = 13 0-20 N GAP) GLUCOSE (test code = 110 mg/dL 70-110 N GLU) BLOOD UREA NITROGEN 51 mg/dL 7-18 H (test code = BUN) GLOMERULAR FILTRATION 6.9 90-95 L Units of measure = RATE (test code = GFR) ml/mi n/1.73 m2 CREATININE (test code = 9.8 mg/dL 0.6-1.3 H CREAT) CALCIUM (test code = 8.2 mg/dL 8.0-10.5 N CA) CBC W/AUTO [id number] 07:24:00 Test Item Value Reference Range Interpretation Comments WHITE BLOOD CELL (test code = 9.39 x10 3/uL 4.5-11.0 N WBC) RED BLOOD CELL (test code = 2.48 x10 6/uL 4.00-5.60 L RBC) HEMOGLOBIN (test code = HGB) 7.0 g/dL 12.5-16.9 L HEMATOCRIT (test code = HCT) 21.7 % 37.5-50.7 L MEAN CELL VOLUME (test code = 87.5 fL 81.0-99.0 N MCV) MEAN CELL HGB (test code = MCH) 28.2 pg 27.0-33.0 N MEAN CELL HGB CONCETRATION 32.3 g/dL 33.0-37.0 L (test code = MCHC) RED CELL DISTRIBUTION WIDTH CV 19.6 % 11.5-14.5 H (test code = RDW) RED CELL DISTRIBUTION WIDTH SD 61.9 fL 37.0-54.0 H (test code = RDW-SD) PLATELET COUNT (test code = 299 x10 3/uL 150-400 N PLT) MEAN PLATELET VOLUME (test code 10.8 fL 7.0-9.0 H = MPV) NEUTROPHIL % (test code = NT%) 80.5 % 56.0-77.0 H IMMATURE GRANULOCYTE % (test 0.4 % 0.0-2.0 N code = IG%) LYMPHOCYTE % (test code = LY%) 9.9 % 14.0-32.0 L MONOCYTE % (test code = MO%) 6.8 % 4.8-9.0 N EOSINOPHIL % (test code = EO%) 2.2 % 0.3-3.7 N BASOPHIL % (test code = BA%) 0.2 % 0.0-2.0 N NUCLEATED RBC % (test code = 0.0 % 0-0 N NRBC%) NEUTROPHIL # (test code = NT#) 7.55 x10 3/uL 2.0-7.6 N IMMATURE GRANULOCYTE # (test 0.04 x10 3/uL 0.00-0.03 H code = IG#) LYMPHOCYTE # (test code = LY#) 0.93 x10 3/uL 1.0-3.8 L MONOCYTE # (test code = MO#) 0.64 x10 3/uL 0.1-0.8 N EOSINOPHIL # (test code = EO#) 0.21 x10 3/uL 0.0-0.2 H BASOPHIL # (test code = BA#) 0.02 x10 3/uL 0.0-0.2 N NUCLEATED RBC # (test code = 0.00 x10 3/uL 0.0-0.1 N NRBC#) MANUAL DIFF REQUIRED (test code NO = MDIFF) B-TYPE NATRIURETIC [id number] 08:05:00 Test Item Value Reference Range Interpretation Comments B-TYPE NATRIURETIC PEPTIDE (test 938.5 PG/ML 0-100 H code = BNP) - XR CHEST 2 [id number] 07:11:00 FAX: Faheem Padilla MD [phone] [place]: St: PRE FAX: Ramón Raymundo DO [phone] Name: GINETTE GARCIA [facility] : 1970 Age/S: 49/M [address] [place] [address] Unit #: [id number] Loc: [place] [address] Phys: Ramón Martin DO Acct: G [id number] Dis Date: Status: PRE ER PHONE #: [phone] Exam Date: 06/25/2019 0701 FAX #: [phone] Reason: chest pressure EXAMS: CPT CODE: [id number] XR CHEST 2 V 61600 EXAM: CR, XR chest 2 views: 06/25/2019, 0654 hours HISTORY: chest pressure TECHNIQUE: Frontal and lateral chest radiographs are obtained. COMPARISON: None available. FINDINGS: Trachea is in midline. Right IJ central venous catheter is stable. Heart is normal in size. Pulmonary vascularity is indistinct. Bilateral perihilar and lower lobe opacities, worse in the right lower lobe.. No pneumothorax or pleural effusion is seen. Osseous structures are stable. IMPRESSION: 1. Bilateral perihilar and lower lobe opacities, worse in the right lower lobe may represent fluid overload or interstitial edema. Pneumonia in the right lower lobe is not excluded. SL:[JSYEAngela-Kary] at 0711 Reported and signed by: Elías Ma M.D. CC: Faheem Max MD; Ramón Martin DO Technologist: HAMMAD Hogan) Trnscrd Date/Time/By: 06/25/2019(0711) : By: [email or web address] Orig Print D/T: S: 06/25/2019 (1328) PAGE 1 Signed ReportBASIC METABOLIC [id number] 07:10:00 Test Item Value Reference Range Interpretation Comments SODIUM (test code = NA) 139 mEq/L 134-147 N POTASSIUM (test code = 4.6 mEq/L 3.4-5.0 N K) CHLORIDE (test code = 104 mEq/L 100-108 N CL) CARBON DIOXIDE (test 23 mEq/L 21-33 N code = CO2) ANION GAP (test code = 17 0-20 N GAP) GLUCOSE (test code = 125 mg/dL 70-110 H GLU) BLOOD UREA NITROGEN 103 mg/dL 7-18 H (test code = BUN) GLOMERULAR FILTRATION 3.5 90-95 L Units of measure = RATE (test code = GFR) ml/mi n/1.73 m2 CREATININE (test code = 17.6 mg/dL 0.6-1.3 H CREAT) CALCIUM (test code = 7.5 mg/dL 8.0-10.5 L CA) [id number] 07:10:00 Test Item Value Reference Range Interpretation Comments TROPONIN-I 0.022 ng/mL 0.000-0.045 N Negative: <= (test code = 0.045 Positive: TROPI) >= 0.046 Correl ation with serial results, other cardiac markers andclin ical findings is necessary to determine the clinicalsignifi cance of this result. Results using different metho dologies should not be c omparedto one another as krystyna titative results may shania y by method. CBC W/AUTO [id number] 06:56:00 Test Item Value Reference Range Interpretation Comments WHITE BLOOD CELL (test code = 10.79 x10 3/uL 4.5-11.0 N WBC) RED BLOOD CELL (test code = 2.46 x10 6/uL 4.00-5.60 L RBC) HEMOGLOBIN (test code = HGB) 7.1 g/dL 12.5-16.9 L HEMATOCRIT (test code = HCT) 22.1 % 37.5-50.7 L MEAN CELL VOLUME (test code = 89.8 fL 81.0-99.0 N MCV) MEAN CELL HGB (test code = 28.9 pg 27.0-33.0 N MCH) MEAN CELL HGB CONCETRATION 32.1 g/dL 33.0-37.0 L (test code = MCHC) RED CELL DISTRIBUTION WIDTH CV 20.0 % 11.5-14.5 H (test code = RDW) RED CELL DISTRIBUTION WIDTH SD 64.9 fL 37.0-54.0 H (test code = RDW-SD) PLATELET COUNT (test code = 281 x10 3/uL 150-400 N PLT) MEAN PLATELET VOLUME (test 9.8 fL 7.0-9.0 H code = MPV) NEUTROPHIL % (test code = NT%) 77.0 % 56.0-77.0 N IMMATURE GRANULOCYTE % (test 0.4 % 0.0-2.0 N code = IG%) LYMPHOCYTE % (test code = LY%) 12.5 % 14.0-32.0 L MONOCYTE % (test code = MO%) 6.7 % 4.8-9.0 N EOSINOPHIL % (test code = EO%) 3.0 % 0.3-3.7 N BASOPHIL % (test code = BA%) 0.4 % 0.0-2.0 N NUCLEATED RBC % (test code = 0.0 % 0-0 N NRBC%) NEUTROPHIL # (test code = NT#) 8.32 x10 3/uL 2.0-7.6 H IMMATURE GRANULOCYTE # (test 0.04 x10 3/uL 0.00-0.03 H code = IG#) LYMPHOCYTE # (test code = LY#) 1.35 x10 3/uL 1.0-3.8 N MONOCYTE # (test code = MO#) 0.72 x10 3/uL 0.1-0.8 N EOSINOPHIL # (test code = EO#) 0.32 x10 3/uL 0.0-0.2 H BASOPHIL # (test code = BA#) 0.04 x10 3/uL 0.0-0.2 N NUCLEATED RBC # (test code = 0.00 x10 3/uL 0.0-0.1 N NRBC#) MANUAL DIFF REQUIRED (test NO code = MDIFF) PROCALCITONIN (PCT)2019-06-20 10:38:00 Test Item Value Reference Range Interpretation Comments PROCALCITONIN (PCT) 6.37 ng/mL 0.00-0.05 H PROCALC ITONIN (PCT) (test code = PROCAL) NORMAL RANGE (ADULT): <0.05 NG/ML. * a concentration < 0.5 ng/mL represent s a low risk of severe sepsis and/or septic s hock.* a concentration > 2 ng/mL represents a hi gh risk of severe seps is and/or septic shock.Neverthel ess, concentrations <0.5 ng/mL do not ex clude aninfection, on account of localized in fections (withoutsystemi c signs) which can be as sociated with such lowconcentratio ns, or a systemic infect ion in its initialstag es (< 6 hours). Further more, increased procalcitoninca n occur without infecti on. PCT concentrations between 0.5and 2.0 ng/m L should be interpreted taking into account thepatient's hi story. It is recommend ed to retest PCT with in6-24 hours if any concentrations <2 ng/mL are obtained. CBC W/AUTO [id number] 08:25:00 Test Item Value Reference Range Interpretation Comments WHITE BLOOD CELL (test code = 9.23 x10 3/uL 4.5-11.0 N WBC) RED BLOOD CELL (test code = 2.70 x10 6/uL 4.00-5.60 L RBC) HEMOGLOBIN (test code = HGB) 7.6 g/dL 12.5-16.9 L HEMATOCRIT (test code = HCT) 23.9 % 37.5-50.7 L MEAN CELL VOLUME (test code = 88.5 fL 81.0-99.0 N MCV) MEAN CELL HGB (test code = MCH) 28.1 pg 27.0-33.0 N MEAN CELL HGB CONCETRATION 31.8 g/dL 33.0-37.0 L (test code = MCHC) RED CELL DISTRIBUTION WIDTH CV 19.1 % 11.5-14.5 H (test code = RDW) RED CELL DISTRIBUTION WIDTH SD 61.4 fL 37.0-54.0 H (test code = RDW-SD) PLATELET COUNT (test code = 173 x10 3/uL 150-400 N PLT) MEAN PLATELET VOLUME (test code 11.8 fL 7.0-9.0 H = MPV) NEUTROPHIL % (test code = NT%) 77.2 % 56.0-77.0 H IMMATURE GRANULOCYTE % (test 0.4 % 0.0-2.0 N code = IG%) LYMPHOCYTE % (test code = LY%) 11.3 % 14.0-32.0 L MONOCYTE % (test code = MO%) 6.1 % 4.8-9.0 N EOSINOPHIL % (test code = EO%) 4.6 % 0.3-3.7 H BASOPHIL % (test code = BA%) 0.4 % 0.0-2.0 N NUCLEATED RBC % (test code = 0.0 % 0-0 N NRBC%) NEUTROPHIL # (test code = NT#) 7.13 x10 3/uL 2.0-7.6 N IMMATURE GRANULOCYTE # (test 0.04 x10 3/uL 0.00-0.03 H code = IG#) LYMPHOCYTE # (test code = LY#) 1.04 x10 3/uL 1.0-3.8 N MONOCYTE # (test code = MO#) 0.56 x10 3/uL 0.1-0.8 N EOSINOPHIL # (test code = EO#) 0.42 x10 3/uL 0.0-0.2 H BASOPHIL # (test code = BA#) 0.04 x10 3/uL 0.0-0.2 N NUCLEATED RBC # (test code = 0.00 x10 3/uL 0.0-0.1 N NRBC#) MANUAL DIFF REQUIRED (test code NO = MDIFF) COMPREHENSIVE METABOLIC [id number] 07:20:00 Test Item Value Reference Range Interpretation Comments SODIUM (test code = NA) 133 mEq/L 134-147 L POTASSIUM (test code = 4.2 mEq/L 3.4-5.0 N K) CHLORIDE (test code = 94 mEq/L 100-108 L CL) CARBON DIOXIDE (test 29 mEq/L 21-33 N code = CO2) ANION GAP (test code = 14 0-20 N GAP) GLUCOSE (test code = 144 mg/dL 70-110 H GLU) BLOOD UREA NITROGEN 73 mg/dL 7-18 H (test code = BUN) GLOMERULAR FILTRATION 5.0 90-95 L Units of measure = RATE (test code = GFR) ml/mi n/1.73 m2 CREATININE (test code = 12.8 mg/dL 0.6-1.3 H CREAT) TOTAL PROTEIN (test 7.7 g/dL 6.4-8.2 N code = PROT) ALBUMIN (test code = 2.70 g/dL 3.4-5.0 L ALB) CALCIUM (test code = 9.2 mg/dL 8.0-10.5 N CA) BILIRUBIN TOTAL (test 0.4 MG/DL <1.5 N code = BILT) SGOT/AST (test code = 19 IUnit/L 15-37 N AST) SGPT/ALT (test code = 38 IUnit/L 15-65 N ALT) ALKALINE PHOSPHATASE 135 IUnit/L 20-125 H TOTAL (test code = ALKP) - CT ABD PELVIS W/O [id number] 15:35:00 Name: GINETTE GARCIA [facility] : 1970 Age/S: 49 / M [address] [place] [address] Unit #: [id number] Loc: [place], [id number] Phys: Lex Minaya MD Acct: [id number] Dis Date: Status: ADM IN PHONE #: [phone] Exam Date: 06/19/2019 1444 FAX #: [phone] Reason: EPIGASTRIC PAIN EXAMS: CPTCODE: [id number] CT ABD PELVIS W/O CONT [id number] STUDY: - CT ABD PELVIS W/O CONT 06/19/2019 1:27 PM Ordering Physician: Lex Minaya MD Patient Name: GINETTE GARCIA MR: [id number] : 1970; Age: 49 years y/o Male Clinical Indication: EPIGASTRIC PAIN Comparison: None TECHNIQUE: Multiplecontiguous noncontrast transaxial CT images were obtained through the abdomen and pelvis. Sagittal and coronal reformatted images were prepared. DOSE: CT imaging performed atthis location utilizes radiation dose optimization technique which includes one or more of thefollowin) Automated exposure control; 2) Adjustment of the mA and/or kV according topatient's size; 3) Use of iterative reconstruction techniques. DLP (mGy-cm): 949 CT ABDOMEN AND PELVIS WITHOUT CONTRAST: VISUALIZED LUNG BASES: Bibasilar septum and atelectasis. BOWEL: Normal nonobstructed bowel gas pattern. Mild colonic diverticulosis. APPENDIX: Normal appendix without inflammatory change. STOMACH: Normal for degree of distention. PERITONEUM AND MESENTERY: Free Air: No evidence of pneumoperitoneum. Free Fluid: No evidence of significant free fluid, loculated fluid, peripherally enhancing abscess, or hemorrhage. Mesenteric and peritoneal fat: Normal without focal lesion or inflammation. LYMPH NODES: No lymphadenopathy or mass.VASCULAR: Abdominal Aorta: Normal caliber nonenhanced mildly atherosclerotic abdominal aorta. IVC: Normal caliber nonenhanced. PAGE 1 Signed Report (CONTINUED) Name: GINETTE GARCIA [facility] : 1970 Age/S: 49 / M [address] [place] [address] Blvd Unit #: [id number] Loc: [place] [address] Phys: Lex Minaya MD Acct: [id number] Dis Date: Status: ADM IN PHONE #: [phone] Exam Date: 06/19/2019 1444 FAX #: [phone] Reason: EPIGASTRIC PAIN EXAMS: CPT CODE: [id number] CT ABD PELVIS W/O CONT 37270 <Continued> ABDOMINAL ORGANS: Liver: Normal nonenhanced without discrete lesion. Gallbladder: Normal appearing gallbladder without calcified gallstones, gallbladder wall thickening, or pericholecystic inflammation. BiliaryTree: Normal without dilatation. Kidneys: Normal nonenhanced without nephrolithiasis, h ydronephrosis, or discrete lesion. Adrenal Glands: Normal nonenhanced without discrete lesion. Pancreas: Normal nonenhanced without discrete lesion. Spleen: Normal nonenhanced without discrete lesion. PELVIC ORGANS: Urinary bladder: Normal nonenhanced appropriate for degree of distention. Reproductive organs: No organomegaly or mass lesions. SOFT TISSUES: No suspicious soft tissue lesion or abnormality. OSSEOUS STRUCTURES: No fracture, dislocation, or suspicious focal osseous lesion. Severe disc space narrowing and endplate sclerotic changes at L4-L5. Grad e 1 anterolisthesis of L4 and L5. 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 Old right 11th posterior rib fracture. IMPRESSION: 1. No acute abnormality identified. 2. Mild colonic diverticulosis. 3. Grade 1 anterolisthesis and bilateral pars reticularis defects at L4-L5. PAGE 2 Signed Report (CONTINUED) Name: GINETTE GARCIA [facility] [place] : 1970 Age/S: 49 / M [address] [place] [address] Blvd Unit #: [id number] Loc: [place] [address] Phys: Lex Minaya MD Acct: [id number] Dis Date: Status: ADM IN PHONE #: [phone] Exam Date: 06/19/2019 0701 FAX #: [phone] Reason: EPIGASTRIC PAIN EXAMS: CPT CODE: [id number] CT ABD PELVIS W/O CONT 43689 <Continued> SL: [id number] at 1535 Reported and signed by: Luan Torres M.D. CC: Faheem Max MD; Renato Duron MD; Lex Minaya MD Technologist:Aviva To RT(R)(CT) CTDI: DLP: Trnscb Date/Time: 06/19/2019 (1535) [email or web address] Orig Print D/T: S: 06/19/2019 (1537) PAGE 3 Signed ReportHEPATIC FUNCTION [id number] 14:06:00 Test Item Value Reference Range Interpretation Comments TOTAL PROTEIN (test code = PROT) 7.7 g/dL 6.4-8.2 N ALBUMIN (test code = ALB) 2.70 g/dL 3.4-5.0 L BILIRUBIN TOTAL (test code = 0.4 MG/DL <1.5 N BILT) BILIRUBIN DIRECT (test code = 0.20 MG/DL 0.0-0.30 N BILD) BILIRUBIN INDIRECT (test code = 0.20 MG/DL BILIND) SGOT/AST (test code = AST) 28 IUnit/L 15-37 N SGPT/ALT (test code = ALT) 41 IUnit/L 15-65 N ALKALINE PHOSPHATASE TOTAL (test 133 IUnit/L 20-125 H code = ALKP) [id number] 14:06:00 Test Item Value Reference Range Interpretation Comments LIPASE (test code = LIP) 81 IUnit/L 73-393 N - XR CHEST 1 [id number] 09:14:00 FAX: Faheem Padilla MD [phone] [place]: St: ADM FAX: Renato Duron MD [phone] FAX: Gualberto Signh MD [phone] Name: GINETTE GARCIA [facility] [place] : 1970 Age/S: 49/M [address] [place] [address] Unit #: [id number] Loc: G.6631 [place] [address] Phys: Gualberto Hamilton MD Acct: [id number] Dis Date: Status: ADM IN PHONE #: [phone] Exam Date: 06/19/2019823 FAX #: [phone] Reason: sopb EXAMS: CPT CODE: [id number] XR CHEST 1 V 57981 CHEST 1 VIEW: 06/19/2019 COMPARISON: June CLINICAL HISTORY: Shortness of breath FINDINGS: Borderline cardiomegaly is stable. There is mild vascular congestion which has improved when compared with the prior study. Decreased infiltrate noted at the right lung base. No evidence of pneumothorax. Right sided central venous catheter tip is at the level of the atrial caval junction. IMPRESSION: Mild vascular congestion, improved from prior study. at 0914 Reported and signed by: Kashmir Caal M.D. CC: Faheem Max MD; Renato Duron MD; Gualberto Hamilton MD Technologist: RT Leoncio(R) Trnscrd Date/Time/By: 06/19/2019 (0914) : By: [email or web address] Orig Print D/T: S: 06/19/2019 (1032) PAGE 1 Signed ReportPROCALCITONIN (PCT)2019-06-19 08:37:00 Test Item Value Reference Range Interpretation Comments PROCALCITONIN (PCT) 6.34 ng/mL 0.00-0.05 H PROCALC ITONIN (PCT) (test code = PROCAL) NORMAL RANGE (ADULT): <0.05 NG/ML. * a concentration < 0.5 ng/mL represent s a low risk of severe sepsis and/or septic s hock.* a concentration > 2 ng/mL represents a hi gh risk of severe seps is and/or septic shock.Neverthel ess, concentrations <0.5 ng/mL do not ex clude aninfection, on account of localized in fections (withoutsystemi c signs) which can be as sociated with such lowconcentratio ns, or a systemic infect ion in its initialstag es (< 6 hours). Further more, increased procalcitoninca n occur without infecti on. PCT concentrations between 0.5and 2.0 ng/m L should be interpreted taking into account thepatient's hi story. It is recommend ed to retest PCT with in6-24 hours if any concentrations <2 ng/mL are obtained. BASIC METABOLIC [id number] 07:35:00 Test Item Value Reference Range Interpretation Comments SODIUM (test code = NA) 135 mEq/L 134-147 N POTASSIUM (test code = 4.2 mEq/L 3.4-5.0 N K) CHLORIDE (test code = 100 mEq/L 100-108 N CL) CARBON DIOXIDE (test 26 mEq/L 21-33 N code = CO2) ANION GAP (test code = 13 0-20 N GAP) GLUCOSE (test code = 110 mg/dL 70-110 N GLU) BLOOD UREA NITROGEN 58 mg/dL 7-18 H (test code = BUN) GLOMERULAR FILTRATION 6.2 90-95 L Units of measure = RATE (test code = GFR) ml/mi n/1.73 m2 CREATININE (test code = 10.7 mg/dL 0.6-1.3 H CREAT) CALCIUM (test code = 8.5 mg/dL 8.0-10.5 N CA) ACUTE HEPATITIS [id number] 07:12:00 Test Item Value Reference Range Interpretation Comments AB HEPATITIS A IGM (test NON REACTIVE INDEX NON REACT. code = HAVMAB) AG HEPATITIS B SURFACE NON REACTIVE INDEX NonReactive (test code = HBSAG) AB HEPATITIS B CORE IGM NON REACTIVE INDEX NON REACT. (test code = HBCMAB) AB HEPATITIS C (test code NON REACTIVE INDEX NON REACT. = HCVAB) COMMENTS: At start of hemodialysisAB HEPATITIS B [id number] 07:12:00 Test Item Value Reference Range Interpretation Comments AB HEPATITIS B 398.9 mIU/mL Immunity>9.9 Status of I mmunity SURFACE (test code = HBSAB) Anti-HBs Level --- I ncons istent with Imm unity 0.0 - 9.9Consis tent with Immunity >9.9Performed A t: HD [facility] [address] [id number] Bryan Matthews MD Ph:[phone] COMMENTS: At start of hemodialysisCBC W/AUTO [id number] 07:01:00 Test Item Value Reference Range Interpretation Comments WHITE BLOOD CELL (test code = 11.09 x10 3/uL 4.5-11.0 H WBC) RED BLOOD CELL (test code = 2.67 x10 6/uL 4.00-5.60 L RBC) HEMOGLOBIN (test code = HGB) 7.6 g/dL 12.5-16.9 L HEMATOCRIT (test code = HCT) 23.7 % 37.5-50.7 L MEAN CELL VOLUME (test code = 88.8 fL 81.0-99.0 N MCV) MEAN CELL HGB (test code = 28.5 pg 27.0-33.0 N MCH) MEAN CELL HGB CONCETRATION 32.1 g/dL 33.0-37.0 L (test code = MCHC) RED CELL DISTRIBUTION WIDTH CV 19.6 % 11.5-14.5 H (test code = RDW) RED CELL DISTRIBUTION WIDTH SD 62.9 fL 37.0-54.0 H (test code = RDW-SD) PLATELET COUNT (test code = 142 x10 3/uL 150-400 L PLT) MEAN PLATELET VOLUME (test 11.8 fL 7.0-9.0 H code = MPV) NEUTROPHIL % (test code = NT%) 80.7 % 56.0-77.0 H IMMATURE GRANULOCYTE % (test 0.5 % 0.0-2.0 N code = IG%) LYMPHOCYTE % (test code = LY%) 10.0 % 14.0-32.0 L MONOCYTE % (test code = MO%) 5.6 % 4.8-9.0 N EOSINOPHIL % (test code = EO%) 2.9 % 0.3-3.7 N BASOPHIL % (test code = BA%) 0.3 % 0.0-2.0 N NUCLEATED RBC % (test code = 0.0 % 0-0 N NRBC%) NEUTROPHIL # (test code = NT#) 8.96 x10 3/uL 2.0-7.6 H IMMATURE GRANULOCYTE # (test 0.05 x10 3/uL 0.00-0.03 H code = IG#) LYMPHOCYTE # (test code = LY#) 1.11 x10 3/uL 1.0-3.8 N MONOCYTE # (test code = MO#) 0.62 x10 3/uL 0.1-0.8 N EOSINOPHIL # (test code = EO#) 0.32 x10 3/uL 0.0-0.2 H BASOPHIL # (test code = BA#) 0.03 x10 3/uL 0.0-0.2 N NUCLEATED RBC # (test code = 0.00 x10 3/uL 0.0-0.1 N NRBC#) MANUAL DIFF REQUIRED (test NO code = MDIFF) RESPIRATORY VIRUS PANEL [id number] 22:07:00 Test Item Value Reference Interpretation Comments Range RSV A PCR (test Negative Negative code = RSV A) RSV B PCR (test Negative Negative code = RSV B) INFLUENZA A (test Negative Negative code = FLUAPCR) INFLUENZA A SUBTYPE Negative Negative H1 (test code = FLUAH1) INFLUENZA A SUBTYPE Negative Negative H3 (test code = FLUAH3) INFLUENZA B (test Negative Negative code = FLUBPCR) PARAINFLUENZA TYPE Negative Negative 1 PCR (test code = PIF1) PARAINFLUENZA TYPE Negative Negative 2 PCR (test code = PIF2) PARAINFLUENZA TYPE Negative Negative 3 PCR (test code = PIF3) PARAINFLUENZA TYPE Negative Negative 4 PCR (test code = PIF4) RHINOVIRUS PCR Negative Negative (test code = RHINO) METAPNEUMOVIRUS PCR Negative Negative (test code = METAPNEU) ADENOVIRUS PCR Positive Negative A (test code = ADENOPCR) BORDETELLA Negative Negative PERTUSSIS DNA PCR (test code = BORDPERDNA) B PARAPERTUSSIS BY Negative Negative PCR (test code = BPARAPCR) BORDETELLA HOLMESII Negative Negative Testing was performed (test code = using nucleic a mae BORDHOLM) amplificationin cluding Bordetella parapertussis/b rochiseptic a, Bordetella h olmesii, and Bordetella pertussis. COMPLEMENT BETA C1 RVP Comment Testing w as performed (test code = using nucleic a mae COMBC1) amplificationin cluding influenza A, in fluenza A H1, influenza A H3,influenza B, RSV-A, RSV-B, Adenovir us, HumanMetapneumo virus, Parainfluenza 1 ,2,3 and 4, Rhinovirus, Bor detella parapertussis/b rochiseptic a, Bordetella h olmesii, and Bordetella pertussis. - CT CHEST W/O [id number] 15:55:00 Name: GINETTE GARCIA [facility] : 1970 Age/S: 49 / M [address] [place] [address] Unit #: [id number] Loc: [place], [place] Phys: Lex Minaya MD Acct: [id number] Dis Date: Status: ADM IN PHONE #: [phone] Exam Date: 06/18/2019 1601 FAX #: [phone] Reason: r/o pneumonia EXAMS: CPTCODE: [id number] CT CHEST W/O CONTRAST [address]9264 PROCEDURE: CT CHEST WITHOUT CONTRAST INDICATION: r/o pneumonia; symptoms not specified. 49-year-old male with admitting diagnosis of volume overload and pneumonia, history of end-stage renal disease. COMPARISON: CXR 06/17/2019, CT chest 11/21/2018 TECHNIQUE: Noncontrasted helical imaging performed apices through the lung bases with multiplanar reconstructions. CT imaging performed at this location utilizes radiation dose optimization techniques which include one or more of the following: -Automated exposure control -Adjustment of the mA and/or kV according to patient size -Use of iterative reconstruction technique CT Radiation Dose DLP 599.40 mGy-cm FINDINGS: LUNGS AND PLEURA: There are indistinct groundglass pulmonary opacities predominantly in central and dependent lung zones. There is no consolidation or discrete mass. There are small bilateral pleural effusions layeringdependently. The central airways are patent. MEDIASTINUM: Limited noncontrast survey of mediastinal contents. Mildly enlarged mediastinal nodes. Level 4R nodes measuring up to 11 mm short axis in level 6 nodes measuring up to 1 cm short axis. Level 7 node up to 17 mm short axis. Esophagus is unremarkable. HEART: The cardiac chambers are unremarkable. Trace pericardial effusion. VASCULAR STRUCTURES: Right hemodialysis catheter tip in the upper right atrium. Mild calcified plaque thoracic aorta. UPPER ABDOMEN: Limited noncontrast survey of upper abdominal viscera is negative. MUSCULOSKELETAL: The skeleton is intact. IMPRESSION: 1. Bilateral relatively symmetric groundglass pulmonary opacities. Distribution compatible with edema. Inflammation with environ mental/inhalational injury, hypersensitivity pneumonitis and atypical infection in the differential. Pattern is not typical of community- acquired pneumonia. PAGE 1 Signed Report (CONTINUED) Name: GINETTE GARCIA [facility] : 1970 Age/S: 49 / M [address] [place] [address] Unit #: [id number] Loc: [place] [address] Phys: Lex Minaya MD Acct: [id number] Dis Date: Status: ADM IN PHONE #: [phone] Exam Date: 06/18/2019 1601 FAX #: [phone] Reason: r/o pneumonia EXAMS: CPT CODE: [id number] CT CHEST W/O CONTRAST 01551 <Continued> 2. Small bilateral pleural effusions. 3. Mildly enlarged mediastinal nodes, etiology undetermined. SL: [id number] at 1555 Reported and signed by: Obinna Villegas M.D. CC: Faheem Max MD; Renato Duron MD; Lex Minaya MD Technologist:Arnol Barbour, RT(R)(CT) CTDI: DLP: Trnscb Date/Time: 06/18/2019 (2792) tMARY Orig Print D/T: S: 06/18/2019 (1070) PAGE 2 Signed Report PROCALCITONIN (PCT)2019-06-18 15:54:00 Test Item Value Reference Range Interpretation Comments PROCALCITONIN (PCT) 4.62 ng/mL 0.00-0.05 H PROCALC ITONIN (PCT) (test code = PROCAL) NORMAL RANGE (ADULT): <0.05 NG/ML. * a concentration < 0.5 ng/mL represent s a low risk of severe sepsis and/or septic s hock.* a concentration > 2 ng/mL represents a hi gh risk of severe seps is and/or septic shock.Neverthel ess, concentrations <0.5 ng/mL do not ex clude aninfection, on account of localized in fections (withoutsystemi c signs) which can be as sociated with such lowconcentratio ns, or a systemic infect ion in its initialstag es (< 6 hours). Further more, increased procalcitoninca n occur without infecti on. PCT concentrations between 0.5and 2.0 ng/m L should be interpreted taking into account thepatient's hi story. It is recommend ed to retest PCT with in6-24 hours if any concentrations <2 ng/mL are obtained. TOTAL IRON BINDING [id number] 15:35:00 Test Item Value Reference Range Interpretation Comments SERUM IRON (test code = IRON) 23 mcg/dL 35-150 L TOTAL IRON BINDING CAPACITY (test 167 mcg/dL 260-445 L code = TIBC) UIBC (test code = UIBC) 144 mcg/dL IRON SATURATION (test code = 13.8 % 14-34 L FESAT) [id number] 15:35:00 Test Item Value Reference Range Interpretation Comments FERRITIN (test code = KAY) 1138.5 ng/mL 23.9-336.2 H [id number] 11:22:00 Test Item Value Reference Range Interpretation Comments GLUBED (test code = 144 MG/DL 70-110 H Performe d by certified GLUBED) grinding wheel operator at [facility] BASIC METABOLIC [id number] 08:32:00 Test Item Value Reference Range Interpretation Comments SODIUM (test code = NA) 134 mEq/L 134-147 N POTASSIUM (test code = 4.8 mEq/L 3.4-5.0 N K) CHLORIDE (test code = 98 mEq/L 100-108 L CL) CARBON DIOXIDE (test 26 mEq/L 21-33 N code = CO2) ANION GAP (test code = 15 0-20 N GAP) GLUCOSE (test code = 101 mg/dL 70-110 N GLU) BLOOD UREA NITROGEN 88 mg/dL 7-18 H (test code = BUN) GLOMERULAR FILTRATION 3.7 90-95 L Units of measure = RATE (test code = GFR) ml/mi n/1.73 m2 CREATININE (test code = 16.6 mg/dL 0.6-1.3 H CREAT) CALCIUM (test code = 8.5 mg/dL 8.0-10.5 N CA) CBC W/AUTO [id number] 08:28:00 Test Item Value Reference Range Interpretation Comments WHITE BLOOD CELL (test code = 11.15 x10 3/uL 4.5-11.0 H WBC) RED BLOOD CELL (test code = 2.59 x10 6/uL 4.00-5.60 L RBC) HEMOGLOBIN (test code = HGB) 7.4 g/dL 12.5-16.9 L HEMATOCRIT (test code = HCT) 22.3 % 37.5-50.7 L MEAN CELL VOLUME (test code = 86.1 fL 81.0-99.0 N MCV) MEAN CELL HGB (test code = 28.6 pg 27.0-33.0 N MCH) MEAN CELL HGB CONCETRATION 33.2 g/dL 33.0-37.0 N (test code = MCHC) RED CELL DISTRIBUTION WIDTH CV 19.6 % 11.5-14.5 H (test code = RDW) RED CELL DISTRIBUTION WIDTH SD 61.2 fL 37.0-54.0 H (test code = RDW-SD) PLATELET COUNT (test code = 126 x10 3/uL 150-400 L PLT) IMMATURE PLATELET FRACTION 3.7 % 0.9-11.2 N (test code = IPF) NEUTROPHIL % (test code = NT%) 82.4 % 56.0-77.0 H IMMATURE GRANULOCYTE % (test 0.6 % 0.0-2.0 N code = IG%) LYMPHOCYTE % (test code = LY%) 9.7 % 14.0-32.0 L MONOCYTE % (test code = MO%) 6.4 % 4.8-9.0 N EOSINOPHIL % (test code = EO%) 0.6 % 0.3-3.7 N BASOPHIL % (test code = BA%) 0.3 % 0.0-2.0 N NUCLEATED RBC % (test code = 0.0 % 0-0 N NRBC%) NEUTROPHIL # (test code = NT#) 9.19 x10 3/uL 2.0-7.6 H IMMATURE GRANULOCYTE # (test 0.07 x10 3/uL 0.00-0.03 H code = IG#) LYMPHOCYTE # (test code = LY#) 1.08 x10 3/uL 1.0-3.8 N MONOCYTE # (test code = MO#) 0.71 x10 3/uL 0.1-0.8 N EOSINOPHIL # (test code = EO#) 0.07 x10 3/uL 0.0-0.2 N BASOPHIL # (test code = BA#) 0.03 x10 3/uL 0.0-0.2 N NUCLEATED RBC # (test code = 0.00 x10 3/uL 0.0-0.1 N NRBC#) MANUAL DIFF REQUIRED (test NO code = MDIFF) ACUTE HEPATITIS [id number] 15:22:00 Test Item Value Reference Range Interpretation Comments AB HEPATITIS A IGM (test NON REACTIVE INDEX NON REACT. code = HAVMAB) AG HEPATITIS B SURFACE NON REACTIVE INDEX NonReactive (test code = HBSAG) AB HEPATITIS B CORE IGM NON REACTIVE INDEX NON REACT. (test code = HBCMAB) AB HEPATITIS C (test code NON REACTIVE INDEX NON REACT. = HCVAB) COMMENTS: At start of hemodialysisAB HEPATITIS B [id number] 15:22:00 Test Item Value Reference Range Interpretation Comments AB HEPATITIS B SURFACE (test code = HBSAB) COMMENTS: At start of hemodialysisBASIC METABOLIC [id number] 08:10:00 Test Item Value Reference Range Interpretation Comments SODIUM (test code = NA) 133 mEq/L 134-147 L POTASSIUM (test code = 5.2 mEq/L 3.4-5.0 H K) CHLORIDE (test code = 98 mEq/L 100-108 L CL) CARBON DIOXIDE (test 22 mEq/L 21-33 N code = CO2) ANION GAP (test code = 18 0-20 N GAP) GLUCOSE (test code = 114 mg/dL 70-110 H GLU) BLOOD UREA NITROGEN 133 mg/dL 7-18 H (test code = BUN) GLOMERULAR FILTRATION 2.8 90-95 L Units of measure = RATE (test code = GFR) ml/mi n/1.73 m2 CREATININE (test code = 21.6 mg/dL 0.6-1.3 H CREAT) CALCIUM (test code = 7.8 mg/dL 8.0-10.5 L CA) [id number] 08:10:00 Test Item Value Reference Range Interpretation Comments MAGNESIUM (test code = MAG) 4.20 mg/dL 1.8-2.4 HH CBC W/O [id number] 07:17:00 Test Item Value Reference Range Interpretation Comments WHITE BLOOD CELL (test code = 10.52 x10 3/uL 4.5-11.0 N WBC) RED BLOOD CELL (test code = 2.63 x10 6/uL 4.00-5.60 L RBC) HEMOGLOBIN (test code = HGB) 7.5 g/dL 12.5-16.9 L HEMATOCRIT (test code = HCT) 23.2 % 37.5-50.7 L MEAN CELL VOLUME (test code = 88.2 fL 81.0-99.0 N MCV) MEAN CELL HGB (test code = 28.5 pg 27.0-33.0 N MCH) MEAN CELL HGB CONCETRATION 32.3 g/dL 33.0-37.0 L (test code = MCHC) RED CELL DISTRIBUTION WIDTH CV 19.4 % 11.5-14.5 H (test code = RDW) RED CELL DISTRIBUTION WIDTH SD 61.7 fL 37.0-54.0 H (test code = RDW-SD) PLATELET COUNT (test code = 147 x10 3/uL 150-400 L PLT) MEAN PLATELET VOLUME (test 11.7 fL 7.0-9.0 H code = MPV) BASIC METABOLIC [id number] 00:53:00 Test Item Value Reference Range Interpretation Comments SODIUM (test code = NA) 135 mEq/L 134-147 N POTASSIUM (test code = 5.1 mEq/L 3.4-5.0 H K) CHLORIDE (test code = 97 mEq/L 100-108 L CL) CARBON DIOXIDE (test 24 mEq/L 21-33 N code = CO2) ANION GAP (test code = 19 0-20 N GAP) GLUCOSE (test code = 91 mg/dL 70-110 N GLU) BLOOD UREA NITROGEN 135 mg/dL 7-18 H (test code = BUN) GLOMERULAR FILTRATION 2.7 90-95 L Units of measure = RATE (test code = GFR) ml/mi n/1.73 m2 CREATININE (test code = 21.8 mg/dL 0.6-1.3 H CREAT) CALCIUM (test code = 8.1 mg/dL 8.0-10.5 N CA) - XR CHEST 1 [id number] 00:47:00 FAX: Faheem Padilla MD [phone] [place]: St: PRE FAX: Germán Sorensen MD [phone] Name: GINETTE GARCIA [facility] : 1970 Age/S: 49/M [address] [place] [address] Unit #: [id number] Loc: G.ERS2 [place] [address] Phys: Germán Sorensen MD Acct: [id number] Dis Date: Status: PRE ER PHONE #: [phone] Exam Date: 06/17/2019 0044 FAX #: [phone] Reason: Chest Pain EXAMS: CPT CODE: [id number] XR CHEST 1 V 07788 Chest x-ray 1 view History: Chest pain. Comparison: 06/10/2019 Findings: Mediastinum: The heart appears at the upper limits of normal,unchanged. Lungs and pleural spaces: Right infrahilar hazy and confluent opacities are identified. The lungs are otherwise clear. Pulmonary vascular congestion is noted. No pleural effusion or pneumothorax. Lines and tubes: Right double lumen CVC catheter terminates over the right atrium. Impression: Right infrahilar hazy and confluent opacities are identified which could represent infiltrate. Asymmetric pulmonary edema or subsegmental atelectasis remain in the differential. Pulmonary vascular congestion is noted. at 0047 Reported and signed by: Rossy Joshi M.D. CC: Faheem Max MD; Germán Sorensen MD Technologist: RT Zafar(R) Trnscrd Date/Time/By: 06/17/2019 (0047) : By: [email or web address] Orig Print D/T: S: 06/17/2019 (0050) PAGE 1 Signed ReportBASIC METABOLIC [id number] 00:42:00 Test Item Value Reference Range Interpretation Comments SODIUM (test code = NA) 135 mEq/L 134-147 N POTASSIUM (test code = K) 5.1 mEq/L 3.4-5.0 H CHLORIDE (test code = CL) 97 mEq/L 100-108 L CARBON DIOXIDE (test code = CO2) 24 mEq/L 21-33 N ANION GAP (test code = GAP) 19 0-20 N GLUCOSE (test code = GLU) 91 mg/dL 70-110 N BLOOD UREA NITROGEN (test code = 135 mg/dL 7-18 H BUN) GLOMERULAR FILTRATION RATE (test 90-95 code = GFR) CREATININE (test code = CREAT) mg/dL 0.6-1.3 CALCIUM (test code = CA) 8.1 mg/dL 8.0-10.5 N TROPONIN-I [id number] 00:33:00 Test Item Value Reference Range Interpretation Comments TROPONIN-I RAPID 0.05 ng/mL 0.00-0.08 N Performed b y certified (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 Rather, the pat ient sclinical prese ntation (history, physi rosa exam) and ECGshould b e used in conjunction wit h troponin in thediagnosti c evaluation of s uspected myocardial infa rction. Aserial samplin g protocol is recommended to facilitate the identification of temporal changes in trop onin levels characteristic of MO. CBC W/AUTO [id number] 00:33:00 Test Item Value Reference Range Interpretation Comments WHITE BLOOD CELL (test code = 12.59 x10 3/uL 4.5-11.0 H WBC) RED BLOOD CELL (test code = 2.81 x10 6/uL 4.00-5.60 L RBC) HEMOGLOBIN (test code = HGB) 8.1 g/dL 12.5-16.9 L HEMATOCRIT (test code = HCT) 24.5 % 37.5-50.7 L MEAN CELL VOLUME (test code = 87.2 fL 81.0-99.0 N MCV) MEAN CELL HGB (test code = 28.8 pg 27.0-33.0 N MCH) MEAN CELL HGB CONCETRATION 33.1 g/dL 33.0-37.0 N (test code = MCHC) RED CELL DISTRIBUTION WIDTH CV 19.5 % 11.5-14.5 H (test code = RDW) RED CELL DISTRIBUTION WIDTH SD 61.7 fL 37.0-54.0 H (test code = RDW-SD) PLATELET COUNT (test code = 153 x10 3/uL 150-400 N PLT) MEAN PLATELET VOLUME (test 10.5 fL 7.0-9.0 H code = MPV) NEUTROPHIL % (test code = NT%) 89.0 % 56.0-77.0 H IMMATURE GRANULOCYTE % (test 0.7 % 0.0-2.0 N code = IG%) LYMPHOCYTE % (test code = LY%) 4.6 % 14.0-32.0 L MONOCYTE % (test code = MO%) 5.2 % 4.8-9.0 N EOSINOPHIL % (test code = EO%) 0.2 % 0.3-3.7 L BASOPHIL % (test code = BA%) 0.3 % 0.0-2.0 N NUCLEATED RBC % (test code = 0.0 % 0-0 N NRBC%) NEUTROPHIL # (test code = NT#) 11.20 x10 3/uL 2.0-7.6 H IMMATURE GRANULOCYTE # (test 0.09 x10 3/uL 0.00-0.03 H code = IG#) LYMPHOCYTE # (test code = LY#) 0.58 x10 3/uL 1.0-3.8 L MONOCYTE # (test code = MO#) 0.65 x10 3/uL 0.1-0.8 N EOSINOPHIL # (test code = EO#) 0.03 x10 3/uL 0.0-0.2 N BASOPHIL # (test code = BA#) 0.04 x10 3/uL 0.0-0.2 N NUCLEATED RBC # (test code = 0.00 x10 3/uL 0.0-0.1 N NRBC#) MANUAL DIFF REQUIRED (test NO code = MDIFF) ACUTE HEPATITIS [id number] 15:48:00 Test Item Value Reference Range Interpretation Comments AB HEPATITIS A IGM NON REACTIVE NON REACT. Testing d one at (test code = INDEX CLEAR AYOUB AUDREY ONAL HAVMAB) [facility] [address] [place], [place] [id number] AB HEPATITIS B 533.0 mIU/mL Immunity>9.9 Status of SURFACE (test code Immunity = HBSAB) Anti-H Bs Level --- I ncon sistent with Immunity 0.0 - 9.9Consistent w ith Immunity >9.9TEST [facility] AT [facility] 7[address] AG HEPATITIS B NON REACTIVE NonReactive Testing done at SURFACE (test code INDEX [place] = HBSAG) [facility] [address] [place] [address] [phone] AB HEPATITIS B NON REACTIVE NON REACT. Testing done at CORE IGM (test INDEX CLEAR AYOUB RE GIONAL code = HBCMAB) [facility] [address] [place] [address] AB HEPATITIS C NON REACTIVE NON REACT. Testing done at (test code = INDEX CLEAR AYOUB AUDREY ONAL HCVAB) [facility] [address] [place] [address] [phone] AB HEPATITIS B [id number] 15:48:00 Test Item Value Reference Range Interpretation Comments AB HEPATITIS B CORE Negative Negative Performe d At: HD (test code = HBCAB) [address] [place] [id number] madie Matthews MD [phone] ACUTE HEPATITIS [id number] 20:12:00 Test Item Value Reference Range Interpretation Comments AB HEPATITIS A IGM NON REACTIVE NON REACT. Testing d one at (test code = INDEX CLEAR AYOUB AUDREY ONAL HAVMAB) [facility] [address] [place] [address]. [place] [address] AB HEPATITIS B mIU/mL Immune >9.9 SURFACE (test code = HBSAB) AG HEPATITIS B NON REACTIVE NonReactive Testing done at SURFACE (test code INDEX [place] = HBSAG) [facility] [address] [place] [address]. [place] [address] AB HEPATITIS B NON REACTIVE NON REACT. Testing done at CORE IGM (test INDEX CLEAR AYOUB RE GIONAL code = HBCMAB) [facility] [address] [place] [address]. [place] [address] AB HEPATITIS C NON REACTIVE NON REACT. Testing done at (test code = INDEX CLEAR AYOUB AUDREY ONAL HCVAB) [facility] [address] [place] [address]. [place] [address] AB HEPATITIS B [id number] 20:12:00 Test Item Value Reference Range Interpretation Comments AB HEPATITIS B CORE (test code = HBCAB) NON REACT. BASIC METABOLIC [id number] 15:31:00 Test Item Value Reference Range Interpretation Comments SODIUM (test code = NA) 137 mmol/l 134.0-147.0 N POTASSIUM (test code = K) 3.8 mmol/L 3.6-5.2 N CHLORIDE (test code = CL) 94 mmol/l 98.0-107.0 L CARBON DIOXIDE (test code = CO2) 27.6 mmol/l 21.0-33.0 N ANION GAP (test code = GAP) 19.2 0-20 N GLUCOSE (test code = GLU) 159 mg/dl 70.0-110.0 H BLOOD UREA NITROGEN (test code = 49 mg/dl 7.0-18.0 H BUN) CREATININE (test code = CREAT) 10.65 mg/dL 0.60-1.30 HH GFR NON BLACK (test code = 5 mL/min 90-95 L GFRNONBLACK) GFR BLACK (test code = GFRBLACK) 7 mL/min 109-115 L CALCIUM (test code = CA) 9.8 mg/dl 8.0-10.5 N [id number] 15:31:00 Test Item Value Reference Range Interpretation Comments TROPONIN-I (test 0.03 NG/ML 0.00-0.06 N REFERENCE R DANIELLE TROPONIN code = TROPI) I HEALTHY SASCHA VIDUALS: <0.06 ng/mL R/O ISCHEMIA: 0.07 - 0.60 ng/mL CUT-OFF R DANIELLE FOR AMI: 0.60 - 1. 5 ng/mL BASIC METABOLIC [id number] 15:22:00 Test Item Value Reference Range Interpretation Comments SODIUM (test code = NA) 137 mmol/l 134.0-147.0 N POTASSIUM (test code = K) 3.8 mmol/L 3.6-5.2 N CHLORIDE (test code = CL) 94 mmol/l 98.0-107.0 L CARBON DIOXIDE (test code = CO2) 27.6 mmol/l 21.0-33.0 N ANION GAP (test code = GAP) 19.2 0-20 N GLUCOSE (test code = GLU) mg/dl 70.0-110.0 BLOOD UREA NITROGEN (test code = mg/dl 7.0-18.0 BUN) CREATININE (test code = CREAT) mg/dL 0.60-1.30 GFR NON BLACK (test code = mL/min 90-95 GFRNONBLACK) GFR BLACK (test code = GFRBLACK) mL/min 109-115 CALCIUM (test code = CA) mg/dl 8.0-10.5 [id number] 15:22:00 Test Item Value Reference Range Interpretation Comments TROPONIN-I (test code = TROPI) NG/ML 0.00-0.06 - XR CHEST 1 [id number] 15:12:00 FAX: Faheem Padilla MD [phone] [place]: St: [facility] FAX: Mike Higuera DO [phone] Name: GINETTE GARCIA [facility] : 1970 Age/S: 49/M [address] [employer] Unit #: [id number] Loc: E.ERS2 [place], [place] Phys: HigueraMike [address] Acct: E [id number] Dis Date: Status: REG ER PHONE #: [phone] Exam Date: 06/10/2019 1510 FAX #: [phone] Reason: SOB EXAMS: CPT CODE: [id number] XR CHEST 1 V 21213 EXAM: CHEST ONE VIEW INDICATION: Shortness of breath LOCATION: B2 COMPARISON: June 10, 2019 TECHNIQUE: AP view of the chest FINDINGS:The right central venous catheter tip is unchanged. The heart size is normal. The lungs are clear bilaterally. The pulmonary vasculature is normal. No pneumothorax or pleural effusion is identified. The osseous structures are normal. IMPRESSION: No acute cardiopulmonary process. at 1512 Reported andsigned by: Chloe Castro M.D. CC: Faheem Max MD; Mike Higuera DO Technologist: VIOLET DUNN Trnscrd Date/Time/By: 06/10/2019 (1512) : By: 16 PAGE 1 Signed Report FAX: Faheem Padilla MD [phone] [place]: St: REG FAX: Mike Higuera [phone] Name: GINETTE GARCIA [facility] : 1970 Age/S: 49/M [address] [place] [address] [employer] Unit #: [id number] Loc: E.ERS2 [place], [place]: [place] [address] Acct: E [id number] Dis Date: Status: REG ER PHONE #: [phone] Exam Date: 06/10/2019 1510 FAX #: [phone] Reason: SOB EXAMS: CPT CODE: [id number] XR CHEST 1 V 08666 <Continued> Orig Print D/T: S: 06/10/2019 (2340)PAGE 2 Signed Report CBC W/AUTO [id number] 15:11:00 Test Item Value Reference Range Interpretation Comments WHITE BLOOD CELL (test code = 8.6 K/mm3 4.5-11.0 N WBC) RED BLOOD CELL (test code = 4.17 M/mm3 4.40-5.90 L RBC) HEMOGLOBIN (test code = HGB) 11.5 gm/dL 13.0-17.0 L HEMATOCRIT (test code = HCT) 36.7 % 36.0-48.0 N MEAN CELL VOLUME (test code = 88.0 UM3 80.0-94.0 N MCV) MEAN CELL HGB (test code = MCH) 27.6 UUG 25.5-32.5 N MEAN CELL HGB CONCETRATION 31.3 gm/dL 29.0-35.5 N (test code = MCHC) RED CELL DISTRIBUTION WIDTH 19.5 % 11.5-15.0 H (test code = RDW) RED CELL DISTRIBUTION WIDTH SD 62.8 fL 34.8-50.2 H (test code = RDW-SD) PLATELET COUNT (test code = 257 K/mm3 150-400 N PLT) MEAN PLATELET VOLUME (test code 9.1 fl 7.4-10.4 N = MPV) NEUTROPHIL % (test code = NT%) 63.2 % 49.0-76.0 N IMMATURE GRANULOCYTE % (test 0.5 % 0.0-0.4 H code = IG%) LYMPHOCYTE % (test code = LY%) 24.1 % 23.0-38.0 N MONOCYTE % (test code = MO%) 9.5 % 1.0-10.0 N EOSINOPHIL % (test code = EO%) 2.1 % 1.0-5.0 N BASOPHIL % (test code = BA%) 0.6 % 0.0-1.0 N NEUTROPHIL # (test code = NT#) 5.4 K/mm3 2.4-6.3 N IMMATURE GRANULOCYTE # (test 0.04 x10 3/uL 0.00-0.07 N code = IG#) LYMPHOCYTE # (test code = LY#) 2.1 K/mm3 1.2-4.0 N MONOCYTE # (test code = MO#) 0.8 K/mm3 0.0-0.6 H EOSINOPHIL # (test code = EO#) 0.2 K/MM3 0.0-0.7 N BASOPHIL # (test code = BA#) 0.1 K/mm3 0.0-0.2 N - XR CHEST 1 [id number] 08:46:00 FAX: Faheem Padilla MD [phone] [place]: St: [facility] FAX: Franci Haney MD [phone] Name: GINETTE GARCIA [facility] : 1970 Age/S: 49/M [address] [facility] Unit #: [id number] Loc: [address] Phys: [place] [address] Acct: E [id number] Dis Date: Status: ADM IN PHONE #: [phone] Exam Date: 06/10/2019 0845 FAX #: [phone] Reason: chf EXAMS: CPT CODE: [id number] XR CHEST 1 V 68731 EXAM: CHEST ONE VIEW INDICATION: Congestive heart failure LOCATION: B2 COMPARISON: June 08, 2019 TECHNIQUE: AP view of the chest FINDINGS: The right central venous catheter is unchanged. The heart size is normal. There are improving congestive changes throughout both lungs. No pneumothorax or pleural effusion is identified. The osseous structures are normal. IMPRESSION: Improving congestive changes throughout both lungs. at 0846 Repo rted and signed by: Chloe Castro M.D. CC: Faheem Max MD; Franci Gonzalez MDTechnologist: VIOLET DUNN Trnscrd Date/Time/By: 06/10/2019 (7036) : By: BarbieMD16 PAGE 1 Signed Report FAX: Faheem Padilla MD [phone] [place]: St: ADM FAX: Franci Haney MD [phone] Name: GINETTE GARCIA [facility] : 1970Age/S: 49/M [address] [facility] Unit #: [id number] Loc: [address] Phys: [place] [address] Acct: [id number] Dis Date: Status: ADM IN PHONE #:[phone] Exam Date: 06/10/2019 0845 FAX #: [phone] Reason: chf EXAMS: CPT CODE: [id number] XR CHEST 1 V 57583 <Continued> Orig Print D/T: S: 06/10/2019 (0849) PAGE 2 Signed ReportFE W/TOTAL IRON BINDING CAP.2019-06-09 18:11:00 Test Item Value Reference Range Interpretation Comments SERUM IRON (test 59 mcg/dl 35.0-150.0 N Patients tr eated with code = IRON) metal-binding d rugs such asdeferoxamine may have depressed iron values due to ironchel ation. Clinical impact would be mitigated byconsideration of clinical sympto ms. TOTAL IRON BINDING 202 mcg/dl 260.0-445.0 L Result is in microgram CAPACITY (test code per deci liter = TIBC) IRON SATURATION 29 % 15-50 N (test code = FESAT) [id number] 18:11:00 Test Item Value Reference Range Interpretation Comments FERRITIN (test code = KAY) 667 ng/mL 23.9-336.2 H BASIC METABOLIC [id number] 07:53:00 Test Item Value Reference Range Interpretation Comments SODIUM (test code = NA) 134 mmol/l 134.0-147.0 N POTASSIUM (test code = K) 3.7 mmol/L 3.6-5.2 N CHLORIDE (test code = CL) 96 mmol/l 98.0-107.0 L CARBON DIOXIDE (test code = CO2) 25.3 mmol/l 21.0-33.0 N ANION GAP (test code = GAP) 16.4 0-20 N GLUCOSE (test code = GLU) 171 mg/dl 70.0-110.0 H BLOOD UREA NITROGEN (test code = 52 mg/dl 7.0-18.0 H BUN) CREATININE (test code = CREAT) 11.96 mg/dL 0.60-1.30 HH GFR NON BLACK (test code = 5 mL/min 90-95 L GFRNONBLACK) GFR BLACK (test code = GFRBLACK) 6 mL/min 109-115 L CALCIUM (test code = CA) 8.2 mg/dl 8.0-10.5 N CBC W/AUTO [id number] 07:33:00 Test Item Value Reference Range Interpretation Comments WHITE BLOOD CELL (test code = 8.0 K/mm3 4.5-11.0 N WBC) RED BLOOD CELL (test code = 3.49 M/mm3 4.40-5.90 L RBC) HEMOGLOBIN (test code = HGB) 9.7 gm/dL 13.0-17.0 L HEMATOCRIT (test code = HCT) 30.1 % 36.0-48.0 L MEAN CELL VOLUME (test code = 86.2 UM3 80.0-94.0 N MCV) MEAN CELL HGB (test code = MCH) 27.8 UUG 25.5-32.5 N MEAN CELL HGB CONCETRATION 32.2 gm/dL 29.0-35.5 N (test code = MCHC) RED CELL DISTRIBUTION WIDTH 19.4 % 11.5-15.0 H (test code = RDW) RED CELL DISTRIBUTION WIDTH SD 59.7 fL 34.8-50.2 H (test code = RDW-SD) PLATELET COUNT (test code = 261 K/mm3 150-400 N PLT) MEAN PLATELET VOLUME (test code 10.4 fl 7.4-10.4 N = MPV) NEUTROPHIL % (test code = NT%) 69.9 % 49.0-76.0 N IMMATURE GRANULOCYTE % (test 0.4 % 0.0-0.4 N code = IG%) LYMPHOCYTE % (test code = LY%) 18.2 % 23.0-38.0 L MONOCYTE % (test code = MO%) 7.5 % 1.0-10.0 N EOSINOPHIL % (test code = EO%) 3.4 % 1.0-5.0 N BASOPHIL % (test code = BA%) 0.6 % 0.0-1.0 N NEUTROPHIL # (test code = NT#) 5.6 K/mm3 2.4-6.3 N IMMATURE GRANULOCYTE # (test 0.03 x10 3/uL 0.00-0.07 N code = IG#) LYMPHOCYTE # (test code = LY#) 1.5 K/mm3 1.2-4.0 N MONOCYTE # (test code = MO#) 0.6 K/mm3 0.0-0.6 N EOSINOPHIL # (test code = EO#) 0.3 K/MM3 0.0-0.7 N BASOPHIL # (test code = BA#) 0.1 K/mm3 0.0-0.2 N AB HEPATITIS A [id number] 03:45:00 Test Item Value Reference Range Interpretation Comments AB HEPATITIS A IGM (test NON REACTIVE INDEX NON REACT. code = HAVMAB) AG HEPATITIS B [id number] 03:45:00 Test Item Value Reference Range Interpretation Comments AG HEPATITIS B SURFACE NON REACTIVE INDEX NonReactive (test code = HBSAG) AB HEPATITIS B CORE [id number] 03:45:00 Test Item Value Reference Range Interpretation Comments AB HEPATITIS B CORE IGM NON REACTIVE INDEX NON REACT. (test code = HBCMAB) AB HEPATITIS [id number] 03:45:00 Test Item Value Reference Range Interpretation Comments AB HEPATITIS C (test code NON REACTIVE INDEX NON REACT. = HCVAB) AB HEPATITIS A [id number] 03:43:00 Test Item Value Reference Range Interpretation Comments AB HEPATITIS A IGM (test code = INDEX NON REACT. HAVMAB) AG HEPATITIS B [id number] 03:43:00 Test Item Value Reference Range Interpretation Comments AG HEPATITIS B SURFACE NON REACTIVE INDEX NonReactive (test code = HBSAG) AB HEPATITIS B CORE [id number] 03:43:00 Test Item Value Reference Range Interpretation Comments AB HEPATITIS B CORE IGM NON REACTIVE INDEX NON REACT. (test code = HBCMAB) AB HEPATITIS [id number] 03:43:00 Test Item Value Reference Range Interpretation Comments AB HEPATITIS C (test code NON REACTIVE INDEX NON REACT. = HCVAB) AB HEPATITIS A [id number] 03:42:00 Test Item Value Reference Range Interpretation Comments AB HEPATITIS A IGM (test code = INDEX NON REACT. HAVMAB) AG HEPATITIS B [id number] 03:42:00 Test Item Value Reference Range Interpretation Comments AG HEPATITIS B SURFACE NON REACTIVE INDEX NonReactive (test code = HBSAG) AB HEPATITIS B CORE [id number] 03:42:00 Test Item Value Reference Range Interpretation Comments AB HEPATITIS B CORE IGM (test code = INDEX NON REACT. HBCMAB) AB HEPATITIS [id number] 03:42:00 Test Item Value Reference Range Interpretation Comments AB HEPATITIS C (test code NON REACTIVE INDEX NON REACT. = HCVAB) ACUTE HEPATITIS [id number] 03:34:00 Test Item Value Reference Range Interpretation Comments AB HEPATITIS A IGM INDEX NONREACTIVE (test code = HAVMAB) AB HEPATITIS B mIU/mL Immune >9.9 SURFACE (test code = HBSAB) AG HEPATITIS B NON REACTIVE NonReactive Testing done at SURFACE (test code INDEX [place] = HBSAG) [facility] [address] [place] [address], [place] [address] AB HEPATITIS B INDEX NONREACTIVE CORE IGM (test code = HBCMAB) AB HEPATITIS C INDEX NONREACTIVE (test code = HCVAB) AB HEPATITIS B [id number] 03:34:00 Test Item Value Reference Range Interpretation Comments AB HEPATITIS B CORE (test code = HBCAB) NON REACT. AB HEPATITIS A [id number] 03:15:00 Test Item Value Reference Range Interpretation Comments AB HEPATITIS A IGM (test code = INDEX NON REACT. HAVMAB) AG HEPATITIS B [id number] 03:15:00 Test Item Value Reference Range Interpretation Comments AG HEPATITIS B SURFACE NON REACTIVE INDEX NonReactive (test code = HBSAG) AB HEPATITIS B CORE [id number] 03:15:00 Test Item Value Reference Range Interpretation Comments AB HEPATITIS B CORE IGM (test code = INDEX NON REACT. HBCMAB) AB HEPATITIS [id number] 03:15:00 Test Item Value Reference Range Interpretation Comments AB HEPATITIS C (test code = HCVAB) INDEX NON REACT. [id number] 22:17:00 Test Item Value Reference Range Interpretation Comments TROPONIN-I (test 0.04 NG/ML 0.00-0.06 N REFERENCE R DANIELLE TROPONIN code = TROPI) I HEALTHY SASCHA VIDUALS: <0.06 ng/mL R/O ISCHEMIA: 0.07 - 0.60 ng/mL CUT-OFF R DANIELLE FOR AMI: 0.60 - 1. 5 ng/mL [id number] 19:11:00 Test Item Value Reference Range Interpretation Comments TROPONIN-I (test 0.04 NG/ML 0.00-0.06 N REFERENCE R DANIELLE TROPONIN code = TROPI) I HEALTHY SASCHA VIDUALS: <0.06 ng/mL R/O ISCHEMIA: 0.07 - 0.60 ng/mL CUT-OFF R DANIELLE FOR AMI: 0.60 - 1. 5 ng/mL BASIC METABOLIC [id number] 16:29:00 Test Item Value Reference Range Interpretation Comments SODIUM (test code = NA) 139 mmol/l 134.0-147.0 N POTASSIUM (test code = K) 4.4 mmol/L 3.6-5.2 N CHLORIDE (test code = CL) 99 mmol/l 98.0-107.0 N CARBON DIOXIDE (test code = CO2) 22.4 mmol/l 21.0-33.0 N ANION GAP (test code = GAP) 22.0 0-20 H GLUCOSE (test code = GLU) 146 mg/dl 70.0-110.0 H BLOOD UREA NITROGEN (test code = 82 mg/dl 7.0-18.0 H BUN) CREATININE (test code = CREAT) 16.17 mg/dL 0.60-1.30 HH GFR NON BLACK (test code = 3 mL/min 90-95 L GFRNONBLACK) GFR BLACK (test code = GFRBLACK) 4 mL/min 109-115 L CALCIUM (test code = CA) 8.0 mg/dl 8.0-10.5 N HEMOLYSED SAMPLE- NOTIFIED [employer].LAB.CP .Specimen comments: Clean CatchB-TYPE NATRIURETIC [id number] 16:29:00 Test Item Value Reference Range Interpretation Comments B-TYPE NATRIURETIC PEPTIDE (test 1670 PG/ML 5-100 H code = BNP) HEMOLYSED SAMPLE- NOTIFIED LAURA. E.LAB.CP .Specimen comments: Clean [id number] 16:29:00 Test Item Value Reference Range Interpretation Comments TROPONIN-I (test 0.05 NG/ML 0.00-0.06 N REFERENCE R DANIELLE TROPONIN code = TROPI) I HEALTHY SASCHA VIDUALS: <0.06 ng/mL R/O ISCHEMIA: 0.07 - 0.60 ng/mL CUT-OFF R DANIELLE FOR AMI: 0.60 - 1. 5 ng/mL HEMOLYSED SAMPLE- NOTIFIED [employer].LAB.CP .Specimen comments: Clean CatchBASIC METABOLIC [id number] 16:09:00 Test Item Value Reference Range Interpretation Comments SODIUM (test code = NA) mmol/l 134.0-147.0 POTASSIUM (test code = K) mmol/L 3.6-5.2 CHLORIDE (test code = CL) mmol/l 98.0-107.0 CARBON DIOXIDE (test code = CO2) mmol/l 21.0-33.0 ANION GAP (test code = GAP) 0-20 GLUCOSE (test code = GLU) mg/dl 70.0-110.0 BLOOD UREA NITROGEN (test code = BUN) mg/dl 7.0-18.0 CREATININE (test code = CREAT) mg/dL 0.60-1.30 GFR NON BLACK (test code = mL/min 90-95 GFRNONBLACK) GFR BLACK (test code = GFRBLACK) mL/min 109-115 CALCIUM (test code = CA) mg/dl 8.0-10.5 HEMOLYSED SAMPLE- NOTIFIED [employer] E.LAB.CP .Specimen comments: Clean CatchB-TYPE NATRIURETIC [id number] 16:09:00 Test Item Value Reference Range Interpretation Comments B-TYPE NATRIURETIC PEPTIDE (test 1670 PG/ML 5-100 H code = BNP) HEMOLYSED SAMPLE- NOTIFIED [employer].LAB. .Specimen comments: Clean [id number] 16:09:00 Test Item Value Reference Range Interpretation Comments TROPONIN-I (test code = TROPI) NG/ML 0.00-0.06 HEMOLYSED SAMPLE- NOTIFIED [employer].LAB. .Specimen comments: Clean CatchCBC W/AUTO [id number] 14:41:00 Test Item Value Reference Range Interpretation Comments WHITE BLOOD CELL (test code = 8.8 K/mm3 4.5-11.0 N WBC) RED BLOOD CELL (test code = 3.75 M/mm3 4.40-5.90 L RBC) HEMOGLOBIN (test code = HGB) 10.4 gm/dL 13.0-17.0 L HEMATOCRIT (test code = HCT) 32.9 % 36.0-48.0 L MEAN CELL VOLUME (test code = 87.7 UM3 80.0-94.0 N MCV) MEAN CELL HGB (test code = MCH) 27.7 UUG 25.5-32.5 N MEAN CELL HGB CONCETRATION 31.6 gm/dL 29.0-35.5 N (test code = MCHC) RED CELL DISTRIBUTION WIDTH 20.4 % 11.5-15.0 H (test code = RDW) RED CELL DISTRIBUTION WIDTH SD 63.2 fL 34.8-50.2 H (test code = RDW-SD) PLATELET COUNT (test code = 284 K/mm3 150-400 N PLT) MEAN PLATELET VOLUME (test code 10.8 fl 7.4-10.4 H = MPV) NEUTROPHIL % (test code = NT%) 71.7 % 49.0-76.0 N IMMATURE GRANULOCYTE % (test 0.3 % 0.0-0.4 N code = IG%) LYMPHOCYTE % (test code = LY%) 18.8 % 23.0-38.0 L MONOCYTE % (test code = MO%) 5.9 % 1.0-10.0 N EOSINOPHIL % (test code = EO%) 2.5 % 1.0-5.0 N BASOPHIL % (test code = BA%) 0.8 % 0.0-1.0 N NEUTROPHIL # (test code = NT#) 6.3 K/mm3 2.4-6.3 N IMMATURE GRANULOCYTE # (test 0.03 x10 3/uL 0.00-0.07 N code = IG#) LYMPHOCYTE # (test code = LY#) 1.7 K/mm3 1.2-4.0 N MONOCYTE # (test code = MO#) 0.5 K/mm3 0.0-0.6 N EOSINOPHIL # (test code = EO#) 0.2 K/MM3 0.0-0.7 N BASOPHIL # (test code = BA#) 0.1 K/mm3 0.0-0.2 N - XR CHEST 1 [id number] 12:24:00 FAX: Faheem Padilla MD [phone] [place]: St: PRE FAX: Mike Higuera DO [phone] Name: GINETTE GARCIA [facility] : 1970 Age/S: 49/M [address] [facility] [place] Unit #: [id number] [place]: [place]: [place] [address] Acct: E [id number] Dis Date: Status: PRE ER PHONE #: [phone] Exam Date: 06/08/2019 1210 FAX #: [phone] Reason: SOB EXAMS: CPT CODE: [id number] XR CHEST 1 V 79911 REASON FOR EX AM: Shortness of breath and chest pain. COMPARISON: May 29, 2019. Chest, portable single frontal view. The dialysis catheter appears to be in good position The lungs are better inflated and clear. Heart size is normal. No effusion or p neumothorax can be seen. Osseous structures appear to be intact. IMPRESSION: No acute cardiopulmonary disease. Location: [facility] at 1224 Reported and signed by: Ginette Sow M.D. CC: Faheem Max MD; Mike Higuera DO Technologist: AUGUSTA ASHER Trnorrd Date/Time/By: 06/08/2019 (6856) : By: [facility] PAGE 1Signed Report FAX: Faheem Padilla MD [phone] [place]: St: PRE FAX: Mike Higuera DO [phone] Name: RADHAGINETTE [facility] : 1970 Age/S: 49/M [address] [facility] Unit #: [id number] Loc: [place], [place]: [place] [address] Acct: [id number] Dis Date: Status: PRE ER PHONE #: [phone] Exam Date: 06/08/2019 1210 FAX #: [phone] Reason: SOB EXAMS: CPT CODE: [id number] XR CHEST 1 V 02473 <Continued> Orig Print D/T: S: 06/08/2019 (7428) PAGE 2 Signed ReportTHYROID STIMULATING [id number] 17:53:00 Test Item Value Reference Range Interpretation Comments THYROID STIMULATING 1.27 IU/ML 0.47-5.01 N Result i s in HORMONE (test code = Interna tional TSH) Units/millilite r [id number] 16:22:00 Test Item Value Reference Range Interpretation Comments GLUBED (test code = GLUBED) 158 mg/dL 70-110 H [id number] 13:17:00 Test Item Value Reference Range Interpretation Comments GLUBED (test code = GLUBED) 242 mg/dL 70-110 H [id number] 09:37:00 Test Item Value Reference Range Interpretation Comments GLUBED (test code = GLUBED) 258 mg/dL 70-110 H [id number] 08:14:00 Test Item Value Reference Range Interpretation Comments HGBA1C% (test code = HGBA1C%) 6.4 %A1C 4.8-6.0 H ESTIMATED AVERAGE GLUCOSE (test 137 MG/DL code = EAG) PT SAID HE GOING TO DIALYSIS TODAYBASIC METABOLIC [id number] 08:06:00 Test Item Value Reference Range Interpretation Comments SODIUM (test code = NA) 134 mmol/l 134.0-147.0 N POTASSIUM (test code = K) 3.7 mmol/L 3.6-5.2 N CHLORIDE (test code = CL) 92 mmol/l 98.0-107.0 L CARBON DIOXIDE (test code = CO2) 26.9 mmol/l 21.0-33.0 N ANION GAP (test code = GAP) 18.8 0-20 N GLUCOSE (test code = GLU) 159 mg/dl 70.0-110.0 H BLOOD UREA NITROGEN (test code = 56 mg/dl 7.0-18.0 H BUN) CREATININE (test code = CREAT) 12.21 mg/dL 0.60-1.30 HH GFR NON BLACK (test code = 5 mL/min 90-95 L GFRNONBLACK) GFR BLACK (test code = GFRBLACK) 6 mL/min 109-115 L CALCIUM (test code = CA) 8.6 mg/dl 8.0-10.5 N PT SAID HE GOING TO DIALYSIS TODAYCBC W/AUTO [id number] 07:54:00 Test Item Value Reference Range Interpretation Comments WHITE BLOOD CELL (test code = 6.8 K/mm3 4.5-11.0 N WBC) RED BLOOD CELL (test code = 3.17 M/mm3 4.40-5.90 L RBC) HEMOGLOBIN (test code = HGB) 9.0 gm/dL 13.0-17.0 L HEMATOCRIT (test code = HCT) 27.4 % 36.0-48.0 L MEAN CELL VOLUME (test code = 86.4 UM3 80.0-94.0 N MCV) MEAN CELL HGB (test code = MCH) 28.4 UUG 25.5-32.5 N MEAN CELL HGB CONCETRATION 32.8 gm/dL 29.0-35.5 N (test code = MCHC) RED CELL DISTRIBUTION WIDTH 18.6 % 11.5-15.0 H (test code = RDW) RED CELL DISTRIBUTION WIDTH SD 58.3 fL 34.8-50.2 H (test code = RDW-SD) PLATELET COUNT (test code = 245 K/mm3 150-400 N PLT) MEAN PLATELET VOLUME (test code 10.9 fl 7.4-10.4 H = MPV) NEUTROPHIL % (test code = NT%) 60.4 % 49.0-76.0 N IMMATURE GRANULOCYTE % (test 0.4 % 0.0-0.4 N code = IG%) LYMPHOCYTE % (test code = LY%) 22.8 % 23.0-38.0 L MONOCYTE % (test code = MO%) 9.8 % 1.0-10.0 N EOSINOPHIL % (test code = EO%) 6.2 % 1.0-5.0 H BASOPHIL % (test code = BA%) 0.4 % 0.0-1.0 N NEUTROPHIL # (test code = NT#) 4.1 K/mm3 2.4-6.3 N IMMATURE GRANULOCYTE # (test 0.03 x10 3/uL 0.00-0.07 N code = IG#) LYMPHOCYTE # (test code = LY#) 1.6 K/mm3 1.2-4.0 N MONOCYTE # (test code = MO#) 0.7 K/mm3 0.0-0.6 H EOSINOPHIL # (test code = EO#) 0.4 K/MM3 0.0-0.7 N BASOPHIL # (test code = BA#) 0.0 K/mm3 0.0-0.2 N PT SAID HE GOING TO DAILYSIS [id number] 19:30:00 Test Item Value Reference Range Interpretation Comments GLUBED (test code = GLUBED) 249 mg/dL 70-110 H [id number] 17:11:00 Test Item Value Reference Range Interpretation Comments GLUBED (test code = GLUBED) 227 mg/dL 70-110 H [id number] 12:07:00 Test Item Value Reference Range Interpretation Comments GLUBED (test code = GLUBED) 192 mg/dL 70-110 H [id number] 08:11:00 Test Item Value Reference Range Interpretation Comments GLUBED (test code = GLUBED) 119 mg/dL 70-110 H [id number] 02:33:00 Test Item Value Reference Range Interpretation Comments GLUBED (test code = GLUBED) 157 mg/dL 70-110 H [id number] 02:33:00 Test Item Value Reference Range Interpretation Comments GLUBED (test code = GLUBED) 116 mg/dL 70-110 H [id number] 19:37:00 Test Item Value Reference Range Interpretation Comments GLUBED (test code = GLUBED) 144 mg/dL 70-110 H COMPREHENSIVE METABOLIC [id number] 11:27:00 Test Item Value Reference Range Interpretation Comments SODIUM (test code = NA) 138 mmol/l 134.0-147.0 N POTASSIUM (test code = K) 3.8 mmol/L 3.6-5.2 N CHLORIDE (test code = CL) 97 mmol/l 98.0-107.0 L CARBON DIOXIDE (test code = CO2) 27.7 mmol/l 21.0-33.0 N ANION GAP (test code = GAP) 17.1 0-20 N GLUCOSE (test code = GLU) 152 mg/dl 70.0-110.0 H BLOOD UREA NITROGEN (test code = 45 mg/dl 7.0-18.0 H BUN) CREATININE (test code = CREAT) 10.56 mg/dL 0.60-1.30 HH GFR NON BLACK (test code = 5 mL/min 90-95 L GFRNONBLACK) GFR BLACK (test code = GFRBLACK) 7 mL/min 109-115 L TOTAL PROTEIN (test code = PROT) 7.4 gm/dL 6.4-8.2 N ALBUMIN (test code = ALB) 3.0 gm/dl 3.2-4.7 L CALCIUM (test code = CA) 8.4 mg/dl 8.0-10.5 N BILIRUBIN TOTAL (test code = 0.4 mg/dl 0.0-1.0 N BILT) SGOT/AST (test code = AST) 25 Units/L 15.0-37.0 N SGPT/ALT (test code = ALT) 35 Units/L 12.0-78.0 N ALKALINE PHOSPHATASE TOTAL (test 133 Units/L 50.0-136.0 N code = ALKP) DIALYSISCB W/AUTO [id number] 10:58:00 Test Item Value Reference Range Interpretation Comments WHITE BLOOD CELL (test code = 10.5 K/mm3 4.5-11.0 N WBC) RED BLOOD CELL (test code = 3.01 M/mm3 4.40-5.90 L RBC) HEMOGLOBIN (test code = HGB) 8.5 gm/dL 13.0-17.0 L HEMATOCRIT (test code = HCT) 26.1 % 36.0-48.0 L MEAN CELL VOLUME (test code = 86.7 UM3 80.0-94.0 N MCV) MEAN CELL HGB (test code = MCH) 28.2 UUG 25.5-32.5 N MEAN CELL HGB CONCETRATION 32.6 gm/dL 29.0-35.5 N (test code = MCHC) RED CELL DISTRIBUTION WIDTH 19.4 % 11.5-15.0 H (test code = RDW) RED CELL DISTRIBUTION WIDTH SD 61.5 fL 34.8-50.2 H (test code = RDW-SD) PLATELET COUNT (test code = 189 K/mm3 150-400 N PLT) MEAN PLATELET VOLUME (test code 10.3 fl 7.4-10.4 N = MPV) NEUTROPHIL % (test code = NT%) 82.6 % 49.0-76.0 H IMMATURE GRANULOCYTE % (test 0.5 % 0.0-0.4 H code = IG%) LYMPHOCYTE % (test code = LY%) 7.9 % 23.0-38.0 L MONOCYTE % (test code = MO%) 6.4 % 1.0-10.0 N EOSINOPHIL % (test code = EO%) 2.2 % 1.0-5.0 N BASOPHIL % (test code = BA%) 0.4 % 0.0-1.0 N NEUTROPHIL # (test code = NT#) 8.7 K/mm3 2.4-6.3 H IMMATURE GRANULOCYTE # (test 0.05 x10 3/uL 0.00-0.07 N code = IG#) LYMPHOCYTE # (test code = LY#) 0.8 K/mm3 1.2-4.0 L MONOCYTE # (test code = MO#) 0.7 K/mm3 0.0-0.6 H EOSINOPHIL # (test code = EO#) 0.2 K/MM3 0.0-0.7 N BASOPHIL # (test code = BA#) 0.0 K/mm3 0.0-0.2 N DIALYSISACUTE HEPATITIS [id number] 08:24:00 Test Item Value Reference Range Interpretation Comments AB HEPATITIS A IGM NON REACTIVE NON REACT. Testing d one at (test code = INDEX CLEAR AYOUB AUDREY ONAL HAVMAB) [facility] [address] [place] [address] AB HEPATITIS B 410.8 mIU/mL Immunity>9.9 Status of SURFACE (test code Immunity = HBSAB) Anti-H Bs Level --- I ncon sistent with Immunity 0.0 - 9.9Consistent w ith Immunity >9.9TEST PERFOR MED AT [facility] 7[address] AG HEPATITIS B NON REACTIVE NonReactive Testing done at SURFACE (test code INDEX CLEAR [place] [facility] = HBSAG) [facility] [address] [place] [address] 18327 AB HEPATITIS B NON REACTIVE NON REACT. Testing done at CORE IGM (test INDEX CLEAR AYOUB RE GIONAL code = HBCMAB) [facility] [address] [place] [address] AB HEPATITIS C NON REACTIVE NON REACT. Testing done at (test code = INDEX CLEAR AYOUB AUDREY ONAL HCVAB) [facility] [address] [place] [address]324 DIALYSISAB HEPATITIS B [id number] 08:24:00 Test Item Value Reference Range Interpretation Comments AB HEPATITIS B CORE Negative Negative Performe d At: HD (test code = HBCAB) [address] [id number] madie Matthews MD [phone] [id number] 18:40:00 Test Item Value Reference Range Interpretation Comments GLUBED (test code = GLUBED) 173 mg/dL 70-110 H ACUTE HEPATITIS [id number] 18:08:00 Test Item Value Reference Range Interpretation Comments AB HEPATITIS A IGM NON REACTIVE NON REACT. Testing d one at (test code = INDEX CLEAR AYOUB AUDREY ONAL HAVMAB) [facility] [address] [place], [place] [id number] AB HEPATITIS B mIU/mL Immune >9.9 SURFACE (test code = HBSAB) AG HEPATITIS B NON REACTIVE NonReactive Testing done at SURFACE (test code INDEX CLEAR [place] [facility] = HBSAG) [facility] [address] [place], [place] [phone] AB HEPATITIS B NON REACTIVE NON REACT. Testing done at CORE IGM (test INDEX CLEAR AYOUB RE GIONAL code = HBCMAB) [facility] [address] [place], [place] [phone] AB HEPATITIS C NON REACTIVE NON REACT. Testing done at (test code = INDEX CLEAR AYOUB AUDREY ONAL HCVAB) [facility] [address] [place], [place] [phone] DIALYSISAB HEPATITIS B [id number] 18:08:00 Test Item Value Reference Range Interpretation Comments AB HEPATITIS B CORE (test code = HBCAB) NON REACT. DIALYSIS- XR KNEE 1 OR 2 V [id number] 17:53:00 FAX: Faheem Padilla MD [phone] [place]: St: [facility] FAX: Bebeto Gann MD [phone] Name: GINETTE GARCIA [facility] : 1970 Age/S: 49/M [address] [employer] Unit #: [id number] Loc: [address] [place], [place] Phys: [place] [address] Acct: [id number] Dis Date: Status: ADM IN PHONE #: [phone] Exam Date: 05/29/2019 1745 FAX #: [phone] Reason: PAIN LEFT KNEE EXAMS: CPT CODE: [id number] XR KNEE 1 OR 2 [place] [id number] EXAM: - XR KNEE 1 OR 2 V BI HISTORY: PAIN LEFT KNEE Location code:C3 COMPARISON: None available at time of interpretation FINDINGS: AP and lateral viewof the bilateral knees is provided. There is no acute fracture or malalignment. The osseous structures are intact. The joint spaces are relatively well-preserved.IMPRESSION: No acute osseous abnormality. at 8794 Reported and signed by: Rolo Villela M.D. CC: Faheem Max MD; Bebeto Etienne MD Technologist: JENNI Posadasorjason Miller ate/Time/By: 05/29/2019 (6632) : By: [email or web address] PAGE 1 Signed Report FAX: Faheem Padilla MD [phone] [place]: St: [facility] FAX: Bebeto Gann MD [phone] Name: GINETTE GARCIA [facility] : 1970 Age/S: 49/M [address] [facility] Unit #: [id number]: [address] [place], [place]: [place] [address] Acct: [id number] Dis Date: Status: ADM IN PHONE #: [phone] Exam Date: 05/29/2019 1745 FAX #: Reason: PAIN LEFT KNEE EXAMS: CPT CODE: [id number] XR KNEE 1 OR 2 [place] [address] <Continued> Orig Print D/T: S: 05/29/2019 (3621) PAGE 2 Signed [id number] 16:00:00 Test Item Value Reference Range Interpretation Comments GLUBED (test code = GLUBED) 87 mg/dL 70-110 N AB HEPATITIS A [id number] 14:04:00 Test Item Value Reference Range Interpretation Comments AB HEPATITIS A IGM (test NON REACTIVE INDEX NON REACT. code = HAVMAB) DIALYSISAG HEPATITIS B [id number] 14:04:00 Test Item Value Reference Range Interpretation Comments AG HEPATITIS B SURFACE NON REACTIVE INDEX NonReactive (test code = HBSAG) DIALYSISAB HEPATITIS B CORE [id number] 14:04:00 Test Item Value Reference Range Interpretation Comments AB HEPATITIS B CORE IGM NON REACTIVE INDEX NON REACT. (test code = HBCMAB) DIALYSISAB HEPATITIS [id number] 14:04:00 Test Item Value Reference Range Interpretation Comments AB HEPATITIS C (test code NON REACTIVE INDEX NON REACT. = HCVAB) [id number] 09:12:00 Test Item Value Reference Range Interpretation Comments TROPONIN-I (test 0.05 NG/ML 0.00-0.06 N REFERENCE R DANIELLE TROPONIN code = TROPI) I HEALTHY SASCHA VIDUALS: <0.06 ng/mL R/O ISCHEMIA: 0.07 - 0.60 ng/mL CUT-OFF R DANIELLE FOR AMI: 0.60 - 1. 5 ng/mL [id number] 08:19:00 Test Item Value Reference Range Interpretation Comments GLUBED (test code = GLUBED) 82 mg/dL 70-110 N [id number] 07:27:00 Test Item Value Reference Range Interpretation Comments TROPONIN-I (test 0.07 NG/ML 0.00-0.06 H REFERENCE R DANIELLE TROPONIN code = TROPI) I HEALTHY SASCHA VIDUALS: <0.06 ng/mL R/O ISCHEMIA: 0.07 - 0.60 ng/mL CUT-OFF R DANIELLE FOR AMI: 0.60 - 1. 5 ng/mL BASIC METABOLIC [id number] 04:18:00 Test Item Value Reference Range Interpretation Comments SODIUM (test code = NA) 139 mmol/l 134.0-147.0 N POTASSIUM (test code = K) 3.9 mmol/L 3.6-5.2 N CHLORIDE (test code = CL) 98 mmol/l 98.0-107.0 N CARBON DIOXIDE (test code = CO2) 22.6 mmol/l 21.0-33.0 N ANION GAP (test code = GAP) 22.3 0-20 H GLUCOSE (test code = GLU) 114 mg/dl 70.0-110.0 H BLOOD UREA NITROGEN (test code = 71 mg/dl 7.0-18.0 H BUN) CREATININE (test code = CREAT) 15.84 mg/dL 0.60-1.30 HH GFR NON BLACK (test code = 3 mL/min 90-95 L GFRNONBLACK) GFR BLACK (test code = GFRBLACK) 4 mL/min 109-115 L CALCIUM (test code = CA) 8.2 mg/dl 8.0-10.5 N B-TYPE NATRIURETIC [id number] 04:18:00 Test Item Value Reference Range Interpretation Comments B-TYPE NATRIURETIC PEPTIDE (test 1910 PG/ML 5-100 H code = BNP) [id number] 04:18:00 Test Item Value Reference Range Interpretation Comments TROPONIN-I (test 0.06 NG/ML 0.00-0.06 N REFERENCE R DANIELLE TROPONIN code = TROPI) I HEALTHY SASCHA VIDUALS: <0.06 ng/mL R/O ISCHEMIA: 0.07 - 0.60 ng/mL CUT-OFF R DANIELLE FOR AMI: 0.60 - 1. 5 ng/mL BASIC METABOLIC [id number] 04:10:00 Test Item Value Reference Range Interpretation Comments SODIUM (test code = NA) 139 mmol/l 134.0-147.0 N POTASSIUM (test code = K) 3.9 mmol/L 3.6-5.2 N CHLORIDE (test code = CL) 98 mmol/l 98.0-107.0 N CARBON DIOXIDE (test code = CO2) 22.6 mmol/l 21.0-33.0 N ANION GAP (test code = GAP) 22.3 0-20 H GLUCOSE (test code = GLU) 114 mg/dl 70.0-110.0 H BLOOD UREA NITROGEN (test code = 71 mg/dl 7.0-18.0 H BUN) CREATININE (test code = CREAT) 15.84 mg/dL 0.60-1.30 HH GFR NON BLACK (test code = 3 mL/min 90-95 L GFRNONBLACK) GFR BLACK (test code = GFRBLACK) 4 mL/min 109-115 L CALCIUM (test code = CA) 8.2 mg/dl 8.0-10.5 N B-TYPE NATRIURETIC [id number] 04:10:00 Test Item Value Reference Range Interpretation Comments B-TYPE NATRIURETIC PEPTIDE (test code PG/ML 5-100 = BNP) [id number] 04:10:00 Test Item Value Reference Range Interpretation Comments TROPONIN-I (test 0.06 NG/ML 0.00-0.06 N REFERENCE R DANIELLE TROPONIN code = TROPI) I HEALTHY SASCHA VIDUALS: <0.06 ng/mL R/O ISCHEMIA: 0.07 - 0.60 ng/mL CUT-OFF R DANIELLE FOR AMI: 0.60 - 1. 5 ng/mL BASIC METABOLIC [id number] 04:01:00 Test Item Value Reference Range Interpretation Comments SODIUM (test code = NA) 139 mmol/l 134.0-147.0 N POTASSIUM (test code = K) 3.9 mmol/L 3.6-5.2 N CHLORIDE (test code = CL) 98 mmol/l 98.0-107.0 N CARBON DIOXIDE (test code = CO2) 22.6 mmol/l 21.0-33.0 N ANION GAP (test code = GAP) 22.3 0-20 H GLUCOSE (test code = GLU) mg/dl 70.0-110.0 BLOOD UREA NITROGEN (test code = mg/dl 7.0-18.0 BUN) CREATININE (test code = CREAT) mg/dL 0.60-1.30 GFR NON BLACK (test code = mL/min 90-95 GFRNONBLACK) GFR BLACK (test code = GFRBLACK) mL/min 109-115 CALCIUM (test code = CA) mg/dl 8.0-10.5 B-TYPE NATRIURETIC [id number] 04:01:00 Test Item Value Reference Range Interpretation Comments B-TYPE NATRIURETIC PEPTIDE (test code PG/ML 5-100 = BNP) [id number] 04:01:00 Test Item Value Reference Range Interpretation Comments TROPONIN-I (test code = TROPI) NG/ML 0.00-0.06 CBC W/AUTO [id number] 03:57:00 Test Item Value Reference Range Interpretation Comments WHITE BLOOD CELL (test code = 12.4 K/mm3 4.5-11.0 H WBC) RED BLOOD CELL (test code = 3.02 M/mm3 4.40-5.90 L RBC) HEMOGLOBIN (test code = HGB) 8.3 gm/dL 13.0-17.0 L HEMATOCRIT (test code = HCT) 26.4 % 36.0-48.0 L MEAN CELL VOLUME (test code = 87.4 UM3 80.0-94.0 N MCV) MEAN CELL HGB (test code = MCH) 27.5 UUG 25.5-32.5 N MEAN CELL HGB CONCETRATION 31.4 gm/dL 29.0-35.5 N (test code = MCHC) RED CELL DISTRIBUTION WIDTH 18.9 % 11.5-15.0 H (test code = RDW) RED CELL DISTRIBUTION WIDTH SD 60.9 fL 34.8-50.2 H (test code = RDW-SD) PLATELET COUNT (test code = 218 K/mm3 150-400 N PLT) MEAN PLATELET VOLUME (test code 11.6 fl 7.4-10.4 H = MPV) NEUTROPHIL % (test code = NT%) 85.3 % 49.0-76.0 H IMMATURE GRANULOCYTE % (test 0.4 % 0.0-0.4 N code = IG%) LYMPHOCYTE % (test code = LY%) 7.2 % 23.0-38.0 L MONOCYTE % (test code = MO%) 5.4 % 1.0-10.0 N EOSINOPHIL % (test code = EO%) 1.4 % 1.0-5.0 N BASOPHIL % (test code = BA%) 0.3 % 0.0-1.0 N NEUTROPHIL # (test code = NT#) 10.5 K/mm3 2.4-6.3 H IMMATURE GRANULOCYTE # (test 0.05 x10 3/uL 0.00-0.07 N code = IG#) LYMPHOCYTE # (test code = LY#) 0.9 K/mm3 1.2-4.0 L MONOCYTE # (test code = MO#) 0.7 K/mm3 0.0-0.6 H EOSINOPHIL # (test code = EO#) 0.2 K/MM3 0.0-0.7 N BASOPHIL # (test code = BA#) 0.0 K/mm3 0.0-0.2 N - XR CHEST 1 [id number] 03:56:00 FAX: Faheem Padilla MD [phone] [place]: St: REG FAX: Mike Higuera DO [phone] Name: GINETTE GARCIA [facility] : 1970 Age/S: 49/M [address] [facility] Unit #: [id number] Loc: [address] Phys: [place] [address] Acct: [id number] Dis Date: Status: REG ER PHONE #: [phone] Exam Date: 05/29/2019 0355 FAX #: [phone] Reason: SOB EXAMS: CPT CODE: [id number] XR CHEST 1 V 30828 AFTER HOURS S ERVICE ON: 05/29/2019 3:56 AM AP Portable Chest Location Code M12 HISTORY: SOB FINDINGS: There is mild central pulmonary vascular congestion. Double-lumen right IJ catheter is in place projecting over the distal SVC. There are no pleural effusions. There is no pneumothorax. Cardiac silhouette and mediastinum appear within normal limits. IMPRESSION: Mild central pulmonary vascular congestion. at 3206 Reported and signed by: Janie Yang M.D. CC: Faheem Max MD; Mike Higuera DO Technologist: JENNI ARTHUR Trnscrd Date/Time/By: 05/29/2019 (0356) : By: [email or web address] PAGE 1 Signed Report FAX: Faheem Padilla MD [phone] [place]: St: REG FAX: Mike Higuera DO [phone] Name: GINETTE GARCIA [facility] : 1970 Age/S: 49/M [address] [facility] Unit #: [id number] Loc: [address] Phys: [place] [id number] Acct: [id number] Dis Date: Status: REG ER PHONE #: [phone] Exam Date: 05/29/2019 0355 FAX #: [phone] Reason: SOB EXAMS: CPT CODE: [id number] XR CHEST 1 V 92536 <Continued> Orig Print D/T: S: 05/29/2019 (0400) PAGE 2 Signed [id number] 16:49:00 Test Item Value Reference Range Interpretation Comments GLUBED (test code = GLUBED) 202 mg/dL 70-110 H [id number] 08:27:00 Test Item Value Reference Range Interpretation Comments GLUBED (test code = GLUBED) 90 mg/dL 70-110 N PCI-VENOUS~ BASIC METABOLIC [id number] 08:26:00 Test Item Value Reference Range Interpretation Comments SODIUM (test code = NA) 136 mmol/l 134.0-147.0 N POTASSIUM (test code = K) 4.3 mmol/L 3.6-5.2 N CHLORIDE (test code = CL) 96 mmol/l 98.0-107.0 L CARBON DIOXIDE (test code = CO2) 24.0 mmol/l 21.0-33.0 N ANION GAP (test code = GAP) 20.3 0-20 H GLUCOSE (test code = GLU) 89 mg/dl 70.0-110.0 N BLOOD UREA NITROGEN (test code = 77 mg/dl 7.0-18.0 H BUN) CREATININE (test code = CREAT) 16.17 mg/dL 0.60-1.30 HH GFR NON BLACK (test code = 3 mL/min 90-95 L GFRNONBLACK) GFR BLACK (test code = GFRBLACK) 4 mL/min 109-115 L CALCIUM (test code = CA) 8.4 mg/dl 8.0-10.5 N DIALYSISBASIC METABOLIC [id number] 08:24:00 Test Item Value Reference Range Interpretation Comments SODIUM (test code = NA) 136 mmol/l 134.0-147.0 N POTASSIUM (test code = K) 4.3 mmol/L 3.6-5.2 N CHLORIDE (test code = CL) 96 mmol/l 98.0-107.0 L CARBON DIOXIDE (test code = CO2) 24.0 mmol/l 21.0-33.0 N ANION GAP (test code = GAP) 20.3 0-20 H GLUCOSE (test code = GLU) mg/dl 70.0-110.0 BLOOD UREA NITROGEN (test code = mg/dl 7.0-18.0 BUN) CREATININE (test code = CREAT) mg/dL 0.60-1.30 GFR NON BLACK (test code = mL/min 90-95 GFRNONBLACK) GFR BLACK (test code = GFRBLACK) mL/min 109-115 CALCIUM (test code = CA) mg/dl 8.0-10.5 DIALYSISCBC W/AUTO [id number] 08:16:00 Test Item Value Reference Range Interpretation Comments WHITE BLOOD CELL (test code = 6.9 K/mm3 4.5-11.0 N WBC) RED BLOOD CELL (test code = 3.26 M/mm3 4.40-5.90 L RBC) HEMOGLOBIN (test code = HGB) 9.2 gm/dL 13.0-17.0 L HEMATOCRIT (test code = HCT) 28.5 % 36.0-48.0 L MEAN CELL VOLUME (test code = 87.4 UM3 80.0-94.0 N MCV) MEAN CELL HGB (test code = MCH) 28.2 UUG 25.5-32.5 N MEAN CELL HGB CONCETRATION 32.3 gm/dL 29.0-35.5 N (test code = MCHC) RED CELL DISTRIBUTION WIDTH 17.5 % 11.5-15.0 H (test code = RDW) RED CELL DISTRIBUTION WIDTH SD 54.7 fL 34.8-50.2 H (test code = RDW-SD) PLATELET COUNT (test code = 255 K/mm3 150-400 N PLT) MEAN PLATELET VOLUME (test code 11.9 fl 7.4-10.4 H = MPV) NEUTROPHIL % (test code = NT%) 69.4 % 49.0-76.0 N IMMATURE GRANULOCYTE % (test 0.6 % 0.0-0.4 H code = IG%) LYMPHOCYTE % (test code = LY%) 15.6 % 23.0-38.0 L MONOCYTE % (test code = MO%) 10.9 % 1.0-10.0 H EOSINOPHIL % (test code = EO%) 2.9 % 1.0-5.0 N BASOPHIL % (test code = BA%) 0.6 % 0.0-1.0 N NEUTROPHIL # (test code = NT#) 4.8 K/mm3 2.4-6.3 N IMMATURE GRANULOCYTE # (test 0.04 x10 3/uL 0.00-0.07 N code = IG#) LYMPHOCYTE # (test code = LY#) 1.1 K/mm3 1.2-4.0 L MONOCYTE # (test code = MO#) 0.8 K/mm3 0.0-0.6 H EOSINOPHIL # (test code = EO#) 0.2 K/MM3 0.0-0.7 N BASOPHIL # (test code = BA#) 0.0 K/mm3 0.0-0.2 N [id number] 03:32:00 Test Item Value Reference Range Interpretation Comments GLUBED (test code = GLUBED) 108 mg/dL 70-110 N [id number] 17:39:00 Test Item Value Reference Range Interpretation Comments GLUBED (test code = GLUBED) 201 mg/dL 70-110 H [id number] 13:25:00 Test Item Value Reference Range Interpretation Comments GLUBED (test code = GLUBED) 106 mg/dL 70-110 N [id number] 11:54:00 Test Item Value Reference Range Interpretation Comments GLUBED (test code = GLUBED) 201 mg/dL 70-110 H [id number] 05:48:00 Test Item Value Reference Range Interpretation Comments GLUBED (test code = GLUBED) 186 mg/dL 70-110 H [id number] 05:19:00 Test Item Value Reference Range Interpretation Comments GLUBED (test code = GLUBED) 124 mg/dL 70-110 H [id number] 11:45:00 Test Item Value Reference Range Interpretation Comments GLUBED (test code = GLUBED) 248 mg/dL 70-110 H [id number] 05:54:00 Test Item Value Reference Range Interpretation Comments GLUBED (test code = GLUBED) 118 mg/dL 70-110 H [id number] 23:54:00 Test Item Value Reference Range Interpretation Comments GLUBED (test code = GLUBED) 196 mg/dL 70-110 H [id number] 19:51:00 Test Item Value Reference Range Interpretation Comments GLUBED (test code = GLUBED) 186 mg/dL 70-110 H BASIC METABOLIC [id number] 07:20:00 Test Item Value Reference Range Interpretation Comments SODIUM (test code = NA) 135 mmol/l 134.0-147.0 N POTASSIUM (test code = K) 4.5 mmol/L 3.6-5.2 N CHLORIDE (test code = CL) 96 mmol/l 98.0-107.0 L CARBON DIOXIDE (test code = CO2) 25.0 mmol/l 21.0-33.0 N ANION GAP (test code = GAP) 18.5 0-20 N GLUCOSE (test code = GLU) 76 mg/dl 70.0-110.0 N BLOOD UREA NITROGEN (test code = 76 mg/dl 7.0-18.0 H BUN) CREATININE (test code = CREAT) 15.47 mg/dL 0.60-1.30 HH GFR NON BLACK (test code = 4 mL/min 90-95 L GFRNONBLACK) GFR BLACK (test code = GFRBLACK) 4 mL/min 109-115 L CALCIUM (test code = CA) 8.5 mg/dl 8.0-10.5 N PT SAID HE GONE TO [address] W/AUTO [id number] 07:18:00 Test Item Value Reference Range Interpretation Comments WHITE BLOOD CELL (test code = 7.4 K/mm3 4.5-11.0 N WBC) RED BLOOD CELL (test code = 3.31 M/mm3 4.40-5.90 L RBC) HEMOGLOBIN (test code = HGB) 9.4 gm/dL 13.0-17.0 L HEMATOCRIT (test code = HCT) 29.1 % 36.0-48.0 L MEAN CELL VOLUME (test code = 87.9 UM3 80.0-94.0 N MCV) MEAN CELL HGB (test code = MCH) 28.4 UUG 25.5-32.5 N MEAN CELL HGB CONCETRATION 32.3 gm/dL 29.0-35.5 N (test code = MCHC) RED CELL DISTRIBUTION WIDTH 17.2 % 11.5-15.0 H (test code = RDW) RED CELL DISTRIBUTION WIDTH SD 55.0 fL 34.8-50.2 H (test code = RDW-SD) PLATELET COUNT (test code = 226 K/mm3 150-400 N PLT) MEAN PLATELET VOLUME (test code 11.5 fl 7.4-10.4 H = MPV) NEUTROPHIL % (test code = NT%) 70.2 % 49.0-76.0 N IMMATURE GRANULOCYTE % (test 0.4 % 0.0-0.4 N code = IG%) LYMPHOCYTE % (test code = LY%) 16.2 % 23.0-38.0 L MONOCYTE % (test code = MO%) 10.9 % 1.0-10.0 H EOSINOPHIL % (test code = EO%) 1.9 % 1.0-5.0 N BASOPHIL % (test code = BA%) 0.4 % 0.0-1.0 N NEUTROPHIL # (test code = NT#) 5.2 K/mm3 2.4-6.3 N IMMATURE GRANULOCYTE # (test 0.03 x10 3/uL 0.00-0.07 N code = IG#) LYMPHOCYTE # (test code = LY#) 1.2 K/mm3 1.2-4.0 N MONOCYTE # (test code = MO#) 0.8 K/mm3 0.0-0.6 H EOSINOPHIL # (test code = EO#) 0.1 K/MM3 0.0-0.7 N BASOPHIL # (test code = BA#) 0.0 K/mm3 0.0-0.2 N [id number] 22:45:00 Test Item Value Reference Range Interpretation Comments GLUBED (test code = GLUBED) 136 mg/dL 70-110 H BASIC METABOLIC [id number] 13:04:00 Test Item Value Reference Range Interpretation Comments SODIUM (test code = 134 mmol/l 134.0-147.0 N NA) POTASSIUM (test code = 5.4 mmol/L 3.6-5.2 H IS SA MPLE HEMOLYSED? K) NONO HEMOLYSIS OBSERVED IN THE SAMPLE.FROM RED RAW. CHLORIDE (test code = 97 mmol/l 98.0-107.0 L CL) CARBON DIOXIDE (test 18.4 mmol/l 21.0-33.0 L code = CO2) ANION GAP (test code = 24.0 0-20 H GAP) GLUCOSE (test code = 95 mg/dl 70.0-110.0 N GLU) BLOOD UREA NITROGEN 129 mg/dl 7.0-18.0 H (test code = BUN) CREATININE (test code 21.14 mg/dL 0.60-1.30 HH = CREAT) GFR NON BLACK (test 2 mL/min 90-95 L code = GFRNONBLACK) GFR BLACK (test code = 3 mL/min 109-115 L GFRBLACK) CALCIUM (test code = 8.2 mg/dl 8.0-10.5 N CA) SAMPLE HEMOLYSED/CALLED [facility] AT 1208 TO REDRAW.HEPATIC FUNCTION PANEL A 2019-05-10 13:04:00 Test Item Value Reference Range Interpretation Comments TOTAL PROTEIN (test code = PROT) 7.6 GM/DL 6.0-8.1 N ALBUMIN (test code = ALB) 3.2 gm/dL 3.2-4.7 N BILIRUBIN TOTAL (test code = BILT) 0.3 mg/dl 0.0-1.0 N BILIRUBIN DIRECT (test code = 0.1 mg/dl 0.0-0.3 N BILD) SGOT/AST (test code = AST) 29 Units/L 15.0-37.0 N SGPT/ALT (test code = ALT) 44 Units/L 12.0-78.0 N ALKALINE PHOSPHATASE TOTAL (test 99 Units/L 50.0-136.0 N code = ALKP) SAMPLE HEMOLYSED/CALLED [facility] AT 1208 TO REDRAW.B-TYPE NATRIURETIC PEPTIDE 2019-05-10 13:04:00 Test Item Value Reference Range Interpretation Comments B-TYPE NATRIURETIC PEPTIDE (test 2090 PG/ML 5-100 H code = BNP) SAMPLE HEMOLYSED/CALLED [facility] AT 1208 TO REDRAW.[id number] 13:04:00 Test Item Value Reference Range Interpretation Comments TROPONIN-I (test 0.07 NG/ML 0.00-0.06 H REFERENCE R DANIELLE TROPONIN code = TROPI) I HEALTHY SASCHA VIDUALS: <0.06 ng/mL R/O ISCHEMIA: 0.07 - 0.60 ng/mL CUT-OFF R DANIELLE FOR AMI: 0.60 - 1. 5 ng/mL SAMPLE HEMOLYSED/CALLED [facility] AT 1208 TO REDRAW.BASIC METABOLIC PANEL 2019-05-10 12:42:00 Test Item Value Reference Range Interpretation Comments SODIUM (test code = 134 mmol/l 134.0-147.0 N NA) POTASSIUM (test code = 5.4 mmol/L 3.6-5.2 H IS SA MPLE HEMOLYSED? K) NONO HEMOLYSIS OBSERVED IN THE SAMPLE.FROM RED RAW. CHLORIDE (test code = 97 mmol/l 98.0-107.0 L CL) CARBON DIOXIDE (test 18.4 mmol/l 21.0-33.0 L code = CO2) ANION GAP (test code = 24.0 0-20 H GAP) GLUCOSE (test code = mg/dl 70.0-110.0 GLU) BLOOD UREA NITROGEN mg/dl 7.0-18.0 (test code = BUN) CREATININE (test code mg/dL 0.60-1.30 = CREAT) GFR NON BLACK (test mL/min 90-95 code = GFRNONBLACK) GFR BLACK (test code = mL/min 109-115 GFRBLACK) CALCIUM (test code = mg/dl 8.0-10.5 CA) SAMPLE HEMOLYSED/CALLED [facility] AT 1208 TO REDRAW.HEPATIC FUNCTION PANEL A 2019-05-10 12:42:00 Test Item Value Reference Range Interpretation Comments TOTAL PROTEIN (test code = PROT) gm/dL 6.4-8.2 ALBUMIN (test code = ALB) gm/dl 3.2-4.7 BILIRUBIN TOTAL (test code = BILT) mg/dl 0.0-1.0 BILIRUBIN DIRECT (test code = BILD) mg/dl 0.0-0.3 SGOT/AST (test code = AST) Units/L 15.0-37.0 SGPT/ALT (test code = ALT) Units/L 12.0-78.0 ALKALINE PHOSPHATASE TOTAL (test Units/L 50.0-136.0 code = ALKP) SAMPLE HEMOLYSED/CALLED [place] AT 1208 TO REDRAW.B-TYPE NATRIURETIC PEPTIDE 2019-05-10 12:42:00 Test Item Value Reference Range Interpretation Comments B-TYPE NATRIURETIC PEPTIDE (test 2090 PG/ML 5-100 H code = BNP) SAMPLE HEMOLYSED/CALLED [place] AT 1208 TO REDRAW.[id number] 12:42:00 Test Item Value Reference Range Interpretation Comments TROPONIN-I (test code = TROPI) NG/ML 0.00-0.06 SAMPLE HEMOLYSED/CALLED [place] AT 1208 TO REDRAW.BASIC METABOLIC PANEL 2019-05-10 12:35:00 Test Item Value Reference Range Interpretation Comments SODIUM (test code = NA) mmol/l 134.0-147.0 POTASSIUM (test code = K) mmol/L 3.6-5.2 CHLORIDE (test code = CL) mmol/l 98.0-107.0 CARBON DIOXIDE (test code = CO2) mmol/l 21.0-33.0 ANION GAP (test code = GAP) 0-20 GLUCOSE (test code = GLU) mg/dl 70.0-110.0 BLOOD UREA NITROGEN (test code = BUN) mg/dl 7.0-18.0 CREATININE (test code = CREAT) mg/dL 0.60-1.30 GFR NON BLACK (test code = mL/min 90-95 GFRNONBLACK) GFR BLACK (test code = GFRBLACK) mL/min 109-115 CALCIUM (test code = CA) mg/dl 8.0-10.5 SAMPLE HEMOLYSED/CALLED [place] AT 1208 TO REDRAW.HEPATIC FUNCTION PANEL A 2019-05-10 12:35:00 Test Item Value Reference Range Interpretation Comments TOTAL PROTEIN (test code = PROT) gm/dL 6.4-8.2 ALBUMIN (test code = ALB) gm/dl 3.2-4.7 BILIRUBIN TOTAL (test code = BILT) mg/dl 0.0-1.0 BILIRUBIN DIRECT (test code = BILD) mg/dl 0.0-0.3 SGOT/AST (test code = AST) Units/L 15.0-37.0 SGPT/ALT (test code = ALT) Units/L 12.0-78.0 ALKALINE PHOSPHATASE TOTAL (test Units/L 50.0-136.0 code = ALKP) SAMPLE HEMOLYSED/CALLED [place] AT 1208 TO REDRAW.B-TYPE NATRIURETIC PEPTIDE 2019-05-10 12:35:00 Test Item Value Reference Range Interpretation Comments B-TYPE NATRIURETIC PEPTIDE (test 2090 PG/ML 5-100 H code = BNP) SAMPLE HEMOLYSED/CALLED [place] AT 1208 TO REDRAW.[id number] 12:35:00 Test Item Value Reference Range Interpretation Comments TROPONIN-I (test code = TROPI) NG/ML 0.00-0.06 SAMPLE HEMOLYSED/CALLED [place] AT 1208 TO REDRAW.TROPONIN I [id number] 12:19:00 Test Item Value Reference Range Interpretation Comments TROPONIN I RAPID 0.09 0.00-0.08 H Negati ve: <= 0.08 (test code = Positive: > = 0.09An TROPIRAP) elevated tropon in value alone is not sufficie nt todiagnose a myocardial infa rction. Rather, the patient'scl inical presentation (h istory, physical exam) and ECGshould be used in conj unction with troponin in the diagnostic evaluation of s uspected myocardial infa rction.A serial sampling protoc ol is recommended to facilitatethe identification of temporal changes in trop onin levelscharacter istic of MO. PROTHROMBIN [id number] 12:11:00 Test Item Value Reference Range Interpretation Comments PROTHROMBIN TIME 11.7 SECONDS 9.9-12.8 N PATIENT (test code = PTP) INTERNATIONAL NORMAL 1.0 0.89-1.14 N THE INR IS TO BE USED RATIO (test code = ONLY FOR MONITORING INR) ORAL ANTICOAGULANTTH ERAPY. THE FOLLOWING A RE SUGGESTED RANGE S [facility]:SASCHA CATION INR VALUEPROPHYLAXI S OF VENOUS THROMBOS IS (ORTHOPEDIC LUISITO LEVI) 2.0 - 3.0PROP HYLAXIS OF VENOUS THROM BOSIS (OTHER THAN HIG H-RISK SURGERY) 2.0 - 3.0TRE ATMENT OF DEEP VEIN THROMBOSIS OR PULMONARY EMBOL ISM 2.0 - 3.0PREV ENTION OF SYSTEMIC EMB OLISM TISSUE HEART VA LVES 2.0 - 3.0 AC [place] MYOCARDIAL INFA RCTION (TO PREVENT SYSTEMIC EMBOLI SM) 2.0 - 3.0 ACUTE MYOCARDIA L INFARCTION (TO PREVENT RECURRE NT INFARCT) 2.5 - 3.0 VALV ULAR HEART DISEASE 2.0 - 3.0 ATRIAL FIBRILATION 2.0 - 3.0BILEAFLET MECHANICAL VALV E IN AORTIC POSITION 2.0 - 3.0MECHAN ICAL PROSTHETIC VALV ES (HIGH RISK) 2.5 - 3.5PRESEN CE OF LUPUS ANTICOAGU LANT OR ANTIPHOSPHOLIP ID ANTIBODIES 2.5 - 3 .5 Is patient on anticoagulants? NTHROMBOPLASTIN TIME [id number] 12:11:00 Test Item Value Reference Range Interpretation Comments THROMBOPLASTIN TIME 38.90 SECONDS 25.86-36.07 H [facility] PARTIAL (test code = Therape utic Range - PTT) APTT of 55.8-85 .4 secondscorrelat es with plasma heparin concentration o f 0.2-0.4 u/mL Ne w range effective - Is patient on anticoagulants? WVBC W/AUTO [id number] 11:49:00 Test Item Value Reference Range Interpretation Comments WHITE BLOOD CELL (test code = 10.1 K/mm3 4.5-11.0 N WBC) RED BLOOD CELL (test code = 3.38 M/mm3 4.40-5.90 L RBC) HEMOGLOBIN (test code = HGB) 9.9 gm/dL 13.0-17.0 L HEMATOCRIT (test code = HCT) 29.7 % 36.0-48.0 L MEAN CELL VOLUME (test code = 87.9 UM3 80.0-94.0 N MCV) MEAN CELL HGB (test code = MCH) 29.3 UUG 25.5-32.5 N MEAN CELL HGB CONCETRATION 33.3 gm/dL 29.0-35.5 N (test code = MCHC) RED CELL DISTRIBUTION WIDTH 18.5 % 11.5-15.0 H (test code = RDW) RED CELL DISTRIBUTION WIDTH SD 57.3 fL 34.8-50.2 H (test code = RDW-SD) PLATELET COUNT (test code = 246 K/mm3 150-400 N PLT) MEAN PLATELET VOLUME (test code 10.3 fl 7.4-10.4 N = MPV) NEUTROPHIL % (test code = NT%) 83.3 % 49.0-76.0 H IMMATURE GRANULOCYTE % (test 0.5 % 0.0-0.4 H code = IG%) LYMPHOCYTE % (test code = LY%) 9.6 % 23.0-38.0 L MONOCYTE % (test code = MO%) 5.6 % 1.0-10.0 N EOSINOPHIL % (test code = EO%) 0.5 % 1.0-5.0 L BASOPHIL % (test code = BA%) 0.5 % 0.0-1.0 N NEUTROPHIL # (test code = NT#) 8.4 K/mm3 2.4-6.3 H IMMATURE GRANULOCYTE # (test 0.05 x10 3/uL 0.00-0.07 N code = IG#) LYMPHOCYTE # (test code = LY#) 1.0 K/mm3 1.2-4.0 L MONOCYTE # (test code = MO#) 0.6 K/mm3 0.0-0.6 N EOSINOPHIL # (test code = EO#) 0.1 K/MM3 0.0-0.7 N BASOPHIL # (test code = BA#) 0.1 K/mm3 0.0-0.2 N - XR CHEST 1 [id number] 11:35:00 FAX: Faheem Padilla MD [phone] [place]: St: [facility] FAX: Edilia Sotelo MD [phone] Name: GINETTE GARCIA [facility] : 1970 Age/S: 49/M [address] [facility] Unit #: [id number] Loc: E.EXP [place], [place]: [place] [id number] Acct: [id number] Dis Date: Status: REG ER PHONE #: [phone] Exam Date: 05/10/2019 1130 FAX #: [phone] Reason: SOB EXAMS: CPT CODE: [id number] XR CHEST 1 V 94723 EXAM: XR Chest 1 View INDICATION: SOB LOCATION CODE: C3 COMPARISON: Chest radiograph dated 05/01/2019 at 2207 hours TECHNIQUE: Frontal view of the chest was obtained. FINDINGS: The right internal jugular central venous catheter is in unchanged position. There is diffuse pulmonary vascular congestion, also unchanged from prior. There is no pleural effusion or pneumothorax. The cardiomediastinal silhouette is enlarged, but is unchanged. No acute osseous abnormality is identified. IMPRESSION: Cardiomegaly with diffuse pulmonary vascular congestion, unchanged from prior. at 1135 Reported and signed by: Eliza Aldana M.D. CC: Faheem Max MD; Edilia Sotelo MD Technologist: Jaylene clifford, RT(R) Trnscrd Date/Time/By: 05/10/2019 (8730) : By: [email or web address] PAGE 1 Signed Report FAX: Faheem Padilla MD [phone] [place]: St: REG FAX: Edilia Sotelo MD [phone] Name: GINETTE GARCIA [facility] : 1970 Age/S: 49/M [address] [facility] #: [id number] Loc: E.EXP [place], [place]: [place] [id number] Acct: [id number] Date: Status: REG ER PHONE #: [phone] Exam Date: 05/10/2019 1130 FAX #: [phone] Reason: SOB EXAMS: CPT CODE: [id number] XR CHEST 1 V 13526 <Continued> Orig Print D/T: S: 05/10/2019 (6577) PAGE 2 Signed [id number] 06:08:00 Test Item Value Reference Range Interpretation Comments GLUBED (test code = GLUBED) 188 mg/dL 70-110 H BASIC METABOLIC [id number] 08:09:00 Test Item Value Reference Range Interpretation Comments SODIUM (test code = NA) 132 mmol/l 134.0-147.0 L POTASSIUM (test code = K) 4.5 mmol/L 3.6-5.2 N CHLORIDE (test code = CL) 94 mmol/l 98.0-107.0 L CARBON DIOXIDE (test code = CO2) 25.1 mmol/l 21.0-33.0 N ANION GAP (test code = GAP) 17.4 0-20 N GLUCOSE (test code = GLU) 174 mg/dl 70.0-110.0 H BLOOD UREA NITROGEN (test code = 68 mg/dl 7.0-18.0 H BUN) CREATININE (test code = CREAT) 14.28 mg/dL 0.60-1.30 HH GFR NON BLACK (test code = 4 mL/min 90-95 L GFRNONBLACK) GFR BLACK (test code = GFRBLACK) 5 mL/min 109-115 L CALCIUM (test code = CA) 8.3 mg/dl 8.0-10.5 N [facility] [id number] 07:56:00 Test Item Value Reference Range Interpretation Comments WHITE BLOOD CELL (test code = 6.3 K/mm3 4.5-11.0 N WBC) RED BLOOD CELL (test code = 3.70 M/mm3 4.40-5.90 L RBC) HEMOGLOBIN (test code = HGB) 10.8 gm/dL 13.0-17.0 L HEMATOCRIT (test code = HCT) 32.8 % 36.0-48.0 L MEAN CELL VOLUME (test code = 88.6 UM3 80.0-94.0 N MCV) MEAN CELL HGB (test code = MCH) 29.2 UUG 25.5-32.5 N MEAN CELL HGB CONCETRATION 32.9 gm/dL 29.0-35.5 N (test code = MCHC) RED CELL DISTRIBUTION WIDTH 17.0 % 11.5-15.0 H (test code = RDW) RED CELL DISTRIBUTION WIDTH SD 54.4 fL 34.8-50.2 H (test code = RDW-SD) PLATELET COUNT (test code = 222 K/mm3 150-400 N PLT) MEAN PLATELET VOLUME (test code 11.0 fl 7.4-10.4 H = MPV) NEUTROPHIL % (test code = NT%) 60.9 % 49.0-76.0 N IMMATURE GRANULOCYTE % (test 0.3 % 0.0-0.4 N code = IG%) LYMPHOCYTE % (test code = LY%) 20.2 % 23.0-38.0 L MONOCYTE % (test code = MO%) 14.0 % 1.0-10.0 H EOSINOPHIL % (test code = EO%) 3.8 % 1.0-5.0 N BASOPHIL % (test code = BA%) 0.8 % 0.0-1.0 N NEUTROPHIL # (test code = NT#) 3.8 K/mm3 2.4-6.3 N IMMATURE GRANULOCYTE # (test 0.02 x10 3/uL 0.00-0.07 N code = IG#) LYMPHOCYTE # (test code = LY#) 1.3 K/mm3 1.2-4.0 N MONOCYTE # (test code = MO#) 0.9 K/mm3 0.0-0.6 H EOSINOPHIL # (test code = EO#) 0.2 K/MM3 0.0-0.7 N BASOPHIL # (test code = BA#) 0.1 K/mm3 0.0-0.2 N PT GOING TO DIALYSIS [id number] 00:29:00 Test Item Value Reference Range Interpretation Comments GLUBED (test code = GLUBED) 120 mg/dL 70-110 H BASIC METABOLIC [id number] 08:43:00 Test Item Value Reference Range Interpretation Comments SODIUM (test code = NA) 135 mmol/l 134.0-147.0 N POTASSIUM (test code = K) 4.1 mmol/L 3.6-5.2 N CHLORIDE (test code = CL) 93 mmol/l 98.0-107.0 L CARBON DIOXIDE (test code = CO2) 26.0 mmol/l 21.0-33.0 N ANION GAP (test code = GAP) 20.1 0-20 H GLUCOSE (test code = GLU) 183 mg/dl 70.0-110.0 H BLOOD UREA NITROGEN (test code = 85 mg/dl 7.0-18.0 H BUN) CREATININE (test code = CREAT) 16.02 mg/dL 0.60-1.30 HH GFR NON BLACK (test code = 3 mL/min 90-95 L GFRNONBLACK) GFR BLACK (test code = GFRBLACK) 4 mL/min 109-115 L CALCIUM (test code = CA) 8.4 mg/dl 8.0-10.5 N ACUTE HEPATITIS [id number] 08:27:00 Test Item Value Reference Range Interpretation Comments AB HEPATITIS A IGM NON REACTIVE NON REACT. Testing d one at (test code = INDEX CLEAR LU PADGETT) [facility] [address] [place] [address] AB HEPATITIS B 207.1 mIU/mL Immunity>9.9 Status of SURFACE (test code Immunity = HBSAB) Anti-H Bs Level --- I ncon sistent with Immunity 0.0 - 9.9Consistent w ith Immunity >9.9TEST PERFOR MED AT [facility] [address] AG HEPATITIS B NON REACTIVE NonReactive Testing done at SURFACE (test code INDEX CLEAR [facility] = HBSAG) [facility] [address] [place] [address] [id number] AB HEPATITIS B NON REACTIVE NON REACT. Testing done at CORE IGM (test INDEX CLEAR AYOUB RE GIONAL code = HBCMAB) [facility] [address] [place] [address]. [facility], [place] [id number] AB HEPATITIS C NON REACTIVE NON REACT. Testing done at (test code = INDEX CLEAR AYOUB AUDREY ONAL HCVAB) [facility] [address] [place] [address]. [place] [address] AB HEPATITIS B [id number] 08:27:00 Test Item Value Reference Range Interpretation Comments AB HEPATITIS B CORE Negative Negative Performe d At: HD (test code = HBCAB) [facility] [address] [place], [place] [id number] madie Matthews MD [phone] CBC W/AUTO [id number] 08:26:00 Test Item Value Reference Range Interpretation Comments WHITE BLOOD CELL (test code = 6.2 K/mm3 4.5-11.0 N WBC) RED BLOOD CELL (test code = 3.91 M/mm3 4.40-5.90 L RBC) HEMOGLOBIN (test code = HGB) 11.3 gm/dL 13.0-17.0 L HEMATOCRIT (test code = HCT) 35.0 % 36.0-48.0 L MEAN CELL VOLUME (test code = 89.5 UM3 80.0-94.0 N MCV) MEAN CELL HGB (test code = MCH) 28.9 UUG 25.5-32.5 N MEAN CELL HGB CONCETRATION 32.3 gm/dL 29.0-35.5 N (test code = MCHC) RED CELL DISTRIBUTION WIDTH 17.1 % 11.5-15.0 H (test code = RDW) RED CELL DISTRIBUTION WIDTH SD 55.0 fL 34.8-50.2 H (test code = RDW-SD) PLATELET COUNT (test code = 196 K/mm3 150-400 N PLT) MEAN PLATELET VOLUME (test code 11.3 fl 7.4-10.4 H = MPV) NEUTROPHIL % (test code = NT%) 65.5 % 49.0-76.0 N IMMATURE GRANULOCYTE % (test 0.3 % 0.0-0.4 N code = IG%) LYMPHOCYTE % (test code = LY%) 16.4 % 23.0-38.0 L MONOCYTE % (test code = MO%) 13.5 % 1.0-10.0 H EOSINOPHIL % (test code = EO%) 3.5 % 1.0-5.0 N BASOPHIL % (test code = BA%) 0.8 % 0.0-1.0 N NEUTROPHIL # (test code = NT#) 4.1 K/mm3 2.4-6.3 N IMMATURE GRANULOCYTE # (test 0.02 x10 3/uL 0.00-0.07 N code = IG#) LYMPHOCYTE # (test code = LY#) 1.0 K/mm3 1.2-4.0 L MONOCYTE # (test code = MO#) 0.8 K/mm3 0.0-0.6 H EOSINOPHIL # (test code = EO#) 0.2 K/MM3 0.0-0.7 N BASOPHIL # (test code = BA#) 0.1 K/mm3 0.0-0.2 N [id number] 02:09:00 Test Item Value Reference Range Interpretation Comments GLUBED (test code = GLUBED) 124 mg/dL 70-110 H - XR CHEST 2 [id number] 22:15:00 FAX: Faheem Padilla MD [phone] [place]: St: [facility] FAX: Lluvia Cisneros MD [phone] FAX: Kandice Hale [facility] Name: GINETTE GARCIA [facility] : 1970 Age/S: 49/M [address] [facility] Unit #: [id number] Loc: E.408 [place], [place] 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 FINDINGS: Right IJ dialysis catheter in stable position. Mild central vascular prominence. No pleural effusion is seen. Heart and mediastinum are normal in size and contour. Bones and peripheral soft tissues are unremarkable. IMPRESSION: Mild central vascular prominence. at 2215 Reported and signed by: Renny Guan M.D. CC: Faheem Max MD; Lluvia Pope MD; Kandice Hale Technologist: JENNI ARTHUR Trnscrd Date/Time/By: 05/01/2019 (5) : By: [email or web address] PAGE 1 Signed Report FAX: Faheem Padilla MD [phone] [place]: St: ADM FAX: Lluvia Cisneros MD [phone] FAX: Kandice Hale Name: GINETTE GARCIA [facility] : 1970 Age/S: 49/M [address] [facility] [place] Unit #: [id number] Loc: [address] [place] [address] Phys: Kandice Hale [address] Acct: [id number] Dis Date: Status: ADM IN PHONE #: [phone] Exam Date: 05/01/20192212 FAX #: [phone] Reason: pleuritic pain and SOB EXAMS: CPT CODE: [id number] XR CHEST 2 V 22280 <Continued> Orig Print D/T: S: 05/01/2019 (0530) PAGE 2 Signed ReportACUTE HEPATITIS [id number] 16:23:00 Test Item Value Reference Range Interpretation Comments AB HEPATITIS A IGM NON REACTIVE NON REACT. Testing d one at (test code = INDEX CLEAR AYOUB AUDREY ONAL HAVMAB) [facility] [address] [place] [address]. [place] [address] AB HEPATITIS B mIU/mL Immune >9.9 SURFACE (test code = HBSAB) AG HEPATITIS B NON REACTIVE NonReactive Testing done at SURFACE (test code INDEX CLEAR [facility] [facility] = HBSAG) [facility] [address] [place] [address]. [place] [address] AB HEPATITIS B NON REACTIVE NON REACT. Testing done at CORE IGM (test INDEX CLEAR AYOUB RE GIONAL code = HBCMAB) [facility] [address] [place] [address]. [place] [address] AB HEPATITIS C NON REACTIVE NON REACT. Testing done at (test code = INDEX CLEAR AYOUB AUDREY ONAL HCVAB) [facility] [address] [place] [address]. [place] [address] AB HEPATITIS B [id number] 16:23:00 Test Item Value Reference Range Interpretation Comments AB HEPATITIS B CORE (test code = HBCAB) NON REACT. AB HEPATITIS A [id number] 12:48:00 Test Item Value Reference Range Interpretation Comments AB HEPATITIS A IGM (test NON REACTIVE INDEX NON REACT. code = HAVMAB) AG HEPATITIS B [id number] 12:48:00 Test Item Value Reference Range Interpretation Comments AG HEPATITIS B SURFACE NON REACTIVE INDEX NonReactive (test code = HBSAG) AB HEPATITIS B CORE [id number] 12:48:00 Test Item Value Reference Range Interpretation Comments AB HEPATITIS B CORE IGM NON REACTIVE INDEX NON REACT. (test code = HBCMAB) AB HEPATITIS [id number] 12:48:00 Test Item Value Reference Range Interpretation Comments AB HEPATITIS C (test code NON REACTIVE INDEX NON REACT. = HCVAB) BASIC METABOLIC [id number] 07:47:00 Test Item Value Reference Range Interpretation Comments SODIUM (test code = NA) 135 mmol/l 134.0-147.0 N POTASSIUM (test code = K) 4.6 mmol/L 3.6-5.2 N CHLORIDE (test code = CL) 95 mmol/l 98.0-107.0 L CARBON DIOXIDE (test code = CO2) 15.9 mmol/l 21.0-33.0 L ANION GAP (test code = GAP) 28.7 0-20 H GLUCOSE (test code = GLU) 63 mg/dl 70.0-110.0 L BLOOD UREA NITROGEN (test code = 127 mg/dl 7.0-18.0 H BUN) CREATININE (test code = CREAT) 21.74 mg/dL 0.60-1.30 HH GFR NON BLACK (test code = 2 mL/min 90-95 L GFRNONBLACK) GFR BLACK (test code = GFRBLACK) 3 mL/min 109-115 L CALCIUM (test code = CA) 8.2 mg/dl 8.0-10.5 N CBC W/AUTO [id number] 07:27:00 Test Item Value Reference Range Interpretation Comments WHITE BLOOD CELL (test code = 9.0 K/mm3 4.5-11.0 N WBC) RED BLOOD CELL (test code = 3.09 M/mm3 4.40-5.90 L RBC) HEMOGLOBIN (test code = HGB) 9.0 gm/dL 13.0-17.0 L HEMATOCRIT (test code = HCT) 27.6 % 36.0-48.0 L MEAN CELL VOLUME (test code = 89.3 UM3 80.0-94.0 N MCV) MEAN CELL HGB (test code = MCH) 29.1 UUG 25.5-32.5 N MEAN CELL HGB CONCETRATION 32.6 gm/dL 29.0-35.5 N (test code = MCHC) RED CELL DISTRIBUTION WIDTH 17.3 % 11.5-15.0 H (test code = RDW) RED CELL DISTRIBUTION WIDTH SD 56.1 fL 34.8-50.2 H (test code = RDW-SD) PLATELET COUNT (test code = 172 K/mm3 150-400 N PLT) MEAN PLATELET VOLUME (test code 12.0 fl 7.4-10.4 H = MPV) NEUTROPHIL % (test code = NT%) 77.5 % 49.0-76.0 H IMMATURE GRANULOCYTE % (test 0.4 % 0.0-0.4 N code = IG%) LYMPHOCYTE % (test code = LY%) 10.8 % 23.0-38.0 L MONOCYTE % (test code = MO%) 9.6 % 1.0-10.0 N EOSINOPHIL % (test code = EO%) 1.4 % 1.0-5.0 N BASOPHIL % (test code = BA%) 0.3 % 0.0-1.0 N NEUTROPHIL # (test code = NT#) 7.0 K/mm3 2.4-6.3 H IMMATURE GRANULOCYTE # (test 0.04 x10 3/uL 0.00-0.07 N code = IG#) LYMPHOCYTE # (test code = LY#) 1.0 K/mm3 1.2-4.0 L MONOCYTE # (test code = MO#) 0.9 K/mm3 0.0-0.6 H EOSINOPHIL # (test code = EO#) 0.1 K/MM3 0.0-0.7 N BASOPHIL # (test code = BA#) 0.0 K/mm3 0.0-0.2 N BASIC METABOLIC [id number] 17:34:00 Test Item Value Reference Range Interpretation Comments SODIUM (test code = 134 mmol/l 134.0-147.0 N NA) POTASSIUM (test code = 5.4 mmol/L 3.6-5.2 H IS SA MPLE HEMOLYSED? K) NO CHLORIDE (test code = 95 mmol/l 98.0-107.0 L CL) CARBON DIOXIDE (test 19.0 mmol/l 21.0-33.0 L code = CO2) ANION GAP (test code = 25.4 0-20 H GAP) GLUCOSE (test code = 118 mg/dl 70.0-110.0 H GLU) BLOOD UREA NITROGEN 127 mg/dl 7.0-18.0 H (test code = BUN) CREATININE (test code 21.07 mg/dL 0.60-1.30 HH = CREAT) GFR NON BLACK (test 2 mL/min 90-95 L code = GFRNONBLACK) GFR BLACK (test code = 3 mL/min 109-115 L GFRBLACK) CALCIUM (test code = 8.4 mg/dl 8.0-10.5 N CA) QUESTIONABLE RESULT+HEMOLYSED SAMPLE/TALKED TO DADA FOR RECOLLECT.. [id number].[email or web address] 04/30/19 5298.CBC W/AUTO [id number] 17:23:00 Test Item Value Reference Range Interpretation Comments WHITE BLOOD CELL (test code = 9.8 K/mm3 4.5-11.0 N WBC) RED BLOOD CELL (test code = 3.25 M/mm3 4.40-5.90 L RBC) HEMOGLOBIN (test code = HGB) 9.5 gm/dL 13.0-17.0 L HEMATOCRIT (test code = HCT) 29.4 % 36.0-48.0 L MEAN CELL VOLUME (test code = 90.5 UM3 80.0-94.0 N MCV) MEAN CELL HGB (test code = MCH) 29.2 UUG 25.5-32.5 N MEAN CELL HGB CONCETRATION 32.3 gm/dL 29.0-35.5 N (test code = MCHC) RED CELL DISTRIBUTION WIDTH 17.3 % 11.5-15.0 H (test code = RDW) RED CELL DISTRIBUTION WIDTH SD 57.0 fL 34.8-50.2 H (test code = RDW-SD) PLATELET COUNT (test code = 196 K/mm3 150-400 N PLT) MEAN PLATELET VOLUME (test code 12.5 fl 7.4-10.4 H = MPV) NEUTROPHIL % (test code = NT%) 84.4 % 49.0-76.0 H IMMATURE GRANULOCYTE % (test 0.5 % 0.0-0.4 H code = IG%) LYMPHOCYTE % (test code = LY%) 7.7 % 23.0-38.0 L MONOCYTE % (test code = MO%) 6.6 % 1.0-10.0 N EOSINOPHIL % (test code = EO%) 0.4 % 1.0-5.0 L BASOPHIL % (test code = BA%) 0.4 % 0.0-1.0 N NEUTROPHIL # (test code = NT#) 8.3 K/mm3 2.4-6.3 H IMMATURE GRANULOCYTE # (test 0.05 x10 3/uL 0.00-0.07 N code = IG#) LYMPHOCYTE # (test code = LY#) 0.8 K/mm3 1.2-4.0 L MONOCYTE # (test code = MO#) 0.7 K/mm3 0.0-0.6 H EOSINOPHIL # (test code = EO#) 0.0 K/MM3 0.0-0.7 N BASOPHIL # (test code = BA#) 0.0 K/mm3 0.0-0.2 N NOT SENT WITH [id number] 12:16:00 Test Item Value Reference Range Interpretation Comments GLUBED (test code = GLUBED) 150 mg/dL 70-110 H BASIC METABOLIC [id number] 08:31:00 Test Item Value Reference Range Interpretation Comments SODIUM (test code = NA) 134 mmol/l 134.0-147.0 N POTASSIUM (test code = K) 4.5 mmol/L 3.6-5.2 N CHLORIDE (test code = CL) 97 mmol/l 98.0-107.0 L CARBON DIOXIDE (test code = CO2) 24.9 mmol/l 21.0-33.0 N ANION GAP (test code = GAP) 16.6 0-20 N GLUCOSE (test code = GLU) 192 mg/dl 70.0-110.0 H BLOOD UREA NITROGEN (test code = 46 mg/dl 7.0-18.0 H BUN) CREATININE (test code = CREAT) 11.91 mg/dL 0.60-1.30 HH GFR NON BLACK (test code = 5 mL/min 90-95 L GFRNONBLACK) GFR BLACK (test code = GFRBLACK) 6 mL/min 109-115 L CALCIUM (test code = CA) 7.8 mg/dl 8.0-10.5 L DIALYSISBASIC METABOLIC [id number] 08:24:00 Test Item Value Reference Range Interpretation Comments SODIUM (test code = NA) 134 mmol/l 134.0-147.0 N POTASSIUM (test code = K) 4.5 mmol/L 3.6-5.2 N CHLORIDE (test code = CL) 97 mmol/l 98.0-107.0 L CARBON DIOXIDE (test code = CO2) 24.9 mmol/l 21.0-33.0 N ANION GAP (test code = GAP) 16.6 0-20 N GLUCOSE (test code = GLU) mg/dl 70.0-110.0 BLOOD UREA NITROGEN (test code = mg/dl 7.0-18.0 BUN) CREATININE (test code = CREAT) mg/dL 0.60-1.30 GFR NON BLACK (test code = mL/min 90-95 GFRNONBLACK) GFR BLACK (test code = GFRBLACK) mL/min 109-115 CALCIUM (test code = CA) mg/dl 8.0-10.5 DIALYSISCBC W/AUTO [id number] 08:07:00 Test Item Value Reference Range Interpretation Comments WHITE BLOOD CELL (test code = 8.3 K/mm3 4.5-11.0 N WBC) RED BLOOD CELL (test code = 3.56 M/mm3 4.40-5.90 L RBC) HEMOGLOBIN (test code = HGB) 10.3 gm/dL 13.0-17.0 L HEMATOCRIT (test code = HCT) 33.2 % 36.0-48.0 L MEAN CELL VOLUME (test code = 93.3 UM3 80.0-94.0 N MCV) MEAN CELL HGB (test code = MCH) 28.9 UUG 25.5-32.5 N MEAN CELL HGB CONCETRATION 31.0 gm/dL 29.0-35.5 N (test code = MCHC) RED CELL DISTRIBUTION WIDTH 17.5 % 11.5-15.0 H (test code = RDW) RED CELL DISTRIBUTION WIDTH SD 60.0 fL 34.8-50.2 H (test code = RDW-SD) PLATELET COUNT (test code = 143 K/mm3 150-400 L PLT) MEAN PLATELET VOLUME (test code 10.6 fl 7.4-10.4 H = MPV) NEUTROPHIL % (test code = NT%) 74.2 % 49.0-76.0 N IMMATURE GRANULOCYTE % (test 0.4 % 0.0-0.4 N code = IG%) LYMPHOCYTE % (test code = LY%) 10.7 % 23.0-38.0 L MONOCYTE % (test code = MO%) 11.5 % 1.0-10.0 H EOSINOPHIL % (test code = EO%) 2.7 % 1.0-5.0 N BASOPHIL % (test code = BA%) 0.5 % 0.0-1.0 N NEUTROPHIL # (test code = NT#) 6.1 K/mm3 2.4-6.3 N IMMATURE GRANULOCYTE # (test 0.03 x10 3/uL 0.00-0.07 N code = IG#) LYMPHOCYTE # (test code = LY#) 0.9 K/mm3 1.2-4.0 L MONOCYTE # (test code = MO#) 1.0 K/mm3 0.0-0.6 H EOSINOPHIL # (test code = EO#) 0.2 K/MM3 0.0-0.7 N BASOPHIL # (test code = BA#) 0.0 K/mm3 0.0-0.2 N [id number] 07:53:00 Test Item Value Reference Range Interpretation Comments GLUBED (test code = GLUBED) 135 mg/dL 70-110 H [id number] 19:55:00 Test Item Value Reference Range Interpretation Comments GLUBED (test code = GLUBED) 245 mg/dL 70-110 H [id number] 16:30:00 Test Item Value Reference Range Interpretation Comments GLUBED (test code = GLUBED) 89 mg/dL 70-110 N [id number] 07:33:00 Test Item Value Reference Range Interpretation Comments GLUBED (test code = GLUBED) 95 mg/dL 70-110 N [id number] 03:14:00 Test Item Value Reference Range Interpretation Comments GLUBED (test code = GLUBED) 190 mg/dL 70-110 H [id number] 21:03:00 Test Item Value Reference Range Interpretation Comments GLUBED (test code = GLUBED) 279 mg/dL 70-110 H - XR FOOT 3 + V [id number] 20:13:00 FAX: Faheem Padilla MD [phone] [place]: St: [facility] FAX: Lluvia Cisneros MD [phone] Name: GINETTE GARCIA [facility] : 1970 Age/S: 49/M [address] [facility] Unit #: [id number] Loc: E.[address] [place], [place]: [place] [address] Acct: [id number] Dis Date: Status: ADM IN PHONE #: [phone] Exam Date: 04/23/20192004 FAX #: [phone] Reason: feet pain EXAMS: CPT CODE: [id number] XR FOOT 3 + [place] [address] EXAM: - XR FOOT 3 + V BI HISTORY: feet pain COMPARISON: None available time of interpretation. FINDINGS: Frontal, oblique, and lateral views of both feet are provided. No acute fracture or malalignment. Small spurs are identified in the plantar c alcanei bilaterally. No incidental soft tissue findings. IMPRESSION: No acute fracture. Small plantar calcaneal spurs. at 2013 Reported and signed by: Ruel Dudley M.D. CC: Faheem Max MD; Lluvia Pope MD Technologist: KANDACE STUART Trnorrd Date/Time/By: 04/23/2019 (2012) : By: [email or web address] PAGE 1 Signed Report FAX: Faheem Padilla MD [phone] [place]: St: ADM FAX: Lluvia Cisneros MD [phone] Name: GINETTE GARCIA [facility] : 1970 Age/S: 49/M [address] [facility] Unit #: [id number] Loc: E.[address] [place], [place]: [place] [address] Acct: [id number] Dis Date: Status: ADM IN PHONE #: [phone] Exam Date: 04/23/20192004 FAX #: [phone] Reason: feet pain EXAMS: CPT CODE: [id number] XR FOOT 3 + [place] [address] <Continued> Orig Print D/T: S: 04/23/2019 (2016) PAGE 2 Signed ReportBASI METABOLIC [id number] 08:31:00 Test Item Value Reference Range Interpretation Comments SODIUM (test code = NA) 137 mmol/l 134.0-147.0 N POTASSIUM (test code = K) 4.0 mmol/L 3.6-5.2 N CHLORIDE (test code = CL) 98 mmol/l 98.0-107.0 N CARBON DIOXIDE (test code = CO2) 25.0 mmol/l 21.0-33.0 N ANION GAP (test code = GAP) 18.0 0-20 N GLUCOSE (test code = GLU) 99 mg/dl 70.0-110.0 N BLOOD UREA NITROGEN (test code = 46 mg/dl 7.0-18.0 H BUN) CREATININE (test code = CREAT) 12.03 mg/dL 0.60-1.30 HH GFR NON BLACK (test code = 5 mL/min 90-95 L GFRNONBLACK) GFR BLACK (test code = GFRBLACK) 6 mL/min 109-115 L CALCIUM (test code = CA) 7.8 mg/dl 8.0-10.5 L CBC W/AUTO [id number] 08:16:00 Test Item Value Reference Range Interpretation Comments WHITE BLOOD CELL (test code = 7.4 K/mm3 4.5-11.0 N WBC) RED BLOOD CELL (test code = 3.78 M/mm3 4.40-5.90 L RBC) HEMOGLOBIN (test code = HGB) 11.3 gm/dL 13.0-17.0 L HEMATOCRIT (test code = HCT) 34.8 % 36.0-48.0 L MEAN CELL VOLUME (test code = 92.1 UM3 80.0-94.0 N MCV) MEAN CELL HGB (test code = MCH) 29.9 UUG 25.5-32.5 N MEAN CELL HGB CONCETRATION 32.5 gm/dL 29.0-35.5 N (test code = MCHC) RED CELL DISTRIBUTION WIDTH 17.2 % 11.5-15.0 H (test code = RDW) RED CELL DISTRIBUTION WIDTH SD 57.8 fL 34.8-50.2 H (test code = RDW-SD) PLATELET COUNT (test code = 192 K/mm3 150-400 N PLT) MEAN PLATELET VOLUME (test code 9.4 fl 7.4-10.4 N = MPV) NEUTROPHIL % (test code = NT%) 65.7 % 49.0-76.0 N IMMATURE GRANULOCYTE % (test 0.3 % 0.0-0.4 N code = IG%) LYMPHOCYTE % (test code = LY%) 15.1 % 23.0-38.0 L MONOCYTE % (test code = MO%) 14.2 % 1.0-10.0 H EOSINOPHIL % (test code = EO%) 3.9 % 1.0-5.0 N BASOPHIL % (test code = BA%) 0.8 % 0.0-1.0 N NEUTROPHIL # (test code = NT#) 4.9 K/mm3 2.4-6.3 N IMMATURE GRANULOCYTE # (test 0.02 x10 3/uL 0.00-0.07 N code = IG#) LYMPHOCYTE # (test code = LY#) 1.1 K/mm3 1.2-4.0 L MONOCYTE # (test code = MO#) 1.1 K/mm3 0.0-0.6 H EOSINOPHIL # (test code = EO#) 0.3 K/MM3 0.0-0.7 N BASOPHIL # (test code = BA#) 0.1 K/mm3 0.0-0.2 N [id number] 07:16:00 Test Item Value Reference Range Interpretation Comments GLUBED (test code = GLUBED) 80 mg/dL 70-110 N [id number] 21:05:00 Test Item Value Reference Range Interpretation Comments GLUBED (test code = GLUBED) 253 mg/dL 70-110 H BASIC METABOLIC [id number] 14:14:00 Test Item Value Reference Range Interpretation Comments SODIUM (test code = NA) 137 mmol/l 134.0-147.0 N POTASSIUM (test code = K) 3.8 mmol/L 3.6-5.2 N CHLORIDE (test code = CL) 97 mmol/l 98.0-107.0 L CARBON DIOXIDE (test code = CO2) 26.5 mmol/l 21.0-33.0 N ANION GAP (test code = GAP) 17.3 0-20 N GLUCOSE (test code = GLU) 200 mg/dl 70.0-110.0 H BLOOD UREA NITROGEN (test code = 65 mg/dl 7.0-18.0 H BUN) CREATININE (test code = CREAT) 14.61 mg/dL 0.60-1.30 HH GFR NON BLACK (test code = 4 mL/min 90-95 L GFRNONBLACK) GFR BLACK (test code = GFRBLACK) 5 mL/min 109-115 L CALCIUM (test code = CA) 7.3 mg/dl 8.0-10.5 L PT [facility] METABOLIC [id number] 14:09:00 Test Item Value Reference Range Interpretation Comments SODIUM (test code = NA) 137 mmol/l 134.0-147.0 N POTASSIUM (test code = K) 3.8 mmol/L 3.6-5.2 N CHLORIDE (test code = CL) 97 mmol/l 98.0-107.0 L CARBON DIOXIDE (test code = CO2) 26.5 mmol/l 21.0-33.0 N ANION GAP (test code = GAP) 17.3 0-20 N GLUCOSE (test code = GLU) mg/dl 70.0-110.0 BLOOD UREA NITROGEN (test code = mg/dl 7.0-18.0 BUN) CREATININE (test code = CREAT) mg/dL 0.60-1.30 GFR NON BLACK (test code = mL/min 90-95 GFRNONBLACK) GFR BLACK (test code = GFRBLACK) mL/min 109-115 CALCIUM (test code = CA) mg/dl 8.0-10.5 PT WANT TO BE DRAW IN DIALYSISCBC W/AUTO [id number] 14:05:00 Test Item Value Reference Range Interpretation Comments WHITE BLOOD CELL (test code = 7.3 K/mm3 4.5-11.0 N WBC) RED BLOOD CELL (test code = 3.27 M/mm3 4.40-5.90 L RBC) HEMOGLOBIN (test code = HGB) 9.9 gm/dL 13.0-17.0 L HEMATOCRIT (test code = HCT) 30.5 % 36.0-48.0 L MEAN CELL VOLUME (test code = 93.3 UM3 80.0-94.0 N MCV) MEAN CELL HGB (test code = MCH) 30.3 UUG 25.5-32.5 N MEAN CELL HGB CONCETRATION 32.5 gm/dL 29.0-35.5 N (test code = MCHC) RED CELL DISTRIBUTION WIDTH 17.7 % 11.5-15.0 H (test code = RDW) RED CELL DISTRIBUTION WIDTH SD 59.4 fL 34.8-50.2 H (test code = RDW-SD) PLATELET COUNT (test code = 211 K/mm3 150-400 N PLT) MEAN PLATELET VOLUME (test code 10.3 fl 7.4-10.4 N = MPV) NEUTROPHIL % (test code = NT%) 77.0 % 49.0-76.0 H IMMATURE GRANULOCYTE % (test 0.3 % 0.0-0.4 N code = IG%) LYMPHOCYTE % (test code = LY%) 11.2 % 23.0-38.0 L MONOCYTE % (test code = MO%) 8.7 % 1.0-10.0 N EOSINOPHIL % (test code = EO%) 2.3 % 1.0-5.0 N BASOPHIL % (test code = BA%) 0.5 % 0.0-1.0 N NEUTROPHIL # (test code = NT#) 5.7 K/mm3 2.4-6.3 N IMMATURE GRANULOCYTE # (test 0.02 x10 3/uL 0.00-0.07 N code = IG#) LYMPHOCYTE # (test code = LY#) 0.8 K/mm3 1.2-4.0 L MONOCYTE # (test code = MO#) 0.6 K/mm3 0.0-0.6 N EOSINOPHIL # (test code = EO#) 0.2 K/MM3 0.0-0.7 N BASOPHIL # (test code = BA#) 0.0 K/mm3 0.0-0.2 N PT WANT TO BE DRAW IN [id number] 12:10:00 Test Item Value Reference Range Interpretation Comments GLUBED (test code = GLUBED) 210 mg/dL 70-110 H ACUTE HEPATITIS [id number] 11:16:00 Test Item Value Reference Range Interpretation Comments AB HEPATITIS A IGM NON REACTIVE NON REACT. Testing d one at (test code = INDEX CLEAR AYOUB AUDREY ONAL HAVMAB) [facility] [address] [place] [address]. [facility], [place] [id number] AB HEPATITIS B 256.6 mIU/mL Immunity>9.9 Status of SURFACE (test code Immunity = HBSAB) Anti-H Bs Level --- I ncon sistent with Immunity 0.0 - 9.9Consistent w ith Immunity >9.9TEST PERFOR MED AT [address] [address] AG HEPATITIS B NON REACTIVE NonReactive Testing done at SURFACE (test code INDEX CLEAR [place] REGIONAL = HBSAG) [facility] [address] [place] [address] AB HEPATITIS B NON REACTIVE NON REACT. Testing done at CORE IGM (test INDEX CLEAR AYOUB RE GIONAL code = HBCMAB) [facility] [address] [place] [address] AB HEPATITIS C NON REACTIVE NON REACT. Testing done at (test code = INDEX CLEAR AYOUB AUDREY ONAL HCVAB) [facility] [address] [place] [address] AB HEPATITIS B [id number] 11:16:00 Test Item Value Reference Range Interpretation Comments AB HEPATITIS B CORE Negative Negative Performe d At: HD (test code = HBCAB) [address] [id number] madie Matthews MD Ph:[phone] ACUTE HEPATITIS [id number] 07:51:00 Test Item Value Reference Range Interpretation Comments AB HEPATITIS A IGM NON REACTIVE NON REACT. Testing d one at (test code = INDEX CLEAR AYOUB AUDREY ONAL HAVMAB) [facility] [address] [place] [address] AB HEPATITIS B mIU/mL Immunity>9.9 Status of SURFACE (test code Immunity = HBSAB) Anti-H Bs Level --- I ncon sistent with Immunity 0.0 - 9.9Consistent w ith Immunity >9.9TEST PERFOR MED AT [address] [address] AG HEPATITIS B NON REACTIVE NonReactive Testing done at SURFACE (test code INDEX CLEAR [place]AL = HBSAG) [facility] [address] [place] [address]. [place] [address] AB HEPATITIS B NON REACTIVE NON REACT. Testing done at CORE IGM (test INDEX CLEAR AYOUB RE GIONAL code = HBCMAB) [facility] [address] [place] [address]. [place] [address] AB HEPATITIS C NON REACTIVE NON REACT. Testing done at (test code = INDEX CLEAR AYOUB AUDREY ONAL HCVAB) [facility] [address] [place] [address]. [place] [address] AB HEPATITIS B [id number] 07:51:00 Test Item Value Reference Range Interpretation Comments AB HEPATITIS B CORE Negative Performe d At: HD [facility] (test code = HBCAB) [place] [place], [place] [id number] Bryan Matthews MD Ph:[phone] [id number] 07:11:00 Test Item Value Reference Range Interpretation Comments GLUBED (test code = GLUBED) 84 mg/dL 70-110 N [id number] 23:11:00 Test Item Value Reference Range Interpretation Comments TROPONIN-I (test 0.05 NG/ML 0.00-0.06 N REFERENCE R DANIELLE TROPONIN code = TROPI) I HEALTHY SASCHA VIDUALS: <0.06 ng/mL R/O ISCHEMIA: 0.07 - 0.60 ng/mL CUT-OFF R DANIELLE FOR AMI: 0.60 - 1. 5 ng/mL PT H/S SPOKE TO NURSE FLACO VILLATORO.CJ 04/20/19 1420.PT REFUSED BLOOD WORK DAL1 [id number] 20:43:00 Test Item Value Reference Range Interpretation Comments GLUBED (test code = GLUBED) 193 mg/dL 70-110 H [id number] 18:05:00 Test Item Value Reference Range Interpretation Comments GLUBED (test code = GLUBED) 191 mg/dL 70-110 H AB HEPATITIS A [id number] 15:04:00 Test Item Value Reference Range Interpretation Comments AB HEPATITIS A IGM (test NON REACTIVE INDEX NON REACT. code = HAVMAB) AG HEPATITIS B [id number] 15:04:00 Test Item Value Reference Range Interpretation Comments AG HEPATITIS B SURFACE NON REACTIVE INDEX NonReactive (test code = HBSAG) AB HEPATITIS B CORE [id number] 15:04:00 Test Item Value Reference Range Interpretation Comments AB HEPATITIS B CORE IGM NON REACTIVE INDEX NON REACT. (test code = HBCMAB) AB HEPATITIS [id number] 15:04:00 Test Item Value Reference Range Interpretation Comments AB HEPATITIS C (test code NON REACTIVE INDEX NON REACT. = HCVAB) [id number] 10:25:00 Test Item Value Reference Range Interpretation Comments GLUBED (test code = GLUBED) 179 mg/dL 70-110 H [id number] 08:12:00 Test Item Value Reference Range Interpretation Comments TROPONIN-I (test 0.06 NG/ML 0.00-0.06 N REFERENCE R DANIELLE TROPONIN code = TROPI) I HEALTHY SASCHA VIDUALS: <0.06 ng/mL R/O ISCHEMIA: 0.07 - 0.60 ng/mL CUT-OFF R DANIELLE FOR AMI: 0.60 - 1. 5 ng/mL BASIC METABOLIC [id number] 05:08:00 Test Item Value Reference Range Interpretation Comments SODIUM (test code = 134 mmol/l 134.0-147.0 N NA) POTASSIUM (test code = 5.2 mmol/L 3.6-5.2 N IS SA MPLE HEMOLYSED? K) NO CHLORIDE (test code = 99 mmol/l 98.0-107.0 N CL) CARBON DIOXIDE (test 17.1 mmol/l 21.0-33.0 L code = CO2) ANION GAP (test code = 23.1 0-20 H GAP) GLUCOSE (test code = 101 mg/dl 70.0-110.0 N GLU) BLOOD UREA NITROGEN 131 mg/dl 7.0-18.0 H (test code = BUN) CREATININE (test code 21.67 mg/dL 0.60-1.30 HH = CREAT) GFR NON BLACK (test 2 mL/min 90-95 L code = GFRNONBLACK) GFR BLACK (test code = 3 mL/min 109-115 L GFRBLACK) CALCIUM (test code = 7.5 mg/dl 8.0-10.5 L CA) B-TYPE NATRIURETIC [id number] 05:08:00 Test Item Value Reference Range Interpretation Comments B-TYPE NATRIURETIC PEPTIDE (test 1360 PG/ML 5-100 H code = BNP) [id number] 05:08:00 Test Item Value Reference Range Interpretation Comments TROPONIN-I (test 0.06 NG/ML 0.00-0.06 N REFERENCE R DANIELLE TROPONIN code = TROPI) I HEALTHY SASCHA VIDUALS: <0.06 ng/mL R/O ISCHEMIA: 0.07 - 0.60 ng/mL CUT-OFF R DANIELLE FOR AMI: 0.60 - 1. 5 ng/mL BASIC METABOLIC [id number] 05:00:00 Test Item Value Reference Range Interpretation Comments SODIUM (test code = 134 mmol/l 134.0-147.0 N NA) POTASSIUM (test code = 5.2 mmol/L 3.6-5.2 N IS SA MPLE HEMOLYSED? K) NO CHLORIDE (test code = 99 mmol/l 98.0-107.0 N CL) CARBON DIOXIDE (test 17.1 mmol/l 21.0-33.0 L code = CO2) ANION GAP (test code = 23.1 0-20 H GAP) GLUCOSE (test code = 101 mg/dl 70.0-110.0 N GLU) BLOOD UREA NITROGEN 131 mg/dl 7.0-18.0 H (test code = BUN) CREATININE (test code 21.67 mg/dL 0.60-1.30 HH = CREAT) GFR NON BLACK (test 2 mL/min 90-95 L code = GFRNONBLACK) GFR BLACK (test code = 3 mL/min 109-115 L GFRBLACK) CALCIUM (test code = 7.5 mg/dl 8.0-10.5 L CA) B-TYPE NATRIURETIC [id number] 05:00:00 Test Item Value Reference Range Interpretation Comments B-TYPE NATRIURETIC PEPTIDE (test code PG/ML 5-100 = BNP) [id number] 05:00:00 Test Item Value Reference Range Interpretation Comments TROPONIN-I (test 0.06 NG/ML 0.00-0.06 N REFERENCE R DANIELLE TROPONIN code = TROPI) I HEALTHY SASCHA VIDUALS: <0.06 ng/mL R/O ISCHEMIA: 0.07 - 0.60 ng/mL CUT-OFF R DANIELLE FOR AMI: 0.60 - 1. 5 ng/mL - CT ABD PELVIS W/O [id number] 04:58:00 FAX: Faheem Padilla MD [phone] [place]: St: REG FAX: Francine Anne MD Name: GINETTE GARCIA [facility] : 1970 Age/S: 49/M [address] [facility] Unit: [id number] Loc: [address] Phys: [place] [address] Acct: [id number] Dis Date: Status: REG ER PHONE #: [phone] Exam Date: 04/20/2019 0435 FAX #: [phone] Reason: epigastric pain - n/v/d EXAMS: CPT CODE: [id number] CT ABD PELVIS W/O CONT 60494 EXAM: - CT ABD PELVIS W/O CONT HISTORY: Abdominal pain. TECHNIQUE: Axial tomograms through the abdomen and pelvis were obtained without intravenous contrast. Coronal and sagittal reformatted images are provided. This exam was performed according to our departmental dose-optimization program, which includes automated exposure control, adjustment of the mA and/or kV according to patient size and/or use of iterative reconstruction technique. COMPARISON: March 07, 2019. FINDINGS: The visualized lung bases demonstrate mild congestion. No consolidation. Trace right pleural effusion. There is some thickening of the body portion of stomach and this could be due to decompression. There is no free intraperitoneal air. Mild edema is present. The liver, spleen, pancreas, adrenal glands and kidneys demonstrate no significant abnormalities. There is no renal calculi or hydronephrosis. The appendix has a normal appearance. The july wel is unremarkable. There is no adenopathy or free fluid. Calcific plaques in aorta. Spondylolysis and grade 1 spondylolisthesis at L4-L5 level with associated degenerative disc disease. IMPRESSION: Pulmonary congestion is minimally present at bases. Trace right pleural effusion. No definite acute abnormalities identified in abdomen or pelvis. PAGE 1 Signed Report (CONTINUED) FAX: Faheem Padilla MD [phone] [place]: St: REG FAX: Francine Anne MD Name: GINETTE GARCIA [facility] : 1970 Age/S: 49/M [address] [facility] Unit: [id number] Loc: [address] [place]: [place] [address] Acct: [id number] Dis Date: Status: REG ER PHONE #: [phone] Exam Date: 04/20/2019 0438 FAX #: [phone] Reason: epigastric pain - n/v/d EXAMS: CPT CODE: [id number] CT ABD PELVIS W/O CONT 40063 <Continued> at 0455 Reported and signed by: Driss Acuna M.D. CC: Faheem Max MD; Francine Anne MD Technologist: NONA Banks Dt/Tm: 04/20/2019 (0458) [email or web address] Orig Print D/T: S: 04/20/2019 (6558 PAGE 2 Signed Report- XR CHEST 1 [id number] 04:47:00 FAX: Faheem Padilla MD [phone] [place]: St: REG FAX: Francine Anne MD Name: GINETTE GARCIA [facility] : 1970 Age/S: 49/M [address] [facility] Unit #: [id number] Loc: E.ERS[address] [place], [place]: [place] [address] Acct: [id number] Dis Date: Status: REG ER PHONE #: [phone] Exam Date: 04/20/2019 0431 FAX #: [phone] Reason: cp EXAMS: CPT CODE: [id number] XR CHEST 1 V 96663 EXAM: CHEST ONE VIEW INDICATION: Chest pain LOCATION: B2 COMPARISON: March 28, 2019 TECHNIQUE: AP view of the chest FINDINGS: The right central venous catheter is unchanged. The heart size is normal. The lungs are clear bilaterally. There are diffuse congestive changes throughout both lungs. No pneumothorax or pleural effusion is identified. The osseous structures are normal. IMPRESSION: Diffuse congestive changes throughout both lungs. at 0447 Reported and signed by: Chloe Castro M.D. CC: Faheem Max MD; Francine Anne MD Technologist: OWEN MILLER Trnscrd Date/Time/By: 04/20/2019 (0447) : By: [email or web address] PAGE 1 Signed Report FAX: Faheem Padilla MD [phone] [place]: St: REG FAX:Francine Anne MD Name: GINETTE GARCIA [facility] : 1970 Age/S: 49/M [address] [facility] Unit #: [id number] Loc: E.ERS2 [place], [place]: [place] [address] Acct: [id number] Dis Date: Status: REG ER PHONE #: [phone] Exam Date: 04/20/2019 0431 FAX #: [phone] Reason: cp EXAMS: CPT CODE: [id number] XR CHEST 1 V [id number] <Continued> Orig Print D/T: S: 04/20/2019 (0450) PAGE 2 Signed ReportCBC W/AUTO [id number] 04:38:00 Test Item Value Reference Range Interpretation Comments WHITE BLOOD CELL (test code = 13.1 K/mm3 4.5-11.0 H WBC) RED BLOOD CELL (test code = 3.34 M/mm3 4.40-5.90 L RBC) HEMOGLOBIN (test code = HGB) 10.1 gm/dL 13.0-17.0 L HEMATOCRIT (test code = HCT) 31.4 % 36.0-48.0 L MEAN CELL VOLUME (test code = 94.0 UM3 80.0-94.0 N MCV) MEAN CELL HGB (test code = MCH) 30.2 UUG 25.5-32.5 N MEAN CELL HGB CONCETRATION 32.2 gm/dL 29.0-35.5 N (test code = MCHC) RED CELL DISTRIBUTION WIDTH 17.8 % 11.5-15.0 H (test code = RDW) RED CELL DISTRIBUTION WIDTH SD 58.6 fL 34.8-50.2 H (test code = RDW-SD) PLATELET COUNT (test code = 262 K/mm3 150-400 N PLT) MEAN PLATELET VOLUME (test code 10.1 fl 7.4-10.4 N = MPV) NEUTROPHIL % (test code = NT%) 83.0 % 49.0-76.0 H IMMATURE GRANULOCYTE % (test 0.4 % 0.0-0.4 N code = IG%) LYMPHOCYTE % (test code = LY%) 9.0 % 23.0-38.0 L MONOCYTE % (test code = MO%) 6.2 % 1.0-10.0 N EOSINOPHIL % (test code = EO%) 1.2 % 1.0-5.0 N BASOPHIL % (test code = BA%) 0.2 % 0.0-1.0 N NEUTROPHIL # (test code = NT#) 10.9 K/mm3 2.4-6.3 H IMMATURE GRANULOCYTE # (test 0.05 x10 3/uL 0.00-0.07 N code = IG#) LYMPHOCYTE # (test code = LY#) 1.2 K/mm3 1.2-4.0 N MONOCYTE # (test code = MO#) 0.8 K/mm3 0.0-0.6 H EOSINOPHIL # (test code = EO#) 0.2 K/MM3 0.0-0.7 N BASOPHIL # (test code = BA#) 0.0 K/mm3 0.0-0.2 N ACUTE HEPATITIS [id number] 09:33:00 Test Item Value Reference Range Interpretation Comments AB HEPATITIS A IGM NON REACTIVE NON REACT. Testing d one at (test code = INDEX CLEAR AYOUB AUDREY ONAL HAVMAB) [facility] [address] [place] [address] 782 AB HEPATITIS B 463.2 mIU/mL Immunity>9.9 Status of SURFACE (test code Immunity = HBSAB) Anti-H Bs Level --- I ncon sistent with Immunity 0.0 - 9.9Consistent w ith Immunity >9.9[facility] AT [address] [address] AG HEPATITIS B NON REACTIVE NonReactive Testing done at SURFACE (test code INDEX CLEAR L[place] E REGIONAL = HBSAG) [facility] [address] [place] [address] AB HEPATITIS B NON REACTIVE NON REACT. Testing done at CORE IGM (test INDEX CLEAR AYOUB RE GIONAL code = HBCMAB) [facility] [address] [place] [address] AB HEPATITIS C NON REACTIVE NON REACT. Testing done at (test code = INDEX CLEAR AYOUB AUDREY ONAL HCVAB) [facility] [address] [place] [address] AB HEPATITIS B [id number] 09:33:00 Test Item Value Reference Range Interpretation Comments AB HEPATITIS B CORE Negative Negative Performe d At: HD (test code = HBCAB) [facility] [id number] [facility], [place] [id number] madie Matthews MD Ph:[phone] ACUTE HEPATITIS [id number] 08:21:00 Test Item Value Reference Range Interpretation Comments AB HEPATITIS A IGM NON REACTIVE NON REACT. Testing d one at (test code = INDEX CLEAR AYOUB AUDREY ONAL HAVMAB) [facility] [address] [place] [address]. [place] [address] AB HEPATITIS B mIU/mL Immune >9.9 SURFACE (test code = HBSAB) AG HEPATITIS B NON REACTIVE NonReactive Testing done at SURFACE (test code INDEX CLEAR [place] [facility] = HBSAG) [facility] [address] [place] [address]. [place] [address] AB HEPATITIS B NON REACTIVE NON REACT. Testing done at CORE IGM (test INDEX CLEAR AYOUB RE GIONAL code = HBCMAB) [facility] [address] [place] [address]. [place] [address] AB HEPATITIS C NON REACTIVE NON REACT. Testing done at (test code = INDEX CLEAR AYOUB AUDREY ONAL HCVAB) [facility] [address] [place] [address]. [place] [address] AB HEPATITIS B [id number] 08:21:00 Test Item Value Reference Range Interpretation Comments AB HEPATITIS B CORE (test code = HBCAB) NON REACT. CBC W/AUTO [id number] 07:50:00 Test Item Value Reference Range Interpretation Comments WHITE BLOOD CELL (test code = 12.6 K/mm3 4.5-11.0 H WBC) RED BLOOD CELL (test code = 2.56 M/mm3 4.40-5.90 L RBC) HEMOGLOBIN (test code = HGB) 7.9 gm/dL 13.0-17.0 L HEMATOCRIT (test code = HCT) 24.8 % 36.0-48.0 LL MEAN CELL VOLUME (test code = 96.9 UM3 80.0-94.0 H MCV) MEAN CELL HGB (test code = MCH) 30.9 UUG 25.5-32.5 N MEAN CELL HGB CONCETRATION 31.9 gm/dL 29.0-35.5 N (test code = MCHC) RED CELL DISTRIBUTION WIDTH 16.8 % 11.5-15.0 H (test code = RDW) RED CELL DISTRIBUTION WIDTH SD 58.4 fL 34.8-50.2 H (test code = RDW-SD) PLATELET COUNT (test code = 154 K/mm3 150-400 N PLT) MEAN PLATELET VOLUME (test code 11.5 fl 7.4-10.4 H = MPV) NEUTROPHIL % (test code = NT%) 82.3 % 49.0-76.0 H IMMATURE GRANULOCYTE % (test 0.6 % 0.0-0.4 H code = IG%) LYMPHOCYTE % (test code = LY%) 9.7 % 23.0-38.0 L MONOCYTE % (test code = MO%) 6.1 % 1.0-10.0 N EOSINOPHIL % (test code = EO%) 1.1 % 1.0-5.0 N BASOPHIL % (test code = BA%) 0.2 % 0.0-1.0 N NEUTROPHIL # (test code = NT#) 10.4 K/mm3 2.4-6.3 H IMMATURE GRANULOCYTE # (test 0.07 x10 3/uL 0.00-0.07 N code = IG#) LYMPHOCYTE # (test code = LY#) 1.2 K/mm3 1.2-4.0 N MONOCYTE # (test code = MO#) 0.8 K/mm3 0.0-0.6 H EOSINOPHIL # (test code = EO#) 0.1 K/MM3 0.0-0.7 N BASOPHIL # (test code = BA#) 0.0 K/mm3 0.0-0.2 N BASIC METABOLIC [id number] 07:43:00 Test Item Value Reference Range Interpretation Comments SODIUM (test code = NA) 140 mmol/l 134.0-147.0 N POTASSIUM (test code = K) 3.7 mmol/L 3.6-5.2 N CHLORIDE (test code = CL) 99 mmol/l 98.0-107.0 N CARBON DIOXIDE (test code = CO2) 27.4 mmol/l 21.0-33.0 N ANION GAP (test code = GAP) 17.3 0-20 N GLUCOSE (test code = GLU) 123 mg/dl 70.0-110.0 H BLOOD UREA NITROGEN (test code = 68 mg/dl 7.0-18.0 H BUN) CREATININE (test code = CREAT) 10.21 mg/dL 0.60-1.30 HH GFR NON BLACK (test code = 6 mL/min 90-95 L GFRNONBLACK) GFR BLACK (test code = GFRBLACK) 7 mL/min 109-115 L CALCIUM (test code = CA) 7.8 mg/dl 8.0-10.5 L AB HEPATITIS A [id number] 05:16:00 Test Item Value Reference Range Interpretation Comments AB HEPATITIS A IGM (test NON REACTIVE INDEX NON REACT. code = HAVMAB) AG HEPATITIS B [id number] 05:16:00 Test Item Value Reference Range Interpretation Comments AG HEPATITIS B SURFACE NON REACTIVE INDEX NonReactive (test code = HBSAG) AB HEPATITIS B CORE [id number] 05:16:00 Test Item Value Reference Range Interpretation Comments AB HEPATITIS B CORE IGM NON REACTIVE INDEX NON REACT. (test code = HBCMAB) AB HEPATITIS [id number] 05:16:00 Test Item Value Reference Range Interpretation Comments AB HEPATITIS C (test code NON REACTIVE INDEX NON REACT. = HCVAB) [id number] 16:39:00 Test Item Value Reference Range Interpretation Comments GLUBED (test code = GLUBED) 222 mg/dL 70-110 H [id number] 07:37:00 Test Item Value Reference Range Interpretation Comments GLUBED (test code = GLUBED) 176 mg/dL 70-110 H - XR CHEST 1 [id number] 04:08:00 FAX: Faheem Padilla MD [phone] [place]: St: [facility] FAX: Edilia Sotelo MD [phone] Name: GINETTE GARCIA [facility] : 1970 Age/S: 49/M [address] [facility] Unit #: [id number] Loc: E.[place], [place]: [place] [address] Acct: [id number] Dis Date: Status: REG ER PHONE #: [phone] Exam Date: 03/28/2019 0341 FAX #: [phone] Reason: SOB EXAMS: CPT CODE: [id number] XR CHEST 1 V 89133 Location: T18 CHEST X-RAY: Portable AP frontal projection, one view, 03/28/19 CLINICAL HISTORY: Shortness of breath. Emergency room presentation COMPARISON EXAMS:03/06/19 chest x-ray exam FINDINGS: Heart size is mildly to moderately prominent with evolving interstitial edema or pulmonary venous engorgement. Dialysis catheter seen in situ. No infiltrates seen in lungs . No significant pleural effusion is identified. The mediastinal structures are unremarkable. IMPRESSION: Evolving CHF without bonnie pulmonary edema or significant pleural effusion. at 0408 Reported and signed by: Meli Lloyd M.D. CC: Faheem Max MD; Edilia Sotelo MD Technologist: OWEN MILLER Trnorrd Date/Time/By: 03/28/2019 (0408) : By: Ivette6 MARY CARMEN 1 Signed Report FAX: Faheem Padilla MD [phone] [place]: St: REG FAX: Edilia Sotelo MD [phone] --------- Name: GINETTE GARCIA [facility] : 1970 Age/S: 49/M [address] Unit #: [id number] Loc: E.[place], [place]: [place] [address] Acct: [id number] Dis Date: Status: REG ER PHONE #: [phone] Exam Date: 03/28/2019 0341 FAX #: [phone] Reason: SOB EXAMS: CPT CODE: [id number] XR CHEST 1 V 52956 <Continued> Orig Print D/T: S: 03/28/2019 (0415) PAGE 2 Signed ReportBASIC METABOLIC [id number] 04:06:00 Test Item Value Reference Range Interpretation Comments SODIUM (test code = 141 mmol/l 134.0-147.0 N NA) POTASSIUM (test code = 5.4 mmol/L 3.6-5.2 H IS SA MPLE HEMOLYSED? K) NO VISIBLE HEMO LYSIS CHLORIDE (test code = 103 mmol/l 98.0-107.0 N CL) CARBON DIOXIDE (test 20.1 mmol/l 21.0-33.0 L code = CO2) ANION GAP (test code = 23.3 0-20 H GAP) GLUCOSE (test code = 151 mg/dl 70.0-110.0 H GLU) BLOOD UREA NITROGEN 103 mg/dl 7.0-18.0 H (test code = BUN) CREATININE (test code 14.70 mg/dL 0.60-1.30 HH = CREAT) GFR NON BLACK (test 4 mL/min 90-95 L code = GFRNONBLACK) GFR BLACK (test code = 4 mL/min 109-115 L GFRBLACK) CALCIUM (test code = 8.0 mg/dl 8.0-10.5 N CA) B-TYPE NATRIURETIC [id number] 04:06:00 Test Item Value Reference Range Interpretation Comments B-TYPE NATRIURETIC PEPTIDE (test 1160 PG/ML 5-100 H code = BNP) [id number] 04:06:00 Test Item Value Reference Range Interpretation Comments TROPONIN-I (test 0.04 NG/ML 0.00-0.06 N REFERENCE R DANIELLE TROPONIN code = TROPI) I HEALTHY SASCHA VIDUALS: <0.06 ng/mL R/O ISCHEMIA: 0.07 - 0.60 ng/mL CUT-OFF R DANIELLE FOR AMI: 0.60 - 1. 5 ng/mL PROTHROMBIN [id number] 03:53:00 Test Item Value Reference Range Interpretation Comments PROTHROMBIN TIME 11.2 SECONDS 9.9-12.8 N PATIENT (test code = PTP) INTERNATIONAL NORMAL 1.0 0.89-1.14 N THE INR IS TO BE USED RATIO (test code = ONLY FOR MONITORING INR) ORAL ANTICOAGULANTTH ERAPY. THE FOLLOWING A RE SUGGESTED RANGE S [facility]:SASCHA CATION INR VALUEPROPHYLAXI S OF VENOUS THROMBOS IS (ORTHOPEDIC LUISITO LEVI) 2.0 - 3.0PROP HYLAXIS OF VENOUS THROM BOSIS (OTHER THAN HIG H-RISK SURGERY) 2.0 - 3.0TRE ATMENT OF DEEP VEIN THROMBOSIS OR PULMONARY EMBOL ISM 2.0 - 3.0PREV ENTION OF SYSTEMIC EMB OLISM TISSUE HEART VA LVES 2.0 - 3.0 AC MEKORY[place] MYOCARDIAL INFA RCTION (TO PREVENT SYSTEMIC EMBOLI SM) 2.0 - 3.0 ACUTE MYOCARDIA L INFARCTION (TO PREVENT RECURRE NT INFARCT) 2.5 - 3.0 VALV ULAR HEART DISEASE 2.0 - 3.0 ATRIAL FIBRILATION 2.0 - 3.0BILEAFLET MECHANICAL VALV E IN AORTIC POSITION 2.0 - 3.0MECHAN ICAL PROSTHETIC VALV ES (HIGH RISK) 2.5 - 3.5PRESEN CE OF LUPUS ANTICOAGU LANT OR ANTIPHOSPHOLIP ID ANTIBODIES 2.5 - 3 .5 Is patient on anticoagulants? NTHROMBOPLASTIN TIME [id number] 03:53:00 Test Item Value Reference Range Interpretation Comments THROMBOPLASTIN TIME 39.00 SECONDS 25.86-36.07 H [facility] PARTIAL (test code = Therape utic Range - PTT) APTT of 55.8-85 .4 secondscorrelat es with plasma heparin concentration o f 0.2-0.4 u/mL Ne w range effective - Is patient on anticoagulants? NBASIC METABOLIC [id number] 03:53:00 Test Item Value Reference Range Interpretation Comments SODIUM (test code = 141 mmol/l 134.0-147.0 N NA) POTASSIUM (test code = 5.4 mmol/L 3.6-5.2 H IS SA MPLE HEMOLYSED? K) NO VISIBLE HEMO LYSIS CHLORIDE (test code = 103 mmol/l 98.0-107.0 N CL) CARBON DIOXIDE (test 20.1 mmol/l 21.0-33.0 L code = CO2) ANION GAP (test code = 23.3 0-20 H GAP) GLUCOSE (test code = mg/dl 70.0-110.0 GLU) BLOOD UREA NITROGEN mg/dl 7.0-18.0 (test code = BUN) CREATININE (test code mg/dL 0.60-1.30 = CREAT) GFR NON BLACK (test mL/min 90-95 code = GFRNONBLACK) GFR BLACK (test code = mL/min 109-115 GFRBLACK) CALCIUM (test code = mg/dl 8.0-10.5 CA) B-TYPE NATRIURETIC [id number] 03:53:00 Test Item Value Reference Range Interpretation Comments B-TYPE NATRIURETIC PEPTIDE (test code PG/ML 5-100 = BNP) [id number] 03:53:00 Test Item Value Reference Range Interpretation Comments TROPONIN-I (test code = TROPI) NG/ML 0.00-0.06 TROPONIN I [id number] 03:46:00 Test Item Value Reference Range Interpretation Comments TROPONIN I RAPID 0.06 0.00-0.08 N Negati ve: <= 0.08 (test code = Positive: > = 0.09An TROPIRAP) elevated tropon in value alone is not sufficie nt todiagnose a myocardial infa rction. Rather, the patient'scl inical presentation (h istory, physical exam) and ECGshould be used in conj unction with troponin in the diagnostic evaluation of s uspected myocardial infa rction.A serial sampling protoc ol is recommended to facilitatethe identification of temporal changes in trop onin levelscharacter istic of MO. CBC W/AUTO [id number] 03:44:00 Test Item Value Reference Range Interpretation Comments WHITE BLOOD CELL (test code = 10.8 K/mm3 4.5-11.0 N WBC) RED BLOOD CELL (test code = 2.74 M/mm3 4.40-5.90 L RBC) HEMOGLOBIN (test code = HGB) 8.6 gm/dL 13.0-17.0 L HEMATOCRIT (test code = HCT) 26.8 % 36.0-48.0 L MEAN CELL VOLUME (test code = 97.8 UM3 80.0-94.0 H MCV) MEAN CELL HGB (test code = MCH) 31.4 UUG 25.5-32.5 N MEAN CELL HGB CONCETRATION 32.1 gm/dL 29.0-35.5 N (test code = MCHC) RED CELL DISTRIBUTION WIDTH 17.3 % 11.5-15.0 H (test code = RDW) RED CELL DISTRIBUTION WIDTH SD 61.3 fL 34.8-50.2 H (test code = RDW-SD) PLATELET COUNT (test code = 186 K/mm3 150-400 N PLT) MEAN PLATELET VOLUME (test code 11.0 fl 7.4-10.4 H = MPV) NEUTROPHIL % (test code = NT%) 82.2 % 49.0-76.0 H IMMATURE GRANULOCYTE % (test 0.3 % 0.0-0.4 N code = IG%) LYMPHOCYTE % (test code = LY%) 7.5 % 23.0-38.0 L MONOCYTE % (test code = MO%) 7.3 % 1.0-10.0 N EOSINOPHIL % (test code = EO%) 2.3 % 1.0-5.0 N BASOPHIL % (test code = BA%) 0.4 % 0.0-1.0 N NEUTROPHIL # (test code = NT#) 8.9 K/mm3 2.4-6.3 H IMMATURE GRANULOCYTE # (test 0.03 x10 3/uL 0.00-0.07 N code = IG#) LYMPHOCYTE # (test code = LY#) 0.8 K/mm3 1.2-4.0 L MONOCYTE # (test code = MO#) 0.8 K/mm3 0.0-0.6 H EOSINOPHIL # (test code = EO#) 0.3 K/MM3 0.0-0.7 N BASOPHIL # (test code = BA#) 0.0 K/mm3 0.0-0.2 N RHEUMATOID FACTOR [id number] 18:59:00 Test Item Value Reference Range Interpretation Comments RHEUMATOID FACTOR SCREEN (test code = NEG NEGATIVE RA) ANTINUCLEAR ANTIBODIES [id number] 18:59:00 Test Item Value Reference Range Interpretation Comments SARA DIRECT (test code Negative () = ANADIR) Neg ative <1:80 Borderline 1:8 0 Positive >1:80Performed At: [facility] [address] [id number] madie Matthews MD [phone] ABS ANTI-NEUT CYTO P [id number] 18:59:00 Test Item Value Reference Interpretation Comments Range MYELOPEROXIDASE ABS <9.0 U/mL 0.0-9.0 TEST PER FORMED AT (test code = MPOAB) [facility] [address] [address] AB ANTI-NEUTROPHIL <1:20 titer Neg:<1:20 CYTO C (test code = NEUTCABC) AB ANTI-NEUTROPHIL <1:20 titer Neg:<1:20 The prese nce of positive CYTO. P (test code = fluores cence exhibiting NEUTCAB-P) P-ANCA orC-ANCA patterns alone is not sp ecific for the diagnos is ofWegener's Granulomatosis (WG) or microscopic polyangiitis.De cisions about treatment should not be based so adrianna onANCA IFA resu lts. The International A NCA Group Consensusrecomm ends follow up testi ng of positive sera w ith both AR-3 and MPO-AN CA enzyme immunoassays. A s many as 5% serumsamples are positive only b y EIA. Ref. AM J Clin Hbamen0474;111: 507-513. PROTEINASE 3 ABS <3.5 U/mL 0.0-3.5 TEST PERFOR MED AT (AR-3) (test code = [facility] [place] AR-3) [address] [place] [address] ATYPICAL ANCA (test <1:20 titer Neg:<1:20 The atyp ical pANCA code = ANCACOM) pattern has been observed in asi gnificant percentage of p atients with ulcerative colitis,primary sclerosing chol angitis and autoimmune hepatitis.Perfo rmed At: BN [facility] [address] [place], [place] [id number] ra Henrique HUERTA Ph:[phone] [id number] 12:34:00 Test Item Value Reference Range Interpretation Comments GLUBED (test code = GLUBED) 186 mg/dL 70-110 H BASIC METABOLIC [id number] 08:56:00 Test Item Value Reference Range Interpretation Comments SODIUM (test code = NA) 132 mmol/l 134.0-147.0 L POTASSIUM (test code = K) 4.6 mmol/L 3.6-5.2 N CHLORIDE (test code = CL) 90 mmol/l 98.0-107.0 L CARBON DIOXIDE (test code = CO2) 23.5 mmol/l 21.0-33.0 N ANION GAP (test code = GAP) 23.1 0-20 H GLUCOSE (test code = GLU) 228 mg/dl 70.0-110.0 H BLOOD UREA NITROGEN (test code = 80 mg/dl 7.0-18.0 H BUN) CREATININE (test code = CREAT) 11.67 mg/dL 0.60-1.30 HH GFR NON BLACK (test code = 5 mL/min 90-95 L GFRNONBLACK) GFR BLACK (test code = GFRBLACK) 6 mL/min 109-115 L CALCIUM (test code = CA) 8.7 mg/dl 8.0-10.5 N CBC W/AUTO [id number] 08:42:00 Test Item Value Reference Range Interpretation Comments WHITE BLOOD CELL (test code = 7.8 K/mm3 4.5-11.0 N WBC) RED BLOOD CELL (test code = 2.68 M/mm3 4.40-5.90 L RBC) HEMOGLOBIN (test code = HGB) 8.5 gm/dL 13.0-17.0 L HEMATOCRIT (test code = HCT) 24.3 % 36.0-48.0 LL MEAN CELL VOLUME (test code = 90.7 UM3 80.0-94.0 N MCV) MEAN CELL HGB (test code = MCH) 31.7 UUG 25.5-32.5 N MEAN CELL HGB CONCETRATION 35.0 gm/dL 29.0-35.5 N (test code = MCHC) RED CELL DISTRIBUTION WIDTH 14.9 % 11.5-15.0 N (test code = RDW) RED CELL DISTRIBUTION WIDTH SD 49.1 fL 34.8-50.2 N (test code = RDW-SD) PLATELET COUNT (test code = 273 K/mm3 150-400 N PLT) MEAN PLATELET VOLUME (test code 11.5 fl 7.4-10.4 H = MPV) NEUTROPHIL % (test code = NT%) 67.1 % 49.0-76.0 N IMMATURE GRANULOCYTE % (test 0.5 % 0.0-0.4 H code = IG%) LYMPHOCYTE % (test code = LY%) 16.5 % 23.0-38.0 L MONOCYTE % (test code = MO%) 11.3 % 1.0-10.0 H EOSINOPHIL % (test code = EO%) 4.1 % 1.0-5.0 N BASOPHIL % (test code = BA%) 0.5 % 0.0-1.0 N NEUTROPHIL # (test code = NT#) 5.3 K/mm3 2.4-6.3 N IMMATURE GRANULOCYTE # (test 0.04 x10 3/uL 0.00-0.07 N code = IG#) LYMPHOCYTE # (test code = LY#) 1.3 K/mm3 1.2-4.0 N MONOCYTE # (test code = MO#) 0.9 K/mm3 0.0-0.6 H EOSINOPHIL # (test code = EO#) 0.3 K/MM3 0.0-0.7 N BASOPHIL # (test code = BA#) 0.0 K/mm3 0.0-0.2 N [id number] 07:23:00 Test Item Value Reference Range Interpretation Comments GLUBED (test code = GLUBED) 182 mg/dL 70-110 H [id number] 16:09:00 Test Item Value Reference Range Interpretation Comments GLUBED (test code = GLUBED) 220 mg/dL 70-110 H RHEUMATOID FACTOR [id number] 15:24:00 Test Item Value Reference Range Interpretation Comments RHEUMATOID FACTOR SCREEN (test code = NEG NEGATIVE RA) ANTINUCLEAR ANTIBODIES [id number] 15:24:00 Test Item Value Reference Range Interpretation Comments SARA DIRECT (test code Negative () = ANADIR) Neg ative <1:80 Borderline 1:8 0 Positive >1:80Performed At: [facility] [address] [place] [id number] madie Matthews MD [phone] ABS ANTI-NEUT CYTO P [id number] 15:24:00 Test Item Value Reference Range Interpretation Comments MYELOPEROXIDASE ABS (test code = U/mL 0.0-9.0 MPOAB) AB ANTI-NEUTROPHIL CYTO C (test code = titer NEG:<1:20 NEUTCABC) AB ANTI-NEUTROPHIL CYTO. P (test code titer NEG:<1:20 = NEUTCAB-P) PROTEINASE 3 ABS (AR-3) (test code = U/mL 0.0-3.5 AR-3) ATYPICAL ANCA (test code = ANCACOM) titer NEG:<1:20 BASIC METABOLIC [id number] 15:12:00 Test Item Value Reference Range Interpretation Comments SODIUM (test code = NA) 134 mmol/l 134.0-147.0 N POTASSIUM (test code = K) 3.9 mmol/L 3.6-5.2 N CHLORIDE (test code = CL) 93 mmol/l 98.0-107.0 L CARBON DIOXIDE (test code = CO2) 27.8 mmol/l 21.0-33.0 N ANION GAP (test code = GAP) 17.1 0-20 N GLUCOSE (test code = GLU) 210 mg/dl 70.0-110.0 H BLOOD UREA NITROGEN (test code = 66 mg/dl 7.0-18.0 H BUN) CREATININE (test code = CREAT) 10.22 mg/dL 0.60-1.30 HH GFR NON BLACK (test code = 6 mL/min 90-95 L GFRNONBLACK) GFR BLACK (test code = GFRBLACK) 7 mL/min 109-115 L CALCIUM (test code = CA) 9.0 mg/dl 8.0-10.5 N DIALYSISCBC W/AUTO [id number] 15:08:00 Test Item Value Reference Range Interpretation Comments WHITE BLOOD CELL (test code = 9.0 K/mm3 4.5-11.0 N WBC) RED BLOOD CELL (test code = 2.54 M/mm3 4.40-5.90 L RBC) HEMOGLOBIN (test code = HGB) 8.0 gm/dL 13.0-17.0 L HEMATOCRIT (test code = HCT) 23.3 % 36.0-48.0 LL MEAN CELL VOLUME (test code = 91.7 UM3 80.0-94.0 N MCV) MEAN CELL HGB (test code = MCH) 31.5 UUG 25.5-32.5 N MEAN CELL HGB CONCETRATION 34.3 gm/dL 29.0-35.5 N (test code = MCHC) RED CELL DISTRIBUTION WIDTH 15.1 % 11.5-15.0 H (test code = RDW) RED CELL DISTRIBUTION WIDTH SD 51.4 fL 34.8-50.2 H (test code = RDW-SD) PLATELET COUNT (test code = 234 K/mm3 150-400 N PLT) MEAN PLATELET VOLUME (test code 11.7 fl 7.4-10.4 H = MPV) NEUTROPHIL % (test code = NT%) 75.8 % 49.0-76.0 N IMMATURE GRANULOCYTE % (test 0.6 % 0.0-0.4 H code = IG%) LYMPHOCYTE % (test code = LY%) 9.9 % 23.0-38.0 L MONOCYTE % (test code = MO%) 10.2 % 1.0-10.0 H EOSINOPHIL % (test code = EO%) 3.2 % 1.0-5.0 N BASOPHIL % (test code = BA%) 0.3 % 0.0-1.0 N NEUTROPHIL # (test code = NT#) 6.8 K/mm3 2.4-6.3 H IMMATURE GRANULOCYTE # (test 0.05 x10 3/uL 0.00-0.07 N code = IG#) LYMPHOCYTE # (test code = LY#) 0.9 K/mm3 1.2-4.0 L MONOCYTE # (test code = MO#) 0.9 K/mm3 0.0-0.6 H EOSINOPHIL # (test code = EO#) 0.3 K/MM3 0.0-0.7 N BASOPHIL # (test code = BA#) 0.0 K/mm3 0.0-0.2 N DIALYSIS- CT ABD PELVIS W/O [id number] 07:31:00 FAX: Faheem Padilla MD [phone] [place]: St: ADM FAX: Arnol Lawson [phone] Name: GINETTE GARCIA [facility] : 1970 Age/S: 49/M [address] [facility] [place] Unit: [id number] Loc: [address] [place], [place]: [place] [address] Acct: [id number] Dis Date: Status: ADM IN PHONE #: [phone] Exam Date: 03/07/2019725 FAX #: [phone] Reason: RT KIDNEY BURNING PAIN 05/10 EXAMS: CPT CODE: [id number] CT ABD PELVIS W/O CONT 79028 EXAM: - CT ABD PELVIS W/O CONT HISTORY: RT KIDNEY BURNING PAIN 05/10 Location code:C3 TECHNIQUE: Contrast - No IV contrast was given. Enteric contrast is present. Noncontrast phase - abdomen and pelvis including all of kidneys Reconstructions - coronal and sagittal planes Automated exposure reduction (Auto mA/Smart mA) was utilized in compliance with ACR Image Wisely with DLP of 724.5 mGy-cm. COMPARISON: 11/21/2018 FINDINGS: Statements: Lack of intravenous contrast compromises evaluation of abdominopelvic organs and vasculature. Lack of oral contrast compromises evaluation of bowel. Thoracic: Groundglass opacities in the lower lobes are again seen with resolution of previously seen pleural effusions. Hepatobiliary: The liver is normal without focal lesion. The gallbladder is normal. No biliary dilation. Pancreas: Normal. Spleen: Normal. Adrenals: Normal. Genitourinary: The kidneys are normal. There is no evidence of hydronephrosis of either kidney. There is no evidence of renal calculus. Evaluation of the bladder is limited, but no obvious bladder abnormality is present. Gastrointestinal: A few colonic diverticuli are present without CT evidence of diverticulitis. No bowel obstruction is seen. The appendix is normal. Vas cular: The aorta is grossly normal in appearance. PAGE 1 Signed Report (CONTINUED) FAX: Faheem Padilla MD [phone] [place]: St: [facility] FAX: Arnol Lawson [phone] Name: GINETTE GARCIA [facility] : 1970 Age/S: 49/M [address] [facility] [place] Unit: [id number] Loc: [address] [place], [place]: [place] [address] Acct: [id number] Dis Date: Status: ADM IN PHONE #: [phone] Exam Date: 03/07/2019725 FAX #: [phone] Reason: RT KIDNEY BURNING PAIN 05/10 EXAMS: CPT CODE: [id number] CT ABD PELVIS W/O CONT 82508 <Continued> Lymphatics: No enlarged lymph nodes by CT size criteria. Bones/Soft Tissues: Bilateral spondylolysis at L4 is seen with grade 1 anterospondylolisthesis of L4 on L5 of 3 mm. Marked degenerative disc disease at L4-5 is present. There is no acute osseous abnormality. No ventral hernias. Peritoneum/Other: No extraluminal air. No extraluminal fluid. IMPRESSION: 1. No acute abnormality. Chronic findings as above. at 0731 Reported and signed by: Rolo Villela M.D. CC: Faheem Max MD; Arnol Jackson MD Technologist: JANA RINCON Trnscrd Dt/Tm: 03/07/2019 (0731) Clarke.CB5 Orig Print D/T: S: 03/07/2019 (0734 PAGE 2 Signed [id number] 07:08:00 Test Item Value Reference Range Interpretation Comments GLUBED (test code = GLUBED) 148 mg/dL 70-110 H [id number] 20:49:00 Test Item Value Reference Range Interpretation Comments GLUBED (test code = GLUBED) 151 mg/dL 70-110 H RHEUMATOID FACTOR [id number] 16:53:00 Test Item Value Reference Range Interpretation Comments RHEUMATOID FACTOR SCREEN (test code = NEG NEGATIVE RA) ANTINUCLEAR ANTIBODIES [id number] 16:53:00 Test Item Value Reference Range Interpretation Comments SARA DIRECT (test code = ANADIR) NEGATIVE ABS ANTI-NEUT CYTO P [id number] 16:53:00 Test Item Value Reference Range Interpretation Comments MYELOPEROXIDASE ABS (test code = U/mL 0.0-9.0 MPOAB) AB ANTI-NEUTROPHIL CYTO C (test code = titer NEG:<1:20 NEUTCABC) AB ANTI-NEUTROPHIL CYTO. P (test code titer NEG:<1:20 = NEUTCAB-P) PROTEINASE 3 ABS (AR-3) (test code = U/mL 0.0-3.5 AR-3) ATYPICAL ANCA (test code = ANCACOM) titer NEG:<1:20 [id number] 16:11:00 Test Item Value Reference Range Interpretation Comments GLUBED (test code = GLUBED) 230 mg/dL 70-110 H - XR CHEST 1 [id number] 14:17:00 FAX: Faheem Padilla MD [phone] [place]: St: [facility] FAX: Marco A Arias [phone] Name: GINETTE GARCIA [facility] : 1970 Age/S: 49/M [address] [facility] Unit #: [id number] Loc: [address] Phys: [place] [address] Acct: [id number] Dis Date: Status: ADM IN PHONE #: [phone] Exam Date: 03/06/2019 1404 FAX #: [phone] Reason: Pneumonia, ESRD, resp. failure EXAMS: CPT CODE: [id number] XR CHEST 1 V 90566 REASON FOR EXAM: Pneumonia, respiratory failure. COMPARISON: March 05, 2019, yesterday. Chest, 2 views, frontal and lateral projection. The lungs are well-inflated with less interstitial edema likely result of dialysis. Dialysis catheter in good position. Heart size is normal. No effusion or pneumothorax can be seen. Osseous structures appearto be intact. . IMPRESSION: Improving pulmonary edema since yesterday likely fluid overload possibly corrected by dialysis. No consolidation. Location: [facility] at 1417 Reported and signed by: Ginette Johnson M.D. CC: Faheem Max MD; Marco A Ramos MD Technologist: ELIZA CARRANZA Trnorrd Date/Time/By: 03/06/2019 (4174) : By: [facility] PAGE 1 Signed Report FAX: Faheem Padilla MD [phone] [place]: St: ADM FAX: Marco A Arias [phone] Name: GINETTE GARCIA [facility] : 1970 Age[facility]S: 49/[facility] #: [id number] Loc: [address] Phys: [place] [address] Acct: [id number] Dis Date: Status: ADM IN PHONE #: [phone] Exam Date: 03/06/2019 1404 FAX #: [phone] Reason: Pneumonia, ESRD, resp. failure EXAMS: CPT CODE: [id number] XR CHEST 1 V 77251 <Continued> Orig Print D/T: S: 03/06/2019 (9699) PAGE 2 Signed Report- XR L-SPINE 2/3 [id number] 14:15:00 FAX: Faheem Padilla MD [phone] [place]: St: ADM FAX: Lluvia Cisneros MD [phone] Name: GINETTE GARCIA [facility] : 1970 Age/S: 49/M [address] [facility] Unit #: [id number] Loc: [address] [place], [place]: [place] [id number] Acct: [id number] Dis Date: Status: ADM IN PHONE #: [phone] Exam Date: 03/06/2019 1404 FAX #: [phone] Reason: right bonnie pain EXAMS: CPT CODE: [id number] XR L-SPINE 2/3 VIEWS 12622 EXAM: - XR L-SPINE 2/3 VIEWS HISTORY: right flank pain Location code:C3 COMPARISON: Abdomen pelvis CT 11/21/2018 FINDINGS: AP, lateral, and spot lateral views of the lumbar spine are provided. Bilateral spondylolysis at L4 with grade 1 anterospon dylolisthesis of L4 on L5 of 4 mm is seen. Degenerative disease at L4-5 is present. Mild lower lumbar facet arthropathy is seen at L5-S1. Vertebral body heights and alignment are otherwise well maintained. No acute fractures seen. IMPRESSION: 1. Bilateral spondylolysis at L4 with grade 1 anterolisthesis of L4 on L5 with degenerative disc disease at this level is similar with abdomen pelvis CT 11/21/2018 at 1415 Reported and signed by: Rolo Villela M.D. CC: Faheem Max MD; Lluvia Pope MD Technologist: ELIZA CARRANZA Trnorrd Date/Time/By: 03/06/2019 (1415) : By: [email or web address] PAGE 1 Signed Report FAX: Faheem Padilla MD [phone] [place]: St: ADM FAX: Lluvia Cisneros MD [phone] Name: GINETTE GARCIA [facility] : 1970 Age/S: 49/M [address] [facility] [place] Unit #: [id number] Loc: [address] [place], [place]: [place] [id number] Acct: [id number] Dis Date: Status: ADM IN PHONE #: [phone] Exam Date: 03/06/2019 1404 FAX #: [phone] Reason: right bonnie pain EXAMS: CPT CODE: [id number] XR L-SPINE 2/3 VIEWS 56504 <Continued> Orig Print D/T: S: 03/06/2019 (3686) PAGE 2 Signed [id number] 12:42:00 Test Item Value Reference Range Interpretation Comments GLUBED (test code = GLUBED) 161 mg/dL 70-110 H RESPIRATORY VIRUS PANEL [id number] 09:28:00 Test Item Value Reference Interpretation Comments Range RSV A PCR (test Negative Negative code = RSV A) RSV B PCR (test Negative Negative code = RSV B) INFLUENZA A (test NEGATIVE Negative code = FLUAPCR) INFLUENZA A SUBTYPE Negative Negative H1 (test code = FLUAH1) INFLUENZA A SUBTYPE Negative Negative H3 (test code = FLUAH3) INFLUENZA B (test NEGATIVE Negative code = FLUBPCR) PARAINFLUENZA TYPE Negative Negative 1 PCR (test code = PIF1) PARAINFLUENZA TYPE Negative Negative 2 PCR (test code = PIF2) PARAINFLUENZA TYPE Negative Negative 3 PCR (test code = PIF3) PARAINFLUENZA TYPE Negative Negative 4 PCR (test code = PIF4) RHINOVIRUS PCR Negative Negative (test code = RHINO) METAPNEUMOVIRUS PCR Negative Negative (test code = METAPNEU) ADENOVIRUS PCR Negative Negative (test code = ADENOPCR) BORDETELLA Negative Negative PERTUSSIS DNA PCR (test code = BORDPERDNA) B PARAPERTUSSIS BY Negative Negative PCR (test code = BPARAPCR) BORDETELLA HOLMESII Negative Negative Testing was performed (test code = using nucleic a mae BORDHOLM) amplificationin cluding Bordetella parapertussis/b rochiseptic a, Bordetella h olmesii, and Bordetella pertussis.Testi ng was performed using nucleic acid amplificationin cluding Bordetella parapertussis/b rochiseptic a, BordetellaHo lmesii, and Bordetella pert ussis. COMPLEMENT BETA C1 RVP Comment () Testing w as performed (test code = using nucleic a mae COMBC1) amplificationin cluding influenza A, in fluenza A H1, influenza A H3,influenza B, RSV-A, RSV-B, Adenovir us, HumanMetapneumo virus, Parainfluenza 1 ,2,3 and 4, Rhinovirus, Bor detella parapertussis/b rochiseptic a, Bordetella h olmesii, and Bordetella pertussis.Testi ng was performed using nucleic acid amplificationin cluding influenza A, in fluenza A H1, influenza A H3,influenza B, RSV-A, RSV-B, Adenovir us, HumanMetapneumo virus, Parainfluenza 1 ,2,3 and 4, Rhinovirus,Bord etella parapertussis/b rochiseptic a, Bordetella h olmesii,and Bordetella pert ussis. ACUTE HEPATITIS [id number] 09:28:00 Test Item Value Reference Range Interpretation Comments AB HEPATITIS A IGM NON REACTIVE NON REACT. Testing d one at (test code = INDEX CLEAR AYOUB AUDREY ONAL HAVMAB) [facility] [address] [place] [address]. [place] [address] AB HEPATITIS B 432.6 mIU/mL Immunity>9.9 Status of SURFACE (test code Immunity = HBSAB) Anti-H Bs Level --- I ncon sistent with Immunity 0.0 - 9.9Consistent w ith Immunity >9.9TEST PERFOR MED AT [facility] [address] [address] AG HEPATITIS B NON REACTIVE NonReactive Testing done at SURFACE (test code INDEX CLEAR [place] = HBSAG) [facility] [address] [place] [address]. [place] [address] AB HEPATITIS B NON REACTIVE NON REACT. Testing done at CORE IGM (test INDEX CLEAR AYOUB RE GIONAL code = HBCMAB) [facility] [address] [place] [address]. [place] [address] AB HEPATITIS C NON REACTIVE NON REACT. Testing done at (test code = INDEX CLEAR AYOUB AUDREY ONAL HCVAB) [facility] [address] [place] [address]. [place] [address] AB HEPATITIS B [id number] 09:28:00 Test Item Value Reference Range Interpretation Comments AB HEPATITIS B CORE Negative Negative Performe d At: HD (test code = HBCAB) [address] [id number] madie Matthews MD Ph:[phone] BASIC METABOLIC [id number] 08:01:00 Test Item Value Reference Range Interpretation Comments SODIUM (test code = NA) 135 mmol/l 134.0-147.0 N POTASSIUM (test code = K) 4.7 mmol/L 3.6-5.2 N CHLORIDE (test code = CL) 96 mmol/l 98.0-107.0 L CARBON DIOXIDE (test code = CO2) 24.0 mmol/l 21.0-33.0 N ANION GAP (test code = GAP) 19.7 0-20 N GLUCOSE (test code = GLU) 145 mg/dl 70.0-110.0 H BLOOD UREA NITROGEN (test code = 87 mg/dl 7.0-18.0 H BUN) CREATININE (test code = CREAT) 13.69 mg/dL 0.60-1.30 HH GFR NON BLACK (test code = 4 mL/min 90-95 L GFRNONBLACK) GFR BLACK (test code = GFRBLACK) 5 mL/min 109-115 L CALCIUM (test code = CA) 9.0 mg/dl 8.0-10.5 N CBC W/AUTO [id number] 07:40:00 Test Item Value Reference Range Interpretation Comments WHITE BLOOD CELL (test code = 14.9 K/mm3 4.5-11.0 H WBC) RED BLOOD CELL (test code = 2.37 M/mm3 4.40-5.90 L RBC) HEMOGLOBIN (test code = HGB) 7.4 gm/dL 13.0-17.0 L HEMATOCRIT (test code = HCT) 22.3 % 36.0-48.0 LL MEAN CELL VOLUME (test code = 94.1 UM3 80.0-94.0 H MCV) MEAN CELL HGB (test code = MCH) 31.2 UUG 25.5-32.5 N MEAN CELL HGB CONCETRATION 33.2 gm/dL 29.0-35.5 N (test code = MCHC) RED CELL DISTRIBUTION WIDTH 16.3 % 11.5-15.0 H (test code = RDW) RED CELL DISTRIBUTION WIDTH SD 55.3 fL 34.8-50.2 H (test code = RDW-SD) PLATELET COUNT (test code = 201 K/mm3 150-400 N PLT) MEAN PLATELET VOLUME (test code 11.2 fl 7.4-10.4 H = MPV) NEUTROPHIL % (test code = NT%) 83.9 % 49.0-76.0 H IMMATURE GRANULOCYTE % (test 0.6 % 0.0-0.4 H code = IG%) LYMPHOCYTE % (test code = LY%) 5.6 % 23.0-38.0 L MONOCYTE % (test code = MO%) 8.5 % 1.0-10.0 N EOSINOPHIL % (test code = EO%) 1.2 % 1.0-5.0 N BASOPHIL % (test code = BA%) 0.2 % 0.0-1.0 N NEUTROPHIL # (test code = NT#) 12.5 K/mm3 2.4-6.3 H IMMATURE GRANULOCYTE # (test 0.09 x10 3/uL 0.00-0.07 H code = IG#) LYMPHOCYTE # (test code = LY#) 0.8 K/mm3 1.2-4.0 L MONOCYTE # (test code = MO#) 1.3 K/mm3 0.0-0.6 H EOSINOPHIL # (test code = EO#) 0.2 K/MM3 0.0-0.7 N BASOPHIL # (test code = BA#) 0.0 K/mm3 0.0-0.2 N RESPIRATORY VIRUS PANEL [id number] 07:03:00 Test Item Value Reference Interpretation Comments Range RSV A PCR (test code Negative Negative = RSV A) RSV B PCR (test code Negative Negative = RSV B) INFLUENZA A (test Negative code = FLUAPCR) INFLUENZA A SUBTYPE Negative Negative H1 (test code = FLUAH1) INFLUENZA A SUBTYPE Negative Negative H3 (test code = FLUAH3) INFLUENZA B (test Negative code = FLUBPCR) PARAINFLUENZA TYPE 1 Negative Negative PCR (test code = PIF1) PARAINFLUENZA TYPE 2 Negative Negative PCR (test code = PIF2) PARAINFLUENZA TYPE 3 Negative Negative PCR (test code = PIF3) PARAINFLUENZA TYPE 4 Negative Negative PCR (test code = PIF4) RHINOVIRUS PCR (test Negative Negative code = RHINO) METAPNEUMOVIRUS PCR Negative Negative (test code = METAPNEU) ADENOVIRUS PCR (test Negative Negative code = ADENOPCR) BORDETELLA PERTUSSIS Negative Negative DNA PCR (test code = BORDPERDNA) B PARAPERTUSSIS BY Negative Negative PCR (test code = BPARAPCR) BORDETELLA HOLMESII Negative Negative Testing was performed using (test code = nucleic acid BORDHOLM) amplificationin cluding Bordetella parapertussis/b rochiseptica , Bordetella ho lmesii, and Bordetella pertussis.Testi ng was performed using nucleic acid amplificat ionincluding Bordetella parapertussis/b rochiseptica , BordetellaHol mesii, and Bordetella pert ussis. COMPLEMENT BETA C1 () Testing w as performed using (test code = COMBC1) nucleic acid amplificationin cluding influenza A, in fluenza A H1, influenza A H3,influenza B, RSV-A, RSV-B, Adenovir us, HumanMetapneumo virus, Parainfluenza 1 ,2,3 and 4, Rhinovirus, Bor detella parapertussis/b rochiseptica , Bordetella ho lmesii, and Bordetella pertussis.Testi ng was performed using nucleic acid amplificat ionincluding influenza A, in fluenza A H1, influenza A H3,influenza B, RSV-A, RSV-B, Adenovir us, HumanMetapneumo virus, Parainfluenza 1 ,2,3 and 4, Rhinovirus,Bord etella parapertussis/b rochiseptica , Bordetella ho lmesii,and Bordetella pert ussis. RESPIRATORY VIRUS PANEL [id number] 07:02:00 Test Item Value Reference Interpretation Comments Range RSV A PCR (test Negative Negative code = RSV A) RSV B PCR (test Negative Negative code = RSV B) INFLUENZA A (test Negative Negative code = FLUAPCR) INFLUENZA A SUBTYPE Negative Negative H1 (test code = FLUAH1) INFLUENZA A SUBTYPE Negative Negative H3 (test code = FLUAH3) INFLUENZA B (test Negative Negative code = FLUBPCR) PARAINFLUENZA TYPE Negative Negative 1 PCR (test code = PIF1) PARAINFLUENZA TYPE Negative Negative 2 PCR (test code = PIF2) PARAINFLUENZA TYPE Negative Negative 3 PCR (test code = PIF3) PARAINFLUENZA TYPE Negative Negative 4 PCR (test code = PIF4) RHINOVIRUS PCR Negative Negative (test code = RHINO) METAPNEUMOVIRUS PCR Negative Negative (test code = METAPNEU) ADENOVIRUS PCR Negative Negative (test code = ADENOPCR) BORDETELLA Negative Negative PERTUSSIS DNA PCR (test code = BORDPERDNA) B PARAPERTUSSIS BY Negative Negative PCR (test code = BPARAPCR) BORDETELLA HOLMESII Negative Negative Testing was performed (test code = using nucleic a mae BORDHOLM) amplificationin cluding Bordetella parapertussis/b rochiseptic a, Bordetella h olmesii, and Bordetella pertussis. COMPLEMENT BETA C1 RVP Comment Testing w as performed (test code = using nucleic a mae COMBC1) amplificationin cluding influenza A, in fluenza A H1, influenza A H3,influenza B, RSV-A, RSV-B, Adenovir us, HumanMetapneumo virus, Parainfluenza 1 ,2,3 and 4, Rhinovirus, Bor detella parapertussis/b rochiseptic a, Bordetella h olmesii, and Bordetella pertussis. [id number] 06:06:00 Test Item Value Reference Range Interpretation Comments GLUBED (test code = GLUBED) 142 mg/dL 70-110 H [id number] 22:08:00 Test Item Value Reference Range Interpretation Comments GLUBED (test code = GLUBED) 191 mg/dL 70-110 H [id number] 18:33:00 Test Item Value Reference Range Interpretation Comments GLUBED (test code = GLUBED) 172 mg/dL 70-110 H [id number] 11:44:00 Test Item Value Reference Range Interpretation Comments GLUBED (test code = GLUBED) 188 mg/dL 70-110 H [id number] 11:44:00 Test Item Value Reference Range Interpretation Comments GLUBED (test code = GLUBED) 161 mg/dL 70-110 H BASIC METABOLIC [id number] 08:50:00 Test Item Value Reference Range Interpretation Comments SODIUM (test code = NA) 135 mmol/l 134.0-147.0 N POTASSIUM (test code = K) 4.1 mmol/L 3.6-5.2 N CHLORIDE (test code = CL) 97 mmol/l 98.0-107.0 L CARBON DIOXIDE (test code = CO2) 22.4 mmol/l 21.0-33.0 N ANION GAP (test code = GAP) 19.7 0-20 N GLUCOSE (test code = GLU) 164 mg/dl 70.0-110.0 H BLOOD UREA NITROGEN (test code = 76 mg/dl 7.0-18.0 H BUN) CREATININE (test code = CREAT) 12.67 mg/dL 0.60-1.30 HH GFR NON BLACK (test code = 4 mL/min 90-95 L GFRNONBLACK) GFR BLACK (test code = GFRBLACK) 5 mL/min 109-115 L CALCIUM (test code = CA) 7.8 mg/dl 8.0-10.5 L CBC W/AUTO [id number] 07:41:00 Test Item Value Reference Range Interpretation Comments WHITE BLOOD CELL (test code = 14.5 K/mm3 4.5-11.0 H WBC) RED BLOOD CELL (test code = 2.57 M/mm3 4.40-5.90 L RBC) HEMOGLOBIN (test code = HGB) 7.9 gm/dL 13.0-17.0 L HEMATOCRIT (test code = HCT) 24.9 % 36.0-48.0 LL MEAN CELL VOLUME (test code = 96.9 UM3 80.0-94.0 H MCV) MEAN CELL HGB (test code = MCH) 30.7 UUG 25.5-32.5 N MEAN CELL HGB CONCETRATION 31.7 gm/dL 29.0-35.5 N (test code = MCHC) RED CELL DISTRIBUTION WIDTH 16.7 % 11.5-15.0 H (test code = RDW) RED CELL DISTRIBUTION WIDTH SD 59.4 fL 34.8-50.2 H (test code = RDW-SD) PLATELET COUNT (test code = 199 K/mm3 150-400 N PLT) MEAN PLATELET VOLUME (test code 11.4 fl 7.4-10.4 H = MPV) NEUTROPHIL % (test code = NT%) 83.2 % 49.0-76.0 H IMMATURE GRANULOCYTE % (test 0.6 % 0.0-0.4 H code = IG%) LYMPHOCYTE % (test code = LY%) 7.7 % 23.0-38.0 L MONOCYTE % (test code = MO%) 7.3 % 1.0-10.0 N EOSINOPHIL % (test code = EO%) 1.1 % 1.0-5.0 N BASOPHIL % (test code = BA%) 0.1 % 0.0-1.0 N NEUTROPHIL # (test code = NT#) 12.1 K/mm3 2.4-6.3 H IMMATURE GRANULOCYTE # (test 0.09 x10 3/uL 0.00-0.07 H code = IG#) LYMPHOCYTE # (test code = LY#) 1.1 K/mm3 1.2-4.0 L MONOCYTE # (test code = MO#) 1.1 K/mm3 0.0-0.6 H EOSINOPHIL # (test code = EO#) 0.2 K/MM3 0.0-0.7 N BASOPHIL # (test code = BA#) 0.0 K/mm3 0.0-0.2 N - XR CHEST 1 [id number] 07:28:00 FAX: Faheem Padilla MD [phone] [place]: [address]: ADM Name: GINETTE GARCIA [facility] : 1970 Age/S: 49/M [address] [facility] [place] Unit#: [id number] Loc: [address] [place] [address] Phys: [place] [id number] Acct: [id number] Dis Date: Status: ADM IN PHONE #: [phone] Exam Date: 03/05/2019728 FAX #: [phone] Reason: ELEVATED TEMP EXAMS: CPT CODE: [id number] XR CHEST 1 V 15303 Examination: Chest 1 view Location code: S17 Comparison: Chest March 03, 2019 Discussion: Clinical historyis remarkable for missed dialysis, fever, shortness of breath. Cardiac silhouette is slightlyenlarged. Right-sided tunneled dialysis catheter is in good position. Bilateral parahilar alveolar airspace disease is present which may represent a combination of edema or pneumonia . Atelectatic changes are identified. Impression: Findings may represent alveolar edema however underlying infiltrate could be present. Basilar atelectatic changes arenoted. at 0728 Reported and signed by: Reid Houston M.D. CC: Faheem Max MD Technologist: KANDACE STUART [facility] Date/Time/By: 03/05/2019 (0728) : By: [email or web address] PAGE 1 Signed Report FAX: Faheem Padilla MD [phone] [place]: St: ADM Name: GINETTE GARCIA [facility] : 1970 Age/S: 49/M [address] [facility] Unit #: [id number] Loc:[address] [place], [place]: [place] [address] Acct: [id number] Dis Date: Status: ADM IN PHONE #: [phone] Exam Date: 03/05/2019728 FAX #: [phone] Reason: ELEVATED TEMP EXAMS: CPT CODE: [id number] XR CHEST 1 V 88579 <Continued> Orig Print D/T: S: 03/05/2019 (0731) PAGE 2 Signed [id number] 21:36:00 Test Item Value Reference Range Interpretation Comments GLUBED (test code = GLUBED) 180 mg/dL 70-110 H [id number] 15:29:00 Test Item Value Reference Range Interpretation Comments GLUBED (test code = GLUBED) 175 mg/dL 70-110 H [id number] 12:04:00 Test Item Value Reference Range Interpretation Comments GLUBED (test code = GLUBED) 164 mg/dL 70-110 H [id number] 08:13:00 Test Item Value Reference Range Interpretation Comments GLUBED (test code = GLUBED) 128 mg/dL 70-110 H ACUTE HEPATITIS [id number] 06:59:00 Test Item Value Reference Range Interpretation Comments AB HEPATITIS A IGM NON REACTIVE NON REACT. Testing d one at (test code = INDEX CLEAR AYOUB AUDREY ONAL HAVMAB) [facility] [address] [place] [address] AB HEPATITIS B mIU/mL Immune >9.9 SURFACE (test code = HBSAB) AG HEPATITIS B NON REACTIVE NonReactive Testing done at SURFACE (test code INDEX CLEAR [place]AL = HBSAG) [facility] [address] [place] [address] AB HEPATITIS B NON REACTIVE NON REACT. Testing done at CORE IGM (test INDEX CLEAR AYOUB RE GIONAL code = HBCMAB) [facility] [address] [place] [address] AB HEPATITIS C NON REACTIVE NON REACT. Testing done at (test code = INDEX CLEAR AYOUB AUDREY ONAL HCVAB) [facility] [address] [place] [address] AB HEPATITIS B [id number] 06:59:00 Test Item Value Reference Range Interpretation Comments AB HEPATITIS B CORE (test code = HBCAB) NON REACT. AB HEPATITIS A [id number] 03:12:00 Test Item Value Reference Range Interpretation Comments AB HEPATITIS A IGM (test NON REACTIVE INDEX NON REACT. code = HAVMAB) AG HEPATITIS B [id number] 03:12:00 Test Item Value Reference Range Interpretation Comments AG HEPATITIS B SURFACE NON REACTIVE INDEX NonReactive (test code = HBSAG) AB HEPATITIS B CORE [id number] 03:12:00 Test Item Value Reference Range Interpretation Comments AB HEPATITIS B CORE IGM NON REACTIVE INDEX NON REACT. (test code = HBCMAB) AB HEPATITIS [id number] 03:12:00 Test Item Value Reference Range Interpretation Comments AB HEPATITIS C (test code NON REACTIVE INDEX NON REACT. = HCVAB) [id number] 23:47:00 Test Item Value Reference Range Interpretation Comments TROPONIN-I (test 0.09 NG/ML 0.00-0.06 H REFERENCE R DANIELLE TROPONIN code = TROPI) I HEALTHY SASCHA VIDUALS: <0.06 ng/mL R/O ISCHEMIA: 0.07 - 0.60 ng/mL CUT-OFF R DANIELLE FOR AMI: 0.60 - 1. 5 ng/mL PT HARD STICK E.LAB.BD 03/03/19 [id number] 20:33:00 Test Item Value Reference Range Interpretation Comments GLUBED (test code = GLUBED) 161 mg/dL 70-110 H [id number] 18:56:00 Test Item Value Reference Range Interpretation Comments TROPONIN-I (test 0.09 NG/ML 0.00-0.06 H REFERENCE R DANIELLE TROPONIN code = TROPI) I HEALTHY SASCHA VIDUALS: <0.06 ng/mL R/O ISCHEMIA: 0.07 - 0.60 ng/mL CUT-OFF R DANIELLE FOR AMI: 0.60 - 1. 5 ng/mL *DIALYSIS WILL DRAWBASIC METABOLIC [id number] 15:54:00 Test Item Value Reference Range Interpretation Comments SODIUM (test code = 143 mmol/l 134.0-147.0 N NA) POTASSIUM (test code = 5.2 mmol/L 3.6-5.2 N IS SA MPLE HEMOLYSED? K) YESSAMPLE TRACE HEMOLYSED, REDR AW IF DEEMED NECESSAR Y. CHLORIDE (test code = 104 mmol/l 98.0-107.0 N CL) CARBON DIOXIDE (test 23.0 mmol/l 21.0-33.0 N code = CO2) ANION GAP (test code = 21.2 0-20 H GAP) GLUCOSE (test code = 170 mg/dl 70.0-110.0 H GLU) BLOOD UREA NITROGEN 101 mg/dl 7.0-18.0 H (test code = BUN) CREATININE (test code 14.27 mg/dL 0.60-1.30 HH = CREAT) GFR NON BLACK (test 4 mL/min 90-95 L code = GFRNONBLACK) GFR BLACK (test code = 5 mL/min 109-115 L GFRBLACK) CALCIUM (test code = 7.3 mg/dl 8.0-10.5 L CA) Specimen comments: Clean CatchCARDIAC ENZYMES [id number] 15:54:00 Test Item Value Reference Range Interpretation Comments CREATINE KINASE (CK) 340 Units/L 39-308 H (test code = CK) TROPONIN-I (test code 0.08 NG/ML 0.00-0.06 H REFERE NCE RANGE = TROPI) TROPONIN I HEAL THY INDIVIDUALS: < 0.06 ng/mL R/O ISCHE ADELINA: 0.07 - 0.60 ng/ mL CUT-OFF RANGE F OR AMI: 0.60 - 1. 5 ng/mL Specimen comments: Clean CatchCBC W/AUTO [id number] 15:52:00 Test Item Value Reference Range Interpretation Comments WHITE BLOOD CELL (test code = 14.6 K/mm3 4.5-11.0 H WBC) RED BLOOD CELL (test code = 2.63 M/mm3 4.40-5.90 L RBC) HEMOGLOBIN (test code = HGB) 8.2 gm/dL 13.0-17.0 L HEMATOCRIT (test code = HCT) 25.4 % 36.0-48.0 L MEAN CELL VOLUME (test code = 96.6 UM3 80.0-94.0 H MCV) MEAN CELL HGB (test code = MCH) 31.2 UUG 25.5-32.5 N MEAN CELL HGB CONCETRATION 32.3 gm/dL 29.0-35.5 N (test code = MCHC) RED CELL DISTRIBUTION WIDTH 17.8 % 11.5-15.0 H (test code = RDW) RED CELL DISTRIBUTION WIDTH SD 62.4 fL 34.8-50.2 H (test code = RDW-SD) PLATELET COUNT (test code = 226 K/mm3 150-400 N PLT) MEAN PLATELET VOLUME (test code 11.4 fl 7.4-10.4 H = MPV) NEUTROPHIL % (test code = NT%) 82.2 % 49.0-76.0 H IMMATURE GRANULOCYTE % (test 0.6 % 0.0-0.4 H code = IG%) LYMPHOCYTE % (test code = LY%) 9.0 % 23.0-38.0 L MONOCYTE % (test code = MO%) 5.7 % 1.0-10.0 N EOSINOPHIL % (test code = EO%) 2.2 % 1.0-5.0 N BASOPHIL % (test code = BA%) 0.3 % 0.0-1.0 N NEUTROPHIL # (test code = NT#) 12.0 K/mm3 2.4-6.3 H IMMATURE GRANULOCYTE # (test 0.09 x10 3/uL 0.00-0.07 H code = IG#) LYMPHOCYTE # (test code = LY#) 1.3 K/mm3 1.2-4.0 N MONOCYTE # (test code = MO#) 0.8 K/mm3 0.0-0.6 H EOSINOPHIL # (test code = EO#) 0.3 K/MM3 0.0-0.7 N BASOPHIL # (test code = BA#) 0.0 K/mm3 0.0-0.2 N PROTHROMBIN [id number] 15:35:00 Test Item Value Reference Range Interpretation Comments PROTHROMBIN TIME 10.8 SECONDS 9.9-12.8 N PATIENT (test code = PTP) INTERNATIONAL NORMAL 0.9 0.89-1.14 N THE INR IS TO BE USED RATIO (test code = ONLY FOR MONITORING INR) ORAL ANTICOAGULANTTH ERAPY. THE FOLLOWING A RE SUGGESTED RANGE S FROM THEAMERICAN COL LEGE OF CHEST PHYSICIANS:SASCHA CATION INR VALUEPROPHYLAXI S OF VENOUS THROMBOS IS (ORTHOPEDIC LUISITO LEVI) 2.0 - 3.0PROP HYLAXIS OF VENOUS THROM BOSIS (OTHER THAN HIG H-RISK SURGERY) 2.0 - 3.0TRE ATMENT OF DEEP VEIN THROMBOSIS OR PULMONARY EMBOL ISM 2.0 - 3.0PREV ENTION OF SYSTEMIC EMB OLISM TISSUE HEART VA LVES 2.0 - 3.0 AC ME[place] MYOCARDIAL INFA RCTION (TO PREVENT SYSTEMIC EMBOLI SM) 2.0 - 3.0 ACUTE MYOCARDIA L INFARCTION (TO PREVENT RECURRE NT INFARCT) 2.5 - 3.0 VALV ULAR HEART DISEASE 2.0 - 3.0 ATRIAL FIBRILATION 2.0 - 3.0BILEAFLET MECHANICAL VALV E IN AORTIC POSITION 2.0 - 3.0MECHAN ICAL PROSTHETIC VALV ES (HIGH RISK) 2.5 - 3.5PRESEN CE OF LUPUS ANTICOAGU LANT OR ANTIPHOSPHOLIP ID ANTIBODIES 2.5 - 3 .5 Specimen comments: .Is patient on anticoagulants? NTROPONIN I [id number] 15:32:00 Test Item Value Reference Range Interpretation Comments TROPONIN I RAPID 0.07 0.00-0.08 N Negati ve: <= 0.08 (test code = Positive: > = 0.09An TROPIRAP) elevated tropon in value alone is not sufficie nt todiagnose a myocardial infa rction. Rather, the patient'scl inical presentation (h istory, physical exam) and ECGshould be used in conj unction with troponin in the diagnostic evaluation of s uspected myocardial infa rction.A serial sampling protoc ol is recommended to facilitatethe identification of temporal changes in trop onin levelscharacter istic of MO. - XR CHEST 1 [id number] 13:01:00 FAX: Berry Clark MD [phone] [place]: St: REG Name: GINETTE GARCIA [facility] : 1970 Age/S: 49/M [address] [facility] Unit#: [id number] Loc: [address] [place], [place]: [place] [address] Acct: [id number] Dis Date: Status: REG ER PHONE #: [phone] Exam Date: 03/03/2019 1252 FAX #: [phone] Reason: SOB EXAMS: CPT CODE: [id number] XR CHEST 1 V [id number] EXAM: - XR CHEST 1 V Location code:C3 HISTORY: SOB COMPARISON: 01/16/2019 FINDINGS: Single APview of the chest is provided. Right-sided vascular catheter is unchanged. Heart size and vascularity are within normal limits. The lungs are clear of focal consolidation. No effusion, pneumothorax, or acute osseous abnormality. IMPRESSION: 1. No radiographic evidence of acute cardiopulmonary process. at 1301 Reported and signed by: Rolo Villela M.D. CC: Berry Clark MD Technologist: VIOLET DUNN; HELENA Brunner rnscrd Date/Time/By: 03/03/2019 (1301) : By: [email or web address] PAGE 1 Signed Report FAX: Berry Clark MD [phone] [place]: St: REG -- Name: GINETTE GARCIA [facility] : 1970 Age/S: 49/M [address] [facility] Unit #: [id number] Loc: [address] [place], [place]: [place] [address] Acct: [id number] Dis Date: Status: REG ER PHONE #: [phone] Exam Date: 03/03/2019 1252 FAX #: [phone] Reason: SOB EXAMS: CPT CODE:[id number] XR CHEST 1 V 93919 <Continued> Orig Print D/T: S: 03/03/2019 (4744) PAGE 2 Signed [id number] 11:00:00 Test Item Value Reference Range Interpretation Comments GLUBED (test code = GLUBED) 141 mg/dL 70-110 H ACUTE HEPATITIS [id number] 08:14:00 Test Item Value Reference Range Interpretation Comments AB HEPATITIS A IGM NON REACTIVE NON REACT. Testing d one at (test code = INDEX CLEAR AYOUB AUDREY ONAL HAVMAB) [facility] [address] [place] [address] [id number] AB HEPATITIS B 602.2 mIU/mL Immunity>9.9 Status of SURFACE (test code Immunity = HBSAB) Anti-H Bs Level --- I ncon sistent with Immunity 0.0 - 9.9Consistent w ith Immunity >9.9TEST PERFOR MED AT [facility] 770 40 AG HEPATITIS B NON REACTIVE NonReactive Testing done at SURFACE (test code INDEX CLEAR [place] [facility] = HBSAG) [facility] [address] [place] [address] [id number] AB HEPATITIS B NON REACTIVE NON REACT. Testing done at CORE IGM (test INDEX CLEAR AYOUB RE GIONAL code = HBCMAB) [facility] [address] [place] [address] [id number] AB HEPATITIS C NON REACTIVE NON REACT. Testing done at (test code = INDEX CLEAR AYOUB AUDREY ONAL HCVAB) [facility] [address] [place] [address] [id number] AB HEPATITIS B [id number] 08:14:00 Test Item Value Reference Range Interpretation Comments AB HEPATITIS B CORE Negative Negative Performe d At: HD (test code = HBCAB) [facility] [id number] madie Matthews MD Ph:[phone] BASIC METABOLIC [id number] 06:47:00 Test Item Value Reference Range Interpretation Comments SODIUM (test code = NA) 138 mmol/l 134.0-147.0 N POTASSIUM (test code = K) 3.9 mmol/L 3.6-5.2 N CHLORIDE (test code = CL) 102 mmol/l 98.0-107.0 N CARBON DIOXIDE (test code = CO2) 25.3 mmol/l 21.0-33.0 N ANION GAP (test code = GAP) 14.6 0-20 N GLUCOSE (test code = GLU) 118 mg/dl 70.0-110.0 H BLOOD UREA NITROGEN (test code = 44 mg/dl 7.0-18.0 H BUN) CREATININE (test code = CREAT) 9.51 mg/dL 0.60-1.30 HH GFR NON BLACK (test code = 6 mL/min 90-95 L GFRNONBLACK) GFR BLACK (test code = GFRBLACK) 8 mL/min 109-115 L CALCIUM (test code = CA) 7.0 mg/dl 8.0-10.5 L CBC W/AUTO [id number] 06:31:00 Test Item Value Reference Range Interpretation Comments WHITE BLOOD CELL (test code = 11.3 K/mm3 4.5-11.0 H WBC) RED BLOOD CELL (test code = 2.86 M/mm3 4.40-5.90 L RBC) HEMOGLOBIN (test code = HGB) 8.5 gm/dL 13.0-17.0 L HEMATOCRIT (test code = HCT) 25.6 % 36.0-48.0 L MEAN CELL VOLUME (test code = 89.5 UM3 80.0-94.0 N MCV) MEAN CELL HGB (test code = MCH) 29.7 UUG 25.5-32.5 N MEAN CELL HGB CONCETRATION 33.2 gm/dL 29.0-35.5 N (test code = MCHC) RED CELL DISTRIBUTION WIDTH 16.5 % 11.5-15.0 H (test code = RDW) RED CELL DISTRIBUTION WIDTH SD 53.6 fL 34.8-50.2 H (test code = RDW-SD) PLATELET COUNT (test code = 141 K/mm3 150-400 L PLT) MEAN PLATELET VOLUME (test code 11.6 fl 7.4-10.4 H = MPV) NEUTROPHIL % (test code = NT%) 70.5 % 49.0-76.0 N IMMATURE GRANULOCYTE % (test 0.5 % 0.0-0.4 H code = IG%) LYMPHOCYTE % (test code = LY%) 16.7 % 23.0-38.0 L MONOCYTE % (test code = MO%) 11.5 % 1.0-10.0 H EOSINOPHIL % (test code = EO%) 0.6 % 1.0-5.0 L BASOPHIL % (test code = BA%) 0.2 % 0.0-1.0 N NEUTROPHIL # (test code = NT#) 8.0 K/mm3 2.4-6.3 H IMMATURE GRANULOCYTE # (test 0.06 x10 3/uL 0.00-0.07 N code = IG#) LYMPHOCYTE # (test code = LY#) 1.9 K/mm3 1.2-4.0 N MONOCYTE # (test code = MO#) 1.3 K/mm3 0.0-0.6 H EOSINOPHIL # (test code = EO#) 0.1 K/MM3 0.0-0.7 N BASOPHIL # (test code = BA#) 0.0 K/mm3 0.0-0.2 N [id number] 12:10:00 Test Item Value Reference Range Interpretation Comments GLUBED (test code = GLUBED) 178 mg/dL 70-110 H CBC W/AUTO [id number] 07:04:00 Test Item Value Reference Range Interpretation Comments WHITE BLOOD CELL (test code = 11.4 K/mm3 4.5-11.0 H WBC) RED BLOOD CELL (test code = 2.43 M/mm3 4.40-5.90 L RBC) HEMOGLOBIN (test code = HGB) 7.3 gm/dL 13.0-17.0 L HEMATOCRIT (test code = HCT) 21.7 % 36.0-48.0 LL MEAN CELL VOLUME (test code = 89.3 UM3 80.0-94.0 N MCV) MEAN CELL HGB (test code = MCH) 30.0 UUG 25.5-32.5 N MEAN CELL HGB CONCETRATION 33.6 gm/dL 29.0-35.5 N (test code = MCHC) RED CELL DISTRIBUTION WIDTH 16.2 % 11.5-15.0 H (test code = RDW) RED CELL DISTRIBUTION WIDTH SD 52.5 fL 34.8-50.2 H (test code = RDW-SD) PLATELET COUNT (test code = 122 K/mm3 150-400 L PLT) MEAN PLATELET VOLUME (test code 12.0 fl 7.4-10.4 H = MPV) NEUTROPHIL % (test code = NT%) 72.5 % 49.0-76.0 N IMMATURE GRANULOCYTE % (test 0.5 % 0.0-0.4 H code = IG%) LYMPHOCYTE % (test code = LY%) 15.4 % 23.0-38.0 L MONOCYTE % (test code = MO%) 10.8 % 1.0-10.0 H EOSINOPHIL % (test code = EO%) 0.6 % 1.0-5.0 L BASOPHIL % (test code = BA%) 0.2 % 0.0-1.0 N NEUTROPHIL # (test code = NT#) 8.2 K/mm3 2.4-6.3 H IMMATURE GRANULOCYTE # (test 0.06 x10 3/uL 0.00-0.07 N code = IG#) LYMPHOCYTE # (test code = LY#) 1.8 K/mm3 1.2-4.0 N MONOCYTE # (test code = MO#) 1.2 K/mm3 0.0-0.6 H EOSINOPHIL # (test code = EO#) 0.1 K/MM3 0.0-0.7 N BASOPHIL # (test code = BA#) 0.0 K/mm3 0.0-0.2 N BASIC METABOLIC [id number] 06:29:00 Test Item Value Reference Range Interpretation Comments SODIUM (test code = NA) 136 mmol/l 134.0-147.0 N POTASSIUM (test code = K) 3.7 mmol/L 3.6-5.2 N CHLORIDE (test code = CL) 97 mmol/l 98.0-107.0 L CARBON DIOXIDE (test code = CO2) 23.7 mmol/l 21.0-33.0 N ANION GAP (test code = GAP) 19.0 0-20 N GLUCOSE (test code = GLU) 95 mg/dl 70.0-110.0 N BLOOD UREA NITROGEN (test code = 78 mg/dl 7.0-18.0 H BUN) CREATININE (test code = CREAT) 15.80 mg/dL 0.60-1.30 HH GFR NON BLACK (test code = 3 mL/min 95-105 L GFRNONBLACK) GFR BLACK (test code = GFRBLACK) 4 mL/min 115-127 L CALCIUM (test code = CA) 7.0 mg/dl 8.0-10.5 L ACUTE HEPATITIS [id number] 12:41:00 Test Item Value Reference Range Interpretation Comments AB HEPATITIS A IGM NON REACTIVE NON REACT. Testing d one at (test code = INDEX CLEAR AYOUB AUDREY ONAL HAVMAB) [facility] [address] [place] [address]. [place] [address] AB HEPATITIS B mIU/mL Immune >9.9 SURFACE (test code = HBSAB) AG HEPATITIS B NON REACTIVE NonReactive Testing done at SURFACE (test code INDEX CLEAR [place]AL = HBSAG) [facility] [address] [place] [address]. [place] [address] AB HEPATITIS B NON REACTIVE NON REACT. Testing done at CORE IGM (test INDEX CLEAR AYOUB RE GIONAL code = HBCMAB) [facility] [address] [place] [address]. [place] [address] AB HEPATITIS C NON REACTIVE NON REACT. Testing done at (test code = INDEX CLEAR AYOUB AUDREY ONAL HCVAB) [facility] [address] [place], [place] [address]. [place] [address] AB HEPATITIS B [id number] 12:41:00 Test Item Value Reference Range Interpretation Comments AB HEPATITIS B CORE (test code = HBCAB) NON REACT. BASIC METABOLIC [id number] 06:43:00 Test Item Value Reference Range Interpretation Comments SODIUM (test code = NA) 139 mmol/l 134.0-147.0 N POTASSIUM (test code = K) 3.5 mmol/L 3.6-5.2 L CHLORIDE (test code = CL) 99 mmol/l 98.0-107.0 N CARBON DIOXIDE (test code = CO2) 25.5 mmol/l 21.0-33.0 N ANION GAP (test code = GAP) 18.0 0-20 N GLUCOSE (test code = GLU) 113 mg/dl 70.0-110.0 H BLOOD UREA NITROGEN (test code = 67 mg/dl 7.0-18.0 H BUN) CREATININE (test code = CREAT) 13.71 mg/dL 0.60-1.30 HH GFR NON BLACK (test code = 4 mL/min 95-105 L GFRNONBLACK) GFR BLACK (test code = GFRBLACK) 5 mL/min 115-127 L CALCIUM (test code = CA) 7.0 mg/dl 8.0-10.5 L CBC W/AUTO [id number] 06:33:00 Test Item Value Reference Range Interpretation Comments WHITE BLOOD CELL (test code = 9.9 K/mm3 4.5-11.0 N WBC) RED BLOOD CELL (test code = 2.82 M/mm3 4.40-5.90 L RBC) HEMOGLOBIN (test code = HGB) 8.8 gm/dL 13.0-17.0 L HEMATOCRIT (test code = HCT) 24.8 % 36.0-48.0 LL MEAN CELL VOLUME (test code = 87.9 UM3 80.0-94.0 N MCV) MEAN CELL HGB (test code = MCH) 31.2 UUG 25.5-32.5 N MEAN CELL HGB CONCETRATION 35.5 gm/dL 29.0-35.5 N (test code = MCHC) RED CELL DISTRIBUTION WIDTH 16.2 % 11.5-15.0 H (test code = RDW) RED CELL DISTRIBUTION WIDTH SD 51.4 fL 34.8-50.2 H (test code = RDW-SD) PLATELET COUNT (test code = 126 K/mm3 150-400 L PLT) MEAN PLATELET VOLUME (test code 10.0 fl 7.4-10.4 N = MPV) NEUTROPHIL % (test code = NT%) 74.8 % 49.0-76.0 N IMMATURE GRANULOCYTE % (test 0.3 % 0.0-0.4 N code = IG%) LYMPHOCYTE % (test code = LY%) 11.3 % 23.0-38.0 L MONOCYTE % (test code = MO%) 11.4 % 1.0-10.0 H EOSINOPHIL % (test code = EO%) 1.9 % 1.0-5.0 N BASOPHIL % (test code = BA%) 0.3 % 0.0-1.0 N NEUTROPHIL # (test code = NT#) 7.4 K/mm3 2.4-6.3 H IMMATURE GRANULOCYTE # (test 0.03 x10 3/uL 0.00-0.07 N code = IG#) LYMPHOCYTE # (test code = LY#) 1.1 K/mm3 1.2-4.0 L MONOCYTE # (test code = MO#) 1.1 K/mm3 0.0-0.6 H EOSINOPHIL # (test code = EO#) 0.2 K/MM3 0.0-0.7 N BASOPHIL # (test code = BA#) 0.0 K/mm3 0.0-0.2 N AB HEPATITIS A [id number] 03:39:00 Test Item Value Reference Range Interpretation Comments AB HEPATITIS A IGM (test NON REACTIVE INDEX NON REACT. code = HAVMAB) AG HEPATITIS B [id number] 03:39:00 Test Item Value Reference Range Interpretation Comments AG HEPATITIS B SURFACE NON REACTIVE INDEX NonReactive (test code = HBSAG) AB HEPATITIS B CORE [id number] 03:39:00 Test Item Value Reference Range Interpretation Comments AB HEPATITIS B CORE IGM NON REACTIVE INDEX NON REACT. (test code = HBCMAB) AB HEPATITIS [id number] 03:39:00 Test Item Value Reference Range Interpretation Comments AB HEPATITIS C (test code NON REACTIVE INDEX NON REACT. = HCVAB) AB HEPATITIS A [id number] 03:37:00 Test Item Value Reference Range Interpretation Comments AB HEPATITIS A IGM (test code = INDEX NON REACT. HAVMAB) AG HEPATITIS B [id number] 03:37:00 Test Item Value Reference Range Interpretation Comments AG HEPATITIS B SURFACE NON REACTIVE INDEX NonReactive (test code = HBSAG) AB HEPATITIS B CORE [id number] 03:37:00 Test Item Value Reference Range Interpretation Comments AB HEPATITIS B CORE IGM NON REACTIVE INDEX NON REACT. (test code = HBCMAB) AB HEPATITIS [id number] 03:37:00 Test Item Value Reference Range Interpretation Comments AB HEPATITIS C (test code NON REACTIVE INDEX NON REACT. = HCVAB) AB HEPATITIS A [id number] 03:36:00 Test Item Value Reference Range Interpretation Comments AB HEPATITIS A IGM (test code = INDEX NON REACT. HAVMAB) AG HEPATITIS B [id number] 03:36:00 Test Item Value Reference Range Interpretation Comments AG HEPATITIS B SURFACE NON REACTIVE INDEX NonReactive (test code = HBSAG) AB HEPATITIS B CORE [id number] 03:36:00 Test Item Value Reference Range Interpretation Comments AB HEPATITIS B CORE IGM (test code = INDEX NON REACT. HBCMAB) AB HEPATITIS [id number] 03:36:00 Test Item Value Reference Range Interpretation Comments AB HEPATITIS C (test code NON REACTIVE INDEX NON REACT. = HCVAB) AB HEPATITIS A [id number] 03:11:00 Test Item Value Reference Range Interpretation Comments AB HEPATITIS A IGM (test code = INDEX NON REACT. HAVMAB) AG HEPATITIS B [id number] 03:11:00 Test Item Value Reference Range Interpretation Comments AG HEPATITIS B SURFACE NON REACTIVE INDEX NonReactive (test code = HBSAG) AB HEPATITIS B CORE [id number] 03:11:00 Test Item Value Reference Range Interpretation Comments AB HEPATITIS B CORE IGM (test code = INDEX NON REACT. HBCMAB) AB HEPATITIS [id number] 03:11:00 Test Item Value Reference Range Interpretation Comments AB HEPATITIS C (test code = HCVAB) INDEX NON REACT. HGB [id number] 18:59:00 Test Item Value Reference Range Interpretation Comments HEMOGLOBIN (test code = HGB) 9.7 gm/dL 13.0-17.0 L HEMATOCRIT (test code = HCT) 27.1 % 36.0-48.0 L HGB [id number] 11:45:00 Test Item Value Reference Range Interpretation Comments HEMOGLOBIN (test code = HGB) 6.6 gm/dL 13.0-17.0 LL HEMATOCRIT (test code = HCT) 19.6 % 36.0-48.0 LL COMPREHENSIVE METABOLIC [id number] 06:01:00 Test Item Value Reference Range Interpretation Comments SODIUM (test code = NA) 139 mmol/l 134.0-147.0 N POTASSIUM (test code = K) 4.5 mmol/L 3.6-5.2 N CHLORIDE (test code = CL) 96 mmol/l 98.0-107.0 L CARBON DIOXIDE (test code = CO2) 23.4 mmol/l 21.0-33.0 N ANION GAP (test code = GAP) 24.1 0-20 H GLUCOSE (test code = GLU) 102 mg/dl 70.0-110.0 N BLOOD UREA NITROGEN (test code = 135 mg/dl 7.0-18.0 H BUN) CREATININE (test code = CREAT) 23.55 mg/dL 0.60-1.30 HH GFR NON BLACK (test code = 2 mL/min 95-105 L GFRNONBLACK) GFR BLACK (test code = GFRBLACK) 3 mL/min 115-127 L TOTAL PROTEIN (test code = PROT) 7.2 gm/dL 6.4-8.2 N ALBUMIN (test code = ALB) 3.1 gm/dl 3.2-4.7 L CALCIUM (test code = CA) 7.0 mg/dl 8.0-10.5 L BILIRUBIN TOTAL (test code = 0.3 mg/dl 0.0-1.0 N BILT) SGOT/AST (test code = AST) 42 Units/L 15.0-37.0 H SGPT/ALT (test code = ALT) 57 Units/L 12.0-78.0 N ALKALINE PHOSPHATASE TOTAL (test 100 Units/L 50.0-136.0 N code = ALKP) PROTHROMBIN [id number] 05:52:00 Test Item Value Reference Range Interpretation Comments PROTHROMBIN TIME 12.3 SECONDS 9.9-12.8 N PATIENT (test code = PTP) INTERNATIONAL NORMAL 1.0 0.89-1.14 N THE INR IS TO BE USED RATIO (test code = ONLY FOR MONITORING INR) ORAL ANTICOAGULANTTH ERAPY. THE FOLLOWING A RE SUGGESTED RANGE S [facility]:SASCHA CATION INR VALUEPROPHYLAXI S OF VENOUS THROMBOS IS (ORTHOPEDIC LUISITO LEVI) 2.0 - 3.0PROP HYLAXIS OF VENOUS THROM BOSIS (OTHER THAN HIG H-RISK SURGERY) 2.0 - 3.0TRE ATMENT OF DEEP VEIN THROMBOSIS OR PULMONARY EMBOL ISM 2.0 - 3.0PREV ENTION OF SYSTEMIC EMB OLISM TISSUE HEART VA LVES 2.0 - 3.0 AC [place] MYOCARDIAL INFA RCTION (TO PREVENT SYSTEMIC EMBOLI SM) 2.0 - 3.0 ACUTE MYOCARDIA L INFARCTION (TO PREVENT RECURRE NT INFARCT) 2.5 - 3.0 VALV ULAR HEART DISEASE 2.0 - 3.0 ATRIAL FIBRILATION 2.0 - 3.0BILEAFLET MECHANICAL VALV E IN AORTIC POSITION 2.0 - 3.0MECHAN ICAL PROSTHETIC VALV ES (HIGH RISK) 2.5 - 3.5PRESEN CE OF LUPUS ANTICOAGU LANT OR ANTIPHOSPHOLIP ID ANTIBODIES 2.5 - 3 .5 COMPREHENSIVE METABOLIC [id number] 05:50:00 Test Item Value Reference Range Interpretation Comments SODIUM (test code = NA) 139 mmol/l 134.0-147.0 N POTASSIUM (test code = K) 4.5 mmol/L 3.6-5.2 N CHLORIDE (test code = CL) 96 mmol/l 98.0-107.0 L CARBON DIOXIDE (test code = CO2) 23.4 mmol/l 21.0-33.0 N ANION GAP (test code = GAP) 24.1 0-20 H GLUCOSE (test code = GLU) mg/dl 70.0-110.0 BLOOD UREA NITROGEN (test code = mg/dl 7.0-18.0 BUN) CREATININE (test code = CREAT) mg/dL 0.60-1.30 GFR NON BLACK (test code = mL/min 95-105 GFRNONBLACK) GFR BLACK (test code = GFRBLACK) mL/min 115-127 TOTAL PROTEIN (test code = PROT) gm/dL 6.4-8.2 ALBUMIN (test code = ALB) gm/dl 3.2-4.7 CALCIUM (test code = CA) mg/dl 8.0-10.5 BILIRUBIN TOTAL (test code = mg/dl 0.0-1.0 BILT) SGOT/AST (test code = AST) Units/L 15.0-37.0 SGPT/ALT (test code = ALT) Units/L 12.0-78.0 ALKALINE PHOSPHATASE TOTAL (test Units/L 50.0-136.0 code = ALKP) CBC W/AUTO [id number] 05:41:00 Test Item Value Reference Range Interpretation Comments WHITE BLOOD CELL (test code = 11.1 K/mm3 4.5-11.0 H WBC) RED BLOOD CELL (test code = 2.53 M/mm3 4.40-5.90 L RBC) HEMOGLOBIN (test code = HGB) 7.4 gm/dL 13.0-17.0 L HEMATOCRIT (test code = HCT) 22.8 % 36.0-48.0 LL MEAN CELL VOLUME (test code = 90.1 UM3 80.0-94.0 N MCV) MEAN CELL HGB (test code = MCH) 29.2 UUG 25.5-32.5 N MEAN CELL HGB CONCETRATION 32.5 gm/dL 29.0-35.5 N (test code = MCHC) RED CELL DISTRIBUTION WIDTH 19.4 % 11.5-15.0 H (test code = RDW) RED CELL DISTRIBUTION WIDTH SD 63.3 fL 34.8-50.2 H (test code = RDW-SD) PLATELET COUNT (test code = 132 K/mm3 150-400 L PLT) MEAN PLATELET VOLUME (test code 9.8 fl 7.4-10.4 N = MPV) NEUTROPHIL % (test code = NT%) 80.8 % 49.0-76.0 H IMMATURE GRANULOCYTE % (test 0.5 % 0.0-0.4 H code = IG%) LYMPHOCYTE % (test code = LY%) 9.9 % 23.0-38.0 L MONOCYTE % (test code = MO%) 7.0 % 1.0-10.0 N EOSINOPHIL % (test code = EO%) 1.4 % 1.0-5.0 N BASOPHIL % (test code = BA%) 0.4 % 0.0-1.0 N NEUTROPHIL # (test code = NT#) 9.0 K/mm3 2.4-6.3 H IMMATURE GRANULOCYTE # (test 0.06 x10 3/uL 0.00-0.07 N code = IG#) LYMPHOCYTE # (test code = LY#) 1.1 K/mm3 1.2-4.0 L MONOCYTE # (test code = MO#) 0.8 K/mm3 0.0-0.6 H EOSINOPHIL # (test code = EO#) 0.2 K/MM3 0.0-0.7 N BASOPHIL # (test code = BA#) 0.0 K/mm3 0.0-0.2 N ACUTE HEPATITIS [id number] 08:17:00 Test Item Value Reference Range Interpretation Comments AB HEPATITIS A IGM NON REACTIVE NON REACT. Testing d one at (test code = INDEX CLEAR AYOUB AUDREY ONAL HAVDEBB) [facility] [address] [place] [address]. [place] [address] AB HEPATITIS B 470.5 mIU/mL Immunity>9.9 Status of SURFACE (test code Immunity = HBSAB) Anti-H Bs Level --- I ncon sistent with Immunity 0.0 - 9.9Consistent w ith Immunity >9.9TEST PERFOR MED AT Lab[address] [address] AG HEPATITIS B NON REACTIVE NonReactive Testing done at SURFACE (test code INDEX CLEAR [place]AL = HBSAG) [facility] [address] [place] [address] AB HEPATITIS B NON REACTIVE NON REACT. Testing done at CORE IGM (test INDEX CLEAR AYOUB RE GIONAL code = HBCMAB) [facility] [address] [place] [address] AB HEPATITIS C NON REACTIVE NON REACT. Testing done at (test code = INDEX CLEAR AYOUB AUDREY ONAL HCVAB) [facility] [address] [place] [address] AB HEPATITIS B [id number] 08:17:00 Test Item Value Reference Range Interpretation Comments AB HEPATITIS B CORE Negative Negative Performe d At: HD (test code = HBCAB) [address] [id number] madie Matthews MD [phone] ACUTE HEPATITIS [id number] 16:51:00 Test Item Value Reference Range Interpretation Comments AB HEPATITIS A IGM NON REACTIVE NON REACT. Testing d one at (test code = INDEX CLEAR AYOUB AUDREY ONAL HAVMAB) [facility] [address] [place] [address] AB HEPATITIS B mIU/mL Immune >9.9 SURFACE (test code = HBSAB) AG HEPATITIS B NON REACTIVE NonReactive Testing done at SURFACE (test code INDEX CLEAR [place]AL = HBSAG) [facility] [address] [place] [address] AB HEPATITIS B NON REACTIVE NON REACT. Testing done at CORE IGM (test INDEX CLEAR AYOUB RE GIONAL code = HBCMAB) [facility] [address] [place] [address]. [facility] [place] [address] AB HEPATITIS C NON REACTIVE NON REACT. Testing done at (test code = INDEX CLEAR AYOUB AUDREY ONAL HCVAB) [facility] [address] [place] [address]. [facility] [place] [address] AB HEPATITIS B [id number] 16:51:00 Test Item Value Reference Range Interpretation Comments AB HEPATITIS B CORE (test code = HBCAB) NON REACT. AB HEPATITIS A [id number] 16:10:00 Test Item Value Reference Range Interpretation Comments AB HEPATITIS A IGM (test NON REACTIVE INDEX NON REACT. code = HAVMAB) AG HEPATITIS B [id number] 16:10:00 Test Item Value Reference Range Interpretation Comments AG HEPATITIS B SURFACE NON REACTIVE INDEX NonReactive (test code = HBSAG) AB HEPATITIS B CORE [id number] 16:10:00 Test Item Value Reference Range Interpretation Comments AB HEPATITIS B CORE IGM NON REACTIVE INDEX NON REACT. (test code = HBCMAB) AB HEPATITIS [id number] 16:10:00 Test Item Value Reference Range Interpretation Comments AB HEPATITIS C (test code NON REACTIVE INDEX NON REACT. = HCVAB) AB HEPATITIS A [id number] 15:37:00 Test Item Value Reference Range Interpretation Comments AB HEPATITIS A IGM (test code = INDEX NON REACT. HAVMAB) AG HEPATITIS B [id number] 15:37:00 Test Item Value Reference Range Interpretation Comments AG HEPATITIS B SURFACE NON REACTIVE INDEX NonReactive (test code = HBSAG) AB HEPATITIS B CORE [id number] 15:37:00 Test Item Value Reference Range Interpretation Comments AB HEPATITIS B CORE IGM (test code = INDEX NON REACT. HBCMAB) AB HEPATITIS [id number] 15:37:00 Test Item Value Reference Range Interpretation Comments AB HEPATITIS C (test code = HCVAB) INDEX NON REACT. [id number] 13:13:00 Test Item Value Reference Range Interpretation Comments TROPONIN-I (test 0.03 NG/ML 0.00-0.06 N REFERENCE R DANIELLE TROPONIN code = TROPI) I HEALTHY SASCHA VIDUALS: <0.06 ng/mL R/O ISCHEMIA: 0.07 - 0.60 ng/mL CUT-OFF R DANIELLE FOR AMI: 0.60 - 1. 5 ng/mL BASIC METABOLIC [id number] 07:41:00 Test Item Value Reference Range Interpretation Comments SODIUM (test code = NA) 135 mmol/l 134.0-147.0 N POTASSIUM (test code = K) 5.0 mmol/L 3.6-5.2 N CHLORIDE (test code = CL) 100 mmol/l 98.0-107.0 N CARBON DIOXIDE (test code = CO2) 17.7 mmol/l 21.0-33.0 L ANION GAP (test code = GAP) 22.3 0-20 H GLUCOSE (test code = GLU) 140 mg/dl 70.0-110.0 H BLOOD UREA NITROGEN (test code = 77 mg/dl 7.0-18.0 H BUN) CREATININE (test code = CREAT) 15.06 mg/dL 0.60-1.30 HH GFR NON BLACK (test code = 4 mL/min 95-105 L GFRNONBLACK) GFR BLACK (test code = GFRBLACK) 4 mL/min 115-127 L CALCIUM (test code = CA) 8.8 mg/dl 8.0-10.5 N [id number] 07:41:00 Test Item Value Reference Range Interpretation Comments LIPASE (test code = LIP) 413 Units/L 65.0-230.0 H [id number] 07:34:00 Test Item Value Reference Range Interpretation Comments TROPONIN-I (test 0.07 NG/ML 0.00-0.06 H REFERENCE R DANIELLE TROPONIN code = TROPI) I HEALTHY SASCHA VIDUALS: <0.06 ng/mL R/O ISCHEMIA: 0.07 - 0.60 ng/mL CUT-OFF R DANIELLE FOR AMI: 0.60 - 1. 5 ng/mL - XR CHEST 1 [id number] 07:16:00 [place]: EM St: ADM Name: GINETTE GARCIA [facility] : 1970 Age/S: 48/M [address] [facility] [employer] Unit#: [id number] Loc: [place], [place] Phys: [place] [id number] Acct: [id number] Dis Date: Status: ADM IN PHONE #: [phone] Exam Date: 01/16/2019701 FAX #: [phone] Reason: SOB EXAMS: CPT CODE: [id number] XR CHEST 1 V [id number] EXAM: - XR CHEST 1 V LOCATION: [id number]: SOB COMPARISON: 12/26/2018 FINDINGS: Single view of the chest. The right IJ CVC tip overlies the cavoatrial junction. No pneumothorax. The lungs are clear. No pleural effusions are present. The mediastinal contours are unremarkable. No acute osseous findings are present. IMPRESSION: No acute cardiopulmonary abnormality. at 0716 Reported and signed by: Ruel Dudley M.D. CC: Technologist: JENNI ARTHUR Trnorrd Date/Time/By: 01/16/2019 (0716) : By: [email or web address] PAGE 1 Signed Report [place]: St: ADM Name: GINETTE GARCIA [facility] : 1970 Age/S: 48/M [address] [facility] [employer] Unit #: [id number] Loc: [place], [place] Phys: [place] [address] Acct: [id number] Dis Date: Status: ADM IN PHONE #: [phone] Exam Date: 01/16/2019701 FAX #: [phone] Reason: SOB EXAMS: CPT CODE: [id number] XR CHEST 1 V 16187 <Continued> Orig Print D/T: S: 01/16/2019 (8325) PAGE 2 Signed ReportBASIC METABOLIC [id number] 07:11:00 Test Item Value Reference Range Interpretation Comments SODIUM (test code = NA) 135 mmol/l 134.0-147.0 N POTASSIUM (test code = K) 5.0 mmol/L 3.6-5.2 N CHLORIDE (test code = CL) 100 mmol/l 98.0-107.0 N CARBON DIOXIDE (test code = CO2) 17.7 mmol/l 21.0-33.0 L ANION GAP (test code = GAP) 22.3 0-20 H GLUCOSE (test code = GLU) mg/dl 70.0-110.0 BLOOD UREA NITROGEN (test code = mg/dl 7.0-18.0 BUN) CREATININE (test code = CREAT) mg/dL 0.60-1.30 GFR NON BLACK (test code = mL/min 95-105 GFRNONBLACK) GFR BLACK (test code = GFRBLACK) mL/min 115-127 CALCIUM (test code = CA) mg/dl 8.0-10.5 [id number] 07:11:00 Test Item Value Reference Range Interpretation Comments LIPASE (test code = LIP) Units/L 65.0-230.0 TROPONIN I [id number] 07:06:00 Test Item Value Reference Range Interpretation Comments TROPONIN I RAPID 0.02 0.00-0.08 N Negati ve: <= 0.08 (test code = Positive: > = 0.09An TROPIRAP) elevated tropon in value alone is not sufficie nt todiagnose a myocardial infa rction. Rather, the patient'scl inical presentation (h istory, physical exam) and ECGshould be used in conj unction with troponin in the diagnostic evaluation of s uspected myocardial infa rction.A serial sampling protoc ol is recommended to facilitatethe identification of temporal changes in trop onin levelscharacter istic of [place]. CBC W/AUTO [id number] 07:02:00 Test Item Value Reference Range Interpretation Comments WHITE BLOOD CELL (test code = 10.6 K/mm3 4.5-11.0 N WBC) RED BLOOD CELL (test code = 3.77 M/mm3 4.40-5.90 L RBC) HEMOGLOBIN (test code = HGB) 10.6 gm/dL 13.0-17.0 L HEMATOCRIT (test code = HCT) 32.7 % 36.0-48.0 L MEAN CELL VOLUME (test code = 86.7 UM3 80.0-94.0 N MCV) MEAN CELL HGB (test code = MCH) 28.1 UUG 25.5-32.5 N MEAN CELL HGB CONCETRATION 32.4 gm/dL 29.0-35.5 N (test code = MCHC) RED CELL DISTRIBUTION WIDTH 18.7 % 11.5-15.0 H (test code = RDW) RED CELL DISTRIBUTION WIDTH SD 58.8 fL 34.8-50.2 H (test code = RDW-SD) PLATELET COUNT (test code = 184 K/mm3 150-400 N PLT) MEAN PLATELET VOLUME (test code 10.5 fl 7.4-10.4 H = MPV) NEUTROPHIL % (test code = NT%) 74.4 % 49.0-76.0 N IMMATURE GRANULOCYTE % (test 0.4 % 0.0-0.4 N code = IG%) LYMPHOCYTE % (test code = LY%) 14.6 % 23.0-38.0 L MONOCYTE % (test code = MO%) 8.6 % 1.0-10.0 N EOSINOPHIL % (test code = EO%) 1.6 % 1.0-5.0 N BASOPHIL % (test code = BA%) 0.4 % 0.0-1.0 N NEUTROPHIL # (test code = NT#) 7.9 K/mm3 2.4-6.3 H IMMATURE GRANULOCYTE # (test 0.04 x10 3/uL 0.00-0.07 N code = IG#) LYMPHOCYTE # (test code = LY#) 1.6 K/mm3 1.2-4.0 N MONOCYTE # (test code = MO#) 0.9 K/mm3 0.0-0.6 H EOSINOPHIL # (test code = EO#) 0.2 K/MM3 0.0-0.7 N BASOPHIL # (test code = BA#) 0.0 K/mm3 0.0-0.2 N [id number] 12:09:00 Test Item Value Reference Range Interpretation Comments GLUBED (test code = GLUBED) 197 mg/dL 70-110 H NPCI-CAPILLARY~ ACUTE HEPATITIS [id number] 09:00:00 Test Item Value Reference Range Interpretation Comments AB HEPATITIS A IGM NON REACTIVE NON REACT. Testing d one at (test code = INDEX CLEAR AYOUB AUDREY ONAL HAVMAB) [facility] [address] [place] [address] [id number] AB HEPATITIS B 171.9 mIU/mL Immunity>9.9 Status of SURFACE (test code Immunity = HBSAB) Anti-H Bs Level --- I ncon sistent with Immunity 0.0 - 9.9Consistent w ith Immunity >9.9TEST PERFOR MED AT [facility] [address] [address] AG HEPATITIS B NON REACTIVE NonReactive Testing done at SURFACE (test code INDEX CLEAR [place] = HBSAG) [facility] [address] [place] [id number] AB HEPATITIS B NON REACTIVE NON REACT. Testing done at CORE IGM (test INDEX CLEAR AYOUB RE GIONAL code = HBCMAB) [facility] [address] [place] [address] AB HEPATITIS C NON REACTIVE NON REACT. Testing done at (test code = INDEX CLEAR AYOUB AUDREY ONAL HCVAB) [facility] [address] [place] [address] NUSRAT IN DIAYLSIS WILL DRAW E.LAB.KJ 12/26/18939.AB HEPATITIS B CORE 2018-12-28 09:00:00 Test Item Value Reference Range Interpretation Comments AB HEPATITIS B CORE Negative Negative Performe d At: HD (test code = HBCAB) [facility] [address] [id number] Matthews MD Ph:[phone] NUSRAT IN DIAYLSIS WILL DRAW E.LAB.KJ 12/26/18939.BASIC METABOLIC PANEL 2018-12-28 08:06:00 Test Item Value Reference Range Interpretation Comments SODIUM (test code = NA) 137 mmol/l 134.0-147.0 N POTASSIUM (test code = K) 3.5 mmol/L 3.6-5.2 L CHLORIDE (test code = CL) 95 mmol/l 98.0-107.0 L CARBON DIOXIDE (test code = CO2) 22.9 mmol/l 21.0-33.0 N ANION GAP (test code = GAP) 22.6 0-20 H GLUCOSE (test code = GLU) 104 mg/dl 70.0-110.0 N BLOOD UREA NITROGEN (test code = 60 mg/dl 7.0-18.0 H BUN) CREATININE (test code = CREAT) 13.57 mg/dL 0.60-1.30 HH GFR NON BLACK (test code = 4 mL/min 95-105 L GFRNONBLACK) GFR BLACK (test code = GFRBLACK) 5 mL/min 115-127 L CALCIUM (test code = CA) 8.2 mg/dl 8.0-10.5 N DIALYSISCBC W/AUTO [id number] 07:54:00 Test Item Value Reference Range Interpretation Comments WHITE BLOOD CELL (test code = 9.2 K/mm3 4.5-11.0 N WBC) RED BLOOD CELL (test code = 4.40 M/mm3 4.40-5.90 N RBC) HEMOGLOBIN (test code = HGB) 12.3 gm/dL 13.0-17.0 L HEMATOCRIT (test code = HCT) 37.1 % 36.0-48.0 N MEAN CELL VOLUME (test code = 84.3 UM3 80.0-94.0 N MCV) MEAN CELL HGB (test code = MCH) 28.0 UUG 25.5-32.5 N MEAN CELL HGB CONCETRATION 33.2 gm/dL 29.0-35.5 N (test code = MCHC) RED CELL DISTRIBUTION WIDTH 17.8 % 11.5-15.0 H (test code = RDW) RED CELL DISTRIBUTION WIDTH SD 54.2 fL 34.8-50.2 H (test code = RDW-SD) PLATELET COUNT (test code = 154 K/mm3 150-400 N PLT) MEAN PLATELET VOLUME (test code 10.8 fl 7.4-10.4 H = MPV) NEUTROPHIL % (test code = NT%) 62.2 % 49.0-76.0 N IMMATURE GRANULOCYTE % (test 0.2 % 0.0-0.4 N code = IG%) LYMPHOCYTE % (test code = LY%) 21.4 % 23.0-38.0 L MONOCYTE % (test code = MO%) 13.0 % 1.0-10.0 H EOSINOPHIL % (test code = EO%) 2.7 % 1.0-5.0 N BASOPHIL % (test code = BA%) 0.5 % 0.0-1.0 N NEUTROPHIL # (test code = NT#) 5.7 K/mm3 2.4-6.3 N IMMATURE GRANULOCYTE # (test 0.02 x10 3/uL 0.00-0.07 N code = IG#) LYMPHOCYTE # (test code = LY#) 2.0 K/mm3 1.2-4.0 N MONOCYTE # (test code = MO#) 1.2 K/mm3 0.0-0.6 H EOSINOPHIL # (test code = EO#) 0.3 K/MM3 0.0-0.7 N BASOPHIL # (test code = BA#) 0.1 K/mm3 0.0-0.2 N DIALYSISACUTE HEPATITIS [id number] 08:23:00 Test Item Value Reference Range Interpretation Comments AB HEPATITIS A IGM NON REACTIVE NON REACT. Testing d one at (test code = INDEX CLEAR AYOUB AUDREY ONAL HAVMAB) [facility] [address] [place] [address], [place] [address] AB HEPATITIS B mIU/mL Immune >9.9 SURFACE (test code = HBSAB) AG HEPATITIS B NON REACTIVE NonReactive Testing done at SURFACE (test code INDEX CLEAR [place]AL = HBSAG) [facility] [address] [place] [address]. [place] [address] AB HEPATITIS B NON REACTIVE NON REACT. Testing done at CORE IGM (test INDEX CLEAR AYOUB RE GIONAL code = HBCMAB) [facility] [address] [place] [address]. [place] [address] AB HEPATITIS C NON REACTIVE NON REACT. Testing done at (test code = INDEX CLEAR AYOUB AUDREY ONAL HCVAB) [facility] [address] [place] [address]. [place] [address] NUSRAT IN DIAYLSIS WILL DRAW E.LAB.KJ 12/26/18 0940.AB HEPATITIS B CORE 2018-12-27 08:23:00 Test Item Value Reference Range Interpretation Comments AB HEPATITIS B CORE (test code = HBCAB) NON REACT. NUSRAT IN DIAYLSIS WILL DRAW E.LAB.KJ 12/26/18 0940.CBC W/AUTO [id number] 06:10:00 Test Item Value Reference Range Interpretation Comments WHITE BLOOD CELL (test code = 7.6 K/mm3 4.5-11.0 N WBC) RED BLOOD CELL (test code = 4.68 M/mm3 4.40-5.90 N RBC) HEMOGLOBIN (test code = HGB) 12.9 gm/dL 13.0-17.0 L HEMATOCRIT (test code = HCT) 39.5 % 36.0-48.0 N MEAN CELL VOLUME (test code = 84.4 UM3 80.0-94.0 N MCV) MEAN CELL HGB (test code = MCH) 27.6 UUG 25.5-32.5 N MEAN CELL HGB CONCETRATION 32.7 gm/dL 29.0-35.5 N (test code = MCHC) RED CELL DISTRIBUTION WIDTH 17.5 % 11.5-15.0 H (test code = RDW) RED CELL DISTRIBUTION WIDTH SD 53.5 fL 34.8-50.2 H (test code = RDW-SD) PLATELET COUNT (test code = 163 K/mm3 150-400 N PLT) MEAN PLATELET VOLUME (test code 11.1 fl 7.4-10.4 H = MPV) NEUTROPHIL % (test code = NT%) 75.7 % 49.0-76.0 N IMMATURE GRANULOCYTE % (test 0.3 % 0.0-0.4 N code = IG%) LYMPHOCYTE % (test code = LY%) 11.4 % 23.0-38.0 L MONOCYTE % (test code = MO%) 9.3 % 1.0-10.0 N EOSINOPHIL % (test code = EO%) 2.8 % 1.0-5.0 N BASOPHIL % (test code = BA%) 0.5 % 0.0-1.0 N NEUTROPHIL # (test code = NT#) 5.8 K/mm3 2.4-6.3 N IMMATURE GRANULOCYTE # (test 0.02 x10 3/uL 0.00-0.07 N code = IG#) LYMPHOCYTE # (test code = LY#) 0.9 K/mm3 1.2-4.0 L MONOCYTE # (test code = MO#) 0.7 K/mm3 0.0-0.6 H EOSINOPHIL # (test code = EO#) 0.2 K/MM3 0.0-0.7 N BASOPHIL # (test code = BA#) 0.0 K/mm3 0.0-0.2 N AB HEPATITIS A [id number] 03:25:00 Test Item Value Reference Range Interpretation Comments AB HEPATITIS A IGM (test NON REACTIVE INDEX NON REACT. code = HAVMAB) NUSRAT IN DIAYLSIS WILL DRAW E.LAB.KJ 12/26/18 0940.AG HEPATITIS B SURFACE 2018-12-27 03:25:00 Test Item Value Reference Range Interpretation Comments AG HEPATITIS B SURFACE NON REACTIVE INDEX NonReactive (test code = HBSAG) NUSRAT IN DIAYLSIS WILL DRAW E.LAB.KJ 12/26/18 0940.AB HEPATITIS B CORE IGM 2018-12-27 03:25:00 Test Item Value Reference Range Interpretation Comments AB HEPATITIS B CORE IGM NON REACTIVE INDEX NON REACT. (test code = HBCMAB) NUSRAT IN DIAYLSIS WILL DRAW E.LAB.KJ 12/26/18 0940.AB HEPATITIS [id number] 03:25:00 Test Item Value Reference Range Interpretation Comments AB HEPATITIS C (test code NON REACTIVE INDEX NON REACT. = HCVAB) NUSRAT IN DIAYLSIS WILL DRAW E.LAB.KJ 12/26/18 0940.ACUTE HEPATITIS PANEL 2018-12-27 03:08:00 Test Item Value Reference Range Interpretation Comments AB HEPATITIS A IGM INDEX NONREACTIVE (test code = HAVMAB) AB HEPATITIS B mIU/mL Immune >9.9 SURFACE (test code = HBSAB) AG HEPATITIS B NON REACTIVE NonReactive Testing done at SURFACE (test code INDEX CLEAR [place]AL = HBSAG) [facility] [address] [place] [id number] AB HEPATITIS B INDEX NONREACTIVE CORE IGM (test code = HBCMAB) AB HEPATITIS C INDEX NONREACTIVE (test code = HCVAB) NUSRAT IN DIAYLSIS WILL DRAW E.LAB.KJ 12/26/18 0940.AB HEPATITIS B CORE 2018-12-27 03:08:00 Test Item Value Reference Range Interpretation Comments AB HEPATITIS B CORE (test code = HBCAB) NON REACT. NUSRAT IN DIAYLSIS WILL DRAW E.LAB.KJ 12/26/18 0940.AB HEPATITIS A [id number] 02:50:00 Test Item Value Reference Range Interpretation Comments AB HEPATITIS A IGM (test code = INDEX NON REACT. HAVMAB) NUSRAT IN DIAYLSIS WILL DRAW E.LAB.KJ 12/26/18 0940.AG HEPATITIS B SURFACE 2018-12-27 02:50:00 Test Item Value Reference Range Interpretation Comments AG HEPATITIS B SURFACE NON REACTIVE INDEX NonReactive (test code = HBSAG) NUSRAT IN DIAYLSIS WILL DRAW E.LAB.KJ 12/26/18 0940.AB HEPATITIS B CORE IGM 2018-12-27 02:50:00 Test Item Value Reference Range Interpretation Comments AB HEPATITIS B CORE IGM (test code = INDEX NON REACT. HBCMAB) NUSRAT IN DIAYLSIS WILL DRAW E.LAB.KJ 12/26/18 0940.AB HEPATITIS [id number] 02:50:00 Test Item Value Reference Range Interpretation Comments AB HEPATITIS C (test code = HCVAB) INDEX NON REACT. NUSRAT IN DIAYLSIS WILL DRAW E.LAB.KJ 12/26/18 0940.URINALYSIS COMPLETE 2018-12-26 04:48:00 Test Item Value Reference Range Interpretation Comments UA COLOR (test code = YELLOW COLU) UA APPEARANCE (test code CLEAR = APPU) UA GLUCOSE DIPSTICK (test 50 mg/dl mg/dl NORMAL A code = DGLUU) UA BILIRUBIN DIPSTICK NEGATIVE mg/dL NEGATIVE (test code = BILU) UA KETONE DIPSTICK (test NEGATIVE mg/dl NEGATIVE code = KETU) UA SPECIFIC GRAVITY (test 1.015 1.000-1.030 code = SGU) UA BLOOD DIPSTICK (test 50 Efraín/micL Efraín/micL NEGATIVE A code = PEEWEE) UA PH DIPSTICK (test code 6.0 5.0-9.0 = YADI) UA PROTEIN DIPSTICK (test 500 mg/dl mg/dl NEGATIVE A code = PROU) UA UROBILINIOGEN DIPSTICK NORMAL mg/dl NORMAL (test code = URO) UA NITRITE DIPSTICK (test NEGATIVE NEGATIVE code = MIKALA) UA LEUKOCYTE ESTERASE NEGATIVE [place]/micL NEGATIVE DIPSTICK (test code = LEUU) UA WBC (test code = WBCU) 0-2 WBC/HPF NONE UA RBC (test code = RBCU) 3-5 RBC/HPF 0-3 UA EPITHELIAL CELLS (test 2-5 EPI/HPF 0-3 A code = EPIU) UA BACTERIA (test code = FEW NONE BACU) URINALYSIS [id number] 04:42:00 Test Item Value Reference Range Interpretation Comments UA COLOR (test code = YELLOW COLU) UA APPEARANCE (test code CLEAR = APPU) UA GLUCOSE DIPSTICK (test 50 mg/dl mg/dl NORMAL A code = DGLUU) UA BILIRUBIN DIPSTICK NEGATIVE mg/dL NEGATIVE (test code = BILU) UA KETONE DIPSTICK (test NEGATIVE mg/dl NEGATIVE code = KETU) UA SPECIFIC GRAVITY (test 1.015 1.000-1.030 code = SGU) UA BLOOD DIPSTICK (test 50 Efraín/micL Efraín/micL NEGATIVE A code = PEEWEE) UA PH DIPSTICK (test code 6.0 5.0-9.0 = YADI) UA PROTEIN DIPSTICK (test 500 mg/dl mg/dl NEGATIVE A code = PROU) UA UROBILINIOGEN DIPSTICK NORMAL mg/dl NORMAL (test code = URO) UA NITRITE DIPSTICK (test NEGATIVE NEGATIVE code = MIKALA) UA LEUKOCYTE ESTERASE NEGATIVE [place]/micL NEGATIVE DIPSTICK (test code = LEUU) UA WBC (test code = WBCU) WBC/HPF NONE UA RBC (test code = RBCU) RBC/HPF 0-3 UA EPITHELIAL CELLS (test EPI/HPF 0-3 code = EPIU) UA BACTERIA (test code = NONE BACU) LACTIC [id number] 04:28:00 Test Item Value Reference Range Interpretation Comments LACTIC ACID (test code = LACT) <0.4 MMOL/L 0.4-2.0 L COMPREHENSIVE METABOLIC [id number] 04:27:00 Test Item Value Reference Range Interpretation Comments SODIUM (test code = NA) 133 mmol/l 134.0-147.0 L POTASSIUM (test code = K) 4.6 mmol/L 3.6-5.2 N CHLORIDE (test code = CL) 98 mmol/l 98.0-107.0 N CARBON DIOXIDE (test code = CO2) 18.3 mmol/l 21.0-33.0 L ANION GAP (test code = GAP) 21.3 0-20 H GLUCOSE (test code = GLU) 89 mg/dl 70.0-110.0 N BLOOD UREA NITROGEN (test code = 79 mg/dl 7.0-18.0 H BUN) CREATININE (test code = CREAT) 15.35 mg/dL 0.60-1.30 HH GFR NON BLACK (test code = 4 mL/min 95-105 L GFRNONBLACK) GFR BLACK (test code = GFRBLACK) 4 mL/min 115-127 L TOTAL PROTEIN (test code = PROT) 8.1 GM/DL 6.0-8.1 N ALBUMIN (test code = ALB) 3.5 gm/dL 3.2-4.7 N CALCIUM (test code = CA) 8.8 mg/dl 8.0-10.5 N BILIRUBIN TOTAL (test code = 0.2 mg/dl 0.0-1.0 N BILT) SGOT/AST (test code = AST) 20 Units/L 15.0-37.0 N SGPT/ALT (test code = ALT) 30 Units/L 12.0-78.0 N ALKALINE PHOSPHATASE TOTAL (test 80 Units/L 50.0-136.0 N code = ALKP) [id number] 04:27:00 Test Item Value Reference Range Interpretation Comments LIPASE (test code = LIP) 402 Units/L 65.0-230.0 H [id number] 04:27:00 Test Item Value Reference Range Interpretation Comments MAGNESIUM (test code = MAG) 2.8 mg/dl 1.8-2.4 H [id number] 04:27:00 Test Item Value Reference Range Interpretation Comments TROPONIN-I (test 0.04 NG/ML 0.00-0.06 N REFERENCE R DANIELLE TROPONIN code = TROPI) I HEALTHY SASCHA VIDUALS: <0.06 ng/mL R/O ISCHEMIA: 0.07 - 0.60 ng/mL CUT-OFF R DANIELLE FOR AMI: 0.60 - 1. 5 ng/mL COMPREHENSIVE METABOLIC [id number] 04:18:00 Test Item Value Reference Range Interpretation Comments SODIUM (test code = NA) 133 mmol/l 134.0-147.0 L POTASSIUM (test code = K) 4.6 mmol/L 3.6-5.2 N CHLORIDE (test code = CL) 98 mmol/l 98.0-107.0 N CARBON DIOXIDE (test code = CO2) 18.3 mmol/l 21.0-33.0 L ANION GAP (test code = GAP) 21.3 0-20 H GLUCOSE (test code = GLU) mg/dl 70.0-110.0 BLOOD UREA NITROGEN (test code = mg/dl 7.0-18.0 BUN) CREATININE (test code = CREAT) mg/dL 0.60-1.30 GFR NON BLACK (test code = mL/min 95-105 GFRNONBLACK) GFR BLACK (test code = GFRBLACK) mL/min 115-127 TOTAL PROTEIN (test code = PROT) gm/dL 6.4-8.2 ALBUMIN (test code = ALB) gm/dl 3.2-4.7 CALCIUM (test code = CA) mg/dl 8.0-10.5 BILIRUBIN TOTAL (test code = mg/dl 0.0-1.0 BILT) SGOT/AST (test code = AST) Units/L 15.0-37.0 SGPT/ALT (test code = ALT) Units/L 12.0-78.0 ALKALINE PHOSPHATASE TOTAL (test Units/L 50.0-136.0 code = ALKP) [id number] 04:18:00 Test Item Value Reference Range Interpretation Comments LIPASE (test code = LIP) Units/L 65.0-230.0 [id number] 04:18:00 Test Item Value Reference Range Interpretation Comments MAGNESIUM (test code = MAG) mg/dl 1.8-2.4 [id number] 04:18:00 Test Item Value Reference Range Interpretation Comments TROPONIN-I (test code = TROPI) NG/ML 0.00-0.06 CBC W/AUTO [id number] 04:13:00 Test Item Value Reference Range Interpretation Comments WHITE BLOOD CELL (test code = 12.8 K/mm3 4.5-11.0 H WBC) RED BLOOD CELL (test code = 4.24 M/mm3 4.40-5.90 L RBC) HEMOGLOBIN (test code = HGB) 11.8 gm/dL 13.0-17.0 L HEMATOCRIT (test code = HCT) 35.4 % 36.0-48.0 L MEAN CELL VOLUME (test code = 83.5 UM3 80.0-94.0 MCV) MEAN CELL HGB (test code = MCH) 27.8 UUG 25.5-32.5 N MEAN CELL HGB CONCETRATION 33.3 gm/dL 29.0-35.5 N (test code = MCHC) RED CELL DISTRIBUTION WIDTH 17.2 % 11.5-15.0 H (test code = RDW) RED CELL DISTRIBUTION WIDTH SD 52.6 fL 34.8-50.2 H (test code = RDW-SD) PLATELET COUNT (test code = 156 K/mm3 150-400 N PLT) MEAN PLATELET VOLUME (test code 10.4 fl 7.4-10.4 N = MPV) NEUTROPHIL % (test code = NT%) 81.4 % 49.0-76.0 H IMMATURE GRANULOCYTE % (test 0.4 % 0.0-0.4 N code = IG%) LYMPHOCYTE % (test code = LY%) 10.0 % 23.0-38.0 L MONOCYTE % (test code = MO%) 6.7 % 1.0-10.0 N EOSINOPHIL % (test code = EO%) 1.0 % 1.0-5.0 N BASOPHIL % (test code = BA%) 0.5 % 0.0-1.0 N NEUTROPHIL # (test code = NT#) 10.4 K/mm3 2.4-6.3 H IMMATURE GRANULOCYTE # (test 0.05 x10 3/uL 0.00-0.07 N code = IG#) LYMPHOCYTE # (test code = LY#) 1.3 K/mm3 1.2-4.0 N MONOCYTE # (test code = MO#) 0.9 K/mm3 0.0-0.6 H EOSINOPHIL # (test code = EO#) 0.1 K/MM3 0.0-0.7 N BASOPHIL # (test code = BA#) 0.1 K/mm3 0.0-0.2 N - XR CHEST 1 [id number] 03:38:00 FAX: Dom Bonner MD [phone] [place]: [address]: REG Name: GINETTE GARCIA [facility] : 1970 Age/S: 48/M [address] [place] [address] [employer] Unit#: [id number] Loc: [address] Phys: [place] [id number] Acct: [id number] Dis Date: Status: REG ER PHONE #: [phone] Exam Date: 12/26/2018332 FAX #: [phone] Reason: fever / ESRD EXAMS: CPT CODE: [id number] XR CHEST 1 V 28612 EXAM: - XR CHEST 1 V HISTORY: Fever. COMPARISON: November 21, 2018. FINDINGS: Single AP view of the chest is provided. Hemodialysis catheter is unchanged. Heart size and vascularity are minimally prominent. There is no focal consolidation. No pleural effusion, pneumothorax, or acute osseous abnormality. IMPRESSION: No consolidation or pleural effusion. Electronically Signed by Zandra Acuna on at 0338 Reported and signed by: Driss Acuna M.D. CC: Dom Bonner MD Technologist: JENNI ARTHUR [facility] Date/Time/By: 12/26/2018 (0338) : By: [email or web address] PAGE 1 Signed Report FAX: Dom Bonner [phone] [place]: St: REG Name: GINETTE GARCIA [facility] : 1970 Age/S: 48/M [address] [place], [place] [address] #: [id number] Loc: [address] Phys: [place] [id number] Acct: [id number] Dis Date: Status: REG ER PHONE #: [phone] Exam Date: 12/26/2018 0333 FAX #: [phone] Reason: fever / ESRD EXAMS: CPT CODE: [id number] XR CHEST 1 V 79680 <Continued> Orig Print D/T: S: 12/26/2018 (0341) PAGE 2 Signed ReportBASIC METABOLIC [id number] 13:11:00 Test Item Value Reference Range Interpretation Comments SODIUM (test code = NA) 135 mmol/l 134.0-147.0 N POTASSIUM (test code = K) 4.6 mmol/L 3.6-5.2 N CHLORIDE (test code = CL) 99 mmol/l 98.0-107.0 N CARBON DIOXIDE (test code = CO2) 22.5 mmol/l 21.0-33.0 N ANION GAP (test code = GAP) 18.1 0-20 N GLUCOSE (test code = GLU) 161 mg/dl 70.0-110.0 H BLOOD UREA NITROGEN (test code = 57 mg/dl 7.0-18.0 H BUN) CREATININE (test code = CREAT) 11.45 mg/dL 0.60-1.30 HH GFR NON BLACK (test code = 5 mL/min 95-105 L GFRNONBLACK) GFR BLACK (test code = GFRBLACK) 6 mL/min 115-127 L CALCIUM (test code = CA) 8.7 mg/dl 8.0-10.5 N PROTHROMBIN [id number] 12:51:00 Test Item Value Reference Range Interpretation Comments PROTHROMBIN TIME 10.8 SECONDS 9.9-12.8 N PATIENT (test code = PTP) INTERNATIONAL NORMAL 0.9 0.89-1.14 N THE INR IS TO BE USED RATIO (test code = ONLY FOR MONITORING INR) ORAL ANTICOAGULANTTH ERAPY. THE FOLLOWING A RE SUGGESTED RANGE S FROM [facility] LEGE OF CHEST PHYSICIANS:SASCHA CATION INR VALUEPROPHYLAXI S OF VENOUS THROMBOS IS (ORTHOPEDIC LUISITO LEVI) 2.0 - 3.0PROP HYLAXIS OF VENOUS THROM BOSIS (OTHER THAN HIG H-RISK SURGERY) 2.0 - 3.0TRE ATMENT OF DEEP VEIN THROMBOSIS OR PULMONARY EMBOL ISM 2.0 - 3.0PREV ENTION OF SYSTEMIC EMB OLISM TISSUE HEART VA LVES 2.0 - 3.0 AC [place] MYOCARDIAL INFA RCTION (TO PREVENT SYSTEMIC EMBOLI SM) 2.0 - 3.0 ACUTE MYOCARDIA L INFARCTION (TO PREVENT RECURRE NT INFARCT) 2.5 - 3.0 VALV ULAR HEART DISEASE 2.0 - 3.0 ATRIAL FIBRILATION 2.0 - 3.0BILEAFLET MECHANICAL VALV E IN AORTIC POSITION 2.0 - 3.0MECHAN ICAL PROSTHETIC VALV ES (HIGH RISK) 2.5 - 3.5PRESEN CE OF LUPUS ANTICOAGU LANT OR ANTIPHOSPHOLIP ID ANTIBODIES 2.5 - 3 .5 Is patient on anticoagulants? NComments to Anesthesiologist And Critical Care: PATIENT IS IN ROOM 111Specimen comments: PATIENT IS ROOM 111 OPTHROMBOPLASTIN TIME PARTIAL 2018-12-20 12:51:00 Test Item Value Reference Range Interpretation Comments THROMBOPLASTIN TIME 36.60 SECONDS 25.86-36.07 H [facility] PARTIAL (test code = Therape utic Range - PTT) APTT of 55.8-85 .4 secondscorrelat es with plasma heparin concentration o f 0.2-0.4 u/mL Ne w range effective - Is patient on anticoagulants? NComments to Anesthesiologist And Critical Care: PATIENT IS IN ROOM 111Specimen comments: PATIENT IS ROOM 111 OPCBC W/AUTO [id number] 12:44:00 Test Item Value Reference Range Interpretation Comments WHITE BLOOD CELL (test code = 10.0 K/mm3 4.5-11.0 N WBC) RED BLOOD CELL (test code = 4.66 M/mm3 4.40-5.90 N RBC) HEMOGLOBIN (test code = HGB) 13.2 gm/dL 13.0-17.0 N HEMATOCRIT (test code = HCT) 41.0 % 36.0-48.0 N MEAN CELL VOLUME (test code = 88.0 UM3 80.0-94.0 N MCV) MEAN CELL HGB (test code = MCH) 28.3 UUG 25.5-32.5 N MEAN CELL HGB CONCETRATION 32.2 gm/dL 29.0-35.5 N (test code = MCHC) RED CELL DISTRIBUTION WIDTH 17.8 % 11.5-15.0 H (test code = RDW) RED CELL DISTRIBUTION WIDTH SD 57.2 fL 34.8-50.2 H (test code = RDW-SD) PLATELET COUNT (test code = 157 K/mm3 150-400 N PLT) MEAN PLATELET VOLUME (test code 10.2 fl 7.4-10.4 N = MPV) NEUTROPHIL % (test code = NT%) 71.9 % 49.0-76.0 N IMMATURE GRANULOCYTE % (test 0.2 % 0.0-0.4 N code = IG%) LYMPHOCYTE % (test code = LY%) 17.2 % 23.0-38.0 L MONOCYTE % (test code = MO%) 8.2 % 1.0-10.0 N EOSINOPHIL % (test code = EO%) 2.0 % 1.0-5.0 N BASOPHIL % (test code = BA%) 0.5 % 0.0-1.0 N NEUTROPHIL # (test code = NT#) 7.2 K/mm3 2.4-6.3 H IMMATURE GRANULOCYTE # (test 0.02 x10 3/uL 0.00-0.07 N code = IG#) LYMPHOCYTE # (test code = LY#) 1.7 K/mm3 1.2-4.0 N MONOCYTE # (test code = MO#) 0.8 K/mm3 0.0-0.6 H EOSINOPHIL # (test code = EO#) 0.2 K/MM3 0.0-0.7 N BASOPHIL # (test code = BA#) 0.1 K/mm3 0.0-0.2 N RAPID PLASMA [id number] 18:46:00 Test Item Value Reference Range Interpretation Comments RAPID PLASMA REAGIN (test code = NON-REACTIVE NONREACTIVE RPR) HIV 12 AB [id number] 18:46:00 Test Item Value Reference Range Interpretation Comments AB HIV 1 2 (test code = NON REACTIVE NONREACTIVE [id number]) AG HIV1 P24 (test code = NEGATIVE NEGATIVE [id number]) ACUTE HEPATITIS [id number] 16:53:00 Test Item Value Reference Range Interpretation Comments AB HEPATITIS A IGM NON REACTIVE NON REACT. Testing d one at (test code = INDEX CLEAR AYOUB AUDREY ONAL HAVMAB) [facility] [address] [place] [address]. [facility] [place], [place] [phone] AB HEPATITIS B 47.5 mIU/mL Immunity>9.9 Status of SURFACE (test code Immunity = HBSAB) Anti-H Bs Level --- I ncon sistent with Immunity 0.0 - 9.9Consistent w ith Immunity >9.9TEST PERFOR MED AT [facility] 770 [address] AG HEPATITIS B NON REACTIVE NonReactive Testing done at SURFACE (test code INDEX CLEAR [place] [facility] = HBSAG) [facility] [address] [place] [address] [phone] AB HEPATITIS B NON REACTIVE NON REACT. Testing done at CORE IGM (test INDEX CLEAR AYOUB RE GIONAL code = HBCMAB) [facility] [address] [place] [address] [id number] AB HEPATITIS C NON REACTIVE NON REACT. Testing done at (test code = INDEX CLEAR AYOUB AUDREY ONAL HCVAB) [facility] [address] [place] [address] [id number] AB HEPATITIS B [id number] 16:53:00 Test Item Value Reference Range Interpretation Comments AB HEPATITIS B CORE Negative Negative Performe d At: (test code = HBCAB) [address] [id number] madie Matthews MD Ph:[phone] C REACTIVE [id number] 16:53:00 Test Item Value Reference Range Interpretation Comments C REACTIVE PROTEIN 5.2 mg/dL 0.0-0.9 H PLEAS E MAKE NOTE (test code = CRP) OF NEW CRP REFERENCE RANGE ANTINUCLEAR ANTIBODIES [id number] 16:53:00 Test Item Value Reference Range Interpretation Comments SARA DIRECT (test code Negative () = ANADIR) Neg ative <1:80 Borderline 1:8 0 Positive >1:80Performed At: [facility] [id number] madie Matthews MD Ph:[phone] [id number] 15:50:00 Test Item Value Reference Range Interpretation Comments GLUBED (test code = GLUBED) 188 mg/dL 70-110 H GASTRIC,[id number] 13:14:00 RUN DATE: 11/23/18 [facility] - Lab PAGE 1 RUN TIME: 1314 Specimen Inquiry RUN USER: INTERFACE PATIENT: GINETTE GARCIA [facility] [place] #: [id number] AGE/SX: 48/M ROOM: [facility] RE11/21/18REG DR: Faheem Max MD : 69 BED: 1 DIS: STATUS: ADM IN TLOC: SPEC #: [id number] RECD: 11/22/18 STATUS: NICOLE REQ #: [id number] SUSAN: 11/22/18- SUBM DR: Faheem Max MD ENTERED: 11/22/18 SP TYPE: GASTRIC BX OTHR DR: No Primary or Family Physician Self Referred Arnol Jackson MD, Bilal MD Seerangan,Effie Head MD, MDORDERED: SPEC STAIN HARISH, GM LEVEL 4, REQUEST COPIES TO: No Primary or Family Physician Self Referred Faheem Max MD [address] [place] [address] Arnol Jackson MD [address] [facility] [address] [place] [address] Amarjit Betancourt MD [address] [place] [address] Malorie Liz MD [address] [place], [place] [id number] Effie Rodriguez MD [facility] [place], [place] [address] PROCEDURES: SPEC STAIN HARISH (11/23/18) GM LEVEL 4 (11/23/18) REQUEST (11/22/18) TISSUES: GASTRIC MUCOUS MEMBRANE - GASTRIC BX CONTINUED ON NEXT PAGE RUN DATE: 11/23/18 [facility] - Lab PAGE 2 RUN TIME: 1314 Specimen Inquiry RUN USER: INTERFACE SPE C #: [id number] PATIENT: GINETTE GARCIA #[id number] (Continued) CLINICAL HISTORY Preop Diagnosis: Epigastric pain FINAL DIAGNOSIS STOMACH, BIOPSY: UNREMARKABLE ANTRAL TYPE MUCOSA CPT CODES: 96666, 25917. MACROSCOPIC Specimen is labeled as gastric biopsy and consists of a single soft bell tissue fragmentmeasuring 0.3 x 0.2 x 0.2 cm, entirely submitted in a single block. MICROSCOPIC Sections of the stomach biopsy demonstrate antral type mucosa withfocally dilated vessels. There is no foveolar hyperplasia, edema, significantly increased chronic inflammation inthe lamina propria, acute inflammation involving the glands, granulomas, viral cytopathic changes, intestinal metaplasia, dysplasia, or malignancy identified. The Giemsa stain isnegative for H. Pylori organisms. There are jenifer shaped bacteria seen on the slides andinterpreted to be contaminants as they are seen across the slides. Signed SIGNATURE ON FILE Mary Jane Mckeon 11/23/18 1314 END OF REPORT [id number] 07:21:00 Test Item Value Reference Range Interpretation Comments GLUBED (test code = GLUBED) 100 mg/dL 70-110 N COMPREHENSIVE METABOLIC [id number] 06:36:00 Test Item Value Reference Range Interpretation Comments SODIUM (test code = NA) 139 mmol/l 134.0-147.0 N POTASSIUM (test code = K) 3.3 mmol/L 3.6-5.2 L CHLORIDE (test code = CL) 102 mmol/l 98.0-107.0 N CARBON DIOXIDE (test code = CO2) 24.4 mmol/l 21.0-33.0 N ANION GAP (test code = GAP) 15.9 0-20 N GLUCOSE (test code = GLU) 102 mg/dl 70.0-110.0 N BLOOD UREA NITROGEN (test code = 44 mg/dl 7.0-18.0 H BUN) CREATININE (test code = CREAT) 11.28 mg/dL 0.60-1.30 HH GFR NON BLACK (test code = 5 mL/min 95-105 L GFRNONBLACK) GFR BLACK (test code = GFRBLACK) 6 mL/min 115-127 L TOTAL PROTEIN (test code = PROT) 6.6 GM/DL 6.0-8.1 N ALBUMIN (test code = ALB) 2.3 gm/dL 3.2-4.7 L CALCIUM (test code = CA) 7.5 mg/dl 8.0-10.5 L BILIRUBIN TOTAL (test code = 0.3 mg/dl 0.0-1.0 N BILT) SGOT/AST (test code = AST) 17 Units/L 15.0-37.0 N SGPT/ALT (test code = ALT) 21 Units/L 12.0-78.0 N ALKALINE PHOSPHATASE TOTAL (test 113 Units/L 50.0-136.0 N code = ALKP) CBC W/AUTO [id number] 06:29:00 Test Item Value Reference Range Interpretation Comments WHITE BLOOD CELL (test code = 7.7 K/mm3 4.5-11.0 N WBC) RED BLOOD CELL (test code = 4.42 M/mm3 4.40-5.90 N RBC) HEMOGLOBIN (test code = HGB) 12.3 gm/dL 13.0-17.0 L HEMATOCRIT (test code = HCT) 38.5 % 36.0-48.0 N MEAN CELL VOLUME (test code = 87.1 UM3 80.0-94.0 N MCV) MEAN CELL HGB (test code = MCH) 27.8 UUG 25.5-32.5 N MEAN CELL HGB CONCETRATION 31.9 gm/dL 29.0-35.5 N (test code = MCHC) RED CELL DISTRIBUTION WIDTH 17.2 % 11.5-15.0 H (test code = RDW) RED CELL DISTRIBUTION WIDTH SD 53.9 fL 34.8-50.2 H (test code = RDW-SD) PLATELET COUNT (test code = 187 K/mm3 150-400 N PLT) MEAN PLATELET VOLUME (test code 10.4 fl 7.4-10.4 N = MPV) NEUTROPHIL % (test code = NT%) 68.0 % 49.0-76.0 N IMMATURE GRANULOCYTE % (test 0.3 % 0.0-0.4 N code = IG%) LYMPHOCYTE % (test code = LY%) 14.4 % 23.0-38.0 L MONOCYTE % (test code = MO%) 11.9 % 1.0-10.0 H EOSINOPHIL % (test code = EO%) 4.9 % 1.0-5.0 N BASOPHIL % (test code = BA%) 0.5 % 0.0-1.0 N NEUTROPHIL # (test code = NT#) 5.2 K/mm3 2.4-6.3 N IMMATURE GRANULOCYTE # (test 0.02 x10 3/uL 0.00-0.07 N code = IG#) LYMPHOCYTE # (test code = LY#) 1.1 K/mm3 1.2-4.0 L MONOCYTE # (test code = MO#) 0.9 K/mm3 0.0-0.6 H EOSINOPHIL # (test code = EO#) 0.4 K/MM3 0.0-0.7 N BASOPHIL # (test code = BA#) 0.0 K/mm3 0.0-0.2 N ACUTE HEPATITIS [id number] 03:47:00 Test Item Value Reference Range Interpretation Comments AB HEPATITIS A IGM NON REACTIVE NON REACT. Testing d one at (test code = INDEX CLEAR AYOUB AUDREY ONAL HAVMAB) [facility] [address] [place] [address] AB HEPATITIS B mIU/mL Immune >9.9 SURFACE (test code = HBSAB) AG HEPATITIS B NON REACTIVE NonReactive Testing done at SURFACE (test code INDEX CLEAR [facility] = HBSAG) [facility] [address] [place] [address] AB HEPATITIS B NON REACTIVE NON REACT. Testing done at CORE IGM (test INDEX CLEAR AYOUB RE GIONAL code = HBCMAB) [facility] [address] [place] [address]. [facility], [place] [id number] AB HEPATITIS C NON REACTIVE NON REACT. Testing done at (test code = INDEX CLEAR AYOUB AUDREY ONAL HCVAB) [facility] [address] [place], [place] [address]vd. [facility], [place] [address] AB HEPATITIS B [id number] 03:47:00 Test Item Value Reference Range Interpretation Comments AB HEPATITIS B CORE (test code = HBCAB) NON REACT. AB HEPATITIS A [id number] 03:26:00 Test Item Value Reference Range Interpretation Comments AB HEPATITIS A IGM (test NON REACTIVE INDEX NON REACT. code = HAVMAB) AG HEPATITIS B [id number] 03:26:00 Test Item Value Reference Range Interpretation Comments AG HEPATITIS B SURFACE NON REACTIVE INDEX NonReactive (test code = HBSAG) AB HEPATITIS B CORE [id number] 03:26:00 Test Item Value Reference Range Interpretation Comments AB HEPATITIS B CORE IGM NON REACTIVE INDEX NON REACT. (test code = HBCMAB) AB HEPATITIS [id number] 03:26:00 Test Item Value Reference Range Interpretation Comments AB HEPATITIS C (test code NON REACTIVE INDEX NON REACT. = HCVAB) [id number] 21:42:00 Test Item Value Reference Range Interpretation Comments GLUBED (test code = GLUBED) 156 mg/dL 70-110 H [id number] 11:23:00 Test Item Value Reference Range Interpretation Comments GLUBED (test code = GLUBED) 150 mg/dL 70-110 H - CT CHEST W/O [id number] 11:00:00 FAX: Faheem Padilla MD [phone] [place]: St: [facility] FAX: Amarjit Boss MD [phone] Name: GINETTE GARCIA [facility] : 1970 Age/S: 48/M [address] [facility] Unit: [id number] Loc: [address] [place], [place]: [place] [address] Acct: [id number] Dis Date: Status: ADM IN PHONE #: [phone] Exam Date: 11/21/20182120 FAX #: [phone] Reason: FUO EXAMS: CPT CODE: [id number] CT CHEST W/O CONTRAST 20058 HISTORY: Fever of unknown origin, end-stage renal disease. CT chest, unenhanced. Reformatted sagittal and coronal images. COMPARISON: None Automated exposure control, iterative reconstruction technique, and/or adjustment of mA and/or kV according to patient's sizewas utilized for optimum radiation dose reduction. No intravenous contrast was administered. Significant pathology may be obscured. Dialysis catheter in place. Thyroid tissue normal. Small lymph nodes seen in the upper mediastinum but not appearing to be enlarged. No pericardial fluid. Small bilateral pleural effusions areseen. Chest wall and axillary areas are symmetric. Normal great vessel diameters. The lung window settings show the upper lobes to be clear and well-inflated. Mild interstitial changes could indicate increased fluid status. Both lower lobeshave similar and symmetric density that could indicate pneumonia or dependent pulmonary edema,less likely atelectasis. The bone window settings do not show any bony destructive or sclerotic process.. IMPRESSION: Interstitial haziness likely increased fluid status from renal disease. The lower lobes contains symmetric, groundglass appearance that could indicate asymmetric, dependent pulmonary edema or early bilateral pneumonia. Small effusions are present. Location: U19 PAGE 1 Signed Report (CONTINUED) FAX: Faheem Padilla MD [phone] [place]: St: [facility] FAX: Amarjit Boss MD [phone] Name: GINETTE GARCIA [facility] : 1970 Age/S: 48/M [address] Unit: [id number] Loc: [address] [place], [place] Phys: Reji Betancourt [address] Acct: [id number] Dis Date: Status: ADM IN PHONE #: [phone] Exam Date: 11/21/20182120 FAX #: [phone] Reason: FUO EXAMS: CPT CODE: [id number] CT CHEST W/O CONTRAST 24684 <Continued> at 1100 Reported and signed by: Ginette Sow M.D. CC: Faheem Max MD; Amarjit Betancourt MD Technologist: BRADY GARNER Trnscrd Dt/Tm: 11/22/2018 (1100) t.RCM Orig Print D/T: S: 11/22/2018 (1103 PAGE 2 Signed [id number] 07:03:00 Test Item Value Reference Range Interpretation Comments GLUBED (test code = GLUBED) 119 mg/dL 70-110 H COMPREHENSIVE METABOLIC [id number] 05:53:00 Test Item Value Reference Range Interpretation Comments SODIUM (test code = NA) 138 mmol/l 134.0-147.0 N POTASSIUM (test code = K) 3.2 mmol/L 3.6-5.2 L CHLORIDE (test code = CL) 100 mmol/l 98.0-107.0 N CARBON DIOXIDE (test code = CO2) 25.4 mmol/l 21.0-33.0 N ANION GAP (test code = GAP) 15.8 0-20 N GLUCOSE (test code = GLU) 75 mg/dl 70.0-110.0 N BLOOD UREA NITROGEN (test code = 35 mg/dl 7.0-18.0 H BUN) CREATININE (test code = CREAT) 9.28 mg/dL 0.60-1.30 HH GFR NON BLACK (test code = 6 mL/min 95-105 L GFRNONBLACK) GFR BLACK (test code = GFRBLACK) 8 mL/min 115-127 L TOTAL PROTEIN (test code = PROT) 6.5 gm/dL 6.4-8.2 N ALBUMIN (test code = ALB) 2.2 gm/dl 3.2-4.7 L CALCIUM (test code = CA) 7.5 mg/dl 8.0-10.5 L BILIRUBIN TOTAL (test code = 0.3 mg/dl 0.0-1.0 N BILT) SGOT/AST (test code = AST) 13 Units/L 15.0-37.0 L SGPT/ALT (test code = ALT) 22 Units/L 12.0-78.0 N ALKALINE PHOSPHATASE TOTAL (test 118 Units/L 50.0-136.0 N code = ALKP) Comments to Anesthesiologist And Critical Care: Patient is currently in the ED waiting on a bedLIPID PROFILE (CORONARY RISK)2018-11-22 05:53:00 Test Item Value Reference Range Interpretation Comments TRIGLYCERIDES (test code = TRIG) 78 mg/dl 40.0-150.0 N CHOLESTEROL (test code = CHOL) 143 mg/dl 0.0-200.0 N CHOLESTEROL/HDL RATIO (test code = 3.7 RATIO CHOLHDL) HDL CHOLESTEROL (test code = HDL) 39 mg/dl 30.0-60.0 N LIPOPROTEIN LDL (test code = LDL) 99 mg/dl 70-130 N Comments to Anesthesiologist And Critical Care: Patient is currently in the ED waiting on a [id number] 05:53:00 Test Item Value Reference Range Interpretation Comments MAGNESIUM (test code = MAG) 2.0 mg/dl 1.8-2.4 N Comments to Anesthesiologist And Critical Care: Patient is currently in the ED waiting on a bedCBC W/AUTO [id number] 05:35:00 Test Item Value Reference Range Interpretation Comments WHITE BLOOD CELL (test code = 7.4 K/mm3 4.5-11.0 N WBC) RED BLOOD CELL (test code = 4.12 M/mm3 4.40-5.90 L RBC) HEMOGLOBIN (test code = HGB) 11.9 gm/dL 13.0-17.0 L HEMATOCRIT (test code = HCT) 35.7 % 36.0-48.0 L MEAN CELL VOLUME (test code = 86.7 UM3 80.0-94.0 N MCV) MEAN CELL HGB (test code = MCH) 28.9 UUG 25.5-32.5 N MEAN CELL HGB CONCETRATION 33.3 gm/dL 29.0-35.5 N (test code = MCHC) RED CELL DISTRIBUTION WIDTH 17.8 % 11.5-15.0 H (test code = RDW) RED CELL DISTRIBUTION WIDTH SD 55.7 fL 34.8-50.2 H (test code = RDW-SD) PLATELET COUNT (test code = 197 K/mm3 150-400 N PLT) MEAN PLATELET VOLUME (test code 10.3 fl 7.4-10.4 N = MPV) NEUTROPHIL % (test code = NT%) 71.8 % 49.0-76.0 N IMMATURE GRANULOCYTE % (test 0.1 % 0.0-0.4 N code = IG%) LYMPHOCYTE % (test code = LY%) 13.0 % 23.0-38.0 L MONOCYTE % (test code = MO%) 10.8 % 1.0-10.0 H EOSINOPHIL % (test code = EO%) 3.6 % 1.0-5.0 N BASOPHIL % (test code = BA%) 0.7 % 0.0-1.0 N NEUTROPHIL # (test code = NT#) 5.3 K/mm3 2.4-6.3 N IMMATURE GRANULOCYTE # (test 0.01 x10 3/uL 0.00-0.07 N code = IG#) LYMPHOCYTE # (test code = LY#) 1.0 K/mm3 1.2-4.0 L MONOCYTE # (test code = MO#) 0.8 K/mm3 0.0-0.6 H EOSINOPHIL # (test code = EO#) 0.3 K/MM3 0.0-0.7 N BASOPHIL # (test code = BA#) 0.1 K/mm3 0.0-0.2 N Comments to Anesthesiologist And Critical Care: Patient is currently in the ED waiting on a bedC REACTIVE [id number] 23:22:00 Test Item Value Reference Range Interpretation Comments C REACTIVE PROTEIN 5.2 mg/dL 0.0-0.9 H PLEAS E MAKE NOTE (test code = CRP) OF NEW CRP REFERENCE RANGE ANTINUCLEAR ANTIBODIES [id number] 23:22:00 Test Item Value Reference Range Interpretation Comments SARA DIRECT (test code = ANADIR) NEGATIVE LACTIC DEHYDROGENASE(LDH)2018-11-21 23:22:00 Test Item Value Reference Range Interpretation Comments LACTIC DEHYDROGENASE(LDH) (test 362 Units/L 81-234 H code = LDH) THYROID STIMULATING [id number] 23:22:00 Test Item Value Reference Range Interpretation Comments THYROID STIMULATING 1.17 IU/ML 0.47-5.01 N Result i s in HORMONE (test code = Interna tional TSH) Units/millilite r RAPID PLASMA [id number] 21:06:00 Test Item Value Reference Range Interpretation Comments RAPID PLASMA REAGIN (test code = RPR) NONREACTIVE HIV 12 AB [id number] 21:06:00 Test Item Value Reference Range Interpretation Comments AB HIV 1 2 (test code = NON REACTIVE NONREACTIVE [id number]) AG HIV1 P24 (test code = NEGATIVE NEGATIVE [id number]) CARDIAC ENZYMES [id number] 14:16:00 Test Item Value Reference Range Interpretation Comments CREATINE KINASE (CK) 203 Units/L 39-308 N (test code = CK) TROPONIN-I (test code 0.05 NG/ML 0.00-0.06 N REFERE NCE RANGE = TROPI) TROPONIN I HEAL THY INDIVIDUALS: < 0.06 ng/mL R/O ISCHE ADELINA: 0.07 - 0.60 ng/ mL CUT-OFF RANGE F OR AMI: 0.60 - 1. 5 ng/mL : Specimen comments: Please see the initial specimen in the lab as the first draw on this series Comments to Anesthesiologist And Critical Care: Please draw the 2nd specimen q4hrs after the first and the 3rd 8hrs after the first.Specimen comments: drawn Q4hrs then [id number] to Anesthesiologist And Critical Care: Patient is currently in the ED waiting on a bedCARDIAC ENZYMES [id number] 10:31:00 Test Item Value Reference Range Interpretation Comments CREATINE KINASE (CK) 212 Units/L 39-308 N (test code = CK) TROPONIN-I (test code 0.05 NG/ML 0.00-0.06 N REFERE NCE RANGE = TROPI) TROPONIN I HEAL THY INDIVIDUALS: < 0.06 ng/mL R/O ISCHE ADELINA: 0.07 - 0.60 ng/ mL CUT-OFF RANGE F OR AMI: 0.60 - 1. 5 ng/mL : Specimen comments: Please see the initial specimen in the lab as the first draw on this series Comments to Anesthesiologist And Critical Care: Please draw the 2nd specimen q4hrs after the first and the 3rd 8hrs after the first.Specimen comments: drawn Q4hrs then [id number] to Anesthesiologist And Critical Care: Patient is currently in the ED waiting on a bedGLUBED 2018-11-21 07:29:00 Test Item Value Reference Range Interpretation Comments GLUBED (test code = GLUBED) 157 mg/dL 70-110 H URINALYSIS [id number] 03:31:00 Test Item Value Reference Range Interpretation Comments UA COLOR (test code = YELLOW COLU) UA APPEARANCE (test code CLEAR = APPU) UA GLUCOSE DIPSTICK (test 100 mg/dl mg/dl NORMAL A code = DGLUU) UA BILIRUBIN DIPSTICK NEGATIVE mg/dL NEGATIVE (test code = BILU) UA KETONE DIPSTICK (test 5 mg/dl mg/dl NEGATIVE A code = KETU) UA SPECIFIC GRAVITY (test 1.010 1.000-1.030 code = SGU) UA BLOOD DIPSTICK (test 50 Efraín/micL Efraín/micL NEGATIVE A code = PEEWEE) UA PH DIPSTICK (test code 7.0 5.0-9.0 = YADI) UA PROTEIN DIPSTICK (test 500 mg/dl mg/dl NEGATIVE A code = PROU) UA UROBILINIOGEN DIPSTICK NORMAL mg/dl NORMAL (test code = URO) UA NITRITE DIPSTICK (test NEGATIVE NEGATIVE code = MIKALA) UA LEUKOCYTE ESTERASE NEGATIVE Yan[place]/micL NEGATIVE DIPSTICK (test code = LEUU) UA WBC (test code = WBCU) 3-5/HPF WBC/HPF NONE UA RBC (test code = RBCU) 5-10 RBC/HPF 0-3 A UA EPITHELIAL CELLS (test 2-5 EPI/HPF 0-3 A code = EPIU) UA BACTERIA (test code = FEW NONE BACU) URINALYSIS [id number] 03:22:00 Test Item Value Reference Range Interpretation Comments UA COLOR (test code = YELLOW COLU) UA APPEARANCE (test code CLEAR = APPU) UA GLUCOSE DIPSTICK (test 100 mg/dl mg/dl NORMAL A code = DGLUU) UA BILIRUBIN DIPSTICK NEGATIVE mg/dL NEGATIVE (test code = BILU) UA KETONE DIPSTICK (test 5 mg/dl mg/dl NEGATIVE A code = KETU) UA SPECIFIC GRAVITY (test 1.010 1.000-1.030 code = SGU) UA BLOOD DIPSTICK (test 50 Efraín/micL Efraín/micL NEGATIVE A code = PEEWEE) UA PH DIPSTICK (test code 7.0 5.0-9.0 = YADI) UA PROTEIN DIPSTICK (test 500 mg/dl mg/dl NEGATIVE A code = PROU) UA UROBILINIOGEN DIPSTICK NORMAL mg/dl NORMAL (test code = URO) UA NITRITE DIPSTICK (test NEGATIVE NEGATIVE code = MIKALA) UA LEUKOCYTE ESTERASE NEGATIVE [place]/micL NEGATIVE DIPSTICK (test code = LEUU) UA WBC (test code = WBCU) WBC/HPF NONE UA RBC (test code = RBCU) RBC/HPF 0-3 UA EPITHELIAL CELLS (test EPI/HPF 0-3 code = EPIU) UA BACTERIA (test code = NONE BACU) - CT ABD PELVIS W/O [id number] 02:30:00 FAX: Sushila Tony MD [place]: St: REG Name: GINETTE GARCIA [facility] : 1970 Age/S: 48/M [address] [facility] Unit: [id number] Loc: [address] [place], [place]: [place] [address] Acct: [id number] Dis Date: Status: REG ER PHONE #: [phone] Exam Date: 11/21/2018221 FAX #: [phone] Reason: SOB EXAMS: CPT CODE: [id number] CT ABD PELVIS W/O CONT [address] ABDOMEN/PELVIS WITHOUT CONTRAST HISTORY: SOB TECHNIQUE: Axial CT images were obtained through the abdomen and pelvis without intravenous contrast. Coronal and sagittal reformatted images were created from the data set. One or more of the following dose reduction techniques were used: Automated exposure control, adjustment of the mA and/or kV according to patient size, and/or iterative reconstruction. COMPARISON: None FINDINGS: Groundglass opacities in both lung bases. Small bilateral pleural effusions. No pneumothorax. The liver, gallbladder, spleen, pancreas, kidneys and adrenal glands have no significant abnormalities. The appendix has a normal appearance. Numerous diverticula in the sigmoid colon. No bowel distention or wall thickening. No free air or free fluid in the abdomen. There is no retroperitoneal or mesenteric lymphadenopathy. Noacute osseous abnormalities. IMPRESSION: Pulmonary edema with small bilateral pleural effusions. Sigmoid diverticulosis without evidence of diverticulitis. E lectronically Signed by Zandra Silverio on 11/21/2018 at 0230 Reported andsigned by: Pedro Silverio M.D. PAGE 1 Signed Report(CONTINUED) FAX: Sushila Tony MD [place]: St: REG Name: GINETTE GARCIA [facility] : 1970 Age/S: 48/M [address] [facility] Unit: [id number] Loc: [address] Phys: [place] [address] Acct: [id number] Dis Date: S tatus: REG ER PHONE #: [phone] Exam Date: 11/21/2018 0222 FAX #: [phone] Reason: SOB EXAMS: CPT CODE: [id number] CT ABD PELVIS W/OCONT 11475 <Continued> CC: Sushila Story MD Technologist: JEANETTE Banks Dt/Tm: 11/21/2018 (0230) [email or web address] Orig Print D/T: S: 11/21/2018 (1203 PAGE 2 Signed Report- XR CHEST 1 V 2018-11-21 02:21:00 FAX: Sushila Tony MD [place]: St: REG Name: GINETTE GARCIA [facility] : 1970 Age/S: 48/M [address] [facility] Unit#: [id number] Loc: [address] Phys: [place] [address] Acct: [id number] Dis Date: Status: REG ER PHONE #: [phone] Exam Date: 11/21/2018215 FAX #: [phone] Reason: SOB EXAMS: CPT CODE: [id number] XR CHEST 1 V 14524 - XR CHEST 1 V, 11/21/2018 12:33 AM Reason For Examination: SOB Comparison: exam of one day prior Location: P16 Findings Support devices: A right central line is seen at the superior cavoatrial junction PLEURA: No pleural effusions LUNGS: Thereis vascular congestion/edema noted CARDIOMEDIASTINAL SILHOUETTE No significant interval change IMPRESSION: Low lung volumes limit evaluation Support devices as above Vascular congestion/mild edema is noted at 0221 Reported and signed by: Maritza Houser M.D. CC: Sushila Story MD Technologist: KANDACE STUART Trnscrd Date/Time/By: 11/21/2018 (022) : By: [email or web address] PAGE 1 Signed Report FAX: Sushila Tony MD [place]: St: REG--- Name: GINETTE GARCIA [facility] : 1970 Age/S: 48/M [address] [facility] [place] Unit #: [id number] Loc: [address] [place], [place]: [place] [address] Acct: [id number] Dis Date: Status: REG ER PHONE #: [phone] Exam Date: 11/21/2018 0216 FAX #: [phone] Reason: SOB EXAMS: CPT CODE: [id number] XR CHEST 1 V 21386 <Continued> Orig Print D/T: S: 11/21/2018 (0224) PAGE 2 Signed ReportCOMPREHENSIVE METABOLIC [id number] 02:03:00 Test Item Value Reference Range Interpretation Comments SODIUM (test code = NA) 138 mmol/l 134.0-147.0 N POTASSIUM (test code = K) 4.0 mmol/L 3.6-5.2 N CHLORIDE (test code = CL) 102 mmol/l 98.0-107.0 N CARBON DIOXIDE (test code = CO2) 22.8 mmol/l 21.0-33.0 N ANION GAP (test code = GAP) 17.2 0-20 N GLUCOSE (test code = GLU) 117 mg/dl 70.0-110.0 H BLOOD UREA NITROGEN (test code = 64 mg/dl 7.0-18.0 H BUN) CREATININE (test code = CREAT) 13.06 mg/dL 0.60-1.30 HH GFR NON BLACK (test code = 4 mL/min 95-105 L GFRNONBLACK) GFR BLACK (test code = GFRBLACK) 5 mL/min 115-127 L TOTAL PROTEIN (test code = PROT) 7.4 GM/DL 6.0-8.1 N ALBUMIN (test code = ALB) 2.8 gm/dL 3.2-4.7 L CALCIUM (test code = CA) 8.2 mg/dl 8.0-10.5 N BILIRUBIN TOTAL (test code = 0.4 mg/dl 0.0-1.0 N BILT) SGOT/AST (test code = AST) 35 Units/L 15.0-37.0 N SGPT/ALT (test code = ALT) 32 Units/L 12.0-78.0 N ALKALINE PHOSPHATASE TOTAL (test 133 Units/L 50.0-136.0 N code = ALKP) [id number] 02:03:00 Test Item Value Reference Range Interpretation Comments LIPASE (test code = LIP) 96 Units/L 65.0-230.0 N B-TYPE NATRIURETIC [id number] 02:03:00 Test Item Value Reference Range Interpretation Comments B-TYPE NATRIURETIC PEPTIDE (test 2160 PG/ML 5-100 H code = BNP) CARDIAC ENZYMES [id number] 02:03:00 Test Item Value Reference Range Interpretation Comments CREATINE KINASE (CK) 282 Units/L 39-308 N (test code = CK) TROPONIN-I (test code 0.04 NG/ML 0.00-0.06 N REFERE NCE RANGE = TROPI) TROPONIN I HEAL THY INDIVIDUALS: < 0.06 ng/mL R/O ISCHE ADELINA: 0.07 - 0.60 ng/ mL CUT-OFF RANGE F OR AMI: 0.60 - 1. 5 ng/mL COMPREHENSIVE METABOLIC [id number] 02:02:00 Test Item Value Reference Range Interpretation Comments SODIUM (test code = NA) 138 mmol/l 134.0-147.0 N POTASSIUM (test code = K) 4.0 mmol/L 3.6-5.2 N CHLORIDE (test code = CL) 102 mmol/l 98.0-107.0 N CARBON DIOXIDE (test code = CO2) 22.8 mmol/l 21.0-33.0 N ANION GAP (test code = GAP) 17.2 0-20 N GLUCOSE (test code = GLU) 117 mg/dl 70.0-110.0 H BLOOD UREA NITROGEN (test code = 64 mg/dl 7.0-18.0 H BUN) CREATININE (test code = CREAT) 13.06 mg/dL 0.60-1.30 HH GFR NON BLACK (test code = 4 mL/min 95-105 L GFRNONBLACK) GFR BLACK (test code = GFRBLACK) 5 mL/min 115-127 L TOTAL PROTEIN (test code = PROT) 7.4 GM/DL 6.0-8.1 N ALBUMIN (test code = ALB) 2.8 gm/dL 3.2-4.7 L CALCIUM (test code = CA) 8.2 mg/dl 8.0-10.5 N BILIRUBIN TOTAL (test code = 0.4 mg/dl 0.0-1.0 N BILT) SGOT/AST (test code = AST) 35 Units/L 15.0-37.0 N SGPT/ALT (test code = ALT) 32 Units/L 12.0-78.0 N ALKALINE PHOSPHATASE TOTAL (test 133 Units/L 50.0-136.0 N code = ALKP) [id number] 02:02:00 Test Item Value Reference Range Interpretation Comments LIPASE (test code = LIP) 96 Units/L 65.0-230.0 N B-TYPE NATRIURETIC [id number] 02:02:00 Test Item Value Reference Range Interpretation Comments B-TYPE NATRIURETIC PEPTIDE (test code PG/ML 5-100 = BNP) CARDIAC ENZYMES [id number] 02:02:00 Test Item Value Reference Range Interpretation Comments CREATINE KINASE (CK) 282 Units/L 39-308 N (test code = CK) TROPONIN-I (test code 0.04 NG/ML 0.00-0.06 N REFERE NCE RANGE = TROPI) TROPONIN I HEAL THY INDIVIDUALS: < 0.06 ng/mL R/O ISCHE ADELINA: 0.07 - 0.60 ng/ mL CUT-OFF RANGE F OR AMI: 0.60 - 1. 5 ng/mL COMPREHENSIVE METABOLIC [id number] 01:58:00 Test Item Value Reference Range Interpretation Comments SODIUM (test code = NA) 138 mmol/l 134.0-147.0 N POTASSIUM (test code = K) 4.0 mmol/L 3.6-5.2 N CHLORIDE (test code = CL) 102 mmol/l 98.0-107.0 N CARBON DIOXIDE (test code = CO2) 22.8 mmol/l 21.0-33.0 N ANION GAP (test code = GAP) 17.2 0-20 N GLUCOSE (test code = GLU) mg/dl 70.0-110.0 BLOOD UREA NITROGEN (test code = mg/dl 7.0-18.0 BUN) CREATININE (test code = CREAT) mg/dL 0.60-1.30 GFR NON BLACK (test code = mL/min 95-105 GFRNONBLACK) GFR BLACK (test code = GFRBLACK) mL/min 115-127 TOTAL PROTEIN (test code = PROT) gm/dL 6.4-8.2 ALBUMIN (test code = ALB) gm/dl 3.2-4.7 CALCIUM (test code = CA) mg/dl 8.0-10.5 BILIRUBIN TOTAL (test code = mg/dl 0.0-1.0 BILT) SGOT/AST (test code = AST) Units/L 15.0-37.0 SGPT/ALT (test code = ALT) Units/L 12.0-78.0 ALKALINE PHOSPHATASE TOTAL (test Units/L 50.0-136.0 code = ALKP) [id number] 01:58:00 Test Item Value Reference Range Interpretation Comments LIPASE (test code = LIP) Units/L 65.0-230.0 B-TYPE NATRIURETIC [id number] 01:58:00 Test Item Value Reference Range Interpretation Comments B-TYPE NATRIURETIC PEPTIDE (test code PG/ML 5-100 = BNP) CARDIAC ENZYMES [id number] 01:58:00 Test Item Value Reference Range Interpretation Comments CREATINE KINASE (CK) (test code = Units/L 39-308 CK) TROPONIN-I (test code = TROPI) NG/ML 0.00-0.06 PROTHROMBIN [id number] 01:53:00 Test Item Value Reference Range Interpretation Comments PROTHROMBIN TIME 12.1 SECONDS 9.9-12.8 N PATIENT (test code = PTP) INTERNATIONAL NORMAL 1.0 0.89-1.14 N THE INR IS TO BE USED RATIO (test code = ONLY FOR MONITORING INR) ORAL ANTICOAGULANTTH ERAPY. THE FOLLOWING A RE SUGGESTED RANGE S FROM [facility]ST PHYSICIANS:SASCHA CATION INR VALUEPROPHYLAXI S OF VENOUS THROMBOS IS (ORTHOPEDIC LUISITO LEVI) 2.0 - 3.0PROP HYLAXIS OF VENOUS THROM BOSIS (OTHER THAN HIG H-RISK SURGERY) 2.0 - 3.0TRE ATMENT OF DEEP VEIN THROMBOSIS OR PULMONARY EMBOL ISM 2.0 - 3.0PREV ENTION OF SYSTEMIC EMB OLISM TISSUE HEART VA LVES 2.0 - 3.0 AC [place] MYOCARDIAL INFA RCTION (TO PREVENT SYSTEMIC EMBOLI SM) 2.0 - 3.0 ACUTE MYOCARDIA L INFARCTION (TO PREVENT RECURRE NT INFARCT) 2.5 - 3.0 VALV ULAR HEART DISEASE 2.0 - 3.0 ATRIAL FIBRILATION 2.0 - 3.0BILEAFLET MECHANICAL VALV E IN AORTIC POSITION 2.0 - 3.0MECHAN ICAL PROSTHETIC VALV ES (HIGH RISK) 2.5 - 3.5PRESEN CE OF LUPUS ANTICOAGU LANT OR ANTIPHOSPHOLIP ID ANTIBODIES 2.5 - 3 .5 THROMBOPLASTIN TIME [id number] 01:53:00 Test Item Value Reference Range Interpretation Comments THROMBOPLASTIN TIME 37.90 SECONDS 25.86-36.07 [facility] PARTIAL (test code = Therape utic Range - PTT) APTT of 55.8-85 .4 secondscorrelat es with plasma heparin concentration o f 0.2-0.4 u/mL Ne w range effective - CBC W/AUTO [id number] 01:48:00 Test Item Value Reference Range Interpretation Comments WHITE BLOOD CELL (test code = 13.4 K/mm3 4.5-11.0 H WBC) RED BLOOD CELL (test code = 4.39 M/mm3 4.40-5.90 L RBC) HEMOGLOBIN (test code = HGB) 12.5 gm/dL 13.0-17.0 L HEMATOCRIT (test code = HCT) 38.1 % 36.0-48.0 N MEAN CELL VOLUME (test code = 86.8 UM3 80.0-94.0 N MCV) MEAN CELL HGB (test code = MCH) 28.5 UUG 25.5-32.5 N MEAN CELL HGB CONCETRATION 32.8 gm/dL 29.0-35.5 N (test code = MCHC) RED CELL DISTRIBUTION WIDTH 17.9 % 11.5-15.0 H (test code = RDW) RED CELL DISTRIBUTION WIDTH SD 55.6 fL 34.8-50.2 H (test code = RDW-SD) PLATELET COUNT (test code = 258 K/mm3 150-400 N PLT) MEAN PLATELET VOLUME (test code 11.0 fl 7.4-10.4 H = MPV) NEUTROPHIL % (test code = NT%) 82.6 % 49.0-76.0 H IMMATURE GRANULOCYTE % (test 0.5 % 0.0-0.4 H code = IG%) LYMPHOCYTE % (test code = LY%) 7.7 % 23.0-38.0 L MONOCYTE % (test code = MO%) 6.6 % 1.0-10.0 N EOSINOPHIL % (test code = EO%) 2.2 % 1.0-5.0 N BASOPHIL % (test code = BA%) 0.4 % 0.0-1.0 N NEUTROPHIL # (test code = NT#) 11.1 K/mm3 2.4-6.3 H IMMATURE GRANULOCYTE # (test 0.07 x10 3/uL 0.00-0.07 N code = IG#) LYMPHOCYTE # (test code = LY#) 1.0 K/mm3 1.2-4.0 L MONOCYTE # (test code = MO#) 0.9 K/mm3 0.0-0.6 H EOSINOPHIL # (test code = EO#) 0.3 K/MM3 0.0-0.7 N BASOPHIL # (test code = BA#) 0.1 K/mm3 0.0-0.2 N
--- OUTSIDE RECORDS SUMMARY | 2020-04-30 15:49 | XMS REPORT | Summary of Care ---
:1970 Author Organization [facility] Address [address] [place] [id number] Care Team Providers Name Role Phone DO John Paul Primary Care Provider Reason for Visit Reason Comments Pre-Transplant New Evaluation Encounter Details Date Type Department Care Team Description 01/22/2020 Telemedicine Visit [facility] Moody Ortiz mmad, MD [address] [place], [place] [id number] Pre-transplant [facility] Kiya Byrnes MD [address] [facility] [id number] [place], [place] [address] evaluation for [facility] ESRD (end stage [address] [facility] renal dise ase) [place], Entrance B (Primary Dx) [place] [id number] Allergies No Known Allergiesdocumented as of this encounter (statuses as of 02/12/2020) Medications Medication Sig Dispensed Refills Start Date End Date Status aspirin 81 mg chewable Take 81 mg by 0 Active tablet mouth daily. magnesium oxide 400 mg Take by mouth 2 0 Active capsule (two) times daily. Nut.Tx.Gluc.Intol,Lac- Take 1 Can by 90 Can 5 06/14/2018 Active Free,Soy (GLUCERNA 1.2 mouth 3 (three) SYLVAIN) liquid times daily before meals. atorvastatin 40 mg Take 1 tablet by 30 tablet 0 08/15/2018 Active tabletIndications: mouth at bedtime. Essential hypertension colchicine 0.6 mg Take 0.5 tablets 14 tablet 0 08/24/2018 Active tabletIndications: by mouth 2 (two) ESRD (end stage renal times weekly on disease) on dialysis Tuesday and . calcium acetate 667 mg Take 1 capsule by 90 capsule 0 08/23/19 19 Active capsuleIndications: mouth 3 (three) ESRD (end stage renal times daily with disease) on dialysis meals. carvedilol 6.25 mg Take 1 tablet by 60 tablet 2 08/23/2018 Active tabletIndications: mouth 2 (two) Hypertension, times daily with unspecified type meals. acetaminophen-codeine Take 1 tablet by 14 tablet 0 08/23/2018 Active 300-30 mg mouth every 6 tabletIndications: (six) hours as Idiopathic gout of needed for Pain right hand, (scale 4-6). unspecified chronicity amLODIPine 10 mg Take 1 tablet by 30 tablet 2 08/24/2018 Active tabletIndications: mouth daily. Hypertension, unspecified type, ESRD (end stage renal disease) on dialysis Lancets Please check 100 Each 10 08/23/2018 Active MiscIndications: blood sugar 3 Controlled type 2 times a day diabetes mellitus with chronic kidney disease on chronic dialysis, without long-term current use of insulin ondansetron 4 mg Take 4 mg by 0 Active tablet mouth every 8 (eight) hours as needed for Nausea and Vomiting (N/V). metoprolol succinate Take 25 mg by 0 Active XL 25 mg 24 hr tablet mouth daily. NIFEdipine ER 60 mg Take 60 mg by 0 Active tablet mouth 2 (two) times daily. loratadine 10 mg Take 10 mg by 0 Active tablet mouth daily. multivitamin with iron Take 1 tablet by 0 Active (DAILY LEISA WITH IRON mouth daily. ORAL) documented as of this encounter (statuses as of 02/12/2020) Active Problems Problem Noted Date Hypertensive urgency 08/16/2018 documented as of this encounter (statuses as of 02/12/2020) Immunizations Name Administration Dates Next Due HEPLISAV HEP B, ADULT 2 DOSE, IM 12/30/2018, 09/26/2018 Influenza Virus Vaccine Quad .5 mL IM 6+ MO 06/14/2018 Pneumococcal Polysaccharide, PPSV23 (PNEUMOVAX) 06/14/2015 Synagis 08/24/2018 documented as of this encounter Social History Tobacco Use Types Packs/Day Years Used Date Current Every Day Smoker Cigarettes Smokeless Tobacco: Never Used Alcohol Use Drinks/Week oz/Week Comments Yes occasional beer Sex Assigned at Date Recorded Not on file Job Start Date Occupation Industry Not on file Not on file Not on file Travel History Travel Start Travel End No recent travel history available. COVID-19 Exposure Response Date Recorded In the last month, have you been in contact with No / Unsure 01/22/2020 9:06 AM CDT someone who was confirmed or suspected to have Coronavirus / COVID-19? documented as of this encounter Last Filed Vital Signs Not on filedocumented in this encounter Progress Notes Lainey Palacio RN - 01/22/2020 8:00 AM CDTTELEHEALTH NOTE Verbal consent obtained from Patient: Placido Vázquez due to the COVID-19 pandemic for telehealth services provided below. Communication with patient was conducted via Video Call. Location of Patient: Home Location of Provider: Office Date of Service: 10/31/2019 Chief Complaint: for kidney transplant evaluation Placido Vázquez is a 49 year old male with a h/o ESKD 2/2 DM 2,HTN a alert/oriented x 3, ambulatory, on hemodialysis since 08/19/2018 on MWF schedule @ [facility] under the care of Pre-transplant education was done today using preferred verbal method, supplemented with transplant literatures and other written materials, including a copy of the latest available 2019 SRTR data. Second coordinator witnessed and confirmed patient's understanding of all consents. The following is a summary of the topics discussed: The pre-transplant evaluation process: Test and procedures required Presentation to the Multidisciplinary Selection Committee Listing The indications and selection criteria for Kidney and/or Pancreas transplant The benefits and potential risks/complications of kidney and/or pancreas transplantation Kidney Allocation, Types of Donors and donor related risk factors Living donation Multi-listing including wait time transfer. How to stay healthy while on the list and waiting for the transplant. The organ offer: Procedure and Expectations How to obtain more transplant related information on-line at www.unos.org or at www.srtr.org and other sites. Patient was given opportunities to ask questions. Patient showed interest to learn. Patient demonstrated adequate knowledge and comprehension about the evaluation and transplant processes. Consent for the transplant evaluation was obtained. A consent to receive or not receive a donor withdney Donor Profile Index (KDPI) >85% was also obtained. Patient was seen in telehealthclinic today by the Transplant Team for initial pre-transplant evaluation. Medical history, allergies, medications and ROS were updated and reviewed. Patient has a potential living donors. Patient is eager to proceed with the evaluation and to get onthe list. Patient appears to be an acceptable candidate pending completion of all the required tests. Review of Systems General:within normal limits Skin: within normal limits Eyes: within normal limits Ears/Nose/Throat: within normal limits Cardiovascular: within normal limits Respiratory: within normal limits Upper Gastrointestinal: within normal limits Lower Gastrointestinal: within normal limits Genitourinary: urinary output:minimal to no urine output no prostate problems Musculoskeletal: within normal limits Extremities: within normal limits Neuro: within normal limits Dental:denies any issues Blood transfusions:yes Karnofsky Performance Status 100% Normal; no complaints; no evidence of disease A total of 53 minutes was spent on the Video Call with the patient. Kiya Gerard MD - 01/22/2020 8:00 AM CDT TELEHEALTH NOTE Verbal consent obtained from Patient: Placido Vázquez due to the COVID-19 pandemic for telehealth services provided below. Communication with patient was conducted via Video Call. Location of Patient: Home Location of Provider: Clinic Date of Service: 01/22/2020 Kidney Transplant Evaluation Note Name: Placido Vázquez Age: [age] year old Date of Service: 01/22/2020 12:37 Reason for Consult: Kidney Transplant Evaluation Consulting Physician: Dr. Jackson Fax Number: Chief Complaint: I want to be considered for a kidney transplant Medical History includes: ESKD due to DM, HTN Currently dialyzes via left arm AVF Dialysis procedure is in-center HD Blood pressure is being managed at the dialysis unit Metabolic bone disease - is being managed at the dialysis unit Anemia of CKD - being managed at the dialysis unit Diabetes control - good as per patient. He is not on any medications. Patient has lost about 100 lbs unintentionally. He was at a [facility] 3 months ago for hypotension and generalized feeling of being unwell. He also had diarrhea, nausea. No endoscopies done. He saw a GI doctor though and is unclear about the diagnosis. He uses medical marijuana for neuropathy He is listed at [facility] Active cardiac symptoms: No [ Active conditions include unstable coronary syndromes (eg, unstable angina, severe angina, or recent DE), decompensated heart failure, significant arrhythmias, and severe valvular disease.] Past Medical History: Diagnosis Date Asbestos exposure 1993 Diabetes 1988 Diabetic neuropathy ESRD (end stage renal disease) on dialysis Family problems Please do not schedule the patient and his for the same time slot Gout HTN (hypertension) Obesity Tobacco abuse Past Surgical History: Procedure Laterality Date FOOT ORIF (SHX) HB INJ THERAPEUTIC CARPAL TUNNEL Social History Socioeconomic History Marital status: Spouse name: Not on file Number of children: Not on file Years of education: Not on file Highest education level: Not on file Occupational History Not on file Social Needs Financial resource strain: Not on file Food insecurity: Worry: Not on file Inability: Not on file Transportation needs: Medical: Not on file Non-medical: Not on file Tobacco Use Smoking status: Current Every Day Smoker Types: Cigarettes Smokeless tobacco: Never Used Substance and Sexual Activity Alcohol use: Yes Comment: occasional beer Drug use: Yes Types: Marijuana Sexual activity: Yes Partners: Female Lifestyle Physical activity: Days per week: Not on file Minutes per session: Not on file Stress: Not on file Relationships Social connections: Talks on phone: Not on file Gets together: Not on file Attends voodoo service: Not on file Active member of club or organization: Not on file Attends meetings of clubs or organizations: Not on file Relationship status: Not on file Intimate partner violence: Fear of current or ex partner: Not on file Emotionally abused: Not on file Physically abused: Not on file Forced sexual activity: Not on file Other Topics Concern Not on file Social History Narrative Not on file FH is non-contributory to patient's chief complaint Current Outpatient Medications Medication Sig Dispense Refill loratadine 10 mg tablet Take 10 mg by mouth daily. metoprolol succinate XL 25 mg 24 hr tablet Take 25 mg by mouth daily. multivitamin with iron (DAILY LEISA WITH IRON ORAL) Take 1 tablet by mouth daily. NIFEdipine ER 60 mg tablet Take 60 mg by mouth 2 (two) times daily. ondansetron 4 mg tablet Take 4 mg by mouth every 8 (eight) hours as needed for Nausea and Vomiting (N/V). acetaminophen-codeine 300-30 mg tablet Take 1 tablet by mouth every 6 (six) hours as needed for Pain (scale 4-6). 14 tablet 0 amLODIPine 10 mg tablet Take 1 tablet by mouth daily. 30 tablet 2 calcium acetate 667 mg capsule Take 1 capsule by mouth 3 (three) times daily with meals. 90 capsule 0 carvedilol 6.25 mg tablet Take 1 tablet by mouth 2 (two) times daily with meals. 60 tablet 2 colchicine 0.6 mg tablet Take 0.5 tablets by mouth 2 (two) times weekly on Tuesday and . 14 tablet 0 Lancets [facility] Please check blood sugar 3 times a day 100 Each 10 atorvastatin 40 mg tablet Take 1 tablet by mouth at bedtime. 30 tablet 0 aspirin 81 mg chewable tablet Take 81 mg by mouth daily. magnesium oxide 400 mg capsule Take by mouth 2 (two) times daily. Nut.Tx.Gluc.Intol,Lac-Free,Soy (GLUCERNA 1.2 SYLVAIN) liquid Take 1 Can by mouth 3 (three) times daily before meals. 90 Can 5 No current facility-administered medications for this visit. No Known Allergies ROS: Reviewed by coordinator and accepted by me. Living Donors: None identified at this moment. TELEHEALTH EXAM AAO x 3, NAD, appears comfortable BP normal as per patient Abdomen soft, non-tender No edema DATA: I have ordered (or reviewed) the following lab panels: CBC Metabolic Panel Viral titers of common infections (CMV, EBV and Varicella) Tests to evaluate uncommon infections (HIV, Hepatitis B, Hepatitis C and Syphilis) Panel Reactive Antibody Titer I have ordered (or reviewed) the following tests: Transthoracic Echocardiogram Cardiac Stress Test/Dobutamine Stress Echo Age appropriate cancer screening tests I have discussed this case with our transplant surgeons. I have reviewed relevant old records on this case. I had the opportunity to talk to Placido Vázquez about the following 1. Reasons to perform a kidney transplant including longevity of life and improved quality of life 2. Types of kidney donors including living and . 3. Types of donors including Standard Expanded Criteria Donation after Cardiac CDC high risk Donors with previous exposure to Hepatitis B (if vaccinated for HBV) 4. The average survival of and wait time to receive each type of kidney 5. The operative procedure and the inpatient hospitalization. 6. Short-term and long-term complications of kidney transplant surgery 7. Short-term and long-term follow up that is needed to maintain a healthy kidney transplant state 8. The complications of immunosuppression including infections and cancers 9. The fact that kidney transplant is performed only to treat end-stage kidney disease. Placido Reid Vázquez asked questions indicating a good level of understanding. This case will be presented and discussed at the multidisciplinary meeting and a decision will be made regarding the status. Additional Notes: 1. Transplant eligibility: Patient appears to be an acceptable candidate. 2. Additional work up: Obtain testing from [facility]. He will need a cardiac cath if not done due to DM. 3. I have also described to the patient the necessity to adhere to an exercise protocol and continueto stay healthy (and lose weight if appropriate), so that they have a better cardiovascular risk profile at the time of transplantation. 4. I have also discussed that all patients undergo a thorough evaluation again as an inpatient at the time of transplantation. If there are any tests that are outstanding (especially cardiac work up and age appropriate cancer screening tests), there is a possibility that the transplant procedure couldbe cancelled. 5. It is also sometimes possible that patients who are not the intended recipients of a particular donor kidney could be called in as back-up, and if the transplant works out with the intended recipient, then the back-up person would be sent home without being transplanted. Please fax this note to the Consulting Physician. After visit summary (AVS ) documentation will be available through [facility] for this encounter. A total of 30 minutes was spent on the Video Call, chart review, and coordination of care with specialists. Kiya Byrnes MD documented in this encounter Plan of Treatment Health Maintenance Due Date Last Done Comments DTaP,Tdap,and Td Vaccines (1 02/28/1980 - Tdap) Depression Screening 1981 COLONOSCOPY 2019 Zoster Recombinant Vaccine 2019 (SHINGRIX) (1 of 2) INFLUENZA VACCINE (#1) 2020 06/14/2018, 06/01/2016, 04/30/2015 PNEUMOCOCCAL 0-64 YEARS Aged Out 06/14/2015 No longe r eligible based COMBINED SERIES on patient's age to complete this to pic documented as of this encounter Goals Goal Patient Goal Associated Recent Patient-Stated? Author Type Problems Progress Quit using Tobacco Use No Deondre tobacco penBrenna (cigarettes, A, MA smokeless, etc) documented as of this encounter Results Not on filedocumented in this encounter Visit Diagnoses Diagnosis Pre-transplant evaluation for ESRD (end stage renal disease) - Primary Other specified pre-operative examinatio n documented in this encounter Insurance Payer Benefit Plan / Subscriber ID Effective Phone Address T e Group Dates [facility] [id number] 2018-Pres [facility]ALTHCARE ent Adv HM O MANAGED DUAL COMPLETE MEDICARE HMO [facility] MEDICAID OF xxxxxxxxx 2014-Pres [phone] [address] [facility] [id number] [place] [address] documented as of this encounter
--- OUTSIDE RECORDS SUMMARY | 2020-04-30 15:50 | XMS REPORT | Summary of Care ---
:1970 Author Organization [facility] - [facility] Address [address] [place] [address] Care Team Providers Name Role Phone DO John Paul Primary Care Provider Reason for Visit Reason Comments Blood Draw Encounter Details Date Type Department Care Team Description 04/01/2020 Design Quality Engineer Visit LAB SERVICES AT [facility] Sagar Ortiz MD [address] [place] [address] End stage renal disease; MULTISPECIALTY [facility] Pre-transplant evaluation for kidney tra nsplant; [address] [facility] Other spec ified [place] [address] Allergies No Known Allergiesdocumented as of this encounter (statuses as of 04/01/2020) Medications Medication Sig Dispensed Refills Start Date [...] as of this encounter (statuses as of 04/01/2020) Active Problems Problem Noted Date Hypertensive urgency 08/16/2018 documented as of this encounter (statuses as of 04/01/2020) Immunizations Name Administration Dates Next Due HEPLISAV [...] Assigned at Date Recorded Not on file documented as of this encounter Last Filed Vital Signs Not on filedocumented in this encounter Nursing Notes Shelley Garay - 04/01/2020 9:45 AM CDT Venipuncture collection performed by clean technique on the back of right hand. Total of 1 attempts were made. Slight pressure and a bandage/dressing were applied to the site(s). The patient experienced no complications. The following specimens were processed according to instructions and sent to [facility] per lab order on 04/01/2020: LT BLUE 1 SST 8 RED 1 LAV 4 PPT DK GREEN (LiHep) 1 DK GREEN (SodH) MORENO 1 DK BLUE (K2) DK BLUE (S) ACD 5 Blood Culture NIPT/NTD documented in this encounter Plan of Treatment Name Type Priority Associated Diagnoses Date/Ti me QUANTIFERON-TB GOLD LAB Routine End stage re nal disease 04/01/2020 10:32 AM Pre-transplant CDT evaluation for kidney transplant Other specified pre-operative examination Prostatic Specific Antigen LAB Routine End s tage renal disease 04/01/2020 10:32 AM (PSA) Pre-transplant CDT evaluation for kidney transplant Other specified pre-operative examination Serum Protein LAB Routine End stage renal disease 04/01/2020 10:32 AM Electrophoresis - Age > 40 Pre-transplant CDT years old or UA w/+ evaluation for kidney protein. transplant Other specified pre-operative examination Thyroid Stimulating Hormone LAB Routine End stage renal disease 04/01/2020 10:32 AM (TSH) Pre-transplant CDT evaluation for kidney transplant Other specified pre-operative examination VZV Antibody Screen LAB Routine End stage re nal disease 04/01/2020 10:32 AM Pre-transplant CDT evaluation for kidney transplant Other specified pre-operative examination GALV ONLY - SYPHILIS LAB Routine Pre-transplant 04/01 10:32 AM IGG/IGM evaluation for kidney CDT transplant Other specified pre-operative examination End stage renal disease HSV 1 and 2 Glycoprotein G LAB Routine End s tage renal disease 04/01/2020 10:32 AM IGG Pre-transplant CDT evaluation for kidney transplant Other specified pre-operative examination Toxoplasma IGG Antibody LAB Routine End stag e renal disease 04/01/2020 10:32 AM Pre-transplant CDT evaluation for kidney transplant Other specified pre-operative examination Kathy- Moreno Virus (EBV) LAB Routine End st age renal disease 04/01/2020 10:32 AM Antibody IGG Pre-transplant CDT evaluation for kidney transplant Other specified pre-operative examination Cytomegalovirus (CMV) LAB Routine End stage renal disease 04/01/2020 10:32 AM Antibody IGG Pre-transplant CDT evaluation for kidney transplant Other specified pre-operative examination HIV 1/2 AG-AB WITH REFLEX LAB Routine End st age renal disease 04/01/2020 10:32 AM Pre-transplant CDT evaluation for kidney transplant Other specified pre-operative examination HAV Antibody (IGG & IGM) LAB Routine End sta ge renal disease 04/01/2020 10:32 AM Pre-transplant CDT evaluation for kidney transplant Other specified pre-operative examination HCV Antibody LAB Routine End stage renal disease 04/01/2020 10:32 AM Pre-transplant CDT evaluation for kidney transplant Other specified pre-operative examination HBC Antibody (IGM & IGG) LAB Routine End sta ge renal disease 04/01/2020 10:32 AM Pre-transplant CDT evaluation for kidney transplant Other specified pre-operative examination Hepatitis B Surface LAB Routine End stage re nal disease 04/01/2020 10:32 AM Antibody Pre-transplant CDT evaluation for kidney transplant Other specified pre-operative examination Hepatitis B Surface Antigen LAB Routine End stage renal disease 04/01/2020 10:32 AM Pre-transplant CDT evaluation for kidney transplant Other specified pre-operative examination Glycosylated Henoglobin LAB Routine End stag e renal disease 04/01/2020 10:32 AM (A1C) Pre-transplant CDT evaluation for kidney transplant Other specified pre-operative examination Misc. Sendout- Drugs of LAB Routine End stag e renal disease 04/01/2020 10:32 AM Abuse 9 Panel, Serum or Pre-transplant CD T Plasma -[facility] [place]# :[id number] evaluation for ki dney (Screen with Reflex to transplan t Confirmation/Quantitation) Other specifie d pre-operative examination Lipid Panel (Total LAB Routine End stage london al disease 04/01/2020 10:32 AM Cholesterol, Triglycerides, Pre-transplan t CDT HDL) evaluation for kidney transplant Other specified pre-operative examination Intact PTH Calcium Group LAB Routine End sta ge renal disease 04/01/2020 10:32 AM Pre-transplant CDT evaluation for kidney transplant Other specified pre-operative examination Amylase, Serum LAB Routine End stage renal disease 04/01/2020 10:32 AM Pre-transplant CDT evaluation for kidney transplant Other specified pre-operative examination Lipase, Serum LAB Routine End stage renal disease 04/01/2020 10:32 AM Pre-transplant CDT evaluation for kidney transplant Other specified pre-operative examination Complete Metabolic Panel LAB Routine End sta ge renal disease 04/01/2020 10:32 AM Pre-transplant CDT evaluation for kidney transplant Other specified pre-operative examination aPTT LAB Routine End stage renal disease 04/01/2020 10:32 AM Pre-transplant CDT evaluation for kidney transplant Other specified pre-operative examination Prothrombin Time / INR LAB Routine End stage renal disease 04/01/2020 10:32 AM Pre-transplant CDT evaluation for kidney transplant Other specified pre-operative examination CBC with Differential LAB Routine End stage renal disease 04/01/2020 10:32 AM Pre-transplant CDT evaluation for kidney transplant Other specified pre-operative examination C-Peptide, Serum or Plasma LAB Routine End s tage renal disease 04/01/2020 10:32 AM Pre-transplant CDT evaluation for kidney transplant Other specified pre-operative examination Health Maintenance Due Date Last Done Comments Depression Screening 1981 DTaP,Tdap,and Td Vaccines (1 - 02/28/1988 Tdap) COLON CANCER SCREENING ANNUAL 2019 FIT/FOBT COLON CANCER SCREENING FIT DNA 2019 EVERY 3 YEARS COLON CANCER SCREENING 2019 SIGMOIDOSCOPY EVERY 5 YEARS COLONOSCOPY 2019 Colorectal Cancer Screening 2019 Zoster Recombinant Vaccine 2019 (SHINGRIX) (1 of 2) INFLUENZA VACCINE (#1) 2020 06/14/2018, 06/01/2016, 04/30/2015 PNEUMOCOCCAL 0-64 YEARS Aged Out 06/14/2015 No longe r eligible based COMBINED SERIES on patient's age to complete this to [facility] documented as of this encounter Goals Goal Patient Goal Associated Recent Patient-Stated? Author Type Problems Progress Quit using Tobacco Use No Deondre tobacco Brenna rivers (cigarettes, A, MA smokeless, etc) documented as of this encounter Results Not on filedocumented in this encounter Visit Diagnoses Diagnosis End stage renal disease Pre-transplant evaluation for kidney tra nsplant Other specified pre-operative examinatio n documented in this encounter Insurance Payer Benefit Plan / Subscriber ID Effective Phone Address T e Group Dates [facility] [id number] 2018-Pres Medica re Adv HEALTHCARE - HEALTHCARE ent HMO MANAGED DUAL COMPLETE MEDICARE HMO [employer] [id number] 2018-Pre [address] Medicaid [place] sent [id number] [place] [address] documented as of this encounter
--- OUTSIDE RECORDS SUMMARY | 2020-04-30 15:50 | XMS REPORT | Summary of Care ---
:1970 Author Organization [facility] Address [address] [place] [address] Care Team Providers Name Role Phone DO John Paul Primary Care Provider Reason for Visit Reason Comments Pre Evaluation Lab draw. Encounter Details Date Type Department Care Team Description 03/10/2020 Case Management [facility] Transplant- Fitz, Pre Evaluation (Lab [place] Kiya Akers MD draw.) Multispecialty Ctr [address] [facility] [address] [facility], [id number] [place] [address] Allergies No Known Allergiesdocumented as of this encounter (statuses as of 03/10/2020) Medications Medication Sig Dispensed Refills Start Date [...] as of this encounter (statuses as of 03/10/2020) Active Problems Problem Noted Date Hypertensive urgency 08/16/2018 documented as of this encounter (statuses as of 03/10/2020) Immunizations Name Administration Dates Next Due HEPLISAV [...] on filedocumented in this encounter Progress Notes Floridalma Farrar RN - 03/10/2020 3:42 PM CDTI spoke to patient to see what day and time he can come to [facility] for his kidney transplant evaluationstanding orders to be drawn. Patient can come March at 1 pm . He will go to the [place] [facility]. I will have an appointment made for him. documented in this encounter Plan of Treatment [...] on patient's age to complete this to [facility] documented as of this encounter Goals Goal Patient Goal Associated Recent Patient-Stated? Author Type Problems Progress Quit using Tobacco Use No Deondre tobacco Brenna rivers (cigarettes, A, MA smokeless, etc) documented as of this encounter Results Not on filedocumented in this encounter Insurance Payer Benefit Plan / Subscriber ID Effective Phone Address T ype Group Dates [facility] [id number] 2018-Pres Medica re Adv HEALTHCARE - HEALTHCARE ent HMO MANAGED DUAL COMPLETE MEDICARE [facility] [id number] 2018-Pres Medica re Adv HEALTHCARE - HEALTHCARE ent PPO MANAGED DUAL COMPLETE MEDICARE [employer] [id number] 2018-Pre P O BOX Medicaid [facility] sent [id number] [place] [address] documented as of this encounter
--- OUTSIDE RECORDS SUMMARY | 2020-04-30 15:50 | XMS REPORT | Summary of Care ---
:1970 Author Organization [facility] - [facility] Address [address] [place] [address] Care Team Providers Name Role Phone DO John Paul Primary Care Provider Encounter Details Date Type Department Care Team Description 02/15/2020 Orders Only [facility] Doctor Unassigned, No [address] [facility] [place] [address] [address] [place] [address] Allergies No Known Allergiesdocumented as of this encounter (statuses as of 03/03/2020) Medications Medication Sig Dispensed Refills Start Date [...] as of this encounter (statuses as of 03/03/2020) Active Problems Problem Noted Date Hypertensive urgency 08/16/2018 documented as of this encounter (statuses as of 03/03/2020) Immunizations Name Administration Dates Next Due HEPLISAV [...] Assigned at Date Recorded Not on file COVID-19 Exposure Response Date Recorded In the last month, have you been in contact with No / Unsure 01/22/2020 9:06 AM CDT someone who was confirmed or suspected to have Coronavirus / COVID-19? documented as of this encounter Last Filed Vital Signs Not on filedocumented in this encounter Plan of Treatment Date Type Specialty Care Team Description 03/04/2020 Office Visit Orthopedic Surgery Chuck Woodard, SHIPPING ASSOCIATE [address] [facility] [address] [place] [address] [phone] Health Maintenance Due Date Last Done Comments [...] on patient's age to complete this to [facility] documented as of this encounter Goals Goal Patient Goal Associated Recent Patient-Stated? Author Type Problems Progress Quit using Tobacco Use No Deondre tobacco pen, Brenna (cigarettes, A, MA smokeless, etc) documented as of this encounter Procedures Procedure Name Priority Date/Time Associated Diagnosis Comme nts TRANSPLANT/EXT PROVIDER Routine 02/15/2020 12:01 AM CDT LAB/PATHOLOGY documented in this encounter Results Not on filedocumented in this encounter Insurance Payer Benefit Plan / Subscriber ID Effective Phone Address T ype Group Dates [facility] [id number] 2018-Pres Medica re HEALTHCARE - HEALTHCARE ent Adv HM O MANAGED DUAL COMPLETE MEDICARE HMO [facility] [id number] 2018-Pres Medica re HEALTHCARE - HEALTHCARE ent Adv PP O MANAGED DUAL COMPLETE MEDICARE TM MEDICAID OF [id number] 2014-02/23 [phone] [address] Medi caid /2019 [id number] [place] [address] [employer] [id number] 2018-Pre P O BOX Medicaid [place] sent [id number] [place] [address] documented as of this encounter
--- OUTSIDE RECORDS SUMMARY | 2020-04-30 15:50 | XMS REPORT | Summary of Care ---
:1970 Author Organization [facility] Address [address] [place] [address] Care Team Providers Name Role Phone DO John Paul Primary Care Provider Encounter Details Date Type Department Care Team Description 03/04/2020 Abstract [facility] Orthopaedic Ana Woodard FNP Low back pain, Surgery- [address] un specified back pain [facility] laterality, unspecified [address] [place] [address] [facility] Andrew 1.211 chronicity, unspecified [facility] [place] whether s ciatica [phone] present (Primary Dx) [phone] Allergies No Known Allergiesdocumented as of this encounter (statuses as of 03/04/2020) Medications Medication Sig Dispensed Refills Start Date [...] as of this encounter (statuses as of 03/04/2020) Active Problems Problem Noted Date Hypertensive urgency 08/16/2018 documented as of this encounter (statuses as of 03/04/2020) Immunizations Name Administration Dates Next Due HEPLISAV [...] filedocumented in this encounter Plan of Treatment Name Type Priority Associated Diagnoses Order S chedule XR LUMBAR SPINE 2 VW IMAGING Routine Low back pain, Expec zakiya: 03/04/2020, unspecified back pain s: 03/05/2020 laterality, unspecified chronicity, unspecified whether sciatica present Health Maintenance Due Date Last Done Comments [...] on patient's age to complete this to [facility] documented as of this encounter Goals Goal Patient Goal Associated Recent Patient-Stated? Author Type Problems Progress Quit using Tobacco Use No Deondre tobacco penBrenna (cigarettes, A, MA smokeless, etc) documented as of this encounter Results Not on filedocumented in this encounter Visit Diagnoses Diagnosis Low back pain, unspecified back pain lat erality, unspecified chronicity, unspecified whether sciatica present - Primary documented in this encounter Insurance Payer Benefit Plan / Subscriber ID Effective Phone Address T ype Group Dates [facility] [id number] 2018-Pres Medica re Adv HEALTHCARE - HEALTHCARE ent HMO MANAGED DUAL COMPLETE MEDICARE [facility] [id number] 2018-Pres Medica re Adv HEALTHCARE - HEALTHCARE ent PPO MANAGED DUAL COMPLETE MEDICARE [employer] [id number] 2018-Pre P O BOX Medicaid [facility] sent [id number] [place] [address] documented as of this encounter
--- OUTSIDE RECORDS SUMMARY | 2020-04-30 15:50 | XMS REPORT | Summary of Care ---
:1970 Author Organization [facility] Address [address] [place] [address] Care Team Providers Name Role Phone DO John Paul Primary Care Provider Reason for Visit Reason Comments Pre-Transplant New Evaluation Encounter Details Date Type Department Care Team Description 01/22/2020 Telemedicine Visit [facility] Moody Ortiz mmad, MD [address] [place], [place] [address] Pre-transplant Trans[place] Kiya Byrnes MD [address] [facility] [id number] [place], [place] [id number] evaluation for Multispecialty Ctr ESRD (end stage [address] [facility] renal dise ase) South, Entrance B (Primary Dx) [place] [address] Allergies No Known Allergiesdocumented as of this encounter (statuses as of 03/06/2020) Medications Medication Sig Dispensed Refills Start Date [...] as of this encounter (statuses as of 03/06/2020) Active Problems Problem Noted Date Hypertensive urgency 08/16/2018 documented as of this encounter (statuses as of 03/06/2020) Immunizations Name Administration Dates Next Due HEPLISAV [...] 100 lbs unintentionally. He was at a [facility] 3 months ago for hypotension and generalized feeling of being unwell. He also had diarrhea, nausea. No endoscopies done. He saw a GI doctor though and is unclear about the diagnosis. He uses medical marijuana for neuropathy He is listed at [facility] No UOP Active cardiac symptoms: No [ Active conditions include unstable coronary syndromes (eg, unstable angina, severe angina, or recent [place]), decompensated heart failure, significant arrhythmias, and severe [...] file Gets together: Not on file Attends shinto service: Not on file Active member of [...] Tuesday and . 14 tablet 0 Lancets [facility] Please check blood sugar 3 times a [...] only to treat end-stage kidney disease. Placido Vázquez asked questions indicating a good level of understanding. This case will be presented and discussed at the multidisciplinary meeting and a decision will be made regarding the status. Additional Notes: 1. Transplant eligibility: Patient appears to be an acceptable candidate. 2. Additional work up: Obtain testing from [facility]. He will need a cardiac [...] (AVS ) documentation will be available through [employer] for this encounter. A total of 30 [...] Type Problems Progress Quit using Tobacco Use Nannette Mendosa tobacco penBrenna (cigarettes, A, MA smokeless, etc) documented as of this encounter Results Not on filedocumented in this encounter Visit Diagnoses Diagnosis Pre-transplant evaluation for ESRD (end stage renal disease) - Primary Other specified pre-operative examinatio n documented in this encounter Insurance Payer Benefit Plan / Subscriber ID Effective Phone Address T ype Group Dates [facility] [id number] 2018-Pres Medica re HEALTHCARE - HEALTHCARE ent Adv HM O MANAGED DUAL COMPLETE MEDICARE HMO [facility] MED[facility] OF [id number] 2014-02/23 [phone] [address] Medi caid /2019 [id number] [place] [address] [employer] [id number] 2018-Pre P O BOX Medicaid [facility] sent [id number] [place] [address] documented as of this encounter
[2020-04-30 16:04] LABS: Absolute Lymphocytes (CBC) 1.4 K/uL (0.7-4.9); Basophils % 1.7 % (0-1.3); Hematocrit 27.2 % (39.6-49.0); Lymphocytes % 15.1 % (15.3-44.8); MPV 9.9 fL (7.6-11.3); RBC Red Blood Cell Count 2.88 M/uL (4.33-5.43)
[2020-04-30] MEDS ORDERED: PANTOPRAZOLE 40 MG INJ ONE (16:05)
[2020-04-30] MEDS ORDERED: NA CHLORIDE 0.9% 250 ML ONE ×2 (16:05→17:32)
[2020-04-30] MEDS ORDERED: MORPHINE 4 MG/ML SYR ONE (16:05)
[2020-04-30] MEDS ORDERED: ONDANSETRON 4 MG/2 ML VIAL ONE (16:05)
[2020-04-30] MEDS ORDERED: FAMOTIDINE 20 MG/2 ML VIAL IV ONE (16:06)
[2020-04-30] MEDS ORDERED: PROMETHAZINE INJ 25 MG/ML AMP ONE (16:06)
[2020-04-30 16:14] LABS: Protime INR 1.16
--- NOTE | 2020-04-30 16:26 | RAD REPORT ---
EXAM DESCRIPTION: RAD - Chest Single View - 04/30/2020 4:18 pm CLINICAL HISTORY: vomiting COMPARISON: None TECHNIQUE: AP portable chest image was obtained 04/30/2020 4:18 pm . FINDINGS: Lung volumes are relatively low. No peripheral mass or consolidation. Increased interstiti al markings present in each lower lung field with some hazy airspace opacities present as well. Cardi omegaly is present. Vasculature is mildly enlarged. No measurable pleural effusion and no pneumothora x. No acute bony abnormality seen. No acute aortic findings suspected. IMPRESSION: Cardiomegaly with prominent vasculature and lung markings. Correlation is needed with any CHF or volume overload findings. Baseline study does show some patchy interstitial and alveolar lung base opacities. Pneumonia changes are not entirely excluded.
[2020-04-30 16:50] LABS: Albumin 3.4 g/dL (3.4-5.0); Bilirubin Direct 0.4 mg/dL (0-0.2); Protein, Total 9.9 g/dL (6.4-8.2); Troponin (Emerg Dept Use Only) 0.02 ng/mL (0.0-0.045)
[2020-04-30 16:51] LABS: Magnesium 3.2 mg/dL (1.8-2.4); Potassium 3.6 mmol/L (3.5-5.1)
--- NOTE | 2020-04-30 17:01 | RAD REPORT ---
EXAM DESCRIPTION: CT - Abdomen Pelvis Wo Contrast - 04/30/2020 4:34 pm CLINICAL HISTORY: ABD PAIN COMPARISON: No comparisons TECHNIQUE: Axial [address] imaging of the abdomen and pelvis was performed without IV contrast. No IV contrast was given because of allergy, abnormal renal function, patient refusal or physician re quest. No oral contrast given. All CT scans are performed using dose optimization technique as appropriate and may include automated exposure control or mA/KV adjustment according to patient size. FINDINGS: No pericardial thickening or effusion. No consolidation, pneumothorax or pleural effusion. Patient does have hazy alveolar opacities in the lower lung lozano which could be atelectasis or ainsley ma. Alveolar infiltrate is unlikely but not entirely exclude. The liver, spleen and pancreas show no suspicious findings on non-contrast imaging. Gallbladder and b iliary tree are also without suspicious finding. No hydronephrosis or suspicious renal mass. No significant adrenal finding. Isodense renal masses an d pyelonephritis cannot be excluded in the absence of IV contrast. Urinary bladder is fully contracte d limiting assessment. No biliary tree dilatation. No dilated bowel loops or bowel wall thickening. Patient has a hauser diverticulosis pattern most promin ent in the sigmoid colon. In the descending colon there is a minimal amount of stranding adjacent to the colon. No extraluminal air or content. No abscess or other complication. No free air, free fluid or pneumatosis. No mass or bulky lymphadenopathy. No hernia, mass or bulky lymphadenopathy. Disc and bone degenerative changes are present. Findings are most pronounced at L4-5 where there are advanced degenerative changes to the endplates. Patient has L4 pars interarticularis defects with a m inimal amount of L4 anterior subluxation. IMPRESSION: Mild diverticulitis of the descending colon. No free air, abscess or other complicating factor. Very advanced degenerative change at the L4-5 disc level. This involves the endplates and disc. L4 pa rs defects are present with minimal L4 spondylolisthesis. Full assessment is limited is the absence of IV contrast.
[2020-04-30] MEDS ORDERED: PIPER/TAZO/NS 3.375gm 3.375 GM/100 ML BAG ONE (17:21)
[2020-04-30] MEDS ORDERED: METRONIDAZOLE 500mg IVPB 500 MG/100 ML BAG IV ONE (17:32)
--- NOTE | 2020-04-30 17:42 | EDPHYS ---
Physician Documentation [facility] Name: Placido Van Age: 50 yrs Sex: Male : 1970 Arrival Date: 04/30/2020 Time: 15:39 Bed 5 Private MD: ED Physician Yonatan Crabtree HPI: 04/30 16:10 This 50 yrs old Black Male presents to ER via Stretcher with complaints of Nausea, cp Abdominal Pain. 16:10 The patient presents with abdominal pain in the upper abdomen. Onset: The cp symptoms/episode began/occurred 2 day(s) ago. The patient presents to the emergency department with nausea, that is severe, vomiting, that is continuous, started 2 hours ago, described as bilious. Possible causes: unknown. Associated signs and symptoms: Pertinent negatives: diarrhea, fever, chest pain. Historical: - Allergies: 15:42 Neurontin; ss - PMHx: 15:42 HD - //Tue; ss - Immunization history:: Adult Immunizations. - Social history:: Smoking status: . ROS: 16:12 Constitutional: Positive for poor PO intake, Negative for fever. cp 16:12 Cardiovascular: Negative for chest pain, edema, palpitations. 16:12 Respiratory: Negative for cough, shortness of breath, wheezing. 16:12 Abdomen/GI: Positive for abdominal pain, nausea and vomiting, Negative for diarrhea, constipation, black/tarry stool, rectal bleeding. 16:12 Back: Negative for radiated pain. 16:12 Neuro: Negative for altered mental status, headache, loss of consciousness, weakness. 16:12 All other systems are negative. Exam: 16:13 Head/Face: Normocephalic, atraumatic. cp 16:13 Constitutional: The patient appears alert, awake, non-diaphoretic, non-toxic, well developed, well nourished, in obvious distress, uncomfortable. 16:13 Eyes: Periorbital structures: appear normal, Conjunctiva: normal, no exudate, no injection, Sclera: no appreciated abnormality, Lids and lashes: appear normal, bilaterally. 16:13 ENT: External ear(s): are unremarkable, Nose: is normal, Mouth: Lips: moist, Oral mucosa: moist, Posterior pharynx: Airway: no evidence of obstruction, patent. 16:13 Neck: ROM/movement: Meningeal signs: are not present. 16:15 Chest/axilla: Inspection: normal, Palpation: is normal, no crepitus, no tenderness. cp 16:15 Cardiovascular: Rate: tachycardic, Rhythm: regular, Edema: is not appreciated, JVD: is cp not appreciated. 16:15 Respiratory: the patient does not display signs of respiratory distress, Respirations: normal, no use of accessory muscles, no retractions, labored breathing, is not present, Breath sounds: decreased breath sounds, are not appreciated, stridor, is not appreciated, wheezing: is not appreciated. 16:15 Abdomen/GI: Inspection: abdomen appears normal, Bowel sounds: active, all quadrants, Palpation: soft, in all quadrants, severe abdominal tenderness, in the epigastric area, right upper quadrant, left upper quadrant and left lower quadrant, rebound tenderness, is not appreciated, voluntary guarding, is elicited in the right upper quadrant, left upper quadrant and left lower quadrant. 16:15 Back: pain, is absent, ROM is normal. 16:15 Neuro: Orientation: to person, place \T\ time. Mentation: is normal. Vital Signs: 15:40 BP 177 / 75; Pulse 98; Resp 26; Pulse Ox 100% on R/A; Weight 86.18 kg; Height 5 ft. 8 ss in. (172.72 cm); Pain 10/10; 16:00 BP 190 / 103; Pulse 102; Resp 26; Temp 97.4(TE); Pulse Ox 98% ; sv 17:02 BP 162 / 87; Pulse 101 MON; Resp 26; Pulse Ox 87% on R/A; sv 17:59 BP 140 / 82; Pulse 91; Resp 16; Pulse Ox 94% on 5 lpm NC; sv 19:16 BP 150 / 86; Pulse 91; Resp 18; Temp 97.6; Pulse Ox 93% on 4 lpm NC; mg2 15:40 Body Mass Index 28.89 (86.18 kg, 172.72 cm) ss 17:02 Sinus tachycardia with Occasional PVCs sv 17:02 Pt placed on O2 \T\ 3L per NC. O2 sat up to 96% sv MDM: 15:47 Patient medically screened. cp 16:00 Differential diagnosis: appendicitis, diverticulitis, gastroenteritis, appendicitis, cp bowel obstruction, non-specific abd pain, pancreatitis. 17:14 Data reviewed: vital signs, nurses notes, lab test result(s), radiologic studies, CT cp scan, plain films, I have discussed the patient's presentation/case with the attending Emergency Department Physician;. 18:00 Physician consultation: was contacted at 18:00, regarding regarding transfer, [facility] patient's condition, DR Quiroz. 18:00 Counseling: I had a detailed discussion with the patient and/or guardian regarding: the historical points, exam findings, and any diagnostic results supporting the discharge/admit diagnosis, lab results, radiology results, the need to transfer to another facility, unable to perform dialysis at facility due to contaminated local water. 18:00 Response to treatment: the patient's symptoms have markedly improved after treatment. 04/30 15:44 Order name: Basic Metabolic Panel; Complete Time: 16:56 04/30 16:56 Interpretation: Normal except: NA 133; CL 92; GLUC 203; BUN 54; CRE 13.60; GFR 5. 04/30 15:44 Order name: CBC with Diff; Complete Time: 16:34 04/30 16:34 Interpretation: Normal except: RBC 2.88; HGB 9.3; HCT 27.2; RDW 16.6; JHONATHAN% 74.6; LYM% cp 15.1; BASO% 1.7. 04/30 15:44 Order name: LFT's; Complete Time: 16:56 cp 04/30 16:57 Interpretation: Normal except: ALK 176; BILID 0.4; TP 9.9; GLOB 6.5; A/G 0.5. 04/30 15:44 Order name: Magnesium; Complete Time: 16:56 cp 04/30 16:57 Interpretation: Abnormal: MG 3.2. 04/30 15:44 Order name: NT PRO-BNP; Complete Time: 16:56 04/30 16:56 Interpretation: Abnormal: NT PRO-BNP 104858. 04/30 15:44 Order name: PT-INR; Complete Time: 16:34 cp 04/30 15:44 Order name: Troponin (emerg Dept Use Only); Complete Time: 16:56 04/30 16:57 Interpretation: Reviewed. 04/30 15:45 Order name: Type And Screen 04/30 15:45 Order name: Blood Culture Adult (2) cp 04/30 15:45 Order name: Lactate; Complete Time: 17:21 cp 04/30 15:45 Order name: Procalcitonin; Complete Time: 17:03 cp 04/30 17:03 Interpretation: Abnormal: Procalcitonin 40.00. 04/30 15:45 Order name: Lipase; Complete Time: 16:56 cp 04/30 15:53 Order name: COVID-19 04/30 15:53 Order name: Influenza Screen (a \T\ B) 04/30 15:44 Order name: XRAY Chest (1 view); Complete Time: 16:34 04/30 16:35 Interpretation: Report reviewed. 04/30 15:44 Order name: Cardiac monitoring; Complete Time: 16:04 cp 04/30 15:44 Order name: EKG - Nurse/Tech; Complete Time: 19:18 cp 04/30 15:44 Order name: IV Saline Lock; Complete Time: 16:04 cp 04/30 15:45 Order name: CT Abd/Pelvis - Without Contrast; Complete Time: 17:03 04/30 15:58 Order name: Glucose, Ancillary Testing; Complete Time: 16:34 EDMS 04/30 15:45 Order name: Labs collected and sent; Complete Time: 16:04 cp 04/30 15:45 Order name: O2 Per Protocol; Complete Time: 16:04 cp 04/30 15:45 Order name: O2 Sat Monitoring; Complete Time: 16:04 cp Administered Medications: 16:03 Drug: ProTONIX 40 mg Route: IVP; Site: right wrist; sv 17:00 Follow up: Response: No adverse reaction sv 16:03 Drug: Zofran (Ondansetron) 4 mg Route: IVP; Site: right wrist; sv 17:00 Follow up: Response: No adverse reaction sv 16:03 Drug: Pepcid 20 mg Route: IVP; Site: right wrist; sv 17:00 Follow up: Response: No adverse reaction sv 16:04 Drug: morphine 4 mg {Note: rass3.} Route: IVP; Site: right wrist; sv 17:00 Follow up: Response: No adverse reaction; Pain is decreased; RASS: Drowsy (-1) sv 16:44 Drug: NS 0.9% 250 ml Route: IV; Rate: bolus; Site: right wrist; sv 17:07 Follow up: Response: No adverse reaction; IV Status: Completed infusion; IV Intake: sv 250ml 16:44 Drug: Phenergan 12.5 mg Route: IVP; Site: right wrist; sv 17:33 Follow up: Response: No adverse reaction; Marked relief of symptoms; Nausea is decreasedsv 17:30 Drug: metroNIDAZOLE 500 mg Volume: 50 ml; Route: IVPB; Infused Over: 30 mins; Site: vg1 right wrist; 18:30 Follow up: Response: No adverse reaction; IV Status: Completed infusion; IV Intake: sv 100ml 17:31 Drug: NS 0.9% 250 ml Route: IV; Rate: bolus; Site: right wrist; vg1 18:30 Follow up: Response: No adverse reaction; IV Status: Completed infusion; IV Intake: sv 250ml 18:30 Drug: Zosyn 3.375 grams Route: IVPB; Infused Over: 60 mins; Site: right wrist; sv 19:50 Follow up: Response: No adverse reaction; IV Status: Completed infusion; IV Intake: mg2 100ml Disposition: 18:15 Chart complete. cp Disposition: 04/30/20 17:41 Transfer ordered to Other Acute Care Facility. Diagnosis are Nausea and vomiting - intractable, Diverticulitis of large intestine without perforation or abscess without bleeding. - Reason for transfer: Higher level of care. - Accepting physician is DR Quiroz. - Condition is Stable. - Problem is new. - Symptoms have improved. Addendum: 05/02/2020 09:18 Co-signature as Attending Physician, Yonatan Crabtree MD I agree with the assessment and k dr plan of care. Signatures: Dispatcher [employer] Linda Bhagat RN RN sv Rittger, Kevin, MD MD [facility] Tenisha Brown RN RN ss Page, Corey, MARY CARMEN PA cp Ed Hightower RN RN mg2 Kenia New RN RN vg1 Corrections: (The following items were deleted from the chart) 04/30 16:57 16:57 Normal except: ALK 176; BILID 0.4; TP 9.9; GLOB 6.5. cp cp 20:03 17:41 04/30/2020 17:41 Transfer ordered to Other Acute Care Facility. Diagnosis is mg2 Nausea and vomiting - intractable; Diverticulitis of large intestine without perforation or abscess without bleeding. Reason for transfer: Higher level of care. Accepting physician is DR Quiroz. Condition is Stable. Problem is new. Symptoms have improved. cp
--- NOTE | 2020-04-30 17:42 | ER ---
Nurse's Notes [facility] Name: Placido Van Age: 50 yrs Sex: Male : 1970 Arrival Date: 04/30/2020 Time: 15:39 Bed 5 Private MD: Diagnosis: Nausea and vomiting-intractable;Diverticulitis of large intestine without perforation or abscess without bleeding Presentation: 04/30 15:40 Chief complaint: Patient states: nausea, abd pain and fatigue that began 2-3 hours ago. ss Denies fever, cough. Coronavirus screen: Client denies travel out of the [place] in the last 14 days. Ebola Screen: Patient denies exposure to infectious person. Patient denies travel to an Ebola-affected area in the 21 days before illness onset. Initial Sepsis Screen: Does the patient meet any 2 criteria? No. Patient's initial sepsis screen is negative. Does the patient have a suspected source of infection? No. Patient's initial sepsis screen is negative. Risk Assessment: Do you want to hurt yourself or someone else? Patient reports no desire to harm self or others. Onset of symptoms was April 30, 2020. 15:40 Method Of Arrival: Stretcher ss 15:40 Acuity: DYLAN 2 ss Historical: - Allergies: 15:42 Neurontin; ss - PMHx: 15:42 HD - //Tue; ss - Immunization history:: Adult Immunizations. - Social history:: Smoking status: . Screenin:10 Abuse screen: Denies threats or abuse. Denies injuries from another. Nutritional sv screening: No deficits noted. Tuberculosis screening: No symptoms or risk factors identified. Fall Risk None identified. Assessment: 15:35 General: Appears in no apparent distress. uncomfortable, well developed, Behavior is sv fussy, restless. Pain: Complains of pain in abdomen Pain currently is 10 out of 10 on a pain scale. Pain began 3 hours ago. Is intermittent. Neuro: Level of Consciousness is awake, alert, obeys commands, Oriented to person, place, time, situation, Moves all extremities. Full function. Cardiovascular: Rhythm is sinus rhythm Dialysis shunt: in the left arm, with palpable thrill, with no erythema, with no edema, no bleeding noted. Respiratory: Airway is patent Respiratory effort is even, unlabored, Respiratory pattern is regular, symmetrical. Derm: Skin is normal, Skin temperature is cool. Musculoskeletal: Range of motion: intact in all extremities. 15:49 Reassessment: Pt continuously self induces vomiting with his fingers. Pt states, "It ss makes me feel better.". 16:06 Reassessment: Inside lab at the bedside to obtain BC, T\\T\\S, and lactate. sv 16:20 Reassessment: COVID-19 and flu sent to outside lab. sv 17:10 Reassessment: Patient appears in no apparent distress at this time. Patient and/or sv family updated on plan of care and expected duration. Pain level reassessed. Patient is alert, oriented x 3, equal unlabored respirations, skin warm/dry/pink. Patient states feeling better. Patient states symptoms have improved. 17:32 Reassessment: Patient appears in no apparent distress at this time. Patient and/or sv family updated on plan of care and expected duration. Pain level reassessed. Patient is alert, oriented x 3, equal unlabored respirations, skin warm/dry/pink. 19:16 Reassessment: Patient appears in no apparent distress at this time. patient informed mg2 about the waiting time for the EMS to come and pick him up. 20:03 Reassessment: report given to EMS. patient in good condition. IV Intact. mg2 Vital Signs: 15:40 BP 177 / 75; Pulse 98; Resp 26; Pulse Ox 100% on R/A; Weight 86.18 kg; Height 5 ft. 8 ss in. (172.72 cm); Pain 10/10; 16:00 BP 190 / 103; Pulse 102; Resp 26; Temp 97.4(TE); Pulse Ox 98% ; sv 17:02 BP 162 / 87; Pulse 101 MON; Resp 26; Pulse Ox 87% on R/A; sv 17:59 BP 140 / 82; Pulse 91; Resp 16; Pulse Ox 94% on 5 lpm NC; sv 19:16 BP 150 / 86; Pulse 91; Resp 18; Temp 97.6; Pulse Ox 93% on 4 lpm NC; mg2 15:40 Body Mass Index 28.89 (86.18 kg, 172.72 cm) ss 17:02 Sinus tachycardia with Occasional PVCs sv 17:02 Pt placed on O2 \\T\\ 3L per NC. O2 sat up to 96% sv ED Course: 15:39 Patient arrived in ED. ss 15:40 Patient has correct armband on for positive identification. Bed in low position. Call sv light in reach. Side rails up X2. cardiac monitor on. Pulse ox on. NIBP on. Door closed. Warm blanket given. Head of bed elevated. 15:40 Inserted saline lock: 22 gauge in right wrist, using aseptic technique. Blood collected.sv 15:41 Alin Castro PA is PHCP. cp 15:41 Yonatan Crabtree MD is Attending Physician. cp 15:42 Triage completed. ss 15:42 Arm band placed on right wrist. ss 15:47 Linda Gomez, RN is Primary Nurse. sv 16:14 X-ray(s) taken. sv 16:16 XRAY Chest (1 view) In Process Unspecified. EDMS 16:20 Initial lab(s) drawn, by me, sent to lab. First set of blood cultures drawn by me. sv 16:28 Second set of blood cultures drawn by me. sv 16:33 CT Abd/Pelvis - Without Contrast In Process Unspecified. EDMS 16:[address] sv 17:20 Notified Nurse Practitioner and/or Physician Visual Specialist of a critical lab result(s), sv lactate-2.3. 17:30 Initiated transfer to [facility] per provider request. mt 17:[address] Dr. Reid Quiroz. mt 17:32 Admin approval given by Dominique Vital RN to [facility] ER, Dr. Reid Quiroz is nm the accepting provider. 17:33 transfer approval from receiving facility. sv 17:59 [facility] notified of transport request. mt 19:01 Primary Nurse role handed off by Linda Gomez, LISANDRO sv 19:02 Ed Hightower, LISANDRO is Primary Nurse. mg2 19:02 No provider procedures requiring assistance completed. Patient transferred, IV remains mg2 in place. Administered Medications: 16:03 Drug: ProTONIX 40 mg Route: IVP; Site: right wrist; sv 17:00 Follow up: Response: No adverse reaction sv 16:03 Drug: Zofran (Ondansetron) 4 mg Route: IVP; Site: right wrist; sv 17:00 Follow up: Response: No adverse reaction sv 16:03 Drug: Pepcid 20 mg Route: IVP; Site: right wrist; sv 17:00 Follow up: Response: No adverse reaction sv 16:04 Drug: morphine 4 mg {Note: rass3.} Route: IVP; Site: right wrist; sv 17:00 Follow up: Response: No adverse reaction; Pain is decreased; RASS: Drowsy (-1) sv 16:44 Drug: NS 0.9% 250 ml Route: IV; Rate: bolus; Site: right wrist; sv 17:07 Follow up: Response: No adverse reaction; IV Status: Completed infusion; IV Intake: sv 250ml 16:44 Drug: Phenergan 12.5 mg Route: IVP; Site: right wrist; sv 17:33 Follow up: Response: No adverse reaction; Marked relief of symptoms; Nausea is decreasedsv 17:30 Drug: metroNIDAZOLE 500 mg Volume: 50 ml; Route: IVPB; Infused Over: 30 mins; Site: vg1 right wrist; 18:30 Follow up: Response: No adverse reaction; IV Status: Completed infusion; IV Intake: sv 100ml 17:31 Drug: NS 0.9% 250 ml Route: IV; Rate: bolus; Site: right wrist; vg1 18:30 Follow up: Response: No adverse reaction; IV Status: Completed infusion; IV Intake: sv 250ml 18:30 Drug: Zosyn 3.375 grams Route: IVPB; Infused Over: 60 mins; Site: right wrist; sv 19:50 Follow up: Response: No adverse reaction; IV Status: Completed infusion; IV Intake: mg2 100ml Intake: 17:07 IV: 250ml; Total: 250ml. sv 18:30 IV: 100ml; Total: 350ml. sv 18:30 IV: 250ml; Total: 600ml. sv 19:50 IV: 100ml; Total: 700ml. mg2 Outcome: 17:41 ER care complete, transfer ordered by MD. cp 18:50 Transferred by ground EMS Transfer form completed. X-rays sent w/ patient. Note: sv Report called to Manuel MCMAHON at [facility] 18:50 Condition: stable 18:50 Instructed on the need for transfer. 20:03 Patient left the ED. mg2 Addendum: 05/04/2020 08:56 Addendum: COVID-19 Result: Negative result given to RN to notify pt. Attempted to a a5 contact pt regarding negative COVID-19 swab results. Left voice mail. Signatures: Dispatcher [employer] Linda Bhagat RN RN sv Nayla Rivera, RN RN aa5 Tenisha Brown RN RN Alin Haywood PA PA cp Thompson, Moriah mt Gardose, Michele RN RN mg2 Kenia New, RN RN vg1 Corrections: (The following items were deleted from the chart) 04/30 16:07 15:40 Inserted saline lock: 22 gauge in right hand, using aseptic technique. Blood sv collected. sv 17:05 17:02 BP 162 / 87; Pulse 101bpm; Resp 26bpm; sv sv 17:09 17:02 BP 162 / 87; Pulse 101bpm; Resp 26bpm; Pulse Ox 87% RA; Pt placed on O2 \\T\\ 3L per sv NC. O2 sat up to 96%; sv 17:32 16:00 BP 190 / 103; Pulse 102bpm; Resp 26bpm; Pulse Ox 98%; sv sv 17:59 17:58 Admin approval given by Dominique Vital RN to [facility], Dr. Reid Quiroz is the accepting provider nm 18:17 17:59 [facility] notified of transfer request [facility]
[2020-04-30 20:33] VITALS: BP 150/86; TEMP 97.6; O2SAT 93
== END 2020-04-30 20:03 ==
LOC: ER 15:38
DX: K57.32 Diverticulitis of large intestine without perforation or abscess without bleeding (principal); Z20.828 Contact with and (suspected) exposure to other viral communicable diseases; Z88.8 Allergy status to other drugs, medicaments and biological substances; Z99.2 Dependence on renal dialysis
CPT/HCPCS: 96365; 96367; 96368; 87040 ×2; 85025; 80048; 36415; 86900; 83735; 86850; 85610; 86901; 82947; 80076; 83605; 84484; 83690; 84145; 83880; 87804 ×2; 74176; 71045; 96375; 99285; 96366; U0002; J2550; C9113; J2543; J7050 ×2; J2405